=== PATIENT | female | born 1970 | race Caucasian/White ===

== ENCOUNTER 2018-02-20 02:05 | Outpatient (CLI) | payer OTHER, SELFPAY ==
[2018-02-20 09:05] LABS: Cholesterol 240 mg/dL (50-200); Glucose 92 mg/dL (70-100); HDL Cholesterol 62 mg/dL (40-60); LDL CHOLESTEROL 147 mg/dL (<100); Triglyceride 120 mg/dL (30-150)
== END 2018-02-20 02:25 ==
PROVIDERS: PCP Family Medicine; Visit Provider Nurse Practitioner Family
DX: Z13.220 Encounter for screening for lipoid disorders (principal); Z13.1 Encounter for screening for diabetes mellitus
CPT/HCPCS: 36415; 80061; 82947; 83721

== ENCOUNTER 2019-02-26 00:49 | Outpatient (CLI) | payer OTHER, SELFPAY ==
--- NOTE | 2019-02-26 15:30 | DI.MAMMO_ITS ---
EXAM: MG MAMMO SCREENING CLINICAL HISTORY: screening. TECHNIQUE: Bilateral full field digital CC and MLO mammographic images were obtained with 3D tomosyn thesis and utilizing computer aided detection (CAD). COMPARISON: There are multiple priors with the most recent from 12/20/2017. FINDINGS: Masses/Architectural Distortion: None seen. Microcalcifications: No suspicious pleomorphic-type are seen. IMPRESSION: 1. No significant interval change with no specific features of malignancy noted. 2. Unless there is more urgent need, screening mammography is recommended, as per [employer] guidelines. ACR BI-RAD Category- 1 Negative Breast Density - Category B - Scattered areas of fibroglandular density A negative radiographic report should not delay biopsy if a dominant or clinically suspicious mass is present. Up to ten percent of cancers are not identified on mammography. A negative report may reinforce clinical impression. Adenosis and dense breasts may obscure an underlying neoplasm. False positive reports average 6 to 10%.
== END 2019-02-26 01:09 ==
PROVIDERS: PCP Family Medicine; Visit Provider Nurse Practitioner Family
DX: Z12.31 Encounter for screening mammogram for malignant neoplasm of breast (principal)
CPT/HCPCS: 77063; 77067

== ENCOUNTER 2019-05-06 09:02 | Day surgery (SDC) | payer OTHER, SELFPAY ==
--- NOTE | 2019-05-06 08:29 | W.COLOREPORT ---
Date of service: 05/06/19 Time of Service: 10:38 Colonoscopy Report Date of procedure: 05/06/19 Pre-op diagnosis general: Colon Cancer Screening Post-op diagnosis procedure note: other (Multiple polyps) Procedure: Colonoscopy with polypectomy by cold forceps Surgeon: Lashawn Ivey Anesthesia proc note operative: other (General/ ASA 2/ Vidya Frias, SANTOS) Estimated blood loss (mL): 5 Pathology: other (Sigmoid polyps x5, Descending colon polyp x2, Transverse polyp x1) Complications: None Disposition: same day Indications: The patient is here for Colonoscopy pre-op. She has no family history of colon cancer. She has not had any bowel habit changes however reports chronic constipation. -Discussed colonoscopy bowel prep as well as the procedure. Discussed possible complications of the procedure to include bleeding, pain, perforation, missed small lesion/polyp, sore throat, aspiration and adverse reaction to the medications. Questions were answered to patient?s satisfaction. No guarantees were implied or given. Prep: Miralax/Dulcolax Procedure Start Time: :38 Procedure End Time: 11:06 Retraction Time: 16 minutes Findings: Multiple small sessile polyps Procedure Description: After informed consent was obtained the patient was taken to the procedure room and placed in a left decubitous position. Monitors were applied and a time out was done. The patients name, date of , procedure, allergies to medications and metal in their body was reviewed. The patient was then sedated. Once sedated and comfortable a rectal exam was done. External exam was normal. Internal exam revealed a normal sphincter tone and no palpable masses. The scope was then introduced and retro-flexed. Grade 1 internal hemorrhoids were identified. The scope was then advanced to the cecum without difficulty. Multiple sigmoid polyps were removed as the scope was advanced to the cecum because they were small. The TI and appendiceal orifice were identified. The prep was adequate. The scope was then slowly retracted over 16 minutes back into the rectum. Polyps were removed with cold forceps in the sigmoid colon x5, Descending colon polyp x1, Transverse colon polyp x1, and proximal Descending colon polyp x1. The scope was removed and the patient was woken up and taken back to Same day surgery in stable condition. The patient tolerated the procedure well and there were no immediate complications. Follow up: The patient should follow up in 3-5 years unless they develop changes in bowel habits or other new gastrointestinal complaints.
--- NOTE | 2019-05-06 08:31 | W.PM.DSUDISC ---
Discharge Plan Disposition Patient Disposition: HOME Condition: Good Discharge Details Reason For Visit: Colon Cancer Screening Attending Provider: Lashawn Ivey Primary Care Provider: Dora Elliott Home Meds and New Rx's Prescriptions: Continued melatonin 10 mg capsule 10 mg PO HS PRNRF: 0 estradiol 0.5 mg tablet 0.5 mg PO DAILY Qty: 90 RF: 3 Humira 40 MG/0.8 ML kit 40 mg SQ TWICE A MONTH RF: 0 ibuprofen 200 MG capsule 200 mg PO PRN RF: 0 diphenhydramine HCl [Benadryl] 25 MG capsule 25 mg PO PRN RF: 0 multivitamin [Daily Multi-Vitamin] 1 EACH tablet 1 ea PO DAILY RF: 0 acetaminophen [Tylenol] 325 mg Capsule 650 mg PO ONCE RF: 0 Discontinued polyethylene glycol 3350 17 gram/dose powder 238 g PO ONCE Qty: 238 RF: 0 bisacodyl [Dulcolax (bisacodyl)] 5 mg tablet,delayed release (DR/EC) 5 mg PO ONCE Qty: 4 RF: 0 Discharge Instructions Instructions: Colorectal Polyps (DC) Additional Instructions: Findings: Multiple small polyps Follow up: 3-5 years for your next colonoscopy Please call if you develop: fevers >101.5 Nausea or Vomiting Abdominal pain that is not transient DAY SURGERY UNIT POST ENDOSCOPY INSTRUCTIONS 1. Because there will be medication in your system for the next 24 hours, you may feel a little sleepy. Your coordination will be affected. Therefore: a. Do not drive or operate dangerous equipment for 24 hours. b. Do not drink alcohol beverages for 24 hours (not even beer). c. Plan to go home and rest for the day. 2. Generally there are no restrictions on your activity after a day or so has gone by, but you may feel a bit fatigued for a few days. 3 After you arrive home you may have a light meal and return to a normal diet as you can tolerate it without feeling sick to your stomach. 4. After surgery, you may feel pain or discomfort. This should be only transient, but if it persists please contact your doctor. 5. If there are any questions regarding the findings of your procedure, please feel free to contact your doctor. 6. If you are unable to contact your doctor with a problem, contact the hospital at [phone]. 7. Continue all your regular medications unless directed otherwise. I understand the above instructions and have no questions. Signature of Patient or Responsible Adult Escort Date/Time Name of Responsible Adult Escort Signature of Nurse Date/Time Activity:: Activity as Tolerated Diet:: As Tolerated Discharge Orders Discharge Orders: Discharge Order (Routine); Ordered 05/06/19 Ordered By: Lashawn Ivey DS: Diagnosis Discharge Diagnosis (1) S/P colonoscopy: Status: Acute (2) Colorectal polyps: Status: Acute
[2019-05-06 09:15] VITALS: BP 122/68; PULSE 54; RESP 18; TEMP 36.5; O2SAT 99
[2019-05-06] MEDS: Lactated Ringers 1,000 ML 80 ML IV (09:40)
--- NOTE | 2019-05-06 10:40 | BOWEL_PTH ---
PATIENT: Jessica Amato LOC: [facility] U#:[id number] AGE/SX: 48/F ROOM: RE05/06/[address]: Lashawn Ivey MD : [id number] BED: DIS: 05/06/2019 SPEC #: [id number] RECD: 05/06/19 13:06 STATUS: BIRGIT RE #: [id number] ALEXIA: 05/06/19 10:[address]: Lashawn Ivey DEPT: Surgical Specimen RECD BY: Bianka Petty ENTERED: 05/06/19 13:08 SP TYPE: Bowel OTHR DR: Dora Elliott Tissues: 1 - BIOPSY BOWEL 2 - BIOPSY BOWEL 3 - BIOPSY BOWEL 4 - BIOPSY BOWEL Procedures: GROSS AND MICRO LEVEL 4 Comments: [id number]
[2019-05-06 11:50] VITALS: BP 136/80; PULSE 61; RESP 20; TEMP 36.7; O2SAT 98
== END 2019-05-06 12:30 | disposition home or self-care (01) ==
LOC: SUR 09:02
PROVIDERS: PCP Family Medicine; Visit Provider Surgery
PROC: 0DJD8ZZ Inspection of Lower Intestinal Tract, Via Natural or Artificial Opening Endoscopic (ICD-10-PCS; CPT 45378; principal; 2019-05-06 10:15)
DX: Z12.11 Encounter for screening for malignant neoplasm of colon (principal); D12.4 Benign neoplasm of descending colon; K63.5 Polyp of colon; K21.9 Gastro-esophageal reflux disease without esophagitis; K64.0 First degree hemorrhoids
CPT/HCPCS: 45380; 88305

== ENCOUNTER 2019-05-14 02:33 | Outpatient (CLI) | payer OTHER, SELFPAY ==
[2019-05-14 08:51] LABS: CREATININE 0.72 mg/dL (0.55-1.02)
--- NOTE | 2019-05-14 10:11 | DI.CT_ITS ---
EXAM: CT ABDOMEN PELVIS W CLINICAL HISTORY: ? Ventral hernia, RUQ near midline, K43.9, LUMP ON STOMACH TECHNIQUE: After IV and oral contrast. COMPARISON: No exams were available for comparison FINDINGS: There is a small defect in the midline of the anterior abdominal wall at the level of the inferior m argin of the liver. There is a small amount of fat herniating through the defect. There is a minima l amount of fat in the umbilicus. There is an additional tiny defect with a tiny amount of herniatin g fat seen beneath the level of the umbilicus. The lung bases are clear. The heart size is normal. The liver shows a few tiny hypodensities, likel y cysts. There is no biliary dilatation. The gallbladder, spleen, pancreas, adrenals and kidneys ar e unremarkable. The urinary bladder appears normal. Patient is status post hysterectomy. The appen tonya appears normal. There is a moderate to increased quantity of stool seen throughout the colon. T here are no inflammatory changes. There is no small bowel dilatation. The aorta is normal in diamet er. There is calcification of the iliac arteries with mild reduction in diameter. Degenerative disc changes are seen at L5-S1. IMPRESSION: Two tiny fatty containing hernias above and below the level of the umbilicus.
[2019-05-14] MEDS: Omnipaque 350 MG/ML 100 ML BTL IJ (10:22)
== END 2019-05-14 02:53 ==
PROVIDERS: PCP Family Medicine; Visit Provider Physical Therapy Assistant
DX: K42.9 Umbilical hernia without obstruction or gangrene (principal); R22.2 Localized swelling, mass and lump, trunk
CPT/HCPCS: 74177; 82565; J3490

== ENCOUNTER 2019-06-25 07:40 | Day surgery (SDC) | payer OTHER, SELFPAY ==
[2019-06-25 08:01] VITALS: BP 107/59; PULSE 54; RESP 16; TEMP 36.4; O2SAT 97
[2019-06-25] MEDS: Lactated Ringers 1,000 ML 80 ML IV (08:35)
--- NOTE | 2019-06-25 08:36 | PDOC.DSDIS_ITS ---
Discharge Plan Disposition Patient Disposition: HOME Condition: Good Discharge Details Reason For Visit: Incisional hernia repair Attending Provider: Bridgette Dawkins Primary Care Provider: Dora Elliott Home Meds and New Rx's Prescriptions: New hydrocodone-acetaminophen 5-325 mg Tablet 1 tab PO Q4H PRN (Reason: Pain) Qty: 12 RF: 0 Continued melatonin 10 mg capsule 10 mg PO HS PRNRF: 0 estradiol 0.5 mg tablet 0.5 mg PO DAILY Qty: 90 RF: 3 Humira 40 MG/0.8 ML kit 40 mg SQ TWICE A MONTH RF: 0 ibuprofen 200 MG capsule 200 mg PO PRN RF: 0 diphenhydramine HCl [Benadryl] 25 MG capsule 25 mg PO PRN RF: 0 multivitamin [Daily Multi-Vitamin] 1 EACH tablet 1 ea PO DAILY RF: 0 acetaminophen [Tylenol] 325 mg Capsule 650 mg PO ONCE PRNRF: 0 Discharge Instructions Additional Instructions: The top bandage can be removed tomorrow. The steri strips will usually stick for about a week. When the edges start to curl up, they can be removed. It is okay to shower tomorrow, the water can run over the steri strips Do not swim or soak in a tub for two weeks Call for any concerns including fever, increased pain, vomiting, incision redness or drainage. Do not lift more than 15 pounds for four weeks. Walking and stairs are fine. Do not drive if on narcotic pain meds or if limited by pain. May use Tylenol alternating with ibuprofen for pain control. Ice is also an option. The maximum dose for Tylenol is 4000 mg/day. May use ibuprofen 800 mg every 8 hours as needed. If concerned about constipation, you may use a stool softener or milk of magnesia. Referrals: Bridgette Dawkins MD [ [facility] STAFF PHYSICIAN] - (Return in 10-14 days for a postop visit) Activity:: Do not lift more than 15 pounds for four weeks Remove Dressings/Wound Care:: 24 hours Shower/Bathe:: 24 hours Diet:: As Tolerated Discharge Orders Discharge Orders: Discharge Order (Routine); Ordered 06/25/19 Ordered By: Bridgette Dawkins DS: Diagnosis Discharge Diagnosis (1) Incisional hernia: Status: Acute
[2019-06-25] MEDS: ceFAZolin 2 GM/50 ML BAG IVPB (08:43)
[2019-06-25] MEDS: Bupivacaine 0.25% Pres-Free 30 ML VIAL (09:20)
[2019-06-25 10:05] VITALS: BP 94/57; PULSE 75; RESP 16; TEMP 36.2; O2SAT 93
[2019-06-25] MEDS: HYDROcodone 5/Acetaminophen 325 TAB PO (10:29)
--- NOTE | 2019-06-26 07:17 | ROE_ITS ---
REPORT OF OPERATIVE PROCEDURE DATE OF PROCEDURE June 25, 2019 PREOPERATIVE DIAGNOSIS Incisional Hernia. POSTOPERATIVE DIAGNOSIS Incisional Hernia. PROCEDURE Incisional hernia repair. SURGEON Bridgette Dawkins M.D. ITEM REPAIR MANAGER Annalisa Hagan PA-C ANESTHESIA Local and General. INDICATIONS This is a 48-year-old woman who presents with a tender lump in the epigastric region. The patient's h istory is significant for a laparoscopic Ishmael fundoplication and the lump is located underneath one of her prior incisions. This was visualized on CT. She also was incidentally noted to have a small fat containing umbilical hernia on CT, which is not palpable and not bothersome to the patient, so we have elected not to repair this. PROCEDURE DESCRIPTION The patient was placed supine on the operating table and her abdomen was prepped and draped sterilely . A small upper abdominal midline incision was made after injecting local anesthetic. The subcutaneo us tissue was divided with cautery down to a small piece of preperitoneal fat. This was about the siz e of an almond. This was reduced through a fingertip sized fascial defect at one of the port sites. T his was too small for mesh placement, so the defect was closed with buried 0 Prolene sutures. Three of these were placed good closure. There was good hemostasis. The skin was closed with #4-0 Monocryl subcuticular stitch. She tolerated the procedure well and was stable to recovery.
== END 2019-06-25 11:03 | disposition home or self-care (01) ==
PROVIDERS: PCP Family Medicine; Visit Provider Surgery
PROC: (CPT 49560; principal; 2019-06-25 09:00)
DX: K43.2 Incisional hernia without obstruction or gangrene (principal); K21.9 Gastro-esophageal reflux disease without esophagitis
CPT/HCPCS: 49560; J0690; J1100; J1885; J2250; J2405; J2704

== ENCOUNTER 2021-07-16 18:14 | Outpatient (REF) | payer OTHER, SELFPAY ==
[2021-07-16 18:46] LABS: HCT 39.2 % (36.0-46.0); HGB 12.9 g/dL (11.2-15.7); MCH 31.2 pg (27.0-33.0); MCHC 32.9 % (32.0-36.0); MCV 94.7 fL (80-95); MPV 10.8 fL (8.0-11.0); Platelet Count 289 10^3/uL (130-400); RBC 4.14 10^6/uL (3.93-5.22); RDW 13.1 % (11.7-14.6); RDW-SD 45.7 fL
[2021-07-16 18:59] LABS: Hemoglobin A1C 5.6 % (<5.7)
[2021-07-16 19:06] LABS: ALT 26 U/L (14-59); AST 13 U/L (15-37); Albumin 3.8 g/dL (3.4-5.0); Alkaline Phosphatase 64 U/L (46-116); Anion Gap 8.5 mmol/L (3-11); BUN 15 mg/dL (7-18); Bilirubin, Total 0.3 mg/dL (0.2-1.0); CO2 26.5 mmol/L (21.0-32.0); CREATININE 0.9 mg/dL (0.55-1.02); Calculated LDL 193 mg/dL (<100); Chloride 107 mmol/L (98-107); Cholesterol 292 mg/dL (<200); Glucose 85 mg/dL (74-106); HDL Cholesterol 81 mg/dL (40-60); Potassium 4.1 mmol/L (3.5-5.1); Sodium 142 mmol/L (136-145); TSH (W/Ref FT4) 0.53 uIU/mL (0.36-3.74); Triglyceride 91 mg/dL (<150)
[2021-07-19 09:51] LABS: Ferritin 28 ng/mL (10-291)
[2021-07-19 10:44] LABS: Hepatitis C Ab w Rflx HCV PCR Negative (Negative)
[2021-07-19 12:15] LABS: HIV-1/2 Ag & Ab Screen Negative (Negative)
== END 2021-07-16 18:15 | disposition home or self-care (01) ==
LOC: NCHCN 18:14
PROVIDERS: PCP Family Medicine; Visit Provider Family Medicine
DX: Z00.00 Encounter for general adult medical examination without abnormal findings (principal); E78.5 Hyperlipidemia, unspecified; R53.83 Other fatigue; K62.5 Hemorrhage of anus and rectum; R35.89 Other polyuria; Z11.4 Encounter for screening for human immunodeficiency virus [HIV]; Z11.59 Encounter for screening for other viral diseases
CPT/HCPCS: 80053; 80061; 85027; 86803; 87389; 82728; 83036; 84443

== ENCOUNTER → 2021-09-03 00:21 | Outpatient (CLI) | payer OTHER, SELFPAY ==
--- NOTE | 2021-09-03 06:45 | DI.RAD_ITS ---
Exam(s) RF BARIUM SWALLOW EXAM: RF BARIUM SWALLOW CLINICAL HISTORY: Dysphagia, GERD sxs, s/p Ishmael,r13.10, hiatal hernia TECHNIQUE: 2D and realtime digital imaging was performed. CONTRAST MATERIAL: Thin and thick barium both single and air contrast. Study was performed both sta nding and recumbent.. COMPARISON: No exams were available for comparison FINDINGS: ESOPHAGRAM: The swallowing mechanism is grossly intact. There was no aspiration demonstrated. No Zenker's diver ticulum nor fixed lesions nor strictures. No posterior indentation to suggest presence of an aberran t right subclavian artery nor other vascular sling abnormality. At the GE junction there is no evidence of hiatal hernia in this patient who is apparently at prior N issen fundoplication surgery approximately 4 years ago. Of was not able to elicit a hiatal hernia no r significant reflux. Also no Schatzki ring. No tertiary waves. No prominent reflux demonstrated. IMPRESSION: No obvious abnormality evident on this esophagram study. No evidence of hiatal hernia, given the his tory of prior Ishmael fundoplication. RADIATION DOSE DELIVERED: mouna Mccarthy= mGy
[2021-09-03] MEDS: Barium Sulfate 60% W/V 355 ML BTL PO (09:50)
== END ==
PROVIDERS: PCP Family Medicine; Visit Provider Physical Therapy Assistant
DX: R13.10 Dysphagia, unspecified (principal); K21.9 Gastro-esophageal reflux disease without esophagitis; Z98.890 Other specified postprocedural states
CPT/HCPCS: 74221; J3490

== ENCOUNTER → 2021-10-01 00:18 | Outpatient (CLI) | payer OTHER, SELFPAY ==
--- NOTE | 2021-10-01 15:30 | DI.MAMMO_ITS ---
Exam(s) MAMMO SCREENING EXAM: MAMMO SCREENING CLINICAL HISTORY: SCREENING, Z12.39. TECHNIQUE: Bilateral full field digital CC and MLO mammographic images were obtained with 3D tomosyn thesis and utilizing computer aided detection (CAD). COMPARISON: Prior mammograms were reviewed, the most recent being February 2019. FINDINGS: No significant left breast findings. In the right breast there are few microcalcifications noted which are new but benign appearance. There are no new spiculated masses nor malignant appearing microcalcification groups. There is no significant architectural distortion nor skin thickening-retraction. IMPRESSION: Benign findings. No radiographic evidence of malignancy. BI-RADS Category 2 - Benign Findings Density: Breast density Category C or D implies that the patient has dense breast tissue. Dense breast tissue can make it harder to find cancer on a mammogram. Dense breast tissue is also associated with an incr eased risk of breast cancer. This information about the result of the mammogram report was provided to the patient to raise their awareness. Use this report when you speak with the patient about their risks for breast cancer, which includes their family history. At that time, you may recommend additional screening tests (Ultrasoun d or MRI) as these tests may add significant information. A negative radiographic report should not delay biopsy if a dominant or clinically suspicious mass is present. Up to ten percent of cancers are not identified on mammography. A negative report may reinforce clinical impression. Adenosis and dense breasts may obscure an underlying neoplasm. False positive reports average 6 to 10%. Patient will receive a letter notifying them of these results.
== END ==
PROVIDERS: PCP Family Medicine; Visit Provider Family Medicine
DX: Z12.31 Encounter for screening mammogram for malignant neoplasm of breast (principal); R92.0 Mammographic microcalcification found on diagnostic imaging of breast
CPT/HCPCS: 77063; 77067

== ENCOUNTER 2021-10-06 00:58 | Outpatient (CLI) | payer OTHER, SELFPAY ==
[2021-10-06 09:52] LABS: Source Nasal/Nares
[2021-10-06 14:17] LABS: COVID-19 PCR Negative (Negative)
== END 2021-10-06 00:59 | disposition home or self-care (01) ==
LOC: LBO 00:58
PROVIDERS: PCP Family Medicine; Visit Provider Surgery
DX: Z20.822 Contact with and (suspected) exposure to COVID-19 (principal); Z01.818 Encounter for other preprocedural examination
CPT/HCPCS: 87635

== ENCOUNTER 2021-10-08 13:03 | Day surgery (SDC) | payer OTHER, SELFPAY ==
--- NOTE | 2021-10-07 14:39 | NUR.NOTE ---
X2 voicemails left for patient with arrival time and instructions, unable to reach patient, office made aware. Nursing Note:
--- NOTE | 2021-10-07 16:48 | W.PM.DSUDISC ---
Discharge Plan Disposition Patient Disposition: HOME Condition: Good Discharge Details Reason For Visit: Stomach scope Attending Provider: Ashley Vences Primary Care Provider: Dora Elliott Home Meds and New Rx's Prescriptions: No Action acetaminophen [Tylenol Arthritis Pain] 650 mg tablet extended release 650 mg PO Q12H PRN melatonin 10 mg capsule 10 mg PO HS PRN polyethylene glycol 3350 [Miralax] 17 gram/dose powder 17 g PO DAILY cholecalciferol (vitamin D3) 50 mcg (2,000 unit) capsule 50 mcg PO DAILY Humira 40 MG/0.8 ML kit 40 mg SQ TWICE A MONTH Label Comments: Pt reports not having since 05/18 diphenhydramine HCl [Benadryl] 25 MG capsule 25 mg PO PRN multivitamin [Daily Multi-Vitamin] 1 EACH tablet 1 ea PO DAILY pantoprazole 40 mg tablet,delayed release (DR/EC) 40 mg PO DAILY atorvastatin 40 mg tablet 40 mg PO DAILY Allergy Relief (cetirizine) 10 mg capsule 10 mg PO DAILY PRN clobetasol 0.05 % cream 1 applic topical BID acetaminophen [Tylenol] 325 mg Capsule 650 mg PO ONCE PRN Discharge Instructions Additional Instructions: Post?EGD?Instruction -wrap is intact -bile reflux from intestines into stomach ?You had anesthesia for your EGD/stomach scope today.? For your safety, please do the following for the next twenty-four (24) hours: Do Not operate a motor vehicle (car, truck, motorcycle, etc.) Do Not drink alcoholic beverages or use any recreational drugs for the first 24 hours or while taking pain medications. The medications in your body may have a reaction that can be dangerous. Do Not make any important decisions or sign any important papers ?You have just had a gastroscopy (EGD) or upper GI tract examination. It is important for your smooth recovery that you carefully follow the recommendations below. Do not hesitate to call if any questions should arise about your anesthesia, condition, or care. -Symptoms you may experience during the next 24 hours: ?1. Mild abdominal pain or excessive gas or a bloated feeling which improves with rest, liquids, eating? slightly, and walking as tolerated. 2. Drowsiness and/or forgetfulness because of the medications you were given. ?3. Throat numbness for about 1 hour. 4. A sore throat which you can treat with throat lozenges or by gargling with salt water 4-5 times a day. 5. Redness at the site of your IV which you can treat with warm compresses. ? SPECIAL INSTRUCTIONS: 1. You may resume your previous diet in one hour. We recommend a light meal to start, then progress as tolerated. 2. Restart regular medications in one hour. 3. No aspirin or non-steroidal containing medication for three days. 4. No lifting over 20 pounds or strenuous activity for the first 24 hours after your procedure. After 24 hours there are no restrictions on your activity, but you may feel fatigued for a few days. -Medications: stop asa/NSAID's protonix daily carafate elixir x4 daily. -Continue to follow lifestyle modifications: No alcohol, tobacco products, Aspirin or NSAID's (ibuprofen, Motrin, Naprosyn, aleve, etc).? Try to limit/avoid:? soda pop/any carbonated beverages, caffeine (including tea & chocolate), and acidic foods, (tomatoes, citrus, onions, peppermints) spicy or fried/fatty foods. Do not lie down for 30 minutes after eating, and do not eat 2 hours prior to bedtime. Avoid wearing tight fitting clothing/ belts. Follow up: Dr. Vences in clinic 09/23/21 at 1pm Call the office at [phone] (Office) or [phone] (Hospital), or go to the ER right away if you notice any of the followin. Vomiting blood and /or ?coffee ground? material. ?2. Worsening of abdominal pain or cramping. ?3. Trouble with breathing, cough, and/or fever (temperature above 101.5 F). 4. Increasing pain with swallowing. ?5. Chest pain. 6. Any new symptoms. 7. Worsening of the redness at the IV site Activity:: See above Diet:: See above Discharge Orders Discharge Orders: Discharge Order (Routine); Ordered 10/07/21 Ordered By: Ashley Vences
--- NOTE | 2021-10-07 16:49 | W.PM.ENDDOP ---
Date of service: 10/08/21 Time of Service: 14:00 Endoscopy Report DATE OF PROCEDURE: 10/08/21 PRE-OP DIAGNOSIS: Medication refractory GERD/status post Ishmael POST-OP DIAGNOSIS: other (Bile reflux gastritis) SURGEON: Ashley Vences ANESTHESIA TYPE: General:No Airway PATHOLOGY: other COMPLICATIONS: None DISPOSITION: same day PROCEDURE DESCRIPTION: After informed consent was obtained the patient was take to the procedure room and placed in a supine position. Monitors were applied and a time out was done. The patients name, date of , procedure type, allergies to medications and metal in their body was reviewed. A bite block was placed and the patient was sedated. Once sedated and comfortable the gastroscope was advanced through the oropharynx which was grossly normal into the esophagus. The Olympus scope was then easily passed into the oropharynx and down into the esophagus. There is no esophageal erosions varices diverticula or stricture. Her wrap is intact. Biopsies are taken of the esophagus proximal to the wrap and of the esophagus that is incorporated within the wrap. On entering the stomach, there is noted to be a significant amount of bile within the stomach itself. She has some mild gastritis in a striped pattern radiating out from the antrum. Near the antrum there is a well-circumscribed erythematous region of unknown significance. This is biopsied. Also near the wrap itself, there is also a well-circumscribed area of erythema of an unknown significance. This is biopsied as well. The duodenum appears grossly normal. There is no duodenitis, polyps, masses or ulcer. There is no hiatal hernia. Biopsies are taken. All specimen is retrieved and no bleeding is noted. Patient told procedure well without complication and transferred to same-day surgery in stable condition.
[2021-10-08 13:30] VITALS: BP 125/79; PULSE 55; RESP 17; TEMP 36.8; O2SAT 98
[2021-10-08] MEDS: Lactated Ringers 1,000 ML 80 ML IV (13:35)
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
[2021-10-08 13:51] VITALS: BMI 35.7
--- NOTE | 2021-10-08 14:05 | BOWEL_PTH ---
PATIENT: Jessica Amato LOC: [facility] U#:[id number] AGE/SX: 50/F ROOM: RE10/08/[address]: Ashley Vences : 1970 BED: DIS: 10/08/2021 SPEC #: [id number] RECD: 10/08/21 14:52 STATUS: BIRGIT RE #: [id number] ALEXIA: 10/08/21 14:[address]: Ashley Vences DEPT: Surgical Specimen RECD BY: Racheal Ragsdale ENTERED: 10/08/21 14:56 SP TYPE: Bowel OTHR DR: Dora Elliott Tissues: 1 - BIOPSY BOWEL 2 - STOMACH BIOPSY 3 - STOMACH BIOPSY 4 - STOMACH BIOPSY 5 - STOMACH BIOPSY 6 - ESOPHAGUS BIOPSY Procedures: GROSS AND MICRO LEVEL 4 Comments: [id number]
[2021-10-08 14:20] VITALS: BP 125/79; PULSE 55; RESP 17; TEMP 36.8; O2SAT 98
--- NOTE | 2021-10-08 14:22 | W.ANESPOSTOP ---
Postoperative Evaluation Date, Time and Location Date Performed: 10/08/21 Time Performed: : Patient Location: Day [facility] Unit Vital Signs Most Recent Imported Vital Signs: Most Recent Vital Signs Temp Pulse Resp BP Pulse Ox 36.8 C 55 L 17 125/79 98 10/08/21 13:30 10/08/21 13:30 10/08/21 13:30 10/08/21 13:30 10/08/21 13:30 Most Recent Manually Entered Vital Signs: Adult Blood Pressure: 102/64 Heart Rate: 61 Respirations: 10 Oxygen Saturation (%): 95 Temperature (C): 36.3 C Pain Score (0-10 Scale): 0 Pain Score Most Recent Pain Score: Most Recent Pain Score Pain Level 0 10/08/21 13:30 Assessment Mental Status: Awake (Alert & Oriented to Patient Baseline) Airway and Respiratory Function: Patent airway with normal (patient baseline) respiratory exam Cardiovascular Function: Hemodynamically Stable Hydration Status: Adequately Hydrated Nausea & Vomiting: No Nausea or Vomiting Pain: Pt. Denies Any Pain Peripheral Nerve Block: Patient did not receive a nerve block
[2021-10-08 14:23] VITALS: BP 102/64; PULSE 61; RESP 10; TEMPC 36.3; O2SAT 95
[2021-10-08 14:55] VITALS: BP 114/77; PULSE 49; RESP 17; TEMP 36.1; O2SAT 95
== END 2021-10-08 16:00 | disposition home or self-care (01) ==
PROVIDERS: PCP Family Medicine; Visit Provider Surgery
PROC: 0DJ68ZZ Inspection of Stomach, Via Natural or Artificial Opening Endoscopic (ICD-10-PCS; CPT 43235; principal; 2021-10-08 13:45)
DX: K21.9 Gastro-esophageal reflux disease without esophagitis (principal); F41.8 Other specified anxiety disorders; E78.5 Hyperlipidemia, unspecified; E66.9 Obesity, unspecified; K31.89 Other diseases of stomach and duodenum; K22.89 Other specified disease of esophagus
CPT/HCPCS: 43239; 88305

== ENCOUNTER 2022-07-11 15:56 | Outpatient (REF) | payer OTHER, SELFPAY ==
[2022-07-11 16:02] LABS: HCT 41.6 % (36.0-46.0); HGB 14.1 g/dL (11.2-15.7); MCH 31.8 pg (27.0-33.0); MCHC 33.9 % (32.0-36.0); MCV 94 fL (80-95); MPV 11.2 fL (8.0-11.0); Platelet Count 281 10^3/uL (130-400); RBC 4.44 10^6/uL (3.93-5.22); RDW 12.4 % (11.7-14.6); RDW-SD 42.8 fL; WBC 5.03 10^3/uL (4.4-10.8)
[2022-07-11 16:28] LABS: AST 17 U/L (15-37); Calculated LDL 199 mg/dL (<100); Cholesterol 289 mg/dL (<200); Ferritin 66 ng/mL (8-252); HDL Cholesterol 68 mg/dL (40-60); Triglyceride 112 mg/dL (<150)
== END 2022-07-11 15:57 | disposition home or self-care (01) ==
LOC: NCHCN 15:56
PROVIDERS: PCP Family Medicine; Visit Provider Family Medicine
DX: D50.9 Iron deficiency anemia, unspecified (principal); E78.5 Hyperlipidemia, unspecified; Z79.899 Other long term (current) drug therapy
CPT/HCPCS: 80061; 85027; 82728; 84450

== ENCOUNTER 2022-11-26 12:24 | Emergency (ER) | payer OTHER, SELFPAY ==
[2022-11-26 12:28] VITALS: BP 114/75; PULSE 84; RESP 16; TEMP 36.5; O2SAT 96
[2022-11-26 12:49] LABS: Bilirubin Large (Negative); Blood Small (Negative); Clarity Clear (Clear); Glucose Negative (Negative); Ketones >=160 mg/dL (Negative); Leukocyte Esterase Negative (Negative); Nitrite Negative (Negative); Specific Gravity 1.025 (1.005-1.025); pH 5.5 (5-8)
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
[2022-11-26 13:04] LABS: Bacteria Rare HPF (Negative); C & S Indicated? No; Casts Negative LPF (Negative); Crystals Negative HPF (Negative); Epithelial Cells Moderate HPF (Negative); Mucus Moderate (Negative); WBC 0-2 HPF (0-5)
[2022-11-26 13:06] LABS: Abs Immature Grans 0.01 10^3/uL (0.0-0.06); Absolute Basophil Count 0.04 10^3/uL (0.0-0.2); Absolute Monocyte Count 0.41 10^3/uL (0.1-0.8); Absolute Neutrophil Count 0.99 10^3/uL (1.2-6.7); Basophils % 1.2; HCT 41.4 % (36.0-46.0); HGB 14.4 g/dL (11.2-15.7); Immature Grans % 0.3; Lymphocytes % 55.4; MCH 31.6 pg (27.0-33.0); MCHC 34.8 % (32.0-36.0); MCV 91 fL (80-95); MPV 11.7 fL (8.0-11.0); Monocytes % 12.6; Neutrophils % 30.5; RBC 4.56 10^6/uL (3.93-5.22); RDW 12.3 % (11.7-14.6); RDW-SD 41.1 fL; WBC 3.25 10^3/uL (4.4-10.8)
[2022-11-26 13:14] LABS: Lipase 45 U/L (16-77)
[2022-11-26 13:18] LABS: ALT 58 U/L (14-59); AST 46 U/L (15-37); Albumin 3.7 g/dL (3.4-5.0); Alkaline Phosphatase 64 U/L (46-116); Anion Gap 13.3 mmol/L (3-11); BUN 15 mg/dL (7-18); Bilirubin, Total 0.4 mg/dL (0.2-1.0); CO2 21.7 mmol/L (21.0-32.0); Calcium 8.5 mg/dL (8.5-10.1); Chloride 104 mmol/L (98-107); Estimated GFR 66.95 (mL/min/1.73m2); Glucose 88 mg/dL (74-106); Magnesium 1.8 mg/dL (1.8-2.4); Potassium 3.5 mmol/L (3.5-5.1); Sodium 139 mmol/L (136-145); Total Protein 7.5 g/dL (6.4-8.2)
--- NOTE | 2022-11-26 13:30 | DI.CT_ITS ---
Exam(s) CT ABDOMEN PELVIS W EXAM: CT ABDOMEN PELVIS W CLINICAL HISTORY: Left side abdominal pain, fever TECHNIQUE: Imaging Protocol: Axial computed tomography images with coronal and sagittal reformatted images were created and reviewed CONTRAST MATERIAL: Intravenous: Omnipaque 350 Contrast volume:100 mL Oral: No COMPARISON: CT CT ABDOMEN PELVIS W from 05/14/2019 FINDINGS: ABDOMEN: Lung Bases: Normal where visualized. Liver: Normal density. There are tiny hypodensities seen in the liver which are too small for further characterization but likely reflect small cysts. No follow-up is recommended. Portal, Superior Mesenteric, and Splenic Veins: Unremarkable. Gallbladder and Biliary Tract: No radiodense calculus or dilation. Pancreas: Normal density, no abnormal calcifications or inflammatory process. Spleen: Normal. Adrenals: No masses seen. Kidneys: Normal size, contour and axis. No radiodense stones or obstructive uropathy. No masses seen. Abdominal Aorta: Abdominal portion non-dilated. Atherosclerosis. Bowel: There is no bowel wall thickening seen. There is no evidence of bowel obstruction. The left colon is largely collapsed limiting evaluation. Appendix is unremarkable. Peritoneal Cavity: No ascites, collection or mesenteric inflammatory response. No free air. Lymph Nodes: Within normal limits. Bones: Within normal limits for the patient's age. Soft Tissues: Small fat containing umbilical hernia. PELVIS: Bladder: Symmetric distention, no gross wall thickening. Reproductive Organs: Status post hysterectomy. Lymph Nodes: Within normal limits. Bones: Within normal limits for the patient's age. IMPRESSION: 1. No definite acute abnormality. 2. If there is continued concern for bowel inflammation/infection, a repeat examination may be obtain ed. 3. No abscess or free air. RADIATION DOSE DELIVERED: 1,086.81mGy.cm Total DLP DATA REPOSITORY: All CT scans at this facility are submitted to the National Radiology Data Registry (NRDR) Dose Index Registry (DIR) with the [employer] ([employer]). RADIATION OPTIMIZATION: All CT scans at this facility use at least one of these dose optimization te chniques: automated exposure control; mA and/or kV adjustment per patient size (includes targeted exa ms where dose is matched to clinical indication); or iterative reconstruction.
[2022-11-26] MEDS: Normal Saline 1,000 ML 1000 ML IV (13:47)
[2022-11-26 14:02] LABS: Platelet Count 94 10^3/uL (130-400)
[2022-11-26 14:03] LABS: Diff Comment Agrees w/ Instrument; RBC Morphology Normal
[2022-11-26] MEDS: DOXYCYCLINE 100 MG in Normal Saline 100 ML IVPB (14:15)
[2022-11-26] MEDS: Omnipaque 350 MG/ML 100 ML BTL IJ (14:36)
[2022-11-26] MEDS: Normal Saline - Diluent 50 ML VIAL IJ (14:36)
--- NOTE | 2022-11-26 15:13 | DI.VRAD_ITS ---
PROCEDURE INFORMATION: Exam: CT Abdomen And Pelvis With Contrast Exam date and time: 11/26/2022 2:37 PM Age: 52 years old Clinical indication: Other: Left side abdominal pain, fever TECHNIQUE: Imaging protocol: Computed tomography of the abdomen and pelvis with contrast. Radiation optimization: All CT scans at this facility use at least one of these dose optimization techniques: automated exposure control; mA and/or kV adjustment per patient size (includes targeted exams where dose is matched to clinical indication); or iterative reconstruction. Contrast material: OMNIPAQUE 350; Contrast volume: 100 ml; Contrast route: INTRAVENOUS (IV); COMPARISON: CT ABDOMEN PELVIS W 14/05/2019 10:11 FINDINGS: Diaphragm: Small hiatal hernia. Liver: Stable subcentimeter hypodensities in the liver consistent with hepatic cysts. Gallbladder and bile ducts: Normal. No calcified stones. No ductal dilation. Pancreas: Normal. No ductal dilation. Spleen: Surgical clips in the region of the splenic hilum. The spleen is unremarkable. Adrenal glands: Normal. No mass. Kidneys and ureters: Normal. No hydronephrosis. Stomach and bowel: Contracted fluid-filled stomach. Normal caliber small bowel. Scattered diverticuli with minimal infiltration of the pericolonic fat in the left lower quadrant may represent early diverticulitis. Appendix: No evidence of appendicitis. Intraperitoneal space: Unremarkable. No free air. No significant fluid collection. Vasculature: Atherosclerotic disease. Lymph nodes: Scattered inguinal lymph nodes. Urinary bladder: Contracted urinary bladder. Reproductive: Hysterectomy. Bones/joints: Decreased bone mineralization. Degenerative changes of the spine. Soft tissues: Umbilical hernia. IMPRESSION: 1. Diverticulosis with minimal infiltration of pericolonic fat in the left lower quadrant may represent early diverticulitis. 2. Additional findings as discussed above. Dictated and Authenticated by: Sasha Haro MD. Ordering:REINIER Goodman MD
[2022-11-26 15:36] VITALS: TEMP 36.8
[2022-11-26] MEDS: Ondansetron O.D.T. 4 MG TABEF, 3 TABS/BTL PO (15:57)
[2022-11-26 15:58] VITALS: BP 118/82; PULSE 82; TEMP 36.8; O2SAT 97
[2022-11-28 11:11] LABS: Lyme Ab w Rflx to Lyme Confirm Negative (Negative)
[2022-11-29 19:31] LABS: B. miyamotoi PCR Negative (Negative); Babesia divergens/MO-1 Negative (Negative); Babesia duncani Negative (Negative); Babesia microti Negative (Negative); Ehrlichia chaffeensis Negative (Negative); Ehrlichia ewingii/canis Negative (Negative); Ehrlichia muris eauclairensis Negative (Negative)
[2022-11-29 19:44] LABS: Anaplasma phagocytophilum Positive (Negative)
== END 2022-11-26 15:59 | disposition home or self-care (01) ==
PROVIDERS: Emergency Provider Registered Nurse Emergency; PCP Family Medicine
DX: K57.92 Diverticulitis of intestine, part unspecified, without perforation or abscess without bleeding; W57.XXXA Bitten or stung by nonvenomous insect and other nonvenomous arthropods, initial encounter; R50.9 Fever, unspecified; S40.869A Insect bite (nonvenomous) of unspecified upper arm, initial encounter
CPT/HCPCS: 36415; 80053; 83690; 87798; 96365; 99285; 74177; 81003; 81015; 83735; 85025; 86618; 99284; J3490

== ENCOUNTER 2022-11-30 02:44 | Outpatient (CLI) | payer OTHER, SELFPAY ==
[2022-12-02 13:52] LABS: TB Interpretation Negative (Negative)
== END 2022-11-30 02:45 | disposition home or self-care (01) ==
LOC: LBO 02:44
PROVIDERS: PCP Family Medicine; Visit Provider Dermatology
DX: Z79.899 Other long term (current) drug therapy (principal); L40.0 Psoriasis vulgaris
CPT/HCPCS: 36415; 86480

== ENCOUNTER 2023-09-20 08:33 | Outpatient (REF) | payer OTHER, SELFPAY ==
[2023-09-20 15:31] LABS: AST 12 U/L (15-37)
[2023-09-21 19:50] LABS: Calculated LDL 181 mg/dL (<100); Cholesterol 273 mg/dL (<200); HDL Cholesterol 72 mg/dL (40-60); Triglyceride 102 mg/dL (<150)
== END 2023-09-20 08:34 | disposition home or self-care (01) ==
LOC: NCHCN 08:33
PROVIDERS: PCP Family Medicine; Visit Provider Family Medicine
DX: Z51.81 Encounter for therapeutic drug level monitoring (principal); Z13.6 Encounter for screening for cardiovascular disorders
CPT/HCPCS: 80061; 84450

== ENCOUNTER → 2023-10-10 00:59 | Outpatient (CLI) | payer OTHER, SELFPAY ==
--- NOTE | 2023-10-10 | DI.MAMMO_ITS ---
Exam(s) MAMMO SCREENING EXAM: MAMMO SCREENING CLINICAL HISTORY: Z12.31 Screening. TECHNIQUE: Bilateral full field digital CC and MLO mammographic images were obtained with 3D tomosyn thesis and utilizing computer aided detection (CAD). COMPARISON: Prior mammograms were reviewed. Most recent mammogram was September 2021. FINDINGS: No new left breast findings. Further increase in benign-appearing microcalcifications in the right breast noted. There are no new spiculated masses nor new malignant appearing microcalcification groups. There is no significant architectural distortion nor skin thickening-retraction. IMPRESSION: Benign findings. No radiographic evidence of malignancy. BI-RADS Category 2 - Benign Findings Breast Density - Category A - Almost entirely fatty Breast density Category C or D implies that the patient has dense breast tissue. Dense breast tissue can make it harder to find cancer on a mammogram. Dense breast tissue is also associated with an incr eased risk of breast cancer. This information about the result of the mammogram report was provided to the patient to raise their awareness. Use this report when you speak with the patient about their risks for breast cancer, which includes their family history. At that time, you may recommend additional screening tests (Ultrasoun d or MRI) as these tests may add significant information. A negative radiographic report should not delay biopsy if a dominant or clinically suspicious mass is present. Up to ten percent of cancers are not identified on mammography. A negative report may reinforce clinical impression. Adenosis and dense breasts may obscure an underlying neoplasm. False positive reports average 6 to 10%. Patient will receive a letter notifying them of these results.
== END ==
PROVIDERS: PCP Family Medicine; Visit Provider Family Medicine
DX: Z12.31 Encounter for screening mammogram for malignant neoplasm of breast (principal)
CPT/HCPCS: 77063; 77067

== ENCOUNTER 2024-02-23 02:17 | Outpatient (CLI) | payer OTHER, SELFPAY ==
--- OUTSIDE RECORDS SUMMARY | 2024-02-23 02:20 | XMS_ITS | Encounter Summary ---
Author Organization [facility] [place] [address] Care Team Providers Care Bag Worker Name Role Phone Dora Elliott MD Primary Care Provider [phone] Reason for Visit * Reason Comments Urinary Incontinence * Consultation - Closed Specialty Diagnoses / Procedures Referred By Contac t Referred To Contact Urogynecology / Obstetrics and Gynecology Diagnoses URINARY STRESS INCONTIENCE DUE TO EROSION OF VAGINAL MESH Ubaldo Lees MD [address] [place] [address],[address] [address] [facility] Of [facility] Specialist [address] [place] [address] Referral ID Status Reason Start Date Expiration Date Visits Re quested Visits Authorized [id number] Closed 10/12/2020 10/12/2021 1 1 Encounter Details Date Type Department Care Team (Late st Contact Info) Description 10/21/2020 9:00 AM EDT Office Visit Obstetrics [place] [address] Flower Jiménez MD [facility] [place] [address] Urinary incontinence, unspecified type Social History Tobacco Use Types Packs/Day Years Used Date Smoking Tobacco: Former Cigarettes Q uit: 10/22/2015 Smokeless Tobacco: Never Alcohol Use Standard Drinks/Week Comments Yes 0 (1 standard drink = 0.6 oz pur e alcohol) rare Sex and Gender Information Value Date Recorded Sex Assigned at Not on file Gender Identity Not on file Sexual Orientation Not on file documented as of this encounter Last Filed Vital Signs Vital Sign Reading Time Taken Comments Blood Pressure 136/80 10/21/2020 8:47 AM EDT Pulse 57 10/21/2020 8:47 AM EDT Temperature 36.4 ??C (97.6 ??F) 10/21/2020 8:47 AM ED T Respiratory Rate 12 10/21/2020 8:47 AM EDT Oxygen Saturation 98% 10/21/2020 8:47 AM EDT Inhaled Oxygen Concentration - - Weight 85.7 kg (189 lb) 10/21/2020 8:47 AM EDT Height 156.8 cm (5' 1.75) 10/21/2020 8:47 AM ED T Body Mass Index 34.85 10/21/2020 8:47 AM EDT documented in this encounter Progress Notes * Flower Jiménez MD - 10/21/2020 9:00 AM EDT Female Pelvic Medicine and Reconstructive Surgery @ [facility] Patient Name: Jessica Amato Patient Primary Care Provider: Dora Elliott MD Referring provider: Ubaldo Lees Patient Active Problem List Diagnosis Code ??? Psoriasis L40.9 ??? GERD (gastroesophageal reflux disease) K21.9 Chief Complaint: Dysuria, History of Present Illness: Ms. Amato is a 49 y.o. old para 2 woman, seen at the kind request of Ubaldo Lees. She presents for evaluation and assessment of concern for recent dysuria and pelvic pain that has been ongoing for 5 weeks with negative urine test. She saw primary care provider and then follow up with Dr. Lees. She has used estradiol cream for 3 weeks. With such severe ongoing pain, Dr. Lees referred her here for her symptoms. In the morning, she is fine. The pain starts after about 2 weeks being at work, and starts with a sensation of pulling followed with constant suprapubic pelvic pain that crampy and feels like a UTI, with substantial dysuria and sensation of urinating razor blader. By the end of the day, the pain isreally severe, and it is hard to sleep. Improves by the morning. Pyridium helped for the 2 days she took it. She also has substantial urgency and frequency, only when having pain. She can notice a small vaginal bulge, like something is falling down, which is painful. She has a history of UTI with , needing prophylaxis during . She has mild stress urinary incontinence with cough/sneeze, that is a bit better than it was. Ho multiple procedures for ui, including two different mesh products as mus and bladder neck sling using koi fascia. She had pevlic pain, dyspareunia na dpalpable mesh, with excision of exposed vaginal mesh 04/2016. PSH: ho hiatal hernia with slipped Ishmael; 11/13/2007 LAVH RSO for pelvic pain [facility] another midurethra sling, timing uncertain Lap LSO 05/18/10 for left ovarian cyst and pelvic pain 05/09/2012 Pubovaginal sling with autologous rectus fascia 05/12/16 vaginal mesh exposure iwth excision 05/12/16; PMH: obesity, pain in right hip, psoriasis on humira, GERD, chronic constipation, menopause, HLD, leukopenia, h/o colonic polyps, abnormal ammmo, BEAU Previous urinary incontinence/prolapse treatments (Medical/Behavioral/Surgical): 3 surgeries for stress urinary incontinence. Goals for this visit 1. To have it removed, if its causing the pain. Urinary tract history Patient denies history of recurrent urinary tract infection. Patient denies history of pyelonephritis. Patient denies history of urinary tract abnormality. Patient denies history of nephrolithiasis. Patient denies history of hematuria. Bladder Function Urinary incontinence: Yes, with sneeze/cough and with urgency No. episodes: Several per day Pad use (per day): 1-3+ Pad type: liner Daytime voids: Q30 min Nocturia: 3+ times; has always gotten up once; worse in last 5-6 weeks. Concern for FORTINO: +snoring Previous urinary incontinence treatment (Medical/Behavioral/Surgical): 3 prior surgeries for stressurinary incontinence ICIQ-UI Short Form How often do you leak urine? Never 0 About once a week or less often 1 2-3 times a week 2 About once a day 3 4 Several times a day 4 All the time 5 How much urine do you usually leak? None 0 1 A small amount 1 A moderate amount 2 A large amount 3 Overall, how much does leaking interfere with your everyday life? 2 (0 not at all, 10 a great deal) ICIQ Sum the scores: 7 When does urine leak? (Check all that apply) Never - Urine does not leak y Leaks before you can get to the toilet y Leaks when you cough or sneeze Leaks when you are asleep Leaks when you are physically active/exercising Leaks when you have finished urinating or are dressed Leaks for no obvious reason Leaks all the time Bladder irritants: Fluid intake: Water Caffeine intake: Coffee in AM x 2; rarely at dinner Artificial sweeteners: no Cigarette smoking (packs, time, if quit when): no, quit 5 years ago Alcohol: occasionalll Storage symptoms q30min Urinary frequency 3+ Nocturia y Stress urinary incontinence - leakage with exertion, cough/sneeze y Urge urinary incontinence - leakage preceded immediately by urge to void Noctural enuresis - NOT IN ASSOCIATION WITH URGE Continuous urinary leakage Other: (e,g. giggle, intercourse-related) Bladder sensation Normal - aware of filling and increased sensation up to desire to void y Increased - feels an early and persistent need to void Reduced - aware of filling but NOT definite desire to void Absent - NO sensation of filling or need to void Non-specific - No specific bladder symptoms during filling or void Voiding symptoms None Slow stream Spraying Intermittent stream - stop/start on > 1 occasion during void Straining - muscular effort to initiate, maintain OR improve stream Terminal dribble - prolonged final part of void y Feeling of incomplete emptying Pelvic Organ Prolapse (POP) Do you personally see or feel a vaginal bulge? unsure What precipitates prolapse or symptoms of prolapse? no Previous treatment for POP (physical therapy, pessary, surgery)?: No; prior LAVH. Bowel Function Bowel concerns: Prior constipation, now on stool softener Number of bowel movements (day/week): Daily Fecal incontinence (yes/no): no Number of fecal incontinent episodes (day/week): N/a Defecatory Dysfunction: Symptom Presence Symptom Presence NONE Incomplete Emptying Straining Infrequent stools (<3 week) Splinting Abdominal discomfort Loose stools Defecatory urgency Hard stools previously Other Sexual Function Active?: Yes; longstanding; not much recently due to discomfort Pain with intercourse?: Yes If yes, insertional/Deep? Both Desire to retain sexual function? Yes MEDICAL HISTORY No past medical history on file. Past Surgical History: Procedure Laterality Date ??? PRO LAP, ESOPHAGUS, OTHER PROC N/A 03/20/2018 LAPAROSCOPIC REVISION OF ISHMAEL FUNDOPLASTY (WRVU *) performed by Erik Herndon MD at [facility] MAIN OR ??? PRO UPPER GI ENDOSCOPY, DIAGNOSTIC N/A 03/20/2018 ENDOSCOPY, UPPER GI, DIAGNOSTIC, WITH OR WITHOUT SPECIMENS performed by Erik Herndon MD at [facility] MAIN OR OB History Para Term AB Living 3 2 2 0 1 2 SAB TAB Ectopic Multiple Live Births 1 0 0 0 0 # Outcome Date GA Lbr Larry/2nd Weight Sex Delivery Anes PTL Lv 3 SAB 2 Term 1 Term Gynecologic History: LMP: No LMP recorded. Patient has had a hysterectomy. Menopause: yes, ablation age 37, and status post hyst Hormone replacement: just started vaginal estrogen; prior systemic therapy Outpatient Medications Marked as Taking for the 10/21/20 encounter (Office Visit) with Flower Jiménez MD Medication Sig Dispense Refill ??? acetaminophen (Tylenol) 325 mg Tablet Take 650 mg by mouth every 4 hours as needed for Pain. ??? docusate sodium (Colace) 50 mg Capsule Take by mouth nightly. ??? estradioL (ESTRACE) 0.01 % (0.1 mg/gram) Cream Place 2 g vaginally nightly. ??? pediatric multivitamin Tablet, Chewable Take 2 tablets by mouth daily. ??? pantoprazole EC (Protonix) 40 mg Tablet, Delayed Release (E.C.) Take 40 mg by mouth daily. ??? HUMIRA PEN 40 mg/0.8 mL Pen Injector Kit INJECT ONE PEN SUBCUTANEOUSLY EVERY TWO WEEKS. REFRIGERATE. 2 kit 3 No Known Allergies Social History Socioeconomic History ??? Marital status: Spouse name: Not on file ??? Number of children: Not on file ??? Years of education: Not on file ??? Highest education level: Not on file Occupational History ??? Not on file Tobacco Use ??? Smoking status: Former Smoker Types: Cigarettes Quit date: 10/22/2015 Years since quittin.0 ??? Smokeless tobacco: Never Used Vaping Use ??? Vaping Use: Never used Substance and Sexual Activity ??? Alcohol use: Not on file ??? Drug use: Not on file ??? Sexual activity: Not on file Other Topics Concern ??? Not on file Social History Narrative ??? Not on file Social Determinants of Health Financial Resource Strain: ??? Difficulty of Paying Living Expenses: Food Insecurity: ??? Worried About Running Out of Food in the Last Year: ??? Ran Out of Food in the Last Year: Transportation Needs: ??? Lack of Transportation (Medical): ??? Lack of Transportation (Non-Medical): Physical Activity: ??? Days of Exercise per Week: ??? Minutes of Exercise per Session: No family history on file. ROS: Review of all other systems negative except for those mentioned above or indicated below: (blank indicates negative) System Symptom Presence Constitutional Weight loss y Weight gain Eyes History of glaucoma ENT/Mouth Mouth sores/Dry mouth Cardiovascular Chest pain Leg swelling Respiratory Wheezing SOB GI Nausea/vomiting Constipation Abdominal pain H/o diverticular disease Skin/Breast Breast masses Rash/ulcer Musculoskeletal Muscle weakness Trouble Walking Neurological Dizziness/falling Numbness Psychiatric Depression Anxiety Endocrine Abnormal thirst Menopause y Hot flashes y Hematologic Frequent bruising History of blood transfusions Blood clots (DVT / PE) Prior problems w/ anesthesia Outside medical records reviewed: yes Data reviewed (images/urodynamic studies): n/a OBJECTIVE: BP 136/80 Pulse 57 Temp 36.4 ??C (97.6 ??F) (Temporal) Resp 12 Ht 156.8 cm (5' 1.75) Wt 85.7 kg (189 lb) SpO2 98% BMI 34.85 kg/m?? To further delineate patient's urinary symptoms, a urine dip test and postvoid residual via the [employer] bladder scanner were obtained. After the patient voided, 20 mL was measured as a postvoid residual indicating normal emptying. Exam was performed with a showcase trimmer: Mirna. General: normal appearing female, pleasant mood, normal speech Skin: skin of abdomen/pelvis normal Respiratory: normal work of breathing Neuro: no paraspinous tenderness; saddle sensory function (S2-4) intact in the pelvic area to touch Cardiac: no lower extremity edema Gastrointestinal: no palpable masses/organomegaly, soft/nontender, no appreciable hernia Musculoskeletal: levator ani resting tone: 3/5, levator ani contraction: 1/5, Pelvic floor muscle tenderness: mild levator ani muscle, bilateral no coccygeus muscle, bilaterally mild obturator internus, left-sided Pelvic: Cough stress test (empty supine): Negative with 110mL External Genitalia: Vulva, [address] [address]'s and Bartholin glands normal, urethra without tenderness or mass Vagina: Tissue pale, scant rugation Atrophic epithelium (yes/no)?: yes Discharge?: trace Cervix: saad Bimanual (uterus/adnexa): vaginal cuff well healed, left anterior vaginal fornix, 3-4cm proximal tohymen, with transverse mesh exposure, with 1.5-2cm wide x 1mm high strip of exposure, and 2-3 cyst-like areas at left aspect; tenderness with palpation of the area. Can just feel mesh deep to intact,normal vaginal epithelium at midurethra as expected for normal midurethral sling. Mild tenderness to palpation at left vaginal cuff. Rectovaginal: not indicated POP Q Measurements: Aa -2 Ba -2 C -6 GH 2,2 PB 2.5 TVL 8 Ap -2 Bp -2 D N/a Results for orders placed or performed in visit on 10/21/20 POCT urine dipstick Result Value Ref Range POC Sp Danese 1.015 1.002 - 1.030 POC pH, UA 7 5.0 - 8.5 POC Leuk, UA Neg. Negative - Negative POC Nitrite, UA Neg. Negative - Negative POC Protein, UA Neg. Negative - Negative mg/dL POC Glucose, UA Norm. Normal - Normal mg/dL POC Ketone, UA Neg. Negative - Negative POC Urobil, UA Norm. 0.2 - 1.0 mg/dL POC Bili, UA Neg. Negative - Negative POC Blood, UA Neg. Negative - Negative gordon/uL Bladder Scanner Result Value Ref Range Bladder Scan (mL) 20 mL Simple cystometrics: PVR: 30cc S1: 30cc S2: 50cc S3: 80cc Capacity: 110cc +++ DO seen no BEAU demonstrated Impression: Ms. Amato is a .49 y.o. woman with: ?? Vaginal mesh exposure with vaginal pain ?? Overactive bladder / urinary urge incontinence ?? No evidence of stress urinary incontinence on sCMG; patient report of stress urinary incontinence on occasion We discussed that there is palpable exposed vaginal mesh at left side of mid- vagina, at location that is not usual for midurethral sling; I woud expect that possibly the first midurethral sling was placed proximally. The tissue is not consistent with the fascial sling she had, and a normal midurethral sling is palpable at midurethra. We discussed that surgical removal of the vaginal portion of the mesh is necessary to improve her symptoms; she has tried a brief time of vaginal estrogen, but thesize of the exposure and prior exposure with mesh resection make vaginal estrogen less likely to resolve her symptoms. I have reviewed the prior operative report for mesh excision, and suspect that aportion of the currently exposed mesh was excised and covered over. We discussed that there is a chance of bladder or urethral mesh exposure contributing to her recent bladder pain and recommended cystoscopy prior to final planning. Recommendations: Based on the patient's expressed goals for management I have recommended the following: ?? Schedule office cystoscopy to rule out bladder involvement of mesh ?? Start methenamine 1g BID on an ongoing basis. Stop if not helping pain. ?? Take pyridium (Azo) up three times a day, up to 4 days a week, for pain. ?? OK to use Tylenol and ibuprofen if needed. ?? Plan mesh resection, ideally vaginal portion only; possible laparoscopic RTC for cystoscopy I spent 58 minutes with the patient. Flower Jiménez MD Division of Female Pelvic Medicine/Reconstructive Surgery CC: MD Ubaldo Kerr documented in this encounter Plan of Treatment Upcoming Encounters Date Type Department Care Team (Late st Contact Info) Description 01/02/2025 3:30 PM EDT Office Visit Dermatology at [place] [address] [place] [id number] Jaquan Syed MD [address], [place] [address] documented as of this encounter Procedures Procedure Name Priority Date/Time Associated Diagnosis Comments HC URINE CULTURE Routine 10/21/2020 9:00 AM EDT Urinary incontinence, unspecified type BLADDER SCANNER Routine 10/21/2020 Urinary incontinence, unspecified type POCT URINE DIPSTICK Routine 10/21/2020 Urinary incontinence, unspecified type documented in this encounter Results * Urine culture Clean Catch Urine (10/21/2020 9:00 AM EDT) Pathologist [facility] Urine Culture No growth (Less than 1,000 cfu/ml). [facility] Clean Catch Urine 10/21/2020 9:00 AM EDT 10/21/2020 12:27 PM EDT Narrative Resulting Agency Comment Spec In Lab Flower Jiménez MD MICROBIOLOGY - GENER AL ORDERABLES [facility] [place] [id number] * Bladder Scanner (10/21/2020) Pathologist [facility] Bladder Scan (mL) 20 mL Flower Jiménez MD URO PROC W/O RFL ORD ERABLES * POCT urine dipstick (10/21/2020) Pathologist [facility] POC Sp Danese 1.015 1.002 - 1.030 POC pH, UA 7 5.0 - 8.5 POC Leuk, UA Neg. Negative - Negative POC Nitrite, UA Neg. Negative - Negative POC Protein, UA Neg. Negative - Negative mg/dL POC Glucose, UA Norm. Normal - Normal mg/dL POC Ketone, UA Neg. Negative - Negative POC Urobil, UA Norm. 0.2 - 1.0 mg/dL POC Bili, UA Neg. Negative - Negative POC Blood, UA Neg. Negative - Negative gordon/uL Flower Jiménez MD POINT OF CARE TEST O RDERABLES documented in this encounter Visit Diagnoses Diagnosis Urinary incontinence, unspecified type documented in this encounter Care Teams Bag Worker Relationship Specialty Start Date End Date Dora Elliott MD [address] [place] [address] PCP - General Family Medicine 08/11/20 documented as of this encounter
--- OUTSIDE RECORDS SUMMARY | 2024-02-23 02:20 | XMS_ITS | Encounter Summary ---
Author Organization [facility] [place] [address] Care Team Providers Care Head Of Maintenance Name Role Phone Dora Elliott MD Primary Care Provider [phone] Encounter Details Date Type Department Care Team (Latest Contact Info) Description 01/01/2024 Travel Social History Tobacco Use Types Packs/Day Years [...] on file documented as of this encounter Plan of Treatment Upcoming Encounters Date Type Department Care Team (Late st Contact Info) Description 01/02/2025 3:30 PM EDT Office Visit Dermatology at [address] [place] [phone] Jaquan Syed MD [address] [facility], [place] [address] documented as of this encounter Visit Diagnoses Not on filedocumented in this encounter Care Teams Head Of Maintenance Relationship Specialty Start Date End Date Dora Elliott MD [facility] [address] [facility] [facility] [address] [place] [address] PCP - General Family Medicine 08/11/20 documented as of this encounter
--- OUTSIDE RECORDS SUMMARY | 2024-02-23 02:20 | XMS_ITS | Encounter Summary ---
[place] [address] Care Team Providers Care Cyanide Furnace Operator Name Role Phone Dora Elliott MD Primary Care Provider [phone] Encounter Details Date Type Department Care Team (Late Contact Info) Description 10/24/2023 Telephone Dermatology at [address] [address] Magnolia Daily LPN Social History Tobacco Use Types Packs/Day Years [...] on file documented as of this encounter Miscellaneous Notes * Telephone Encounter - Magnolia Daily LPN - 10/24/2023 4:32 PM EDT 10/24/23 Received paperwork from [employer] coverage for Humira Pen has been approved with no co pay from 10/20/23 thru 10/18/2024. Pharmacy has attempted to contact patient without return call. The medication can not be shipped until patient contacts pharmacy for delivery at [phone]. Nurse left message with above information on her home phone number. documented in this encounter Plan of Treatment Upcoming Encounters Date Type Department Care Team (Late st Contact Info) Description 01/02/2025 3:30 PM EDT Office Visit Dermatology at [place] [address] [place] [address] Jaquan Syed MD [address], [place] [address] documented as of this encounter Visit Diagnoses Not on filedocumented in this encounter Care Teams Cyanide Furnace Operator Relationship Specialty Start Date End Date Dora Elliott MD [address] [place] [address] PCP - General Family Medicine 08/11/20 documented as of this encounter
--- OUTSIDE RECORDS SUMMARY | 2024-02-23 02:20 | XMS_ITS | Encounter Summary ---
Author Organization [facility] [place] [address] Care Team Providers Care Business Practices Supervisor Name Role Phone Dora Elliott MD Primary Care Provider [phone] Reason for Visit * Auth/Cert Specialty Diagnoses / Procedures Referred By Contac t Referred To Contact Diagnoses Vaginal pain Exposure of implanted vaginal mesh Vaginal mesh exposure, vaginal pain Procedures PRO REVISION VAGINAL GRAFT, VAG APPROACH REVISION PROSTHETIC GRAFT\W-W\O REMOVAL VAGINAL APPROACH (WRVU 7.82) Referral ID Status Reason Start Date Expiration Date Visits Re quested Visits Authorized [id number] 1 1 Encounter Details Date Type Department Care Team (Late st Contact Info) Description 11/24/2020 7:28 AM EDT Anesthesia [place] [address] Lupe Marcial MD [facility] [place] [address] Anesthesia Record Procedure Summary Procedure Name Responsible Anesthesiologist Anesthesia Start Time Anesthesia Stop Time REVISION PROSTHETIC GRAFT\W-W\O REMOVAL VAGINAL APPROACH (WRVU 7.82) (Pelvis) Lupe Marcial MD 11/24/20 0728 11/24/20 0956 Events Date Time Event Comment 11/24/2020 0711 0728 AN Verify 0728 Start 0728 An Start Data 0729 Anesthesia Ready 0955 Recovery or ICU Handoff Deya ent care was transferred to the destination unit staff after review of the patient's medical history, current anesthetic/surgical status and plan, according to the Provider Handoff Checklist. 0956 Stop Meds Name Total Midazolam 1 mg fentaNYL 100 mcg Propofol INF 1,156.95 mg ceFAZolin (Ancef) 2 g in dextrose 5% 100 mL infusion 2 g HYDROmorphone 0.8 mg ketorolac (Toradol) (30 mg/mL) injection 15 mg * Agents Name O2 Air N2O * Blood No blood administrations on file. Lines, Drains, and Airways Type Details Placement Removal Incision 03/20/18; 1139; abdo men; laparoscopic punctures (specify); trocars (x6); 01/24/22 (LDA cleanup utility RA#[id number]); 1715 (LDA cleanup utility RA#[id number]) 03/20/18 1139 by Bebeto Velázquez RN 01/24/22 1715 by Christiano Nickerson (RETIRED) Peripheral IV Line - Single Lumen 11/24/20; 0630; cephalic vein (lateral side of arm), left; [id number] catheter system; Anatomical Landmarks; 20 gauge; Eriberto RN; intradermal injection, distraction, tolerated well, appears comfortable; 0; 11/24/20; 1054 11/24/20 0630 by Mary Wei RN 11/24/20 1054 by Ayo Fernandez RN Incision 11/24/20; 0804; vagi na; 01/24/22 (LDA cleanup utility RA#[id number]); 1715 (LDA cleanup utility RA#[id number]) 11/24/20 0804 by Shannen Pina RN 01/24/22 1715 by Christiano Nickerson documented in this encounter Social History Tobacco Use Types Packs/Day Years [...] on file documented as of this encounter OR Notes * Anesthesia Postprocedure Evaluation - Kamran Platt MD - 11/24/2020 9:20 AM EDT Department of Anesthesiology Post-procedure Note Patient: Jessica Amato Procedure Summary Date: 11/24/20 Room / Location: [address] MAIN OR Anesthesia Start: 727 Anesthesia Stop: Procedures: REVISION PROSTHETIC GRAFT\W-W\O REMOVAL VAGINAL APPROACH (WRVU 7.82) (N/A Pelvis) CYSTO, CYSTOURETHROSCOPY, DIAGNOSTIC (WRVU 2.23) (N/A Bladder) Diagnosis: (Vaginal mesh exposure, vaginal pain, dysuria) Surgeons: Flower Jiménez MD Responsible Provider: Lupe Marcial MD Anesthesia Type: MAC ASA Status: 2 All Anesthesia Providers: Anesthesiologist: Lupe Marcial MD Quilting Machine Operator: Kamran Platt MD Vitals Value Taken Time BP 119/76 11/24/20 0916 Temp Pulse Resp SpO2 97 % 11/24/20 0919 Pain Level Vitals shown include unvalidated device data. Patient Location: PACU/[facility] Level of Consciousness: Awake and Alert Pain Management: Satisfactory Analgesia PONV: None Cardiovascular Status: At Baseline and Hemodynamically Stable Respiratory Status: Supplemental O2 (NC or FM) Postoperative Fluid Status: Intravascular EUvolemia Possible Anesthetic Complications: NONE apparent at time of evaluation Final Primary Anesthesia Type: MAC (The anesthetic type performed was the same as planned.) Comments: Kamran Platt MD * Anesthesia Preprocedure Evaluation - Kamran Platt MD - 11/23/2020 4:09 PM EDT Pre-Anesthesia Evaluation for: Jessica Amato a 50 y.o. female. Procedure(s): REVISION PROSTHETIC GRAFT\W-W\O REMOVAL VAGINAL APPROACH (WRVU 7.82) Patient Active Problem List Diagnosis ??? GERD (gastroesophageal reflux disease) ??? Psoriasis Past Medical History: Diagnosis Date ??? Constipation ??? GERD (gastroesophageal reflux disease) ??? Hip pain right ??? History of colonic polyps last 2019, polyps removed, return in 7 years ??? HLD (hyperlipidemia) ??? Leukopenia ??? Psoriasis Past Surgical History: Procedure Laterality Date ??? GASTRIC FUNDOPLICATION 2008 [facility] ??? HERNIA REPAIR 2018 epigastric hernia, repaired with revision Kalyn ??? HYSTERECTOMY 10/2007 LAVH & RSO for pelvic pain ??? INCONTINENCE SURGERY 11/18/2008 TOT with mesh; Haroldo Naqvi MA ??? INCONTINENCE SURGERY 08/24/2006 Midurethral sling, Haroldo Naqvi MA; with D&C & endometrial ablation ??? PRO LAP, ESOPHAGUS, OTHER PROC N/A 03/20/2018 LAPAROSCOPIC REVISION OF KALYN FUNDOPLASTY (WRVU *) performed by Erik Herndon MD at [facility] MAIN OR ??? PRO UPPER GI ENDOSCOPY, DIAGNOSTIC N/A 03/20/2018 ENDOSCOPY, UPPER GI, DIAGNOSTIC, WITH OR WITHOUT SPECIMENS performed by Erik Herndon MD at [facility] MAIN OR ??? PUBOVAGINAL SLING 05/09/2012 autologous rectus fascia; Dr. Castro, [facility]. ??? REMOVAL OF VAGINAL MESH 05/12/2016 revision of exposed vaginal mesh ??? SALPINGO-OOPHORECTOMY 05/18/2010 LSO for pelvic pain Social History Tobacco Use ??? Smoking status: Former Smoker Types: Cigarettes Quit date: 10/22/2015 Years since quittin.0 ??? Smokeless tobacco: Never Used Substance Use Topics ??? Alcohol use: Yes Comment: rare Social History Substance and Sexual Activity Drug Use Not Currently No Known Allergies Medications: MAR and/or home medications have been reviewed. Physical Exam: Preprocedure Vitals Current as of 11/23/20 1609 No BP, pulse, respiration, SpO2, or temperature recorded. Height: Weight: 87.3 kg (192 lb 6.4 oz) (11/04/20) BMI: IBW: Airway Assessment: Mallampati: II TM distance: >3 FB Neck ROM: full Cardiovascular Assessment: Rhythm: regular Rate: normal Pulmonary Assessment: unlabored breathing Dental Assessment: Misc Assessment: Last Filed Perioperative Cognitive Screening None Anesthesia Plan: ASA 2 MAC, with a(n) intravenous induction Jessica Amato is a 50 y.o. female (BMI 35.48) with a hx significant for obesity, hyperlipidemia, GERD (protonix 40mg qd), and mixed urinary incontinence presenting for vaginal mesh excision and cystoscopy with Dr. Jiménez. NPO adequate. Activity prior to surgery: METS>4. Meds: No current facility-administered medications for this encounter. ??? methenamine (HIPREX) 1 gram Tablet ??? cholecalciferol, Vitamin D3, (cholecalciferol, Vitamin D3,) 50 mcg (2,000 unit) Capsule ??? acetaminophen (Tylenol) 325 mg Tablet ??? docusate sodium (Colace) 50 mg Capsule ??? pediatric multivitamin Tablet, Chewable ??? pantoprazole EC (Protonix) 40 mg Tablet, Delayed Release (E.C.) ??? estradioL (ESTRACE) 0.01 % (0.1 mg/gram) Cream ??? HUMIRA PEN 40 mg/0.8 mL Pen Injector Kit Allergies No Known Allergies Anesthesia Hx: *Pt denies any complications from anesthesia and any Fhx of complications with anesthesia. Previously tolerated anesthesia 2018, easy mask, grade 1 view w/ Palacio 2 EKG: None on file ECHO: None on file Labs: No results for input(s): WBC, HGB, HCT, PLATELET in the last 7068 hours. No results for input(s): NA, K, CL, CO2, BUN, CREATININE in the last 7068 hours. No results for input(s): AST, ALT, ALKPHOS, BILITOT, BILIDIR in the last 7068 hours. No results for input(s): PT, INR, PTT in the last 168 hours. No results found for: ABORH Plan is for MAC with IV induction, standard ASA monitors, and adequate IV access. ETT as backup. Informed Consent: Anesthetic plan and risks discussed with patient. Use of blood products discussed with patient who. Plan discussed with attending. Anesthesia Screening documented in this encounter Plan of Treatment Upcoming Encounters Date Type Department Care Team (Late st Contact Info) Description 01/02/2025 3:30 PM EDT Office Visit Dermatology at [place] [address] [place] [address] Jaquan Syed MD [address], [address] [place] [address] documented as of this encounter Visit Diagnoses Not on filedocumented in this encounter Administered Medications Inactive Administered Medications - up to 3 most recent administrations Medication Order MAR Action Action Date Dose Rate Site ceFAZolin (Ancef) 2 g in dextrose 5% 100 mL infusion 2 g, Intravenous, ONCE, 1 dose, On Mon11/24/20 at 0645, Administer over 30 Minutes, Tooth Cutter Contact Wheel to OR Infuse over 30 minutes., Day of Surgery (Day of Procedure), Indication for (Active or Suspected): Prophylaxis Given 11/24/2020 7:35 AM EDT 2 g fentaNYL (pf) (50 mcg/mL) multi-dose injection Intravenous, PRN, Starting on Mon11/24/20 at 0729, Until Mon11/24/20 at 0957, Anesthesia Intra-op, Routine Given 11/24/2020 7:29 AM EDT 100 mcg HYDROmorphone (Dilaudid) (2 mg/mL) multi-dose injection solution Intravenous, PRN, Starting on Mon11/24/20 at 0750, Until Mon11/24/20 at 0957, Anesthesia Intra-op, Routine Given 11/24/2020 8:35 AM EDT 0.2 mg Given 11/24/2020 8:24 AM EDT 0.2 mg Given 11/24/2020 8:22 AM EDT 0.2 mg ketorolac (Toradol) (30 mg/mL) injection Intravenous, PRN, Starting on Mon11/24/20 at 0907, Until Mon11/24/20 at 0957, Anesthesia Intra-op, Routine Given 11/24/2020 9:07 AM EDT 15 mg midazolam (pf) (Versed) (1 mg/mL) multi-dose injection Intravenous, PRN, Starting on Mon11/24/20 at 0724, Until Mon11/24/20 at 09, Anesthesia Intra-op, Routine Given 11/24/2020 7:24 AM EDT 1 mg propofoL (Diprivan) infusion Intravenous, CONTINUOUS PRN, Starting on Mon11/24/20 at 0728, Until Mon11/24/20 at 0957, Anesthesia Intra-op, Routine Rate/Dose Change 11/24/2020 8:22 AM EDT 150 mcg/kg/min 77.13 mL/hr New Bag 11/24/2020 7:28 AM EDT 125 mcg/kg/min 64.275 mL /hr documented in this encounter Care Teams Business Practices Supervisor Relationship Specialty Start Date End Date Dora Elliott MD [address] [facility] [address] [place] [address] PCP - General Family Medicine 08/11/20 documented as of this encounter
--- OUTSIDE RECORDS SUMMARY | 2024-02-23 02:20 | XMS_ITS | Encounter Summary ---
[place] [address] Care Team Providers Care Muskrat Trapper Name Role Phone Dora Elliott MD Primary Care Provider [phone] Reason for Visit * Reason Comments Prior Authorization Humira Pen 40mg/0.8m L PNKT Encounter Details Date Type Department Care Team (Late st Contact Info) Description 11/23/2021 Specialty [place] [address] Kevin Arita, RECYCLING PROGRAM MANAGER Social History Tobacco Use Types Packs/Day Years [...] on file documented as of this encounter Progress Notes * Kevin Arita - 11/23/2021 10:18 AM EDT [facility], Medication Prior Authorization Submission Patient: Jessica Amato Patient : 1970 Patient Address: [address] [place] [phone] (home) Medication Name: HUMIRA PEN 40 MG/0.8 ML SUBCUTANEOUS KIT Medication ID: Subscriber Insurance: Subscriber Insurance Comment: [employer] Fax: Physician: ELIAN HAWKINS Physician Comment: Sent Via: Fax Tubbs: Ref/Case/PA#: Medication Strength Frequency Requested: Humira Pen 40mg/0.8mL PNKT. Inject the contents of one pen(40mg) SQ every 14 days. Qty/Day Supply: 07/26 New Start: Insurance Change Diagnosis & ICD-10 Code: Psoriasis L40.9 Patient Notified: Yes Submission Notes: None Kevin Arita 11/23/21 10:21 AM * Kevin Arita - 11/23/2021 10:18 AM EDT [facility], Prior Authorization Denial Medication Name: HUMIRA PEN 40 MG/0.8 ML SUBCUTANEOUS KIT Medication ID: Case/Reference # : Denial Summary: INS REP CALLED STATING THIS MED IS NOT COVERED BY PLAN SO PA WILL NOT GO THROUGH. SHE SAID THAT PT SHOULD BE ELIGIBLE FOR MAP AND IF PT WOULD LIKE THEY CAN RECEIVE 1 TIME COURTESY FILL VIA [facility] ([employer] [employer] PLAN IS CONTRACTED WITH) . REP WILL SPEAK TO PT AND SEE WHAT THEY WOULD LIKE TO DO AND LET US KNOW IF WE NEED TO PEND TO [facility] Patient Notified of Denial: Yes Additional Information from insurance carrier. Please see below: [id number] Spoke with Violet at Dr. Hawkins's office. She will work with patient to apply for MAP. For any questions relating to this denial please reach out directly to your section's specialty pharmacist, or the specialty pharmacy team at [facility] Kevin Arita 12/08/21 7:43 AM documented in this encounter Plan of Treatment Upcoming Encounters Date Type Department Care Team (Late st Contact Info) Description 01/02/2025 3:30 PM EDT Office Visit Dermatology at [place] [address] [place] [address] Elian Hawkins MD [address], [place] [address] documented as of this encounter Visit Diagnoses Not on filedocumented in this encounter Care Teams Muskrat Trapper Relationship Specialty Start Date End Date Dora Elliott MD [facility] [address] [place] [address] PCP - General Family Medicine 08/11/20 documented as of this encounter
--- OUTSIDE RECORDS SUMMARY | 2024-02-23 02:20 | XMS_ITS | Encounter Summary ---
Author Organization [facility] [place] [address] Care Team Providers Care School Cook Name Role Phone Dora Elliott MD Primary Care Provider [phone] Encounter Details Date Type Department Care Team (Late Contact Info) Description 02/21/2023 Refill Dermatology at [address] [address] Jaquan Syed MD [address] [place] [phone] Social History Tobacco Use Types Packs/Day Years [...] Encounters Date Type Department Care Team (Late Contact Info) Description 01/02/2025 3:30 PM EDT Office Visit Dermatology at [address] [address] Jaquan Syed MD [address] [place] [phone] documented as of this encounter Visit Diagnoses Not on filedocumented in this encounter Care Teams School Cook Relationship Specialty Start Date End Date Dora Elliott MD [address] [place] [address] PCP - General Family Medicine 08/11/20 documented as of this encounter
--- OUTSIDE RECORDS SUMMARY | 2024-02-23 02:20 | XMS_ITS | Encounter Summary ---
Author Organization [facility] [place] [address] Care Team Providers Care Sausage Stringer Name Role Phone Dora Elliott MD Primary Care Provider [phone] Reason for Visit * Reason Comments Prior Authorization Humira 40mg/0.8ml PN KT Encounter Details Date Type Department Care Team (Late st Contact Info) Description 02/17/2023 Specialty [place] [address] Snehal Perla, KNITTER WIRE MESH Social History Tobacco Use Types Packs/Day Years [...] as of this encounter Progress Notes * Snehal Perla - 02/17/2023 10:13 AM EDT [facility], Medication Prior Authorization Submission Patient: Jessica Amato Patient : 1970 Patient Address: [address] [place] [phone] (home) Medication Name: HUMIRA PEN 40 MG/0.8 ML SUBCUTANEOUS KIT Medication ID: [id number] Subscriber Insurance: HESIODO Subscriber Insurance Comment: Fax: Physician: ELIAN HAWKINS Physician Comment: Sent Via: [facility] Tubbs: [id number] Ref/Case/PA#: Medication Strength Frequency Requested: Humira 40mg/0.8ml, INJECT THE CONTENTS OF ONE PEN (40 MG) SUBCUTANEOUSLY ONCE EVERY 14 DAYS Qty/Day Supply: 07/26 New Start: Renewal Diagnosis & ICD-10 Code: Psoriasis L40.9 Patient Notified: No Submission Notes: None Snehal Perla 02/17/23 10:34 AM * Snehal Perla - 02/17/2023 10:13 AM EDT [facility], Prior Authorization Approval Medication Name: HUMIRA PEN 40 MG/0.8 ML SUBCUTANEOUS KIT Medication ID: [id number] Approval Dates: 02/17/2023 to 08/17/2023 Insurance requirements/notes: - Insurance mandates to be filled with [facility] Other Notes: None Case/Reference #: [id number]. Approval notification Received via: Fax Copay: Copay assistance: Copay Notes: Insurance mandated Pharmacy: Unknown Fillable at [facility]: No Patient Notified: Yes Pharmacy staff will be reaching out to the patient to inform them of their medication[facility]. If applicable, a pharmacist will speak with the patient to offer our specialty pharmacy services and to arrange delivery of their medication. Snehal Perla 02/20/23 3:26 PM documented in this encounter Plan of Treatment Upcoming Encounters Date Type Department Care Team ([facility]) Description 01/02/2025 3:30 PM EDT Office Visit Dermatology at [place] [address] [place] [address] Elian Hawkins MD [address] [place] [address] documented as of this encounter Visit Diagnoses Not on filedocumented in this encounter Care Teams Sausage Stringer Relationship Specialty Start Date End Date Dora Elliott MD [facility] [address] [place] [address] PCP - General Family Medicine 08/11/20 documented as of this encounter
--- OUTSIDE RECORDS SUMMARY | 2024-02-23 02:20 | XMS_ITS | Encounter Summary ---
[facility] [place] [address] Care Team Providers Care Sap Solutions Architect Name Role Phone oDra Elliott MD Primary Care Provider [phone] Reason for Visit * Reason Comments Medication Refill Encounter Details Date Type Department Care Team (Late Contact Info) Description 04/17/2022 Refill Dermatology at [address] [address] Jaquan Syed MD [address] [place] [address], [place], [place] [id number] Social History Tobacco Use Types Packs/Day Years [...] 3:30 PM EDT Office Visit Dermatology at [address] [address] Jaquan Syed MD [address] [place] [phone] documented as of this encounter Visit Diagnoses Not on filedocumented in this encounter Care Teams Sap Solutions Architect Relationship Specialty Start Date End Date Dora Elliott MD [address] [place] [address] PCP - General Family Medicine 08/11/20 documented as of this encounter
--- OUTSIDE RECORDS SUMMARY | 2024-02-23 02:20 | XMS_ITS | Encounter Summary ---
Author Organization [facility] Address [facility] [place] [address] Care Team Providers Care Generator Assembler Name Role Phone Dora Elliott MD Primary Care Provider [phone] Encounter Details Date Type Department Care Team (Late st Contact Info) Description 2020 10:00 AM EDT Office Visit Obstetrics [place] [id number] Flower Jiménez MD [facility] [place] [address] Exposure of implanted urethral mesh, subsequent encounter Social History Tobacco Use Types Packs/Day [...] Sign Reading Time Taken Comments Blood Pressure 139/87 2020 10:29 AM EDT Pulse 54 2020 10:29 AM EDT Temperature 36.4 ??C (97.6 ??F) 2020 10:29 AM E DT Respiratory Rate 20 2020 10:29 AM EDT Oxygen Saturation 97% 2020 10:29 AM EDT Inhaled Oxygen Concentration - - Weight 87.3 kg (192 lb 6.4 oz) 2020 10:29 AM EDT Height - - Body Mass Index 35.48 10/21/2020 8:47 AM EDT documented in this encounter Patient Instructions * Patient Instructions* Flower Jiménez MD - 2020 10:00 AM EDT ?? Restart vaginal estrogen: use a kidney-pino sized amount at the vaginal opening and just inside.Use this every night for 2 weeks, then change to an ongoing use two nights per week. ?? We will call to schedule vaginal mesh excision and cystoscopy. ?? For your ongoing urinary incontinence, review the information below. == Overactive bladder ? Overactive bladder is urinary urgency, frequency caused by spasms of the bladder. It can cause urine leakage, known as urge incontinence. ? Our first treatment approach is a range of home-based therapies that have been shown to be effective in reducing the number of voids (and leaks) per day. ? Start with the treatments listed below, and we will schedule a follow up telephone visit to provide support for you and answer any questions. ? Pelvic floor physical therapy is also an option that can be very helpful. Home treatment options ? Fluid management ?? Avoid bladder irritants (caffeine, artificial sweeteners, alcohol, tobacco, carbonation, spicy/acidic foods & drinks) ?? Decrease fluid intake at night or before a long drive/meeting to reduce voiding; instead, drink more at other times of day to stay well hydrated. ?? Normal fluid intake should be 32-64 oz (1/2 to 1 gallon). ? Evidence-based home therapy for overactive bladder: ?? 1) Practice Kegel exercises - see below ?? 2) Practice Urge suppression strategies - see below ?? 3) Timed voiding ?? Set an alarm, and go try to empty your bladder every ___ minutes, whether you feel an urge or not. (Choose a time you KNOW you can wait without urgency or leaking, for instance, 30 or 60 min). ?? Do this every day for a week (daytime only), or until it becomes easy, and you are not having urgency or leakage. ?? If you do have an urge before it is time to void, use the Urge suppression strategies you have been practicing. ?? If you find that you still do have urgency/leakage, then you should set a shorter time between voids and start over. ?? 4) Bladder retraining - This can reestablish your brain's control over your bladder. Over several weeks to months, be strict with scheduling times to urinate. Gradually, you can increase the time between voids. ?? After your first week of timed voiding, then gradually increase the time between voids, by 10-15minutes. Every time your alarm goes off at this new time, go empty your bladder. When this becomes easy (approximately a week), increase the time again. ?? In this way you can gradually increase your comfortable time between voids. ?? Emptying your bladder every 2-4 hours is considered normal. More details 1) Kegel exercises Pelvic floor muscle strengthening Helpful instructions for doing Kegel exercises Recommended routine for Kegel exercises: ??? Start by pulling and holding a pelvic muscle squeeze for 3 seconds then relax for an equal amount of time 3 seconds. ??? Do this for 10 repetitions 3 times a day ??? Increase your contraction hold by 1 second each week until you are devika for a 10-second squeeze. ??? It is so important that you rest and breathe between contractions. When you start, do the exercises while lying down. As you get stronger, doing exercise sets to sitting and standing. ??? To make it easier to remember to do the exercises, make a habit of doing them when at the same time as some other routine activities, such as brushing your teeth, washing the dishes, sitting at ared light in your car, or watching a commercial on television. Kegel exercises are frequently discussed and childbirth classes are written about a magazine articles. Unfortunately, because pelvic muscles are hidden from view, it is difficult to know if you are doing them correctly. Some tips I can help you find the right muscles include: ??? Imagine you are going to pass gas, then, squeeze the muscles that would prevent that gas from escaping from your rectum. Exercising the muscles around the rectum will also strengthen those aroundthe vagina and under the bladder. ??? Use a hand mirror to look at your vaginal opening in the perineum (the muscle wall between the vagina and rectum). You should see the perineum lift up when you contracture pelvic muscles. While lying or sitting, place 1 finger inside your vagina. Squeeze as if you are trying to stop urine from coming out. You should feel your finger lifted and squeezed towards her head if you are correctly devika your pelvic muscles ??? Do not hold your breath while exercising ??? Remember not to tighten your stomach and back muscles or squeeze your legs together. They should be relaxed as you isolate and contract just your pelvic muscles. ??? You do not have to do this alone! If you are not sure that you are doing the exercises correctly, let us know and we can give you a referral for a pelvic floor physical therapy evaluation. I feltpelvic floor physical therapist is like a professional athletes coach to help you learn to use your pelvic floor muscles the best you can. They also can evaluate your back and abdominal strength, your gait and your posture. All of these affect how your pelvic muscles work. 2) Urge suppression strategies - Freeze and Squeeze If you have trouble reaching the bathroom before you start losing urine, we recommend trying this technique. When you get the urge to urinate: ?? Stop and stay still, sit down if you can ?? Squeeze your pelvic floor muscles quickly 5-10 times; repeat as needed. ?? Relax the res tof your body and take a deep breath ?? Concentrate on suppressing the urge ?? Distract yourself to get your mind on something else. ?? Wait until the urge subsides, then walk to the bathroom at a normal pace. ?? Don't ignore the message - once it subsided, then walk to the bathroom to empty. documented in this encounter Progress Notes * Corey James DO - 2020 10:00 AM EDT Cystourethroscopy Procedure Note Indications/Diagnosis: Urethral pain and vaginal mesh exposure Anesthesia: 2% Xylocaine jelly, intraurethral. Procedure Details The risks, benefits, complications, treatment options, and expected outcomes were discussed with the patient. The patient concurred with the proposed plan, giving informed consent. Prior to the procedure, time out protocol was followed with identification of the patient by name, date of . The planned procedure was confirmed. Cystoscopy was performed today under local anesthesia, using sterile technique. The patient was placed in the dorsal lithotomy position, prepped with Betadine, and draped in the usual sterile fashion. 2% Xylocaine jelly was inserted intraurethrally with a sterile cotton swab. A rigid cystoscope wasused to inspect both the urethra and bladder. Findings: Urethra: normal, without strictures Bladder: mucosa normal; no trabeculations present; no foreign bodies, stones or polyps Ureteral orifice(s): were seen bilaterally and in normal position with efflux of clear urine. Specimens: None Complications: None, patient tolerated the procedure well. Prophylaxis: No indication for prophylaxis against urinary tract infection, but the patient was counseled on the small risk of UTI. Condition: stable Pelvic Exam: Bilateral levator spasm and tenderness. Left urethral sulcus and bladder neck with band of mesh as previously described and 1cm knuckle of tissue associated with tenderness on exam Cystoscopy and exam were performed under the supervision of Dr. Jiménez, attending Urogynecologist. Corey James DO * Flower Jiménez MD - 2020 10:00 AM EDT Female Pelvic Medicine and Reconstructive Surgery Patient Active Problem List Diagnosis Code ??? Psoriasis L40.9 ??? GERD (gastroesophageal reflux disease) K21.9 ID/PRIOR EVALUATION: Jessica Amato is a 50 y.o. year-old with history of mixed urinary incontinence, status post TOTx 2(2006 & 2008) and autologous rectus fascia sling 2011, with ongoing mixed urinary incontinence and vaginal pain. At new patient visit there was evidence of mesh exposure on exam. Plan from last visit: ?? Schedule office cystoscopy to rule out [...] portion only; possible laparoscopic RTC for cystoscopy SUBJECTIVE: If she is not very active, the vaginal/bladder pain is not present. When she starts to move or be active, it is painful. 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 The pain starts with a pulling sensation on the left side in lower abdomen. When she urinates, she continues to have the sensation of razor blades in the urethra. She has tried the Azo, which seems to help a little bit. She has not picked up the methenamine; pharmacy didn't have it. Prior to her mesh excision in 2016 she had a pulling sensation and some vaginal spotting of blood; mesh excision resolved these symptoms. The leakage is not that bad, she just deals with it. If she has to void, it is urgent and she has to go right away or she will leak. She also definitely has leakage with cough and sneeze/activity. The stress urinary incontinence seems to occur more frequently, because she does a lot of preemptive voiding. She wears a pantyliner all the time, and has to change a couple of times a day. She voids 1-2 times per hour. Nocturia 3x/ night, despite trying to reduce fluid intake in the evening. +snoring. Her top priority is to address the pain she is having; it is very difficult to work because of the constant pain. Later we can address the urinary incontinence. She is just trying to deal with the stress urinary incontinence, and is afaid to have further surgery OBJECTIVE: Vital signs from cystoscopy visit reviewed. Remainder of counseling completed by phone. ASSESSMENT: Jessica Amato is a 50 y.o. year old woman with: ?? Stress urinary incontinence status post TOT x 2 (2006, 2008) and rectus fascia sling 2011. Regarding the ongoing urinary incontinence, we discussed that her urinary leakage has two differentcauses, called urge and stress incontinence, and that together they are referred to as mixed incontinence. With two different causes, they are treated differently, though there is some overlap in treatments. We discussed that there are several options for approach Goal remove vaginal portion of the exposed mesh, while not disrupting the remaining midurethral sling and fascial sling. PLAN: ?? Restart vaginal estrogen: use a kidney-pino sized amount at the vaginal opening and just inside.Use this every night for 2 weeks, then change to an ongoing use two nights per week. ?? Start the methenamine 1g twice daily to see if it reduces bladder pain. ?? Use Azo (pyridium) as needed to see if it helps bladder pain ?? We will call to schedule vaginal mesh excision and cystoscopy. Plan provided in writing to the patient. I spent 35 minutes with the patient. RTC for preoperative visit Flower Jiménez MD Female Pelvic Medicine and Reconstructive Surgery documented in this encounter Plan of Treatment Upcoming Encounters Date Type Department Care Team (Late st Contact Info) Description 01/02/2025 3:30 PM EDT Office Visit Dermatology at [place] [address] [place] [address] Jaquan Syed MD [address], [place] [address] documented as of this encounter Visit Diagnoses Diagnosis Exposure of implanted urethral mesh, subsequent encounter documented in this encounter Care Teams Generator Assembler Relationship Specialty Start Date End Date Dora Elliott MD [facility] [address] [place] [address] PCP - General Family Medicine 08/11/20 documented as of this encounter
--- OUTSIDE RECORDS SUMMARY | 2024-02-23 02:20 | XMS_ITS | Encounter Summary ---
Author Organization Formerly [facility] [address] Care Team Providers Care Senior Sas Developer Name Role Phone Dora Elliott MD Primary Care Provider [phone] Reason for Visit * Auth/Cert Specialty Diagnoses / Procedures Referred By Contac t Referred To Contact Diagnoses Vaginal pain Exposure of implanted vaginal mesh Vaginal mesh exposure, vaginal pain Procedures PRO REVISION VAGINAL GRAFT, VAG APPROACH REVISION PROSTHETIC GRAFT\W-W\O REMOVAL VAGINAL APPROACH (WRVU 7.82) Referral ID Status Reason Start Date Expiration Date Visits Re quested Visits Authorized [id number] 1 1 Encounter Details Date Type Department Care Team (Late st Contact Info) Description 11/24/2020 7:30 AM EDT - 11/24/2020 9:28 AM EDT Surgery [place] [address] Flower Jiménez MD [facility] [place] [address] REVISION PROSTHETIC GRAFT\W-W\O REMOVAL VAGINAL APPROACH (WRVU 7.82) Social History Tobacco Use Types Packs/Day Years [...] Sign Reading Time Taken Comments Blood Pressure 119/76 11/24/2020 9:20 AM EDT Pulse 60 11/24/2020 9:20 AM EDT Temperature 36.1 ??C (97 ??F) 11/24/2020 9:20 AM EDT Respiratory Rate 16 11/24/2020 9:20 AM EDT Oxygen Saturation 98% 11/24/2020 9:20 AM EDT Inhaled Oxygen Concentration - - Weight 85.7 kg (189 lb) 11/24/2020 6:18 AM EDT Height 156.8 cm (5' 1.73) 11/24/2020 6:18 AM ED T Body Mass Index 34.87 11/24/2020 6:18 AM EDT documented in this encounter Discharge Instructions * Patient Instructions* Bre Buchanan - 11/24/2020 6:26 AM EDT Future Appointments and Orders Future Appointments and Orders Future Appointments Provider Department Dept Phone 01/06/2021 1:30 PM Chante Neal APRN; Flower Jiménez MD Obstetrics and Gynecology at [facility] Arrive at: Academic Affairs Assistant Area 08/09/2021 10:00 AM Jaquan Syed MD Dermatology at [facility] Arrive at: [facility] [address] [phone] Patient Discharge Instructions: Special Physician Instructions: If you are still needing a catheter to drain your bladder, please follow the instructions given to you separately for when to use the catheter and how to care for it. In addition, please call to check in with the urogynecology office nurse at [phone] to review how your bladder is working and when the catheter use can be discontinued. For problems, concerns related to this hospitalization or you need to change your appointment call: [facility] daytime: [phone] weekdays [facility]: [phone] [facility]: [phone] For emergencies during nights and weekends: [phone] Call your doctor if you develop: --A fever over 101 degrees F --Severe pain -- Nausea / vomiting, diarrhea, intolerance of food or drink --Heavy vaginal bleeding --Urinary frequency, urgency, or feeling of incomplete emptying of the bladder --If your wound is red, hot, swollen, tender or draining yellow/green fluid Activity level: You should be able to resume your usual activities of daily living (eating, drinking, washing, walking.). You can walk or climb stairs as long as you are not straining. You should avoid more vigorous exercise for at least 6 weeks. No lifting, pushing or pulling greater than 5-10 pounds for 6 weeks. No sexual intercourse and place nothing in the vagina for 6 weeks. Diet: Regular as tolerated, drink plenty of fluids. Use a stool softener (Colace) twice daily and Metamucil or Citrucel once or twice daily to keep your bowel movement soft and regular, so you do nothave to strain. Driving: Do not drive until you are off of all narcotic medications and you are not feeling pain; usually about 1-2 weeks. Shower/Bath: Showering is fine. Do not soak in a tub for 4-6 weeks following surgery, this may cause your stitches to dissolve too early. You can wash just above the incision and then let the soapy water wash over it. Do not scrub. Wound Care: Most women will experience some vaginal bleeding and discharge after surgery. You will want to havesome menstrual pads at home. Pain Medication Take ibuprofen and tylenol to manage your pain and should be taken on a schedule for the next 1-2 days after surgery. For pain that breaks through these two medications, you can use oxycodone. 1. Take 600 mg of ibuprofen (Motrin) every 6 hours 2. Take 650 mg acetaminophen (Tylenol) every 6 hours 3. Take 5 mg of oxycodone as needed every 4 hours for pain that breaks through. Try to minimize useof this medication. Please take your medication exactly as prescribed. Read all instructions that come with your medication. ?? Using narcotic pain medication (such as oxycodone, hydromorphone (Dilaudid), morphine, fentanyl,or tramadol) may cause addiction. While addiction is more common in people with a personal or family history of addiction, it can occur in anyone. ?? Taking more than the prescribed amount of medication or using with alcohol or other drugs can cause you to stop breathing resulting in coma, brain damage, or . ?? Opioids (oxycodone, hydromorphone/Dilaudid, morphine, fentanyl, tramadol) can slow reaction time, cause drowsiness, or cloud judgement. It is unsafe for you to drive or operate heavy machinery while taking this medication. ?? Opioids (oxycodone, hydromorphone/Dilaudid, morphine, fentanyl, tramadol) are at risk of being diverted by anyone with access to your home. Opioids should be stored in a safe and secure place, such as a locked cabinet or safe. ?? Unused opioids (oxycodone, hydromorphone/Dilaudid, morphine, fentanyl, tramadol) should be disposed of according to the label or patient information. If there are no specific instructions, medications may be returned to a take- back location or mixed with a small amount of water and an undesirable waste substance such as coffee grounds or cat litter. documented in this encounter Medications at Time of Discharge Medication Sig Dispensed Refills Start Date End Date acetaminophen (Tylenol) 325 mg Tablet Take 2 tablets by mouth every 6 hours as needed for Pain. 30 tablet 1 11/24/2020 cholecalciferol, Vitamin D3, 50 mcg (2,000 unit) Capsule Take by mouth. pantoprazole EC (Protonix) 40 mg Tablet, Delayed Release (E.C.) Take 40 mg by mouth daily. 07/30/2020 ibuprofen (Advil;Motrin) 200 mg Tablet Take 3 tablets by mouth every 6 hours as needed for Pain. 30 tablet 12 11/24/2020 10/29/2021 methenamine (HIPREX) 1 gram Tablet Take 1 tablet by mouth 2 times daily (with meals). 60 tablet 3 11/05/2020 01/06/2021 docusate sodium (Colace) 50 mg Capsule Take by mouth nightly. 10/29 estradioL (ESTRACE) 0.01 % (0.1 mg/gram) Cream Place 2 g vaginally nightly. 10/29/2021 pediatric multivitamin Tablet, Chewable Take 2 tablets by mouth daily. 12/08/2022 HUMIRA PEN 40 mg/0.8 mL Pen Injector Kit INJECT ONE PEN SUBCUTANEOUSLY EVERY TWO WEEKS. REFRIGERATE. 2 kit 3 03/28/2019 12/08/2022 documented as of this encounter Progress Notes * Ayo Fernandez RN - 11/24/2020 10:55 AM EDT Patient discharge to home. IV removed, site benign. My assessment remains unchanged from my previous assessment. RN Discussed pain management with patient, pain tolerable. Patient medicated prior to discharge. Patient has all belongings and supplies needed. Patient received After Visit Summary. AVS reviewed, patient verbalizes understanding of AVS. All questions answered. Patient mobilized in room and to bathroom without difficulties. Patient encouraged to call with questions or concerns. Patient discharged to home with family. documented in this encounter H&P Notes * Bre Buchanan - 11/24/2020 6:43 AM EDT Gynecology H & P Problem List: There are no hospital problems to display for this patient. Active Non-Hospital Problems Diagnosis ??? GERD (gastroesophageal reflux disease) ??? Psoriasis Reason for Visit: 50 y.o. Female presents to [facility] for mesh excision and cystoscopy. History of Present Illness: HPI The patient is doing well today and has no complaints. Opioid consent and ORT were reviewed with her. She is planning on going home today. Review of Systems: Review of Systems Denies fever, chills, chest pain, sob, n/v, abnormal vaginal discharge, irregular vaginal bleeding,dysuria, hematuria, constipation/diarrhea, abnormal weight loss/gain, cold or heat intolerance Past Medical and Surgical History: Past Medical History: Diagnosis Date ??? Constipation ??? GERD (gastroesophageal reflux disease) ??? Hip pain right ??? History of colonic polyps last [facility]SC 2019, polyps removed, return in 7 years ??? HLD (hyperlipidemia) ??? Leukopenia ??? Psoriasis Past Surgical History: Procedure Laterality Date ??? GASTRIC FUNDOPLICATION 2008 [facility] ??? HERNIA REPAIR 2018 epigastric hernia, repaired with revision Kalyn ??? HYSTERECTOMY 10/2007 [facility] & RSO for pelvic pain ??? INCONTINENCE SURGERY 11/18/2008 TOT with mesh; Dr. Zuniga, [facility] ??? INCONTINENCE SURGERY 08/24/2006 Midurethral sling, Dr. Zuniga, [facility]; with D&C & endometrial ablation ??? PRO LAP, ESOPHAGUS, OTHER PROC N/A 03/20/2018 LAPAROSCOPIC REVISION OF KALYN FUNDOPLASTY (WRVU *) performed by Erik Herndon MD at [facility] MAIN OR ??? PRO UPPER GI ENDOSCOPY, DIAGNOSTIC N/A 03/20/2018 ENDOSCOPY, UPPER GI, DIAGNOSTIC, WITH OR WITHOUT SPECIMENS performed by Erik Herndon MD at [facility] MAIN OR ??? PUBOVAGINAL SLING 05/09/2012 autologous rectus fascia; Dr. Castro, [facility]. ??? REMOVAL OF VAGINAL MESH 05/12/2016 revision of exposed vaginal mesh ??? SALPINGO-OOPHORECTOMY 05/18/2010 LSO for pelvic pain Past Obstetric History: OB History Para Term AB Living 3 2 2 0 1 2 SAB TAB Ectopic Multiple Live Births 1 0 0 0 0 Obstetric Comments VD x 2, largest 7#9oz. Past Gynecologic History: Per Dr. Jiménez's 11/04/20 Note Jessica Amato is a 50 y.o. year-old with history of mixed urinary incontinence, status post TOTx 2(2006 & 2008) and autologous rectus fascia sling 2011, with ongoing mixed urinary incontinence and vaginal pain. At new patient visit there was evidence of mesh exposure on exam. Prior To Admission Medications: Medications Prior to Admission Medication Sig Dispense Refill Last Dose ??? methenamine (HIPREX) 1 gram Tablet Take 1 tablet by mouth 2 times daily (with meals). 60 tablet3 Past Week at Unknown time ??? cholecalciferol, Vitamin D3, (cholecalciferol, Vitamin D3,) 50 mcg (2,000 unit) Capsule Take [place]. Past Week at Unknown time ??? acetaminophen (Tylenol) 325 mg Tablet Take 650 mg by mouth every 4 hours as needed for Pain. 11/22/2020 at Unknown time ??? docusate sodium (Colace) 50 mg Capsule Take by mouth nightly. 11/22/2020 at Unknown time ??? pediatric multivitamin Tablet, Chewable Take 2 tablets by mouth daily. Past Week at Unknown time ??? pantoprazole EC (Protonix) 40 mg Tablet, Delayed Release (E.C.) Take 40 mg by mouth daily. 11/22/2020 at Unknown time ??? estradioL (ESTRACE) 0.01 % (0.1 mg/gram) Cream Place 2 g vaginally nightly. ??? HUMIRA PEN 40 mg/0.8 mL Pen Injector Kit INJECT ONE PEN SUBCUTANEOUSLY EVERY TWO WEEKS. REFRIGERATE. 2 kit 3 More than a month at Unknown time Allergies: No Known Allergies Family History: No family history on file. Social History and Habits: Social History Socioeconomic History ??? Marital status: [...] Substance and Sexual Activity ??? Alcohol use: Yes Comment: rare ??? Drug use: Not Currently ??? Sexual activity: Yes Other Topics Concern ??? Not on file [...] Week: ??? Minutes of Exercise per Session: Immunizations: There is no immunization history on file for this patient. Physical Exam: Last Set of Vitals: Last value Range last 24 hrs Temperature Temp: 36.5 ??C (97.7 ??F) Temp: [36.5 ??C (97.7 ??F)] Heart Rate Heart Rate: 55 Heart Rate: [55] Blood Pressure BP: 114/68 BP: (114)/(68) Respiratory Rate Resp: 16 Resp: [16] SpO2 SpO2: 98 % SpO2: [98 %] Physical Exam Gen: well-appearing, NAD CV: RRR, nml s1/s2 Pulm: CTAB, no wheezes/crackles Abd: soft/NT/ND, : deferred to OR Ext: mild lower extremity edema Assessment/Plan: Jessica Amato is a 50 y.o. who presents for surgical excision of vaginal mesh exposure. Consent was reviewed with the patient today. Risks include bleeding, infection, injury to surrounding structures (urethra, vagina, nerves/vessels, bladder), need for additional procedures, need for change in bladder or sexual function. The patient had time to ask questions and have them signed. Opioid Risk Tool Female Male 1. Family history of Substance Abuse Alcohol [] 1 [] 3 Illegal Drugs [] 2 [] 3 Prescription Drugs [] 4 [] 4 2. Personal History of Substance Abuse Alcohol [] 3 [] 3 Illegal Drugs [] 4 [] 4 Prescription Drugs [] 5 [] 5 3. Age (andrea box if 16-45) [] 1 [] 1 4. History of Preadolescent Sexual Abuse [] 3 [] 0 5. Psychological Disease Attention Deficit Disorder, Obsessive Compulsive D/o, Bipolar, Schizophrenia [] 2 [] 2 Depression [] 1 [] 1 TOTAL: 0 Comments about ORT in relation to this patient: Opioid Risk Category: low risk 0-3 She is able to tolerate tylenol, ibuprofen, and oxycodone. Her preferred pharmacy is [facility]. Bre Buchanan MD 11/24/2020 documented in this encounter Miscellaneous Notes * Op Note - Flower Jiménez MD - 11/24/2020 9:46 AM EDT [facility] Operative Note Patient Name: Jessica Amato : [id number] MR#: [id number] Case Date: 11/24/2020 Surgeon: Surgeon(s) and Role: * Flower Jiménez MD - Primary * Bre Buchanan MD - Resident Procedure(s) (LRB): REVISION PROSTHETIC GRAFT\W-W\O REMOVAL VAGINAL APPROACH (WRVU 7.82) (N/A) CYSTO, CYSTOURETHROSCOPY, DIAGNOSTIC (WRVU 2.23) (N/A) ?? Anesthesia: MAC ?? Findings: 1) exam under anesthesia: Left anterior vaginal fornix with 2-3mm mesh exposure palpable, approximately 4cm proximal to the hymen, consistent with clinic exam and on clinic exam, correlated with significant patient pain. Midurethral area without palpable mesh or exposure. 2) Cystoscopy: Bilateral ureteral orifices in orthotopic position with brisk jets. Urothelium intact with no evidence of suture, trauma, lesions, masses, stones, foreign bodies. Urethroscopy normal. ?? Complications: None Intake: Intraprocedure Crystalloid Total Output Urine Output 50 mL Blood Loss 20 mL Total Output 70 mL Transfusion No data found in the last 1 encounters. Output: Estimated Blood Loss: 20 mL Urine Output:: 50 mL Other Output: (no other output recorded) ?? Drains: Gary to gravity ?? Specimens removed during surgery: None ?? Disposition: awakened from anesthesia, extubated and taken to the recovery room in a stable condition, having suffered no apparent untoward event. ?? Condition: doing well without problems (Please see the Surgical Encounter Summary for any Implant and Specimen details pertinent to this patient.) HPI/Surgical Indications: Jessica Amato is a 50 y.o. who presents with vaginal exposure of mid- urethral mesh. This has been causing her a significant amount of pain and she has elected to excise it. Consent was discussed and reviewed. She had time to ask questions and have them answered. Consent was signed. Procedure Description: The patient was brought to Operating Room #26. General anesthesia was induced. The patient was positioned in the dorsal lithotomy position with her legs in adjustable Yellofin stirrups. She was positioned in what was felt to be neurologically safe positioning. She received 2 gm of IV Ancef prior toincision. Knee-high intermittent compression stockings were placed for DVT prophylaxis. Following examination under anesthesia, she was prepped and draped in the usual sterile fashion. A time-out protocol was adhered to, confirming the patient's identity, planned procedures, and safety measures. Cystoscopy was performed and bilateral jets noted. There was no mesh in the bladder or urethra after careful inspection. The exposed mesh was identified in the right sulcus proximal to the mid-urethra. It was grasped with a right angle clamp and then dissected by reverse scissoring and bluntly dissecting along the meshto the ramus. It was isolated and released at the medial edge. It was further dissected away from the posterior tissue and then excised with scissors. The incision was closed in 2 layers with 2-0 vicryl interrupted stitches. A cystoscopy was again repeated and the bladder was without lesions. The patient was awakened from anesthesia and taken to the same day. Instrument, sharp, and sponge counts were correct at the end of the case. Dr. Jiménez was present for the entirety of the procedure without conflicting clinical responsibilities. Bre Buchanan MD Infection Bundle used? N/A Attestation: Case Date: 11/24/2020 I was present and I participated during the entire procedure (does not need to include opening and closing). Flower Jiménez MD 11/25/2020 * Brief Op Note - Flower Jiménez MD - 11/24/2020 9:16 AM EDT Brief Operative Note Patient Name: Jessica Amato : [id number] MR#: [id number] Case Date: 11/24/2020 Surgeon: Surgeon(s) and Role: * Flower Jiménez MD - Primary * Bre Buchanan MD - Resident Preoperative diagnosis: Vaginal mesh exposure, vaginal pain, dysuria Postoperative diagnosis: Vaginal mesh exposure, vaginal pain, dysuria Procedure(s) (LRB): REVISION PROSTHETIC GRAFT\W-W\O REMOVAL VAGINAL APPROACH (WRVU 7.82) (N/A) CYSTO, CYSTOURETHROSCOPY, DIAGNOSTIC (WRVU 2.23) (N/A) Anesthesia: MAC Findings: 1) exam under anesthesia: Left anterior vaginal fornix with 2-3mm mesh exposure palpable, approximately 4cm proximal to the hymen, consistent with clinic exam and on clinic exam, correlated with significant patient pain. Midurethral area without palpable mesh or exposure. 2) Cystoscopy: Bilateral ureteral orifices in orthotopic position with brisk jets. Urothelium intact with no evidence of suture, trauma, lesions, masses, stones, foreign bodies. Urethroscopy normal. Complications: None Intake: Intraprocedure Crystalloid Total Output Urine Output 50 mL Blood Loss 20 mL Total Output 70 mL Transfusion No data found in the last 1 encounters. Output: Estimated Blood Loss: 20 mL Urine Output:: 50 mL Other Output: (no other output recorded) Drains: Gary to gravity Specimens removed during surgery: None Disposition: awakened from anesthesia, extubated and taken to the recovery room in a stable condition, having suffered no apparent untoward event. Condition: doing well without problems Attestation: Case Date: 11/24/2020 I was present and I participated during the entire procedure (does not need to include opening and closing). (Please see the Surgical Encounter Summary for any Implant and Specimen details pertinent to this patient.) Infection Bundle used? N/A Flower Jiménez MD Female Pelvic Medicine and Reconstructive Surgery documented in this encounter Plan of Treatment Upcoming Encounters Date Type Department Care Team (Late st Contact Info) Description 01/02/2025 3:30 PM EDT Office Visit Dermatology at [facility] [address] [facility] [place] [address] Jaquan Syed MD [address], [place] [address] documented as of this encounter Procedures Procedure Name Priority Date/Time Associated Diagnosis Comments CYSTO,CYSTOURETHROSCOPY, DIAGNOSTIC Routine 11/24/2020 9:14 AM EDT Cystourethroscopy (13127) 2020 7:27 AM EDT Vaginal mesh exposure, vaginal pain, dysuria Revision Vaginal Graft, Vag Approach (70115) 11/24/2020 7:27 AM EDT Vaginal mesh exposure, vaginal pain, dysuria POCT GLUCOSE Routine 11/24/2020 6:22 AM EDT REVISION PROSTHETIC GRAFT\W-W\O REMOVAL VAGINAL APPROACH Routine 11/24/2020 6:11 AM EDT documented in this encounter Results * POCT Glucose (11/24/2020 6:22 AM EDT) Glucose, POC 103 65 - 199 mg/dL [facility] Comment: Supplemental ranges: <140 mg/dL before meals <180 mg/dL all other times of the day Blood 11/24/2020 6:22 AM EDT 11/24/2020 6:22 AM EDT Flower Jiménez MD POINT OF CARE TEST O RDERABLES [facility] [place] [address] documented in this encounter Visit Diagnoses Not on filedocumented in this encounter Administered Medications Inactive Administered Medications - up to 3 most recent administrations Medication Order MAR Action Action Date Dose Rate Site acetaminophen (Tylenol) tablet 650 mg 650 mg, Oral, EVERY 6 HOURS PRN, Starting on Mon11/24/20 at 0914, Until Mon11/24/20 at 1257, Pain, If multiple pain medications ordered, use acetaminophen first. Maximum dose of acetaminophen is 4000 mg from all sources in 24 hours. When ordered for pain, acetaminophen should be given even when other ordered pain medications are indicated., Routine Given 11/24/2020 9:27 AM EDT 650 mg HYDROmorphone (Dilaudid) (2 mg/mL) multi-dose injection solution 0.2-0.4 mg 0.2-0.4 mg, Intravenous, EVERY 10 MIN PRN, Starting on Mon11/24/20 at 0925, Until Mon11/24/20 at 1055, Pain, Give 0.2 mg every 10 minutes PRN for mild to moderate pain (1-5) Give 0.4 mg every 10 minutes PRN for moderate to severe pain (6-10). Hold for respiratory rate less than 10 per minute. Maximum dose 3 mg over one hour, including OR administration. If multiple pain medications are ordered, start with HYDROmorphone or morphine and use fentaNYL for breakthrough pain., PACU Recovery, Routine Given 11/24/2020 9:55 AM EDT 0.4 mg lactated ringers infusion 1,000 mL, at 100 mL/hr, Intravenous, CONTINUOUS, Starting on Mon11/24/20 at 0645, Until Mon11/24/20 at 1055, Day of Surgery (Day of Procedure) New Bag 11/24/2020 6:36 AM EDT 1,000 mLs 100 mL/hr oxyCODONE (Roxicodone) tablet 5-10 mg 5-10 mg, Oral, EVERY 3 HOURS PRN, Starting on Mon11/24/20 at 0914, Until Mon11/24/20 at 1257, Pain, - If multiple pain medications ordered, use acetaminophen first. - If pain not relieved by acetaminophen first, administer oxycodone. - Initial dose 5 mg. - If pain control not adequate in 60 minutes, give additional 5 mg., Routine Given 11/24/2020 9:27 AM EDT 5 mg phenazopyridine (Pyridium) tablet 200 mg 200 mg (rounded from 190 mg), Oral, ONCE, 1 dose, On Mon11/24/20 at 0645, Day of Surgery (Day of Procedure), Routine Given 11/24/2020 6:27 AM EDT 200 mg documented in this encounter Active and Recently Administered Medications Times are shown in EDT. Scheduled Medication Order 11/22/2020 11/23/2020 11/24/2020 ceFAZolin (Ancef) 2 g in dextrose 5% 100 mL infusion (COMPLETED) 2 g, Intravenous, ONCE, 1 dose, On Mon11/24/20 at 0645, Administer over 30 Minutes, Cigar Tobacco Rehandler to OR Infuse over 30 minutes., Day of Surgery (Day of Procedure), Indication for (Active or Suspected): Prophylaxis 0735 (Given - Provid er: Kamran Platt MD) phenazopyridine (Pyridium) tablet 200 mg (COMPLETED) 200 mg (rounded from 190 mg), Oral, ONCE, 1 dose, On Mon11/24/20 at 0645, Day of Surgery (Day of Procedure), Routine 06 (Given - Provid er: Mary Wei RN) Continuous Medication Order 11/22/2020 11/23/2020 11/24/2020 lactated ringers infusion (CANCELED) 1,000 mL, at 100 mL/hr, Intravenous, CONTINUOUS, Starting on Mon11/24/20 at 0645, Until Mon11/24/20 at 1055, Day of Surgery (Day of Procedure) 0636 (New Bag - Prov ider: Mary Wei RN) lactated ringers infusion 1,000 mL, at 100 mL/hr, Intravenous, CONTINUOUS, Starting on Mon11/24/20 at 0945, Until Mon11/24/20 at 1257 0945 (Due) PRN Medication Order 11/22/2020 11/23/2020 11/24/2020 acetaminophen (Tylenol) tablet 650 mg 650 mg, Oral, EVERY 6 HOURS PRN, Starting on Mon11/24/20 at 0914, Until Mon11/24/20 at 1257, Pain, If multiple pain medications ordered, use acetaminophen first. Maximum dose of acetaminophen is 4000 mg from all sources in 24 hours. When ordered for pain, acetaminophen should be given even when other ordered pain medications are indicated., Routine 926 (Given - Provid er: Ayo Fernandez RN) HYDROmorphone (Dilaudid) (2 mg/mL) injection solution 0.2 mg 0.2 mg, Intravenous, ONCE PRN, 1 dose, Starting on Mon11/24/20 at 0914, Until Mon11/24/20 at 1257, Pain, Severe pain (7-10), - If not controled by oral pain medication., Routine HYDROmorphone (Dilaudid) (2 mg/mL) multi-dose injection solution 0.2-0.4 mg (CANCELED) 0.2-0.4 mg, Intravenous, EVERY 10 MIN PRN, Starting on Mon11/24/20 at 0925, Until Mon11/24/20 at 1055, Pain, Give 0.2 mg every 10 minutes PRN for mild to moderate pain (1-5) Give 0.4 mg every 10 minutes PRN for moderate to severe pain (6-10). Hold for respiratory rate less than 10 per minute. Maximum dose 3 mg over one hour, including OR administration. If multiple pain medications are ordered, start with HYDROmorphone or morphine and use fentaNYL for breakthrough pain., PACU Recovery, Routine 954 (Given - Provid er: Ayo Fernandez RN) oxyCODONE (Roxicodone) tablet 5-10 mg 5-10 mg, Oral, EVERY 3 HOURS PRN, Starting on Mon11/24/20 at 0914, Until Mon11/24/20 at 1257, Pain, - If multiple pain medications ordered, use acetaminophen first. - If pain not relieved by acetaminophen first, administer oxycodone. - Initial dose 5 mg. - If pain control not adequate in 60 minutes, give additional 5 mg., Routine 09 (Given - Provid er: Ayo Fernandez RN) documented in this encounter Care Teams Senior Sas Developer Relationship Specialty Start Date End Date Dora Elliott MD [address] [facility] 1 [place] [address] PCP - General Family Medicine 08/11/20 documented as of this encounter
--- OUTSIDE RECORDS SUMMARY | 2024-02-23 02:20 | XMS_ITS | Encounter Summary ---
[place] [address] Care Team Providers Care Lockstitch Binder Name Role Phone Dora Elliott MD Primary Care Provider [phone] Encounter Details Date Type Department Care Team (Late st Contact Info) Description 01/02/2024 Refill Dermatology at [address] [address] [place] [employer], SPORTS BOOKMAKER Social History Tobacco Use Types Packs/Day Years [...] 3:30 PM EDT Office Visit Dermatology at [address] [address] Jaquan Syed MD [address] [facility], REYNA A DERMATOLOGY [place], [place] [id number] documented as of this encounter Visit Diagnoses Not on filedocumented in this encounter Care Teams Lockstitch Binder Relationship Specialty Start Date End Date Dora Elliott MD [facility] LAUREEN MARIO [facility] 1 [place], [place] [address] PCP - General Family Medicine 08/11/20 documented as of this encounter
--- OUTSIDE RECORDS SUMMARY | 2024-02-23 02:20 | XMS_ITS | Encounter Summary ---
[place] [address] Care Team Providers Care Handbag Frames Inspector Name Role Phone Dora Elliott MD Primary Care Provider Reason for Visit * Reason Comments Psoriasis Encounter Details Date Type Department Care Team (Late st Contact Info) Description 12/08/2022 3:45 PM EDT Office Visit Dermatology at [place] [address] [place] [phone] Jaquan Syed MD 580 [facility], DIMAS A DERMATOLOGY [place], [place] [id number] Psoriasis Social History Tobacco Use Types Packs/Day Years [...] as of this encounter Progress Notes * Jaquan Syed MD - 12/08/2022 3:45 PM EDT Problem: 1. Follow-up psoriasis on Humira 2. On Humira since July 2015 3. History of psoriatic arthritis also responding well to Humira 4. Psoriasis developed when she was 2 years old 5. Prior trial of methotrexate ineffectual Jessica follows up for annual recheck. She has been doing well. Last month she developed diverticulitis for the first time in her life and then had to hold 2 doses of the Humira. She is now back on it again. It continues to work very well for controlling her psoriasis almost completely. She denies any injection site reactions fevers or chills or other side effects from the Humira injections. Physical examination reveals a pleasant 52-year-old woman who has today no active psoriasis. Her skin is clear. Assessment plan: Psoriasis doing well on Humira 1. Continue Humira at current dosing injecting 40 mg / 0.8 mL the pen once every 2 weeks. Dispense 2 pens with 11 refills 2. Return to clinic in a year for repeat check CC: Dora Elliott MD documented in this encounter Plan of Treatment Upcoming Encounters Date Type Department Care Team (Late st Contact Info) Description 01/02/2025 3:30 PM EDT Office Visit Dermatology at [address] [place] [address] Jaquan Syed MD [address] [facility], [place] [address] documented as of this encounter Visit Diagnoses Diagnosis Psoriasis Other psoriasis documented in this encounter Care Teams Handbag Frames Inspector Relationship Specialty Start Date End Date Dora Elliott MD [facility] LAUREEN MARIO [address] 1 [place] [address] PCP - General Family Medicine 08/11/20 documented as of this encounter
--- OUTSIDE RECORDS SUMMARY | 2024-02-23 02:20 | XMS_ITS | Encounter Summary ---
Author Organization [facility] [place] [address] Care Team Providers Care Supply Chain Project Manager Name Role Phone Theresa Beal MD Primary Care Provider [phone] Reason for Visit * Reason Comments Psoriasis Encounter Details Date Type Department Care Team (Late st Contact Info) Description 08/06/2020 8:30 AM EST Office Visit Dermatology at [address] [phone] Jaquan Syed MD 580 [facility], [facility] [place] [address] Psoriasis Social History Tobacco Use Types Packs/Day Years Used Date Smoking Tobacco: Former Smokeless Tobacco: Never Sex and Gender Information Value Date Recorded Sex Assigned at Not on file Gender Identity Not on file Sexual Orientation Not on file documented as of this encounter Progress Notes * Jaquan Syed MD - 08/06/2020 8:30 AM EST Problem: 1. ??Follow-up psoriasis on Humira 2. ??On Humira since July 2015 3. ??History of psoriatic arthritis also responding well to Humira 4. Psoriasis developed when she was 2 years old ?? Jessica follows up and continues to do very well. Her skin is all but clear with the Humira, and she is not suffering from any psoriatic arthritis. Previously it was in her wrists knees and ankles.. She is tolerating the injections well without injection site reactions side effects swelling redness. She denies any infections fevers has not had any problems. ?? Physical examination revealed no psoriasis on the knees or elbows. Her scalp is clear. Her fingernails are without pitting. She is very very pleased. ?? Assessment plan: Psoriasis with psoriatic arthritis, responding extremely well to Humira 1. Continue Humira utilizing the 40 mg autoinjector pens, inject contents of 1 pen cutaneously every 2 weeks. Dispense #2 with 11 refills 2. Return to clinic in another year for repeat check 3. Patient congratulated on her excellent response. Discussed the possibility of recurrent psoriasis if she cuts back or stops/restarts the medication. She assures me she will not do this ?? CC: Dora Elliott MD documented in this encounter Plan of Treatment Upcoming Encounters Date Type Department Care Team (Late st Contact Info) Description 01/02/2025 3:30 PM EDT Office Visit Dermatology at [address] [address] Jaquan Syed MD [address] [place] [address], [place] [address] documented as of this encounter Visit Diagnoses Diagnosis Psoriasis Other psoriasis documented in this encounter Care Teams Supply Chain Project Manager Relationship Specialty Start Date End Date Theresa Beal MD [facility] [place] [address] PCP - General Psychiatry 08/06/20 08/10/20 documented as of this encounter
--- OUTSIDE RECORDS SUMMARY | 2024-02-23 02:20 | XMS_ITS | Encounter Summary ---
Author Organization [facility] [place] [address] Care Team Providers Care Steam And Gas Turbine Assembler Name Role Phone Dora Elliott MD Primary Care Provider [phone] Encounter Details Date Type Department Care Team (Late st Contact Info) Description 11/08/2022 Telephone Dermatology at [address] [address] Alla Nesbitt RN Social History Tobacco Use Types Packs/Day Years [...] encounter Miscellaneous Notes * Telephone Encounter - Alla Nesbitt RN - 11/08/2022 1:34 PM EDT Patient returned our messages we left her. Patient did verify that she did need refills of her Humira. Informed her that Dr. Syed renewed her prescription to cover her till her follow up appointment with him on 12/08/2022. Patient asked if she has a history of taking a TB test. She stated she thought so but it has been about 3-4 years ago. Informed patient that insurance companies are require a TB screen QuantiFERON goal be drawn while on Princess , Patient stated that she understood. Sent [facility] per patient's request. documented in this encounter Plan of Treatment Upcoming Encounters Date Type Department Care Team (Late st Contact Info) Description 01/02/2025 3:30 PM EDT Office Visit Dermatology at [place] [address] [facility] [address] [place] [address] Jaquan Syed MD [address] [address], [place] [address] documented as of this encounter Visit Diagnoses Not on filedocumented in this encounter Care Teams Steam And Gas Turbine Assembler Relationship Specialty Start Date End Date Dora Elliott MD [facility] LAUREEN MARIO [facility] 1 [place] [address] PCP - General Family Medicine 08/11/20 documented as of this encounter
--- OUTSIDE RECORDS SUMMARY | 2024-02-23 02:20 | XMS_ITS | Encounter Summary ---
[place] [address] Care Team Providers Care Blade Aligner Name Role Phone Dora Elliott MD Primary Care Provider [phone] Reason for Visit * Reason Onset Date Comments Error 12/12/2022 Encounter Details Date Type Department Care Team (Late Contact Info) Description 12/12/2022 Telephone Dermatology at [address] [address] Alla Nesbitt RN Error Social History Tobacco Use Types Packs/Day Years [...] 3:30 PM EDT Office Visit Dermatology at [address] [address] Jaquan Syed MD 580 [facility], [facility] [place] [address] documented as of this encounter Visit Diagnoses Not on filedocumented in this encounter Care Teams Blade Aligner Relationship Specialty Start Date End Date Dora Elliott MD [facility] LAUREEN MARIO [facility] 1 [place] [address] PCP - General Family Medicine 08/11/20 documented as of this encounter
--- OUTSIDE RECORDS SUMMARY | 2024-02-23 02:20 | XMS_ITS | Encounter Summary ---
Author Organization [facility] [place] [address] Care Team Providers Care Licensed Architect Name Role Phone Dora Elliott MD Primary Care Provider [phone] Reason for Visit * Auth/Cert Specialty Diagnoses / Procedures Referred By Contac t Referred To Contact Diagnoses Vaginal pain Exposure of implanted vaginal mesh Vaginal mesh exposure, vaginal pain Procedures PRO REVISION VAGINAL GRAFT, VAG APPROACH REVISION PROSTHETIC GRAFT\W-W\O REMOVAL VAGINAL APPROACH (WRVU 7.82) Referral ID Status Reason Start Date Expiration Date Visits Re quested Visits Authorized [id number] 1 1 Encounter Details Date Type Department Care Team (Latest Contact Info) Description 11/24/2020 6:06 AM EDT - 11/24/2020 10:57 AM EDT Hospital En[place] [address] Flower Jiménez MD [facility] [place] [address] Exposure of implanted urethral mesh, subsequent encounter Discharge Disposition: Home Social History Tobacco Use Types Packs/Day Years [...] Sign Reading Time Taken Comments Blood Pressure 135/75 11/24/2020 10:15 AM EDT Pulse 60 11/24/2020 9:20 AM EDT Temperature 36.1 ??C (97 ??F) 11/24/2020 9:20 AM EDT Respiratory Rate 16 11/24/2020 10:15 AM EDT Oxygen Saturation 94% 11/24/2020 10:15 AM EDT Inhaled Oxygen Concentration - - [...] Flower Jiménez MD Obstetrics and Gynecology at [facility] Arrive at: Linole[employer] Layer Helper Area 5L [phone] 08/09/2021 10:00 AM Jaquan Syed MD Dermatology at [place] Arrive at: [facility] [address] [phone] Patient Discharge Instructions: Special Physician Instructions: If you are still needing a catheter to drain your bladder, please follow the instructions given to you separately for when to use the catheter and how to care for it. In addition, please call to check in with the urogynecology office nurse at [phone] to review how your bladder is working and when the catheter use can be discontinued. For problems, concerns related to this hospitalization or you need to change your appointment call: [facility] daytime: [phone] weekdays [facility]: [phone] [facility]: [phone] For emergencies during nights and weekends: [phone] Call your doctor if you develop: --A [...] for Visit: 50 y.o. Female presents to [facility] for mesh excision [...] Procedure Laterality Date ??? GASTRIC FUNDOPLICATION 2008 [facility] ??? HERNIA REPAIR 2018 epigastric hernia, repaired with revision Kalyn ??? HYSTERECTOMY 10/2007 [facility] & RSO for pelvic pain ??? INCONTINENCE SURGERY 11/18/2008 TOT with mesh; Dr. Zuniga, [facility] ??? INCONTINENCE SURGERY 08/24/2006 Midurethral sling, Dr. Zuniga, [facility]; with D&C & endometrial ablation ??? PRO LAP, ESOPHAGUS, OTHER PROC N/A 03/20/2018 LAPAROSCOPIC REVISION OF KALYN FUNDOPLASTY (WRVU *) performed by Erik Herndon MD at [facility] ??? PRO UPPER GI ENDOSCOPY, DIAGNOSTIC N/A 03/20/2018 ENDOSCOPY, UPPER GI, DIAGNOSTIC, WITH OR WITHOUT SPECIMENS performed by Erik Herndon MD at [facility] ??? PUBOVAGINAL SLING 05/09/2012 autologous rectus fascia; Dr. Castro, [facility]. ??? REMOVAL OF VAGINAL MESH 05/12/2016 [...] D3,) 50 mcg (2,000 unit) [facility] Past Week at Unknown time ??? acetaminophen [...] ibuprofen, and oxycodone. Her preferred pharmacy is [facility]. Bre Buchanan MD 11/24/2020 documented in this encounter Miscellaneous Notes * Op Note - Flower Jiménez MD - 11/24/2020 9:46 AM EDT [facility] Operative Note Patient Name: Jessica Amato : [id number] MR#: [id number] Case Date: 11/24/2020 Surgeon: Surgeon(s) and Role: [...] Operative Note Patient Name: Jessica Amato : [id number] MR#: [id number] Case Date: 11/24/2020 Surgeon: Surgeon(s) and Role: [...] 3:30 PM EDT Office Visit Dermatology at [place] [address] [facility] [place] [address] Jaquan Syed MD [address] [facility] [address], [place] [address] documented as of this encounter Procedures Procedure Name Priority Date/Time Associated Diagnosis Comments CYSTO,CYSTOURETHROSCOPY, DIAGNOSTIC Routine 11/24/2020 9:14 AM EDT Cystourethroscopy (22046) 2020 7:27 AM EDT Vaginal mesh exposure, vaginal pain, dysuria Revision Vaginal Graft, Vag Approach ([id number]) 11/24/2020 7:27 AM EDT Vaginal mesh exposure, [...] MD POINT OF CARE TEST O RDERABLES [facility] [place] [address] documented in this encounter Visit Diagnoses Diagnosis Exposure of implanted urethral mesh, subsequent encounter documented in this encounter Administered Medications Inactive Administered [...] Mon11/24/20 at 0645, Administer over 30 Minutes, Insulation Worker Furnace Installer to OR Infuse over 30 minutes., Day of Surgery (Day of Procedure), Indication for (Active or Suspected): Prophylaxis 0735 (Given - Provid er: Kamran Platt MD) phenazopyridine (Pyridium) tablet 200 mg (COMPLETED) 200 mg (rounded from 190 mg), Oral, ONCE, 1 dose, On Mon11/24/20 at 0645, Day of Surgery (Day of Procedure), Routine 0627 (Given - Provid er: Mary Wei RN) Continuous Medication Order 11/22/2020 11/23/2020 11/24/2020 lactated ringers infusion (CANCELED) 1,000 mL, at 100 mL/hr, Intravenous, CONTINUOUS, Starting on Mon11/24/20 at 0645, Until Mon11/24/20 at 1055, Day of Surgery (Day of Procedure) 0636 ([facility] - Prov ider: Mary Wei RN) lactated [...] 60 minutes, give additional 5 mg., Routine 0927 (Given - Provid er: Ayo Fernandez RN) documented in this encounter Care Teams Licensed Architect Relationship Specialty Start Date End Date Dora Elliott MD [address] [facility] 1 [place] [address] PCP - General Family Medicine 08/11/20 documented as of this encounter
--- OUTSIDE RECORDS SUMMARY | 2024-02-23 02:20 | XMS_ITS | Encounter Summary ---
Author Organization [facility] [place] [address] Care Team Providers Care Cheesemaker Name Role Phone Dora Elliott MD Primary Care Provider [phone] Encounter Details Date Type Department Care Team (Late st Contact Info) Description 03/05/2021 Telephone Obstetrics [place] [address] Madeline Lubin Social History Tobacco Use Types Packs/Day Years [...] encounter Miscellaneous Notes * Telephone Encounter - Madeline Lubin - 03/05/2021 3:48 PM EDT Called pt to let know appt was canceled. Left msg and sending letter documented in this encounter Plan of Treatment Upcoming Encounters Date Type Department Care Team (Late st Contact Info) Description 01/02/2025 3:30 PM EDT Office Visit Dermatology at [place] [address] [facility] [place] [address] Jaquan Syed MD [address] [facility], [place] [address] documented as of this encounter Visit Diagnoses Not on filedocumented in this encounter Care Teams Cheesemaker Relationship Specialty Start Date End Date Dora Elliott MD [address] [facility] 1 [place] [address] PCP - General Family Medicine 08/11/20 documented as of this encounter
--- OUTSIDE RECORDS SUMMARY | 2024-02-23 02:20 | XMS_ITS | Encounter Summary ---
[place] [address] Care Team Providers Care Side Show Entertainer Name Role Phone Dora Elliott MD Primary Care Provider [phone] Reason for Visit * Reason Comments Annual Exam Encounter Details Date Type Department Care Team (Late st Contact Info) Description 01/01/2024 4:15 PM EDT Office Visit Dermatology at [place] [address] [facility] [place] [address] Jaquan Syed MD 580 [facility], [place] [address] Psoriasis Social History Tobacco Use Types Packs/Day [...] Progress Notes * Jaquan Syed MD - 01/01/2024 4:15 PM EDT Problem: 1. Follow-up psoriasis on Humira 2. On Humira since July 2015 3. History of psoriatic arthritis also responding well to Humira 4. Psoriasis developed when she was 2 years old 5. Prior trial of methotrexate ineffectual Jessica follows up for annual recheck. She has had an insurance interruption and has been off of Humira for 1 month.. It continues to work very well for controlling her psoriasis almost completely. She denies any injection site reactions fevers or chills or other side effects from the Humira injections. Physical examination reveals a pleasant 53-year-old woman who has today no active psoriasis. Her skin is clear. She has some mild patches of dry skin on the lower anterior shins bilaterally. Assessment plan: Psoriasis doing well on Humira 1. Continue Humira at current dosing injecting 40 mg / 0.8 mL the pen once every 2 weeks. Dispense 2 pens with 11 refills 2. She has noticed some dry skin on her ears but this is likely because she has been off of Humira for a month and so we will not renew any topical clobetasol at this time. 3. Return to clinic in a year for repeat check CC: Dora Elliott MD documented in this encounter Plan of Treatment Upcoming Encounters Date Type Department Care Team (Late st Contact Info) Description 01/02/2025 3:30 PM EDT Office Visit Dermatology at [place] [address] [facility] [address] [place] [address] Jaquan Syed MD [address], [place] [address] documented as of this encounter Visit Diagnoses Diagnosis Psoriasis Other psoriasis documented in this encounter Care Teams Side Show Entertainer Relationship Specialty Start Date End Date Dora Elliott MD [facility] [address] [place] [address] PCP - General Family Medicine 08/11/20 documented as of this encounter
--- OUTSIDE RECORDS SUMMARY | 2024-02-23 02:20 | XMS_ITS | Encounter Summary ---
[place] [address] Care Team Providers Care Recycling Specialist Name Role Phone Dora Elliott MD Primary Care Provider [phone] Encounter Details Date Type Department Care Team (Late st Contact Info) Description 11/05/2021 Refill Dermatology at [address] [address] Alla Nesbitt RN Social History [...] 3:30 PM EDT Office Visit Dermatology at [address] [address] Jaquan Syed MD 580 [facility] A DERMATOLOGY [place], [place] [address] documented as of this encounter Visit Diagnoses Not on filedocumented in this encounter Care Teams Recycling Specialist Relationship Specialty Start Date End Date Dora Elliott MD [facility] LAUEREN MARIO [facility] 1 [place] [address] PCP - General Family Medicine 08/11/20 documented as of this encounter
--- OUTSIDE RECORDS SUMMARY | 2024-02-23 02:20 | XMS_ITS | Encounter Summary ---
Author Organization [facility] [place] [address] Care Team Providers Care Junior Software Engineer Name Role Phone Dora Elliott MD Primary Care Provider [phone] Reason for Visit * Reason Comments Post Op Encounter Details Date Type Department Care Team (Late st Contact Info) Description 01/06/2021 1:30 PM EDT Office Visit Obstetrics [place] [address] Flower Jiménez MD [facility] [place] [address] Chante Neal APRN [facility] [place] [address] Post-operative state; Urinary incontinence, unspecified type Social History Tobacco [...] Sign Reading Time Taken Comments Blood Pressure 148/89 01/06/2021 1:38 PM EDT Pulse 58 01/06/2021 1:38 PM EDT Temperature 36.1 ??C (97 ??F) 01/06/2021 1:38 PM EDT Respiratory Rate 16 01/06/2021 1:38 PM EDT Oxygen Saturation 96% 01/06/2021 1:38 PM EDT Inhaled Oxygen Concentration - - Weight - - Height - - Body Mass Index - - documented in this encounter Progress Notes * Chante Neal, TELECOMMUNICATOR SUPERVISOR - 01/06/2021 1:30 PM EDT FEMALE PELVIC MEDICINE AND RECONSTRUCTIVE SURGERY POST OPERATIVE VISIT Patient Active Problem List Diagnosis Code ??? Psoriasis L40.9 ??? GERD (gastroesophageal reflux disease) K21.9 ??? Colorectal polyps K63.5 Date of visit: 01/06/2021 Patient name: Jessica Amato Date of surgery: 11-24-20 Procedure: Revision of vaginal mesh [see Dr. Jiménez's initial note of 10-21-20] Pathology: NA Subjective: Ms. Amato is s/p the above procedures. She has been tolerating a regular diet. She denies nausea and vomiting, and she has been afebrile since surgery. However she is having a great deal of urine leakage, both stress induced and urgent. Since surgery, she reports: None x Continued vaginal bleeding New pelvic related pain Abnormal vaginal discharge Burning with urination Blood in urine Enuresis New prolapse symptoms since surgery Bladder Function Number of daytime voids: More frequent than q 2 hrs Number of nocturia events: 3 or 4, trying to drink less in evenings Urinary incontinence since surgery (y/n): Yes much more than before surgery If yes, [place] Incontinence Severity Index: How often do you experience urinary leakage? 0. Never 1. Less than once a month 2. A few times a month 3. A few times a week 4. Every day and/or night Value 4 How much urine do you lose each time? 0. None 1. Drops 2. Small Splashes 3. More Value 3 The Severity Index is the product of the two questions 0 - NONE 1-2 Slight 3-6 Moderate 8-9 Severe 12 Very severe SCORE: 7 If yes, leaks with: Event Presence Event Presence NONE [place] ? Walking x Cold Weather Running x Anticipation of going to the lavatory x Cough/Sneeze x First morning void x Lifting Running water x Laughing x Standing up x Number of pads / day: 4+ Pad type: Always Discreet liner Voiding Dysfunction: Symptom Presence NONE Straining to empty Incomplete emptying Weak stream Stronger than before Feeling the urge to void after voiding Dribbling Changes in position Difficulty initiating a stream ICIQ-UI Short Form How often do you leak urine? Never 0 About once a week or less often 1 2-3 times a week 2 About once a day 3 x Several times a day 4 All the time 5 How much urine do you usually leak? None 0 A small amount 1 A moderate amount 2 x A large amount 3 Overall, how much does leaking interfere with your everyday life? 8+ (0 not at all, 10 a great deal) ICIQ Sum the scores: 15 Bowel Function Fecal incontinence since surgery? (stool/gas) no How many fecal incontinence episodes / week? na How often do you have bowel movements? Daily w stool softener Any new defecatory problems since surgery?: no IF so which defecatory problem?: Symptom Presence Symptom Presence NONE x Require laxatives regularly Difficulty emptying Less than three bowel movements / week Need to strain Urgency Hard stools Other Loose stools Treatment Outcome Satisfaction How would you describe your level of satisfaction with your treatment outcome? 0. Strongly UNsatisfied 1. UNsatisfied 2. Neither satisfied nor unsatisfied 3. Satisfied 4. Strongly satisfied Value The mesh problem is better but the leakage is much worse Would you recommend this therapy to a friend?: na How much has your treatment outcome met your before treatment expectation? 0. Strongly NOT met my before treatment expectations 1. Not met my before treatment expectations 2. Undecided 3. Met my before treatment expectations 4. Strongly met my before treatment expectations A head charrer is present for the examination Carmela Dickerson. OBJECTIVE: BP 148/89 Pulse 58 Temp 36.1 ??C (97 ??F) (Temporal) Resp 16 SpO2 96% Bladder scan: 33 mL Urine Dip: negative for all components General: normal appearing female, pleasant mood, normal speech Abdomen: Abdomen soft, non-tender, no masses. Back: Non-tender, without costovertebral angle or paraspinal tenderness Pelvic: Cough stress test (empty supine): neg External Genitalia: Vulva, [place]'s and Bartholin glands normal, urethra without tenderness or mass Vagina: no exposed mesh, no discharge or unusual tenderness Cervix and uterus surgically absent Bimanual (uterus/adnexa): Thickening of the epithelium over the mesh site Impression: Ms. Amato is a 50 y.o. year old woman now 6 wks s/p revision of exposed vaginal mesh, healing well but with much increased mixed urinary incontinence. Plan: Activity: OK to resume all normal activity as tolerated and RTW 01-27-21. Discussed postop bladder irritation and the likelihood that her leakage may gradually improve with the passage of time. Also gave and discussed handouts on pelvic floor muscle exercises and OAB/lifestyle factors with discussion of the freeze & squeeze technique for delaying urges. She does not live near a PFPT provider. Pelvic floor exercises 10 reps 2-3 times daily to maintain pelvic floor strength Schedule telephone followup with Dr Jiménez in 2 months for consideration of possible pessary fitting or other approach. Chante Neal APRN Division of Female Pelvic Medicine/Reconstructive Surgery documented in this encounter Plan of Treatment Upcoming Encounters Date Type Department Care Team (Late st Contact Info) Description 01/02/2025 3:30 PM EDT Office Visit Dermatology at [place] [address] [place] [phone] Jaquan Syed MD [address], [place] [address] documented as of this encounter Procedures Procedure Name Priority Date/Time Associated Diagnosis Comments BLADDER SCANNER Routine 01/06/2021 Post-operative state POCT URINE DIPSTICK Routine 01/06/2021 Post-operative state documented in this encounter Results * Bladder Scanner (01/06/2021) Bladder Scan (mL) 33 mL Flower Jiménez MD URO PROC W/O RFL ORD ERABLES * POCT urine dipstick (01/06/2021) POC Sp [place] 1.010 1.002 - 1.030 POC pH, UA 5 5.0 - 8.5 POC Leuk, UA Neg. [...] documented in this encounter Visit Diagnoses Diagnosis Post-operative state Other postprocedural status Urinary incontinence, unspecified type documented in this encounter Care Teams Junior Software Engineer Relationship Specialty Start Date End Date Dora Elliott MD [address] [place] [address] PCP - General Family Medicine 08/11/20 documented as of this encounter
--- OUTSIDE RECORDS SUMMARY | 2024-02-23 02:20 | XMS_ITS | Encounter Summary ---
Author Organization [facility] [place] [address] Care Team Providers Care Gem Cutter Name Role Phone Dora Elliott MD Primary Care Provider [phone] Reason for Visit * Reason Onset Date Comments Medication Refill 11/08/2022 Encounter Details Date Type Department Care Team (Late st Contact Info) Description 11/07/2022 Refill Dermatology at [address] [address] Alla Nesbitt RN Social History [...] Telephone Encounter - Alla Nesbitt RN - 11/07/2022 3:20 PM EDT Received call from [employer] assist that patient does not have any more refills for her Princess. Tried to contact patient 11/03/2022,2022,and 11/07/2022. Discussed with Dr. Syed and per his note on 10/29/2022 patient was given a year supply of her Princess. Noted on 12/13/[address] Syed forHumira 40mg/0.4ml citrate free pen inject 40 mg SQ every other week. Dispense 1 kit with 1 refill to ensure patient does have enough mediation till her follow up appointment with Dr. Syed on 12/08/2022. Prescription called in to [facility]. 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 Dr. Syed informed and will continue to try and contact patient regarding this. documented in this encounter Plan of Treatment Upcoming Encounters Date Type Department Care Team (Late st Contact Info) Description 01/02/2025 3:30 PM EDT Office Visit Dermatology at [place] [address] [place] [phone] Jaquan Syed MD [address], [place] [address] documented as of this encounter Visit Diagnoses Not on filedocumented in this encounter Care Teams Gem Cutter Relationship Specialty Start Date End Date Dora Elliott MD [facility] [address] [place] [address] PCP - General Family Medicine 08/11/20 documented as of this encounter
--- OUTSIDE RECORDS SUMMARY | 2024-02-23 02:20 | XMS_ITS | Encounter Summary ---
Author Organization [facility] [place] [address] Care Team Providers Care Puller Through Name Role Phone Dora Elliott MD Primary Care Provider [phone] Reason for Visit * Reason Comments Annual Exam Encounter Details Date Type Department Care Team (Late st Contact Info) Description 10/29/2021 4:15 PM EDT Office Visit Dermatology at [place] [address] [place] [address] Jaquan Syed MD [address], [place] [address] Psoriasis Social History Tobacco Use Types Packs/Day [...] Progress Notes * Jaquan Syed MD - 10/29/2021 4:15 PM EDT Problem: 1. ??Follow-up psoriasis on Humira 2. ??On Humira since July 2015 3. ??History of psoriatic arthritis also responding well to Humira 4. ??Psoriasis developed when she was 2 years old Jessica follows up and she has been out of of Humira since July and unable to get back into see me. She would like to restart her on Humira which was keeping her skin clear. She denies having had any side effects from the Humira. Physical examination reveals a pleasant 50-year-old woman who has early papular psoriasis developing again across her shins entire vertically along the time length of thin patch is also developing onthe knees and elbows she has a little bit on her ears. Assessment plan: Psoriasis recurring off of Humira 1. Resume Humira at prior dose utilizing the 40 mg/ 0.8 ml autoinjector pens inject contents of 1 pen subcutaneously every 2 weeks. Dispense 2 with. Refills for a year 2. Return to clinic in a year for repeat check CC: Dora Elliott MD documented in this encounter Plan of Treatment Upcoming Encounters Date Type Department Care Team (Late st Contact Info) Description 01/02/2025 3:30 PM EDT Office Visit Dermatology at [address] [place] [address] Jaquan Syed MD [address], [place] [address] documented as of this encounter Visit Diagnoses Diagnosis Psoriasis Other psoriasis documented in this encounter Care Teams Puller Through Relationship Specialty Start Date End Date Dora Elliott MD [address] [place] [address] PCP - General Family Medicine 08/11/20 documented as of this encounter
--- OUTSIDE RECORDS SUMMARY | 2024-02-23 02:20 | XMS_ITS | Clinical Summary ---
Author Organization [facility] Address One [facility] [place] [address] Care Team Providers Care Elastic Attacher Overlock Name Role Phone Dora Elliott MD Primary Care Provider [phone] Allergies No known active allergies Medications Medication Sig Dispensed Refills Start Date End Date Status pantoprazole EC (Protonix) 40 mg Tablet, Delayed Release (E.C.) Take 40 mg by mouth daily. 07/30/2020 Active cholecalciferol, Vitamin D3, 50 mcg (2,000 unit) Capsule Take by mouth. Active acetaminophen (Tylenol) 325 mg Tablet Take 2 tablets by mouth every 6 hours as needed for Pain. 30 tablet 1 11/24/2020 Active cetirizine (ZyrTEC) 10 mg Tablet Take 10 mg by mouth daily as needed. 07/16/2021 Active baclofen (Lioresal) 10 mg tablet Take 10 mg by mouth 2 times daily. 11/18/2022 Active fluticasone propionate (Flonase) 50 mcg/actuation [place], Suspension SHAKE LIQUID AND USE 2 SPRAYS IN EACH NOSTRIL EVERY DAY 11/16/2022 Active rosuvastatin (Crestor) 10 mg tablet Take 10 mg by mouth daily. 10/10/2022 Active estradioL 0.0375 mg/24 hr Patch Semiweekly APPLY 1 PATCH TOPICALLY TO THE SKIN 2 TIMES A WEEK 09/20/2023 Active melatonin 1 mg tablet Take by mouth. Active multivitamin (THERAGRAN) Tablet Take 1 tablet by mouth daily. Active Adalimumab (Humira Pen) 40 mg/0.8 mL Pen Injector Kit Inject 0.8 mLs subcutaneously every 14 days. 1 kit 11 01/02/2024 Active Active Problems Problem Noted Date Diagnosed Date Colorectal polyps 01/06/2021 GERD (gastroesophageal reflux disease) 8 Psoriasis 02/07/2013 Encounters Date Type Department Care Team Description 01/02/2024 Refill Dermatology at [address] [phone] [place] Daily LPN 01/01/2024 4:15 PM EDT Office Visit Dermatology at [address] [phone] Jaquan Syed MD Psoriasis 01/01/2024 Travel from Last 3 Months Social History Tobacco Use Types Packs/Day Years Used Date Smoking Tobacco: Former Cigarettes Q uit: 10/22/2015 Smokeless Tobacco: Never Alcohol Use Standard Drinks/Week Comments Yes 0 (1 standard drink = 0.6 oz pur e alcohol) rare Sex and Gender Information Value Date Recorded Sex Assigned at Not on file Gender Identity Not on file Sexual Orientation Not on file Last Filed Vital Signs Vital Sign Reading [...] Mass Index 34.87 11/24/2020 6:18 AM EDT Plan of Treatment Upcoming Encounters Date Type Department Care Team (Late st Contact Info) Description 01/02/2025 3:30 PM EDT Office Visit Dermatology at [address] [phone] Jaquan Syed MD [address] [place] [address], [place] [address] Health Maintenance Due Date Last Done Comments CT Colonography 1968 Colonoscopy 1968 Colorectal Cancer Screening 1968 FIT DNA 1968 FIT 1968 Sigmoidoscopy (10 year) with FIT yearly 1968 Sigmoidoscopy 1968 HIV screen 1986 Hepatitis C Screening 1986 Hepatitis B vaccine (0-59 yrs) (1) 11/05/1987 Tetanus/Diphtheria/Pertussis Vaccines (1 - Tdap) 11/05/1987 HPV test 1998 PAP Smear 1998 Breast Cancer Share Decision Needed 2008 Breast Cancer screening 2008 Zoster vaccine (1 of 2) 2018 Advance Directive 11/05/2023 Covid-19 Vaccine ( - 2022-2 4 season) 2024 Influenza (Flu) vaccine (1 o f 1 - Influenza standard series) 01/28/2024 Diabetes Screening (HgbA1C o r Glucose) Discontinued 02/13/2014, 08/01/2013, 02/07/2013 Medical Devices Implanted Type Area Belt Maker Helper Device Identifier Shelf Expiration Date Model / Serial / Lot Kit Transvaginal Sling Stress Urinary Incontinence Mid ([id number]) - [id number] Implanted:Qty: 1 on 11/24/2020 by Flower Jiménez MD at [facility] IMPLANTS N/A: Vagina [employer] [place] 03/24/2023 [id number] / / [id number] Procedures Procedure Name Priority Date/Time Associated Diagnosis Comments COMPREHENSIVE METABOLIC PANEL Routine 02/13/2014 9:39 AM EDT Psoriasis from Last 3 Months or Most Recently Relevant to Health Maintenance Results * Comprehensive metabolic panel (non-fasting) (02/13/2014 9:39 AM EDT) [facility] Signature Glucose 86 60 - 199 mg/dL [facility] Comment:Diabetes: >=200 mg/d L plus symptoms Blood Urea Nitrogen 16 8 - 18 mg/dL [facility] Creatinine 0.88 0.70 - 1.20 mg/dL [facility] Comment: Please note that the pediatric reference intervals supplied above were not validated at [facility]. Results from pediatric patients should be interpreted in conjunction to the patient's age, height and muscle mass. Sodium 140 135 - 145 mmol/L [facility] Potassium 3.9 3.5 - 5.0 mmol/L [facility] Comment: Please note: ??Patients with WBC >100,000 may have falsely elevated Potassium levels. ??For accurate Potassium quantification in these patients send serum separator tube (gold top) for subsequent determinations. ??Contact the Clinical Chemistry Laboratory if there are any questions. Chloride 106 98 - 107 mmol/L [facility] Carbon Dioxide 23 22 - 31 mmol/L [facility] Anion Gap 11 5 - 15 mmol/L [facility] Calcium 9.4 8.5 - 10.5 mg/dL [facility] Protein, Total 6.6 6.4 - 8.3 gm/dL [facility] Albumin 4.0 3.2 - 5.2 gm/dL [facility] Aspartate Aminotransferase 15 0 - 30 unit/L [facility] Alanine Aminotransferase 20 0 - 30 unit/L [facility] Alkaline Phosphatase 57 40 - 104 unit/L [facility] Bilirubin, Total 0.2 0.2 - 1.3 mg/dL [facility] Bilirubin, Direct 0.1 0.0 - 0.3 mg/dL [facility] Est Glomerular Filtration Rate >60 >=60 [facility] Comment: This estimated GFR (eGFR) value was calculated using the MDRD equation which has been validated on patients between the ages of 18 and 70. The MDRD should not be used to assess kidney function in patients < 18 years of age or in patients with extremes of body mass, or in patients with acute kidney failure. This value should be multiplied by 1.2 for patients. For further information please copy and paste the following links into your internet browser. http://[email or web address]/DHnkdep [email or web address] Blood specimen (specimen) 02/13/2014 9:39 AM EDT 02/13/2014 12:26 PM EDT Narrative Resulting Agency Comment Spec In Lab Aysha Fraser MD CHEMISTRY ORDERABLE [facility] from Last 3 Months or Most Recently Relevant to Health Maintenance Advance Directives * Attempt Cardiopulmonary Resuscitation - Inpatient (Latest Code Status on File) Date Activated Date Inactivated Comments 11/24/2020 9:21 AM 11/24/2020 1:02 PM Question Answer Comments Code Status decision made by: Patient * Attempt Cardiopulmonary Resuscitation - Inpatient Date Activated Date Inactivated Comments 11/24/2020 6:43 AM 11/24/2020 9:21 AM Question Answer Comments Code Status decision made by: Patient * Full Code Date Activated Date Inactivated Comments 03/20/2018 3:21 PM 03/21/2018 3:41 PM Question Answer Comments Does patient have capacity to make decision: Yes * Full Code Date Activated Date Inactivated Comments 03/20/2018 9:45 AM 03/20/2018 3:21 PM Question Answer Comments Does patient have capacity to make decision: Yes Care Teams Elastic Attacher Overlock Relationship Specialty Start Date End Date Dora Elliott MD [address] [place] [address] PCP - General Family Medicine 08/11/20
--- OUTSIDE RECORDS SUMMARY | 2024-02-23 02:20 | XMS_ITS | Encounter Summary ---
[place] [address] Care Team Providers Care Driver License Reviewing Officer Name Role Phone Dora Elliott MD Primary Care Provider [phone] Encounter Details Date Type Department Care Team (Late st Contact Info) Description 12/12/2022 Refill Dermatology at [address] [phone] Alla Nesbitt RN Social History [...] 3:30 PM EDT Office Visit Dermatology at [address] [phone] Jaquan Syed MD [address] [facility] A DERMATOLOGY [place], [place] [id number] documented as of this encounter Visit Diagnoses Not on filedocumented in this encounter Care Teams Driver License Reviewing Officer Relationship Specialty Start Date End Date Dora Elliott MD [facility] [address] [facility] [address] [place], [place] [address] PCP - General Family Medicine 08/11/20 documented as of this encounter
--- OUTSIDE RECORDS SUMMARY | 2024-02-23 02:20 | XMS_ITS | Encounter Summary ---
[place] [address] Care Team Providers Care Paint Roller Cover Machine Setter Name Role Phone Dora Elliott MD Primary Care Provider [phone] Encounter Details Date Type Department Care Team (Latest Contact Info) Description 12/08/2022 Travel Social History Tobacco Use Types Packs/Day [...] 3:30 PM EDT Office Visit Dermatology at [address] [place] [phone] Jaquan Syed MD [address] [facility], [place] [address] documented as of this encounter Visit Diagnoses Not on filedocumented in this encounter Care Teams Paint Roller Cover Machine Setter Relationship Specialty Start Date End Date Dora Elliott MD [facility] [address] [facility] [address] [place] [address] PCP - General Family Medicine 08/11/20 documented as of this encounter
--- OUTSIDE RECORDS SUMMARY | 2024-02-23 02:21 | XMS_ITS | Encounter Summary ---
Author Organization [facility] Address [address] [place] [address] Care Team Providers Care Vp Business Development Name Role Phone Unknown, Provider Primary Care Provider [phone] Encounter Details Date Type Department Care Team (Late st Contact Info) Description 07/17/2021 Lab Requisition [facility] Pathology & Laboratory Medicine - [facility] [address] [place] [address] Outr Resulting Lab, Provider Social History Tobacco Use Types Packs/Day Years Used Date Smoking Tobacco: Never Assessed Interpersonal Safety Answer Date Record ed Physically Hurt Never 12/30/2019 Verbally Threaten Not on file 12/30/2019 Sex and Gender Information Value Date Recorded Sex Assigned at Not on file Gender Identity Not on file Sexual Orientation Not on file documented as of this encounter Plan of Treatment Not on file documented as of this encounter Procedures Procedure Name Priority Date/Time Associated Diagnosis Comments HIV 1/2 ANTIGEN AND ANTIBODY, 4TH GENERATION Routine 07/16/2021 14:24 EST documented in this encounter Results * HIV 1/2 ANTIGEN AND ANTIBODY, 4TH GENERATION (07/16/2021 14:24 EST) HIV 1 and 2 Antibody/p24 Antigen, 4th Generation Negative Negative 07/19/2021 12:10 EST [facility] Comment:If acute HIV-1 infec tion is suspected in a high risk patient, submit plasma specimen for HIV-1 RNA quantitation test. Blood VENOUS BLOOD / Unknown 07/16/2021 14:24 EST 07/18/2021 15:42 EST Narrative [facility] - 07/19/2021 12:10 EST Fourth Generation assay performed on the Siemens Centaur XPT. Provider Outr Resulting Lab IMMUNOLOGY A ND SEROLOGY ORDERABLES [facility] [address] [place] [address] documented in this encounter Visit Diagnoses Not on filedocumented in this encounter Care Teams Vp Business Development Relationship Specialty Start Date End Date Unknown, Provider, PCP - General 06/01/17 documented as of this encounter
--- OUTSIDE RECORDS SUMMARY | 2024-02-23 02:21 | XMS_ITS | Encounter Summary ---
[place] [address] Care Team Providers Care Clock And Watch Hands Painter Name Role Phone Dora Elliott MD Primary Care Provider [phone] Reason for Visit * Reason Comments Psoriasis Encounter Details Date Type Department Care Team (Late st Contact Info) Description 10/02/2015 11:00 AM EDT Office Visit Dermatology at [address] [id number] Jaquan Syed MD [address] [facility], [place] [address] Psoriasis Social History Tobacco Use Types Packs/Day Years Used Date Smoking Tobacco: Former Sex and Gender Information Value Date Recorded Sex Assigned at Not on file Gender Identity Not on file Sexual Orientation Not on file documented as of this encounter Progress Notes * Jessica Lara LPN - 10/02/2015 12:45 PM EDT [facility] sent a mail order for Humira auto injector pen to patient and there is one refill remaining. The pharmacy will fax a new prescription request. * Jaquan Syed MD - 10/02/2015 11:21 AM EDT Problem: 1. Followup psoriasis, back on Humira since July 2015. 2. The patient was previously on Humira, but supply interrupted September of 2014. 3. History of psoriatic arthritis. Jessica follows up and is doing much better. 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 She is very pleased about the good response. Has not had any injection site reactions or side effects from the Humira. Physical examination reveals a pleasant 44-year-old woman whose thin patch psoriasis present previously widely over her shins, thighs, knees, elbows, and inverse involvement in the submammary chest, diffuse, almost guttate patches over her back, and involvement in and behind her ears has all cleared. She has no swelling, no erythema of her hands or her joints. Assessment and Plan: Psoriasis, thin patch, controlled on Humira, as is her psoriatic arthritis. a. Continue Humira, injecting 40 mg using the autoinjector pen, one injection every two weeks. b. The patient has prior authorization good through February of 2016. c. I will today renew her prescription for the next six months. d. Return to clinic in six months for repeat check. Congratulated on wonderful response. COPY: Dora Elliott M.D. documented in this encounter Plan of Treatment Upcoming Encounters Date Type Department Care Team (Late st Contact Info) Description 01/02/2025 3:30 PM EDT Office Visit Dermatology at [place] [address] [facility] [place] [address] Jaquan Syed MD [address] [facility], [place] [address] documented as of this encounter Visit Diagnoses Diagnosis Psoriasis Other psoriasis documented in this encounter Care Teams Clock And Watch Hands Painter Relationship Specialty Start Date End Date Dora Elliott MD [facility] [address] [facility] [address] [place] [address] PCP - General 01/23/13 08/05/20 documented as of this encounter
--- OUTSIDE RECORDS SUMMARY | 2024-02-23 02:21 | XMS_ITS | Encounter Summary ---
Author Organization [facility] [place] [address] Care Team Providers Care Buyer Assistant Name Role Phone Dora Tsai MD Primary Care Provider [phone] Reason for Visit * Reason Comments Skin Check Encounter Details Date Type Department Care Team (Late st Contact Info) Description 02/07/2013 8:45 AM EDT Office Visit Dermatology at [facility] [address] [place] [address] Aysha Fraser MD [facility] [place] [address] Psoriasis; High risk medication use Discharge Disposition: Home Social History Tobacco Use Types Packs/Day Years Used Date Smoking Tobacco: Some Days Sex and Gender Information Value Date Recorded Sex Assigned at Not on file Gender Identity Not on file Sexual Orientation Not on file documented as of this encounter Progress Notes * Sofia Allen LPN - 03/18/2013 4:42 PM EDT If her Rx is in, then I would say it's safe to schedule her an appointment * Aysha Fraser MD - 02/07/2013 8:47 AM EDT DERMATOLOGY CONSULT NOTE Date of service: 02/07/2013 Jessica M Amato : 1970 Provider: Aysha Ledesma MD Chief Complaint Patient presents with ??? Skin Check The patient is seen at the request of DORA TSAI MD, who instructed the patient to be seen for evaluation of above, SKIN HX: Psoriasis HPI Jessica Amato is a 42 y.o. year old female. New patient to me. Referred by Dora Tsai MD for her psoriasis, which she has had since childhood. She moved here from [place] two years ago. She attempted to get a referral from her doctor in [place] to see Dr. Syed in [facility], but found out he was not seeing new patients. She was seeing a certified orthotist in [place] for psoriatic arthritis,has pain in knees, ankles (although this is more after working/bending/lifting) and stiffness in her hands. She has had psoriasis since she was [age] years old. Her mother and father had eczema Her psoriasis is the worst on her elbows, arms, legs and knees. It is better in the summer/ warm months and when she is in the salt water. She is currently using aveeno sensitive skin lotion. She was previously treating her psoriasis with methotrexate and humira together and has been off ofthe medications for about a year and a half. She thinks that the humira helped her, but not so muchthe methotrexate. She did not like the methotrexate because of she felt that it caused GI upset anddiarrhea. 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 No history of heart failure, cancer or demyelinating disease. MEDS: Current Outpatient Prescriptions Medication Status Sig Dispense Refill ??? escitalopram (LEXAPRO) 10 mg tablet Active Take 10 mg by mouth daily. ??? estradiol (CLIMARA) 0.05 mg/[address] 1 patch onto the skin once a week. ADR: Review of patient's allergies indicates no known allergies. 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 EXAM General: NAD, pleasant, cooperative Skin: A total body skin exam except for the genitalia was performed. This includes examination of the skin of the face, ears, neck, chest, axillae, left and right upper and lower extremities, hands, feet, abdomen, back, and buttocks. The genitalia, perineum, and perianal areas were not examined. Significant skin findings: A. Scattered red well-demarcated, thick erythematous plaques on legs, forearms and elbows. -approximately 10% BSA -Nail pitting noted The worst area(s) of psoriasis for this patient is/are: elbows, arms, knees and legs. ASSESSMENT/PLAN: A. Chronic plaque psoriasis, flaring and history of psoriatic arthritis. Discussed treatment options. She would like systemic treatment, and given history of arthritis, reasonable approach. She has had side effects from MTX, and would prefer to resume Humira, which she has had good results with in the past. - RX: Humira start pack (on day 1 give 80 mg SC as two injections, then give 40 mg SC every other week starting one week after the initial dose (40 mg SC at week 1). Rx: Dovonex cream twice daily on weekdays to psoriatic plaques. Alternating with Rx: Clobetasol ointment twice daily on weekends (Sat, sun) to psoriatic plaques. Clobetasol should not be used on face or genitals. Discussed risks, including but not limited to risk of immunosuppression, infection, possible increased cancer risk, need for regular lab monitoring and follow up. Will need PPD, she will obtain through her PCP and fax results. Plan to see back after Humira insurance approval process. I am documenting this encounter acting as the scribe for and in the presence of Dr. Ledesma.: CLINTON CASTELLANOS LPN I performed the above scribed service and agree with the accuracy of the documentation in this encounter. Aysha Ledesma MD Decorator Consultant of Dermatology, Department of Circulation RepresentativeDecorator Consultantcloth finishing range back tender (Dermatopathology) [facility] cc: DORA TSAI MD documented in this encounter Plan of Treatment Upcoming Encounters Date Type Department Care Team (Late st Contact Info) Description 01/02/2025 3:30 PM EDT Office Visit Dermatology at [place] [address] [facility] [place] [address] Jaquan Syed MD [address] [facility], [place] [address] documented as of this encounter Procedures Procedure Name Priority Date/Time Associated Diagnosis Comments DIFFERENTIAL, AUTOMATED Routine 02/07/2013 9:42 AM EDT CBC (WITH DIFF) Routine 02/07/2013 9:42 AM EDT High risk medication use COMPREHENSIVE METABOLIC PANEL Routine 02/07/2013 9:42 AM EDT High risk medication use documented in this encounter Results * (ABNORMAL) Differential, Automated (02/07/2013 9:42 AM EDT) Neutrophil % 48.2 34.0 - 71.0 % CERNER MILLENNIUM Neutrophil Absolute 2.70 1.50 - 6.30 x10(3)/mc L CERNER MILLENNIUM Lymph % 24.4 19.0 - 53.0 % CERNER MILLENNIUM Lymphocytes Abs 1.4 1.0 - 3.6 x10(3)/mc L CERNER MILLENNIUM Monocyte % 14.8(H) 4.0 - 13.0 % CERNER MILLENNIUM Monocyte Abs 0.8 0.2 - 1.0 x10(3)/mc L CERNER MILLENNIUM Eos % 11.2(H) 0.0 - 7.0 % CERNER MILLENNIUM Eosinophils Abs 0.6(H) 0.0 - 0.5 x10(3)/mc L CERNER MILLENNIUM Basophil % 1.2 0.0 - 2.0 % CERNER MILLENNIUM Baso Absolute 0.1 0.0 - 0.2 x10(3)/mc L CERNER MILLENNIUM Immature Gran % 0.20 0.00 - 0.66 % CERNER MILLENNIUM Comment: Immature granulocytes(IG's)percentage and absolute count will include metamyelocytes, myelocytes, and promyelocytes. Blood smears from CBCs yielding IG's will be scanned manually for concordance. If this scan disagrees with the automated IG or if promyelocytes are noted, a manual differential will be performed. Immature Gran Absolute 0.01 0.00 - 0.05 x10(3)/mc L CERNER MILLENNIUM Blood specimen (specimen) 02/07/2013 9:42 AM EDT 02/07/2013 1:09 PM EDT Aysha Fraser MD HEMATOLOGY ORDERABL ES CERNER MILLENNIUM * Comprehensive metabolic panel (non-fasting) (02/07/2013 9:42 AM EDT) Glucose 93 60 - 199 mg/dL CERNER MILLENNIUM Comment:Diabetes: >=200 mg/d L plus symptoms Blood Urea Nitrogen 15 8 - 18 mg/dL CERNER MILLENNIUM Creatinine 0.77 0.70 - 1.20 mg/dL CERNER MILLENNIUM Comment: Please note that the pediatric reference intervals supplied above were not validated at [facility]. Results from pediatric patients should be interpreted in conjunction to the patient's age, height and muscle mass. Sodium 140 135 - 145 mmol/L CERNER MILLENNIUM Potassium 4.0 3.5 - 5.0 mmol/L CERNER MILLENNIUM Comment: Please note: ??Patients with WBC >100,000 may have falsely elevated Potassium levels. ??For accurate Potassium quantification in these patients send serum separator tube (gold top) for subsequent determinations. ??Contact the Clinical Chemistry Laboratory if there are any questions. Chloride 104 98 - 107 mmol/L CERNER MILLENNIUM Carbon Dioxide 26 22 - 31 mmol/L CERNER MILLENNIUM Anion Gap 10 5 - 15 mmol/L CERNER MILLENNIUM Calcium 9.4 8.5 - 10.5 mg/dL CERNER MILLENNIUM Protein, Total 7.4 6.4 - 8.3 gm/dL CERNER MILLENNIUM Albumin 4.7 3.2 - 5.2 gm/dL CERNER MILLENNIUM Aspartate Aminotransferase 20 0 - 30 unit/L CERNER MILLENNIUM Alanine Aminotransferase 25 0 - 30 unit/L CERNER MILLENNIUM Alkaline Phosphatase 68 40 - 104 unit/L CERNER MILLENNIUM Bilirubin, Total 0.4 0.2 - 1.3 mg/dL CERNER MILLENNIUM Bilirubin, [...] the following links into your internet browser. http://www.nkdep.nih.gov/lab-evaluation.shtml http://www.kidney.org/professionals/ Blood specimen (specimen) 02/07/2013 9:42 AM EDT 02/07/2013 1:08 PM EDT Narrative Resulting Agency Comment Spec In Lab Aysha Fraser MD CHEMISTRY ORDERABLE S CERNER MILLENNIUM * (ABNORMAL) CBC (with Diff) (02/07/2013 9:42 AM EDT) White Blood Cell 5.6 4.0 - 10.0 x10(3)/mc L CERNER MILLENNIUM Red Blood Cell 4.28 3.93 - 5.22 x10(6)/mc L CERNER MILLENNIUM Hemoglobin 14.0 11.2 - 15.7 gm/dL CERNER MILLENNIUM Hematocrit 42.7 34.0 - 45.0 % CERNER MILLENNIUM Mean Cell Volume 99.8(H) 79.0 - 94.0 fL CERNER MILLENNIUM Mean Cell Hemoglobin 32.7(H) 26.6 - 32.2 pg CERNER MILLENNIUM Mean Cell Hemoglobin Concentration 32.8 32.0 - 36.5 gm/dL CERNER MILLENNIUM Platelet 313 145 - 370 x10(3)/mc L CERNER MILLENNIUM RDW Standard Deviation 48.9(H) 35.0 - 46.0 fL CERNER MILLENNIUM RDW coefficient of variation 13.5 10.9 - 14.4 % CERNER MILLENNIUM Mean Platelet Volume 10.5 9.0 - 12.0 fL CERNER MILLENNIUM Blood specimen (specimen) 02/07/2013 9:42 AM EDT 02/07/2013 1:09 PM EDT Narrative Resulting Agency Comment Spec In Lab Aysha Fraser MD HEMATOLOGY ORDERABL ES Performing Organization Address City/State/[place] Co id Phone Number [facility] documented in this encounter Visit Diagnoses Diagnosis Psoriasis Other psoriasis High risk medication use Encounter for long-term (current) use of other medications documented in this encounter Care Teams Buyer Assistant Relationship Specialty Start Date End Date Dora Tsai MD [facility] [address] [place] [address] PCP - General 01/23/13 08/05/20 documented as of this encounter
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
--- OUTSIDE RECORDS SUMMARY | 2024-02-23 02:21 | XMS_ITS | Referral Summary ---
Author Organization [facility] Address [address] [place] [address] Care Team Providers Care Human Resources Project Manager Name Role Phone Unknown, Provider Primary Care Provider [phone] Social History Tobacco Use Types Packs/Day Years Used Date Smoking Tobacco: Never Assessed Interpersonal Safety Answer Date Record ed Physically Hurt Never 12/30/2019 Verbally Threaten Not on file 12/30/2019 Sex and Gender Information Value Date Recorded Sex Assigned at Not on file Gender Identity Not on file Sexual Orientation Not on file Plan of Treatment Not on file Procedures Procedure Name Priority Date/Time Associated Diagnosis Comments HEPATITIS C AB W REFLEX TO HCV RNA BY PCR Routine 07/16/2021 14:24 EST from Last 3 Months or Most Recently Relevant to Health Maintenance Results * HEPATITIS C AB W REFLEX TO HCV RNA BY PCR (07/16/2021 14:24 EST) Hep C Antibody Negative Negative 07/19/2021 10:40 EST [facility] Blood VENOUS BLOOD / Unknown 07/16/2021 14:24 EST 07/18/2021 15:42 EST Provider Outr Resulting Lab CHEMISTRY & BLOOD GAS ORDERABLES [facility] [address] [place] [address] from Last 3 Months or Most Recently Relevant to Health Maintenance Care Teams Human Resources Project Manager Relationship Specialty Start Date End Date Unknown, Provider, PCP - General 06/01/17
--- OUTSIDE RECORDS SUMMARY | 2024-02-23 02:21 | XMS_ITS | Encounter Summary ---
[place] [address] Care Team Providers Care Administrator Name Role Phone Dora Elliott MD Primary Care Provider [phone] Reason for Visit * Auth/Cert Specialty Diagnoses / Procedures Referred By Contac t Referred To Contact Diagnoses RECURRENT HIATAL HERNIA Procedures PRO LAP, ESOPHAGUS, OTHER PROC 4 Referral ID Status Reason Start Date Expiration Date Visits Re quested Visits Authorized [id number] 1 1 Encounter Details Date Type Department Care Team (Late st Contact Info) Description 03/20/2018 10:02 AM EDT - 03/20/2018 2:00 PM EDT Surgery [place] [id number] Erik Herndon MD [facility] [place] [address] LAPAROSCOPIC REVISION OF ALONDRA FUNDOPLASTY (WRVU 48.75) Social History Tobacco Use Types Packs/Day Years Used Date Smoking Tobacco: Former Smokeless Tobacco: Never Sex and Gender Information Value Date Recorded Sex Assigned at Not on file Gender Identity Not on file Sexual Orientation Not on file documented as of this encounter Last Filed Vital Signs Vital Sign Reading Time Taken Comments Blood Pressure 101/66 03/20/2018 8:55 AM EDT Pulse 52 03/20/2018 8:55 AM EDT Temperature 36.6 ??C (97.9 ??F) 03/20/2018 8:55 AM ED T Respiratory Rate 18 03/20/2018 8:55 AM EDT Oxygen Saturation 100% 03/20/2018 8:55 AM EDT Inhaled Oxygen Concentration - - Weight 78.5 kg (173 lb 1.6 oz) 03/20/2018 8:55 A M EDT Height 156.2 cm (5' 1.5) 03/20/2018 8:55 AM EDT Body Mass Index 32.18 03/20/2018 8:55 AM EDT documented in this encounter Discharge Summaries * Roxy Sarkar PA - 03/21/2018 6:08 AM EDT General Surgery Discharge Summary Patient Name: Jessica Amato Patient Age: 47 y.o. Birthdate: 1970 Admit date: 03/20/2018 Discharge date and time: 03/21/2018 Attending Physician: Erik Herndon MD Primary Diagnosis: Recurrent Hiatal Hernia Secondary Diagnosis: Psoriatic Arthritis Operations and Procedures: Laparoscopic Revision of Alondra Fundoplasty with Intraoperative Upper Endoscopy Surgeons: Surgeon(s) and Role: * Erik Herndon MD - Primary * Ashia Izquierdo MD - Resident-Surgeon Dileep History of Present Illness: Jessica Amato is a 47-year-old female who was referred by Dr. Reg Hollingsworth. She underwent a hiatal hernia repair and Alondra fundoplication on 08/10/2010 done at [facility] in [place]. She stated that prior to surgery she has significant reflux symptoms and the surgery helped greatly. Recently she has developed recurrent ability to belch and with that recurrent reflux symptoms. She also described epigastric pain with eating and some dysphasia as well. She had a recent upper GI endoscopy which demonstrated what appears to be a slipped Alondra fundoplication. She underwent a barium swallow on 08/02/17, and she has a abnormal configuration to the gastroesop hageal junction. She has a recurrent hiatal hernia as well. She underwent a motility recently whichwas normal. Hospital Course: Jessica Amato is a 47 y.o. female who was admitted on 03/20/2018 for laparoscopicrevision of alondra fundoplasty with intraoperative upper endoscopy. The operative course was uneventful. On POD# 0 she was started on a post Alondra clear liquid diet, and when she tolerated that she was advanced to a post Alondra full liquid diet on POD# 1. Her pain was managed with elixir Tylenol and Oxycodone. The gabriel catheter was removed on POD# 1 and she was voiding without difficulty. On POD# 1 the dressings were dry and intact and the wounds were benign. She did not have a bowel movementprior to discharge but was passing flatus and taking PO without difficulty. Prior to discharge on POD# 1 Jessica Amato was afebrile, with stable vital signs. On POD# 1, she was discharged to home instable condition. Vital Signs: Last value Range last 24hrs Temperature Temp: 37 ??C (98.6 ??F) Temp: [36.1 ??C (97 ??F)-37.2 ??C (99 ??F)] Heart Rate Heart Rate: 51 Heart Rate: [40-68] Blood Pressure BP: 102/51 BP: (93-135)/(51-76) Respiratory Rate Resp: 16 Resp: [11-24] SpO2 SpO2: 95 % SpO2: [92 %-100 %] Pertinent Lab Data: Recent Labs 10/23/18 1531 WBC 10.2* HGB 12.8 HCT 39.3 PLATELET 197 Recent Labs 10/23/18 1531 NA 142 K 3.7 CL 107 CO2 23 BUN 21* CREATININE 0.92 Physical Exam: General: NAD, resting comfortably, pleasant, conversant HEENT: PERRL, anicteric sclerae CVS: RRR Pulm: CTAB Abd: soft, appropriately tender, non-distended. 6 port sites without evidence of edema, erythema orecchymosis. No drainage or s/s of infection noted. : gabriel removed; no problems with voiding Skin: warm, dry Ext: no c/c/e Neuro: CN 2-12 grossly intact, nonfocal,moving all four extremities spontaneously Imaging: No results found. Condition at discharge: Stable Mental Status: awake and alert, oriented x 3 Medications: Your Medications New Medications Dose Details acetaminophen 650 mg/20.3 mL Soln Commonly known as: TYLENOL Take 20.3 mLs by mouth every 6 hours. 650 mg Refills: 0 ondansetron 4 mg Tbdl Commonly known as: ZOFRAN-ODT Take 1 tablet by mouth every 8 hours as needed. 4 mg Quantity: 9 tablet Refills: 0 oxyCODONE 5 mg/5 mL Soln Commonly known as: ROXICODONE Take 5 mLs by mouth every 4 hours as needed for Pain. 5 mg Quantity: 50 mL Refills: 0 Continued medications, unchanged Dose Details Adalimumab 40 mg/0.8 mL Pnkt auto injector PEN Inject one PEN SC every two weeks Quantity: 2 kit Refills: 5 cetirizine 10 mg Tab Commonly known as: ZyrTEC take 1 tablet by mouth once daily Refills: 0 clobetasol 0.05 % Oint Commonly known as: TEMOVATE Apply topically 2 times daily. On Monday and Monday Quantity: 30 g Refills: 3 clobetasol-emollient 0.05 % Crea Commonly known as: TEMOVATE E Apply twice daily to psoriasis on elbows & knees Quantity: 60 g Refills: 2 estradiol 0.5 mg Tab Commonly known as: ESTRACE Refills: 1 Disposition: Home Allergies: No Known Allergies Outpatient Services/Studies: No discharge procedures on file. Scheduled Appointments: Future Appointments and Orders Future Appointments and Orders Future Appointments Provider Department Dept Phone 04/18/2018 10:40 AM Erik Herndon MD General Surgery at [place] [phone] Instructions Given to Patient at Discharge: Call your doctor if you develop: Fever greater than 101.3 degrees Farenheit (38.5 degrees Celcius), chills, nausea or vomiting. Alsocall if you develop severe pain not relieved by your prescribed oral pain medicine. CALL THE GENERAL SURGERY CLINIC DURING WORKING HOURS AT , OR CALL AFTERCLINIC HOURS, WEEKENDS AND HOLIDAYS: ASK FOR THE GENERAL SURGERY RESIDENT GRAPHIC DESIGN PROFESSOR IF ANY OF THE ABOVE OCCUR. Activity level: Increase your activity slowly. You may tire easily, so frequent rest periods may be necessary. Do not lift more than 10 pounds for 4 weeks. Walk three times a day. Use common sense. Don't exhaust yourself. Driving: Do not drive while taking narcotic pain medications. If you are no longer taking pain medication, it should safe to drive when it no longer hurts getting in and out of the vehicle, and when you can quickly move your leg from the gas to the brake pedal without it causing pain. Diet: You should follow a post Alondra diet, as instructed by the dowel inserting machine operator in the hospital for a period of approximately 3 weeks. The main purpose of this diet is to have you consume foods that will slide easily down into your stomach. Most foods when well chewed should pass through the esophagus and into your stomach. However, patients do not always chew foods well enough. Slow, thorough chewing isrecommended. Moistening foods with sauce, gravy, syrup or other liquids can be helpful. You should consume only very soft, small particle foods. You should not eat bread or drink carbonated beverages. You should start with more bland foods and if these are tolerated you may increase the amount of spice in your food. If you find there are foods that don't agree with you, try these sparingly until y ou can tolerate them. You need to remain in an upright position for 30-60 minutes after you eat. You may find that you need to eat smaller meals with frequent between meal snacks to get enough calories. Pills: Please crush all pills for 4 weeks. Other Medication Changes: Please discontinue the use of any antacid medications until you are seen in the clinic for follow-up. This procedure should have helped with the heartburn symptoms, and if the medication is not stopped, we will not know if the surgery was successful. There have been no changes to your other medications (other than crushing them for the next 4 weeks). Please resume taking them as you had prior to surgery. Pain Medication: Take only as needed. -Take the medication exactly as it is prescribed and make sure to read all instructions that come with the medication. -Over the next couple of days you should be requiring less of this medication to control your pain,so that eventually you will not need any at all. You do not have to take all of the medication thatwas prescribed, you may have some left over. -Use ibuprofen (motrin, advil) and/or tylenol prior to using this medication. If your pain is stillnot controlled, you may then use this medication. -Taking more than the prescribed amount of medication or using with alcohol or other drugs can cause you to stop breathing resulting in coma, brain damage or . -Opioids can slow reaction time, cause drowsiness or cloud judgement. No driving for 8 hours after any dose of opioid pain medication if one was prescribed for you. -Using this drug may cause addiction. While addiction is more common in people with a personal or family history of addiction, it can occur in anyone. -Opioids are at risk of being diverted by anyone with access to your home. Opioids should be storedin a safe and secure place, such as a locked cabinet or safe. -Unused opioids should be disposed of appropriately. They may be returned to a take-back location, or mixed with a small amount of water and poured over an undesirable waste such as used coffee grounds or cat litter. -Please note that most pain medications can cause constipation. You may use a stool softener such as Miralax to prevent this. Other Means for Pain Relief: Other than medications. ?? Learn deep breathing exercises or meditation to help you relax ?? Reduce stress ?? Your body produces natural endorphins from exercise which can help reduce pain. Even walking is considered exercise. Talk with your provider/surgical team about what exercises are appropriate for you to perform. ?? You may use a heating pad or apply ice to the painful area unless specifically discouraged by the surgical team. ?? Find ways to distract yourself from the pain. Shower/Bath: You may shower and let water run over wound 48 hours after your surgery. No soaking baths or swimming for 2 weeks from surgery. Wound Care: Once showering, wash your incision(s) daily with soap and rinse well, pat dry. Assess for any signsof infection such as increased redness, pain, warmth or drainage. The Steri-Strips will fall off in7-10 days. The brown bandaids can be removed at any time. Follow-up: You have a follow-up appointment scheduled to see Dr. Herndon at the [facility], on Monday, April 18, 2018 at 10:40am. You will receive a letter in the mail confirming the appointment date and time. Your follow-up is very important to us. Please call [phone] if you do not hear from us within 7 days of discharge or if you need to change the appointment date/time. Signed: JAEL Houser 03/21/2018 Primary Care Physician: MD Andrés [address] DR [facility] [id number] documented in this encounter Discharge Instructions * Discharge Instructions* Roxy Sarkar PA - 03/21/2018 12:51 PM EDT Scheduled Appointments: Future Appointments and Orders ?? Future Appointments and Orders ?? Future Appointments Provider Department Dept Phone ?? 04/18/2018 10:40 AM Erik Herndon MD [facility] [place] [phone] ? Instructions Given to Patient at Discharge: ?? Call your doctor if you develop: Fever greater than 101.3 degrees Farenheit (38.5 degrees Celcius), chills, nausea or vomiting. Alsocall if you develop severe pain not relieved by your prescribed oral pain medicine. ?? CALL THE GENERAL SURGERY CLINIC DURING WORKING HOURS AT , OR CALL AFTERCLINIC HOURS, WEEKENDS AND HOLIDAYS: ASK FOR THE GENERAL SURGERY RESIDENT GRAPHIC DESIGN PROFESSOR IF ANY OF THE ABOVE OCCUR. ?? Activity level: Increase your activity slowly. You may tire easily, so frequent rest periods may be necessary. Do not lift more than 10 pounds for 4 weeks. Walk three times a day. Use common sense. Don't exhaust yourself. ?? Driving: Do not drive while taking narcotic pain medications. If you are no longer taking pain medication, it should safe to drive when it no longer hurts getting in and out of the vehicle, and when you can quickly move your leg from the gas to the brake pedal without it causing pain. ? Diet: You should follow a post Alondra diet, as instructed by the dowel inserting machine operator in the hospital for a period of approximately 3 weeks. The main purpose of this diet is to have you consume foods that will slide easily down into your stomach. Most foods when well chewed should pass through the esophagus and into your stomach. However, patients do not always chew foods well enough. Slow, thorough chewing isrecommended. Moistening foods with sauce, gravy, syrup or other liquids can be helpful. You should consume only very soft, small particle foods. You should not eat bread or drink carbonated beverages. You should start with more bland foods and if these are tolerated you may increase the amount of spice in your food. If you find there are foods that don't agree with you, try these sparingly until y ou can tolerate them. You need to remain in an upright position for 30-60 minutes after you eat. You may find that you need to eat smaller meals with frequent between meal snacks to get enough calories. ?? Pills: Please crush all pills for 4 weeks. ?? Other Medication Changes: Please discontinue the use of any antacid medications until you are seen in the clinic for follow-up. This procedure should have helped with the heartburn symptoms, and if the medication is not stopped, we will not know if the surgery was successful. There have been no changes to your other medications (other than crushing them for the next 4 weeks). Please resume taking them as you had prior to surgery. ?? Pain Medication: Take only as needed. -Take the medication exactly as it is prescribed and make sure to read all instructions that come with the medication. -Over the next couple of days you should be requiring less of this medication to control your pain,so that eventually you will not need any at all. You do not have to take all of the medication thatwas prescribed, you may have some left over. -Use ibuprofen (motrin, advil) and/or tylenol prior to using this medication. If your pain is stillnot controlled, you may then use this medication. -Taking more than the prescribed amount of medication or using with alcohol or other drugs can cause you to stop breathing resulting in coma, brain damage or . -Opioids can slow reaction time, cause drowsiness or cloud judgement. No driving for 8 hours after any dose of opioid pain medication if one was prescribed for you. -Using this drug may cause addiction. While addiction is more common in people with a personal or family history of addiction, it can occur in anyone. -Opioids are at risk of being diverted by anyone with access to your home. Opioids should be storedin a safe and secure place, such as a locked cabinet or safe. -Unused opioids should be disposed of appropriately. They may be returned to a take-back location, or mixed with a small amount of water and poured over an undesirable waste such as used coffee grounds or cat litter. -Please note that most pain medications can cause constipation. You may use a stool softener such as Miralax to prevent this. ?? Other Means for Pain Relief: Other than medications. ?? Learn deep breathing exercises or meditation to help you relax ?? Reduce stress ?? Your body produces natural endorphins from exercise which can help reduce pain. Even walking is considered exercise. Talk with your provider/surgical team about what exercises are appropriate for you to perform. ?? You may use a heating pad or apply ice to the painful area unless specifically discouraged by the surgical team. ?? Find ways to distract yourself from the pain. ? Shower/Bath: You may shower and let water run over wound 48 hours after your surgery. No soaking baths or swimming for 2 weeks from surgery. ?? Wound Care: Once showering, wash your incision(s) daily with soap and rinse well, pat dry. Assess for any signsof infection such as increased redness, pain, warmth or drainage. The Steri-Strips will fall off in7-10 days. The brown bandaids can be removed at any time. ?? Follow-up: You have a follow-up appointment scheduled to see Dr. Herndon at the [facility], on Monday, April 18, 2018 at 10:40am. ?? You will receive a letter in the mail confirming the appointment date and time. Your follow-up is very important to us. ?? Please call [phone] if you do not hear from us within 7 days of discharge or if you need to change the appointment date/time. ? documented in this encounter Medications at Time of Discharge Medication Sig Dispensed Refills Start Date End Date acetaminophen (TYLENOL) 650 mg/20.3 mL Solution Take 20.3 mLs by mouth every 6 hours. 03/21/2018 10/21/2020 oxyCODONE (ROXICODONE) 5 mg/5 mL Solution Take 5 mLs by mouth every 4 hours as needed for Pain. 50 mL 03/21/2018 04/18/2018 ondansetron (ZOFRAN-ODT) 4 mg Tablet, Rapid Dissolve Take 1 tablet by mouth every 8 hours as needed. 9 tablet 03/21/2018 04/18/2018 cetirizine (ZYRTEC) 10 mg Tablet take 1 tablet by mouth once daily 0 04/28/2017 04/18/2018 Adalimumab 40 mg/0.8 mL Pen Injector Kit auto injector PEN Inject one PEN SC every two weeks 2 kit 5 07/28/2017 04/18/2018 clobetasol-emollient (TEMOVATE E) 0.05 % Cream Apply twice daily to psoriasis on elbows & knees 60 g 2 07/28/2017 04/18/2018 estradiol (ESTRACE) 0.5 mg Tablet 1 05/31/2015 08/06/2020 clobetasol (TEMOVATE) 0.05 % ointmentIndications:Pso riasis Apply topically 2 times daily. On Monday and Monday 30 g 3 08/01/2013 04/18/2018 documented as of this encounter Progress Notes * Birdie Reina RN - 03/21/2018 1:26 PM EDT Patient Name: Jessica Amato Patient Age: 47 y.o. Birthdate: 1970 Admit date: 03/20/2018 Attending Physician: Erik Herndon MD IV removed, site benign. Pts assessment remains unchanged from previous assessment. Discussed pain management with patient, pain tolerable. Pt medicated prior to discharge. Pt has all belongings and supplies needed. Patient received discharge summary and prescriptions. These were reviewed, patient verbalizes understanding of AVS. All questions answered. Pt encouraged to call with questions or concerns. Pt discharged to home with family. * Jayed Christy DT - 03/21/2018 9:15 AM EDT Nutrition Services - Education Note Jessica Amato : 1970 AGE: 47 y.o. MedDx/PMHx: Alondra Reason for Nutrition Intervention: Consult Diet Order: Alondra, Full Liquids Appetite: Fair - Per pt Food allergies: NKFA Ht Readings from Last 3 Encounters: 03/20/18 156.2 cm (5' 1.5) 08/02/17 157.5 cm (5' 2) Wt Readings from Last 3 Encounters: 03/20/18 78.5 kg (173 lb 1.6 oz) 10/05/17 85.7 kg (189 lb) 08/02/17 90.7 kg (200 lb) Body mass index is 32.18 kg/m??. Education: Alondra dietary guidelines. Verbalized good understanding. Education material, with means of contact provided. Assessment: Patient seen for nutrition consult: camacho Quiñones. Pt verbalized good understanding of Alondra guidelines. Highly recommended to follow foods allowed/foods not allowed list for 3 full weeks. School Speech Therapist and pt discussed all foods on the allowed/ not allowed list in great detail and answered all questions the pt had. Discussed incorporating supplemental shakes for additional calorie and protein consumption. Pt agreeable to shakes for home use. School Speech Therapist will provide a chocolate and coffee Boost Plus shakes on lunch tray for pt to take home and trial. Emphasized the importance of no bread products, no carbonated beverages, and no straw use and why. Encouraged 6 small meals daily with meatsground or cut up fine w/ gravy. Pt expressed good understanding. School Speech Therapist collected pt's diet appropriate lunch choices to promote and encourage PO intake with foods pt likes. Pt reported she ate 50% of breakfast 03/21. I have provided contact information in case any further questions should arise. Nutrition Plan: Diet: Alondra x 3 weeks. Supplemental shakes for home use 1-2x/day. No carbonated beverages. No straw use. No bread products. 6 small meals encouraged daily. Meats ground or cut up fine w/ gravy. Moist foods/ Small bites/ Chew all food well. Encourage good po intake. Monitor weight. Support and encouragement provided. Nutrition services to follow weekly thru hospital course unless consulted in the interim. ABBY Yarbrough * Roxy Sarkar PA - 03/21/2018 6:58 AM EDT Minimally Invasive Surgery Inpatient Progress Note ID: Jessica Amato is a 47 y.o. female s/p laparoscopic revision of alondra fundoplasty with intraoperative upper endoscopy. Now 1 Day Post-Op. 24hr events: ?? No acute events ?? Gabriel removed this am, now voiding without any issues Subjective: She admits to feeling ok this am. She admits to having pain in the upper abdomen that does radiate across the entire upper abdomen, but she states the pain medication is helping with the pain. She has been tolerating clear liquids overnight without issues, and she tolerated her breakfast. She does admit she was not able to eat all of the breakfast, she just felt full early. She has been ambulating on the floor, and she has already voided once since the gabriel was removed. She currently denies n/v/cp/sob O: Last value Range last 24hrs Temperature Temp: 37.2 ??C (99 ??F) Temp: [36.1 ??C (97 ??F)-37.2 ??C (99 ??F)] Heart Rate Heart Rate: 62 Heart Rate: [40-68] Blood Pressure BP: 106/58 BP: (93-135)/(52-76) Respiratory Rate Resp: 16 Resp: [11-24] SpO2 SpO2: 98 % SpO2: [92 %-100 %] 03/20 0701 - 03/21 0700 In: 2692.7 [P.O.:390; I.V.:2302.7] Out: 1232 [Urine:1220] Physical Exam: General: NAD, resting comfortably, pleasant, conversant HEENT: PERRL, anicteric sclerae CVS: RRR Pulm: CTAB Abd: soft, appropriately tender, non-distended.6 port sites without evidence of edema, erythema or ecchymosis. No drainage or s/s of infection noted. : gabriel removed; voiding without problems. Skin: warm, dry Ext: no c/c/e Neuro: non-focal, moving all four extremities spontaneously Labs: Recent Labs 03/20/18 1531 WBC 10.2* HGB 12.8 HCT 39.3 PLATELET 197 Recent Labs 03/20/18 1531 NA 142 K 3.7 CL 107 CO2 23 BUN 21* CREATININE 0.92 Microbiology: None New Studies: None ASSESSMENT: Jessica Amato is a 47 y.o. female s/p laparoscopic revision of alondra fundoplasty withintraoperative upper endoscopy. Now 1 Day Post-Op Progressing post-operatively without concerns. PLAN: NEURO: Pain control with elixir Tylenol and Oxycodone. CV: No acute issues PULM: Encourage frequent ambulation and IS use GI: Diet Post-Alondra Full Liquid diet Full Liquid : gabriel removed; voiding without problems FEK: HLIV ID: no indication of active infection HEME: no indication of active bleeding ENDO: no active issues PROPHYLAXIS: PRESTON for DVT DISPO: Floor status, Full Code Plan for discharge later today depending on progress. JAEL HOUSER 03/21/2018 * Garcia Smith MD - 03/20/2018 7:59 PM EDT Post-Operative Check Jessica Amato is a 47 y.o. female s/p Procedure(s): LAPAROSCOPIC REVISION OF ALONDRA FUNDOPLASTY (WRVU *) MODIFIER, HIATAL HERNIA MODIFIER , RECURRENT ENDOSCOPY, UPPER GI, DIAGNOSTIC, WITH OR WITHOUT SPECIMENS S: No nausea/vomiting, chest pain, SOB, pain well controlled, offers no complaints. O: Temp: [36.1 ??C (97 ??F)-36.7 ??C (98.1 ??F)] Heart Rate: [40-68] Resp: [11-24] BP: (93-135)/(52-76) SpO2: [92 %-100 %] Heart Rate from SPO2: [40 bpm-60 bpm] I/O last 3 completed shifts: In: 1886.7 [P.O.:20; I.V.:1866.7] Out: 157 [Urine:145; Blood:12] No intake/output data recorded. Recent Results (from the past 24 hour(s)) Electrolytes panel Result Value Ref Range Sodium 142 135 - 145 mmol/L Potassium 3.7 3.5 - 5.0 mmol/L Chloride 107 98 - 107 mmol/L CO2 23 22 - 31 mmol/L Anion Gap 12 5 - 15 mmol/L BUN Result Value Ref Range BUN 21 (H) 8 - 18 mg/dL Creatinine Result Value Ref Range Creatinine 0.92 0.70 - 1.20 mg/dL eGFR 73 >=60 mL/min/1.73 m?? eGFR 85 >=60 mL/min/1.73 m?? Hemogram Result Value Ref Range WBC 10.2 (H) 4.0 - 9.5 x10(3)/mcL RBC 4.06 4.00 - 5.21 x10(6)/mcL Hemoglobin 12.8 11.7 - 15.5 gm/dL Hematocrit 39.3 35.7 - 45.8 % MCV 96.8 (H) 82.6 - 94.4 fL MCH 31.5 27.1 - 32.0 pg MCHC 32.6 31.7 - 35.0 gm/dL Platelets 197 145 - 357 x10(3)/mcL RDWSD 46.1 (H) 37.0 - 46.0 fL RDWCV 12.9 11.5 - 14.1 % MPV 11.1 7.6 - 12.9 fL nRBC % Auto 0.0 % nRBC Abs Auto 0.000 0.000 - 0.000 x10(3)/mcL Differential, Automated Result Value Ref Range Neutrophils % 86.4 % Neutr Abs (ANC) 8.86 (H) 1.70 - 6.10 x10(3)/mcL Lymphocytes % 11.2 % Lymphocytes Abs 1.2 0.9 - 3.2 x10(3)/mcL Monocytes % 1.4 % Monocyte Abs 0.1 (L) 0.3 - 0.9 x10(3)/mcL Eosinophils % 0.2 % Eosinophils Abs 0.0 0.0 - 0.4 x10(3)/mcL Basophils % 0.4 % Basophils Abs 0.0 0.0 - 0.1 x10(3)/mcL Immature Gran % 0.40 % Tegan Gran Abs 0.04 0.00 - 0.04 x10(3)/mcL Physical Exam Gen: A0x3, NAD, resting comfortably CVS: RRR Resp: CTAB, breathing comfortably on RA Abd: soft, minimally tender, non distended, port sites c/d/i : gabriel in place, clear-yellow urine in bag Ext: SCDs in place, WWP AP Jessicaclaudio Amato is a 47 y.o. female s/p lap ALONDRA revision currently in stable condition and recovering well - continue post operative plan per primary team - pain well controlled - hemodynamically stable Garcia Smith MD 03/20/2018 * Birdie Reina RN - 03/20/2018 6:37 PM EDT Patient arrived to floor from PACU sleepy and oriented x 3. Patient states pain tolerable at 12/05, I just got pain meds before coming here. Educated and discussed pain management with patient. Patient verbalizes understanding of pain control. Patient denies chest pain, SOB, or nausea. Clear liquids provided at the bedside. Abdominal lap. Sites x6 with bandaids and steristrips, small amt. of dried drainage. Lungs clear bilat. HR regular. + CMS x4 extremities. Plan of care reviewed with patient. Gabriel catheter draining adequate amt. CYU. IV site benign. Oriented patient to room, call amato is within reach. Will continue to monitor. Report received from SHAQUILLE Gordillo. * Loretta Araujo RN - 03/20/2018 3:22 PM EDT Pt arrived to PACU, attached to monitors, alamrs on, settings appropriate for pt. No nausea or painnoted. 1510 anesthesia paged for bradycardia into mid 30s- when woken pt HR increases to 50s. Per anesthesia, continue to monitor HR and readdress if anything changes. Labs drawn and sent. Pt tolerating sips of water well. Pt meets recovery criteria at 1700. Report called to SHAQUILLE Packer. documented in this encounter H&P Notes * Ashia Izquierdo MD - 03/20/2018 10:13 AM EDT 24 Hour H&P Update No changes in medical condition since last Surgery office visit. Patient denies chest pain, increasing shortness of breath, nausea/vomitting/fevers/chills. Patient Vitals for the past 8 hrs: BP Temp Temp src Pulse Resp SpO2 Height Weight 03/20/18 0855 101/66 36.6 ??C (97.9 ??F) Temporal 52 18 100 % 156.2 cm (5' 1.5) 78.5 kg (173 lb 1.6 oz) NAD Heart sounds are nml, no murmur appreciated Lungs clear to auscultation Abdomen is soft There are no rashes on the skin Extremities are symmetric A/P: Okay to proceed with surgery, lap PEH revision.. documented in this encounter Miscellaneous Notes * Brief Op Note - Erik Herndon MD - 03/21/2018 1:35 PM EDT Brief Operative Note Patient Name: Jessica Amato : [id number] MR#: [id number] Case Date: 03/20/2018 Surgeon: Surgeon(s) and Role: * Erik Herndon MD - Primary * Ashia Izquierdo MD - Resident-Surgeon Dileep Preoperative diagnosis: RECURRENT HIATAL HERNIA Postoperative diagnosis: RECURRENT HIATAL HERNIA Procedure(s) (LRB): LAPAROSCOPIC REVISION OF ALONDRA FUNDOPLASTY (WRVU *) (N/A) MODIFIER, HIATAL HERNIA (N/A) MODIFIER , RECURRENT (N/A) ENDOSCOPY, UPPER GI, DIAGNOSTIC, WITH OR WITHOUT SPECIMENS (N/A) Indications for surgery: Patient is a 47-year-old female who had previously undergone a laparoscopic Alondra fundoplication in 2010 down in a [facility]. Since that time she has developed recurrent symptoms of reflux as well as epigastric pain with eating and excessive belching. Preoperative evaluation has demonstrated what appears to be a abnormal configuration of the fundoplication and the suggestion of a recurrent hiatal hernia. Following review of her therapeutic options she has elected to undergo a laparoscopic revision of her fundoplication and repair of her recurrent hernia and upper GI endoscopy. Findings at the time of surgery: Upon investigation of the previous surgery it was clear that the very top of the short gastric vessels had never been taken down this led to a wrapping of the lower part of the lesser curve around the esophagus and subsequently a compartmentalization of that portionof the stomach that was never divided from the spleen. I think is clearly is responsible for the symptoms that she is having and I disagree with this method of doing a Alondra fundoplication. We were able to completely mobilize all the short gastric vessels away from the spleen we took down her fundoplication that had been present before we took down the fundoplication she actually did not have any evidence of a hiatal hernia the imaging suggestion of that was due to the abnormal configuration of the fundoplication. We also did an upper GI endoscopy which did not show any leak from the stomachor the esophagus and also confirmed that we completely taken down the initial wrap and also confirmed the location of the gastroesophageal junction with excellent intra-abdominal length. We performeda fundoplication without complication. Details of the operation: The patient was brought to the operating room placed in the supine position and following uneventful induction of general endotracheal anesthesia her legs were split using straight leg extensions and oral gastric tube was placed as well as Venodyne stockings. Her abdomen was prepped and draped in the usual sterile fashion a small incision was made at the base of the umbilicus followed by insertion of a Veress needle into the abdomen and a pneumoperitoneum to 15 mmHg pressure was obtained without difficulty. The first trocar was a 10 mm trocar placed 15 cm inferior tothe xiphoid just to left of midline through this a 45 degrees laparoscope was inserted all remaining trochars were inserted under direct visualization. The next trocar was a 11 mm trocar placed 10 cmalong the right costal margin the next trocar was a 5 mm trocar placed 20 cm long left costal margin the next trocar was a 5 mm trocar placed mammary midway between the left lateral trocar in the umbilicus. The next trocar was an 11 mm trocar placed 10 cm along the right costal margin and the last trocar was a 5 mm trocar placed in the right upper abdomen the liver retractor was placed through the right subcostal trocar in the left lobe liver was elevated revealing extensive adhesions between the undersurface of the liver and the previous fundoplication. Using a combination of blunt sharp andharmonic scalpel dissection the liver was dissected off the previous fundoplication and the liver retractor was repositioned to obtain excellent exposure of the upper abdomen. Were able to identify sutures that were part of the additional fundoplication and these were sharply divided. The left halfof the fundoplication easily fell away from the esophagus where as the right have was much more densely adherent to the sidewall of the esophagus. We then turned our attention to mobilization of the greater curvature some of the gas short gastric vessels had been divided but it was very clear that the very top aspect of the short gastric vessels had never been divided and were still in the normal anatomic configuration to the top of the spleen. This had resulted in a very atypical formation of the fundoplication at the original operation with both which I think is directly contributing to thepatient's current symptoms. Using a combination of blunt and harmonic scalpel dissection all remaining short gastric vessels at the superior pole the spleen were mobilized and divided resulting in adequate and appropriate mobilization of the greater curvature the stomach. We then were able to dissect circumferentially around the esophagus with care taken to avoid injury to the anterior and posterior vagus nerves which identified and preserved. A [place] drain was used to encircle the esophagus at the level of the gastroesophageal junction and this was held in place using an Endoloop further paraesophageal dissection was accomplished until we were certain we had adequate intra-abdominal length. The remainder of the fundoplication on the anatomic right was mobilized off the esophagus. The posterior aspect of the fundoplication was densely adherent to the diaphragmatic closure requiring car eful and meticulous sharp dissection. Ultimately were able to completely unwrap the revisional fundoplication and the initial sutures for the left half of the wrap were significantly down the lesser curvature again resulting this atypical compartmentalization of the cardia stomach with a portion ofstomach with a short gastric vessels had not been divided. We then performed an upper GI endoscopy a nd this demonstrated that the gastroesophageal junction correlated with where we thought it was laparoscopically demonstrated excellent intra-abdominal length. We also did a saline insufflation test and there is no evidence of injury to the esophagus or stomach we then retroflexed and confirmed that there was no amount of fundoplication remaining at this point. At this point the gastroscope was us ed to decompress the stomach and the gastroscope was removed. We then progressed with the fundoplication as there is no evidence of recurrent hernia. The fundus was wrapped from a left to right direction posterior to the esophagus and a 60 Welsh bougie was then passed by anesthesia down the esophagus and the stomach under direct visualization without difficulty. With a [address] a 3 stitch to have centimeter fundoplication was formed the first bite of the fundoplication included fundus and fundus the next 2 bites included fundus esophagus and fundus with care taken to avoid injury to the anterior vagus nerves. At this point the bougie was removed and 2 additional gastropexysutures were placed from the posterior aspect of the fundoplication to the diaphragm. All sutures were of 2-0 Nurolon. At this point excellent hemostasis was assured the eye was irrigated the Penrosedrain was cut and removed the liver retractor was released and removed and all trocar sites were then removed under direct visualization to assure hemostasis at the insertion site. The pneumoperitoneum was evacuated and all trocar sites were closed at the skin level using a running subcuticular closure of 4-0 Vicryl followed by Steri-Strips followed by Band- Aids she tolerated procedure well and was taken to recovery room postop in stable condition Attestation: Case Date: 03/20/2018 I was the attending and present for the entire procedure. (Please see the Surgical Encounter Summary for any Implant and Specimen details pertinent to this patient.) * Plan of Care - Oralia Em RN - 03/21/2018 2:19 AM EDT Problem: Patient Care Overview Goal: Plan of Care Review Outcome: Ongoing (Interventions Implemented as Appropriate) 03/21/18 0215 Coping/Psychosocial Plan Of Care Reviewed With patient Plan of Care Review Progress progress toward functional goals as expected S/P: Laparoscopic hernia repair ALONDRA procedure. Lap sites x6 Outcome Summary: VSS. Lap sites CDI with scant dried drainage on bandaids/steri strips. Pain tx with liquid tylenol/liquid oxycodone with moderate relief. Denies nausea. Candie small sips clear liq. UOPWNL. Gabriel d/c at 0400 Plan: Ongoing monitoring/assessments. I/O. Pain tx. DTV 0800 INDIVIDUALIZED FALL PREVENTION: 1 assist Assistance: Assisted with bed mobility to find comfortable position, will assist when OOB as needed. Supervision: Stand-by assist with initial ambulation and supervised activity as needed. Surveillance: Continuous pulse ox, call amato within reach, purposeful rounding * Op Note - Erik Herndon MD - 03/20/2018 2:37 PM EDT Brief Operative Note Patient Name: Jessica Amato : [id number] MR#: [id number] Case Date: 03/20/2018 Surgeon: Surgeon(s) and Role: * Erik Herndon MD - Primary * Ashia Izquierdo MD - Resident-Surgeon Dileep Preoperative diagnosis: RECURRENT HIATAL HERNIA Postoperative diagnosis: RECURRENT HIATAL HERNIA Procedure(s) (LRB): LAPAROSCOPIC REVISION OF ALONDRA FUNDOPLASTY (WRVU *) (N/A) MODIFIER, HIATAL HERNIA (N/A) MODIFIER , RECURRENT (N/A) ENDOSCOPY, UPPER GI, DIAGNOSTIC, WITH OR WITHOUT SPECIMENS (N/A) Anesthesia: Anesthesia type not filed in the log. Findings: Top short gastrics were not divided at original surgery leading to incorrect formation oforiginal fundoplication. Wrap taken down, EGD ok, Alondra reformed. Complications: None Intake: 1200cc Output: 12cc Drains: none Specimens removed during surgery: none Disposition: pacu Condition: stable Attestation: Case Date: 03/20/2018 I was present and performed the entire procedure. (Please see the Surgical Encounter Summary for any Implant and Specimen details pertinent to this patient.) documented in this encounter Plan of Treatment Upcoming Encounters Date Type Department Care Team (Late st Contact Info) Description 01/02/2025 3:30 PM EDT Office Visit Dermatology at [place] [address] [facility] [place] [id number] Jaquan Syed MD [address] [facility] [place] [address] documented as of this encounter Procedures Procedure Name Priority Date/Time Associated Diagnosis Comments [facility] SCAN 03/22/2018 12:00 AM EDT HEMOGRAM Routine 03/20/2018 3:31 PM EDT DIFFERENTIAL, AUTOMATED Routine 03/20/2018 3:31 PM EDT CREATININE Routine 03/20/2018 3:31 PM EDT CBC (WITH DIFF) Routine 03/20/2018 3:31 PM EDT BUN Routine 03/20/2018 3:31 PM EDT ELECTROLYTES PANEL Routine 03/20/2018 3: 31 PM EDT ENDOSCOPY, UPPER GI, DIAGNOSTIC, WITH OR WITHOUT SPECIMENS (WRVU 2.09) 03/20/2018 10:57 AM EDT RECURRENT HIATAL HERNIA MODIFIER , RECURRENT 03/20/2018 10:57 AM EDT RECURRENT HIATAL HERNIA MODIFIER, HIATAL HERNIA 03/20/2018 10:57 AM EDT RECURRENT HIATAL HERNIA LAPAROSCOPIC REVISION OF ALONDRA FUNDOPLASTY (WRVU 48.75) 03/20/2018 10:57 AM EDT RECURRENT HIATAL HERNIA documented in this encounter Results * SCAN DOC: [facility] DIRECT[facility] (03/22/2018 12:00 AM EDT) Anatomical Region Laterality Modality Other Narrative 03/22/2018 12:00 AM EDT Ordered by an unspecified provider. Scanning Provider MEDIA MGR SCAN EXT O RDR/RSLT * (ABNORMAL) Differential, Automated (03/20/2018 3:31 PM EDT) Neutrophil % 86.4 % [facility] Neutrophil Absolute 8.86(H) 1.70 - 6.10 x10(3)/mc L [facility] Lymph % 11.2 % [facility] Lymphocytes Abs 1.2 0.9 - 3.2 x10(3)/mc L [facility] Monocyte % 1.4 % [facility] Monocyte Abs 0.1(L) 0.3 - 0.9 x10(3)/mc L [facility] Eos % 0.2 % [facility] Eosinophils Abs 0.0 0.0 - 0.4 x10(3)/[facility] Basophil % 0.4 % [facility] Baso Absolute 0.0 0.0 - 0.1 x10(3)/[facility] Immature Gran % 0.40 % [facility] Comment: Immature granulocytes(IG's)percentage and absolute count will include metamyelocytes, myelocytes, and promyelocytes. Blood smears from CBCs yielding IG's will be scanned manually for concordance. If this scan disagrees with the automated IG or if promyelocytes are noted, a manual differential will be performed. Immature Gran Absolute 0.04 0.00 - 0.04 x10(3)/[facility] Blood specimen (specimen) 03/20/2018 3:31 PM EDT 03/20/2018 3:53 PM EDT Narrative Resulting Agency Comment Spec In Lab Ashia Izquierdo MD HEMATOLOGY ORDERABLE S Performing Organization Address City/State/[facility] Co de Phone Number [facility] [place] [address] * (ABNORMAL) Hemogram (03/20/2018 3:31 PM EDT) White Blood Cell 10.2(H) 4.0 - 9.5 x10(3)/[facility] Red Blood Cell 4.06 4.00 - 5.21 x10(6)/[facility] Hemoglobin 12.8 11.7 - 15.5 gm/dL [facility] Hematocrit 39.3 35.7 - 45.8 % [facility] Mean Cell Volume 96.8(H) 82.6 - 94.4 fL [facility] Mean Cell Hemoglobin 31.5 27.1 - 32.0 pg [facility] Mean Cell Hemoglobin Concentration 32.6 31.7 - 35.0 gm/dL [facility] Platelet 197 145 - 357 x10(3)/[facility] RDW Standard Deviation 46.1(H) 37.0 - 46.0 [facility] RDW coefficient of variation 12.9 11.5 - 14.1 % [facility] Mean Platelet Volume 11.1 7.6 - 12.9 [facility] NRBC% auto 0.0 % [facility] NRBC Absolute 0.000 0.000 - 0.000 x10(3)/mc L [facility] Blood specimen (specimen) 03/20/2018 3:31 PM EDT 03/20/2018 3:53 PM EDT Narrative Resulting Agency Comment Spec In Lab Ashia Izquierdo MD HEMATOLOGY ORDERABLE S [facility] [place] [address] * Creatinine (03/20/2018 3:31 PM EDT) Creatinine 0.92 0.70 - 1.20 mg/dL [facility] Est Glomerular Filtration Rate 73 >=60 mL/min/1.7 3 m?? [facility] Comment: The eGFR was calculated using the CKD-EPI equation. As with all creatinine based estimates of kidney function, eGFR values calculated with the CKD-EPI equation are not accurate in patients with acute kidney failure, extremes of body mass or the acutely ill. http://Fusion-io/[facility] [place] eGFR 85 >=60 mL/min/1.7 3 m?? [facility] Comment: The eGFR was calculated using the CKD-EPI equation. As with all creatinine based estimates of kidney function, eGFR values calculated with the CKD-EPI equation are not accurate in patients with acute kidney failure, extremes of body mass or the acutely ill. http://[employer]usion[employer]/[facility] [place] Blood specimen (specimen) 03/20/2018 3:31 PM EDT 03/20/2018 3:53 PM EDT Narrative Resulting Agency Comment Spec In Lab Erik Herndon MD CHEMISTRY ORDERABLE S Performing Organization Address [facility]/ZIP Co de Phone Number [facility] [place] [address] * (ABNORMAL) BUN (03/20/2018 3:31 PM EDT) Blood Urea Nitrogen 21(H) 8 - 18 mg/dL [facility] Blood specimen (specimen) 03/20/2018 3:31 PM EDT 03/20/2018 3:53 PM EDT Narrative Resulting Agency Comment Spec In Lab Erik Herndon MD CHEMISTRY ORDERABLE S Performing Organization Address [facility] Co de Phone Number [facility] [place] [address] * Electrolytes panel (03/20/2018 3:31 PM EDT) Sodium 142 135 - 145 mmol/L [facility] Potassium 3.7 3.5 - 5.0 mmol/L [facility] Comment: Please note: ??Patients with WBC >100,000 may have falsely elevated Potassium levels. ??For accurate Potassium quantification in these patients send serum separator tube (gold top) for subsequent determinations. ??Contact the Clinical Chemistry Laboratory if there are any questions. Chloride 107 98 - 107 mmol/L [facility] Carbon Dioxide 23 22 - 31 mmol/L [facility] Anion Gap 12 5 - 15 mmol/L [facility] Blood specimen (specimen) 03/20/2018 3:31 PM EDT 03/20/2018 3:53 PM EDT Narrative Resulting Agency Comment Spec In Lab Erik Herndon MD CHEMISTRY ORDERABLE S Performing Organization Address [facility] Co de Phone Number [facility] [place] [address] documented in this encounter Visit Diagnoses Not on filedocumented in this encounter Admitting Diagnoses Diagnosis GERD (gastroesophageal reflux disease) Esophageal reflux documented in this encounter Administered Medications Inactive Administered Medications - up to 3 most recent administrations Medication Order MAR Action Action Date Dose Rate Site acetaminophen (TYLENOL) 650 mg/20.3 mL oral liquid 650 mg 650 mg, Oral, EVERY 6 HOURS SCHEDULED, First dose on Mon03/20/18 at 1800, Until Discontinued, Maximum dose of acetaminophen is 4000 mg from all sources in 24 hours. , Recovery (Recovery-Hospital Unit), Routine Given 03/21/2018 1:19 PM EDT 650 mg Given 03/21/2018 6:11 AM EDT 650 mg Given 03/21/2018 12:45 AM EDT 650 mg BUpivacaine (PF) (MARCAINE) 0.25 % (2.5 mg/mL) injection ONCE PRN, Starting on Mon03/20/18 at 1159, Until Mon03/21/18 at 1536, Intra-Operative (Intra-Procedure), Routine Given 03/20/2018 11:59 AM EDT 4 mLs 19- Surgical Site heparin (Porcine) subcutaneous injection 5,000 Units 5,000 Units, Subcutaneous, EVERY 8 HOURS SCHEDULED, First dose on Mon03/20/18 at 2200, Until Discontinued, Recovery (Recovery-Hospital Unit), Routine Given 03/21/2018 6:11 AM EDT 5,000 Units Given 03/20/2018 9:32 PM EDT 5,000 Units oxyCODONE (ROXICODONE) 5 mg/5 mL solution 5 mg 5 mg, Oral, EVERY 4 HOURS PRN, Starting on Mon03/20/18 at 1521, Until Mon03/20/18 at 2113, Pain, Recovery (Recovery-Hospital Unit), Routine Given 03/20/2018 6:13 PM EDT 5 mg oxyCODONE (ROXICODONE) 5 mg/5 mL solution 5 mg 5 mg, Oral, EVERY 3 HOURS PRN, Starting on Mon03/20/18 at 2115, Until Mon03/21/18 at 1536, Pain, Recovery (Recovery-Hospital Unit), Routine Given 03/21/2018 1:19 PM EDT 5 mg Given 03/21/2018 8:13 AM EDT 5 mg Given 03/21/2018 3:34 AM EDT 5 mg sodium chloride 0.9 % flush 5 mL 5 mL, Intravenous, 2 TIMES DAILY, First dose on Mon03/20/18 at 2100, Until Discontinued, Recovery (Recovery-Hospital Unit), Routine Given 03/21/2018 8:13 AM EDT 5 mLs Given 03/20/2018 9:33 PM EDT 5 mLs sodium chloride 0.9% infusion 50 mL/hr, Intravenous, CONTINUOUS, Starting on Mon03/20/18 at 1545, Until Mon03/21/18 at 0837, Recovery (Recovery-Hospital Unit) New Bag 03/21/2018 6:17 AM EDT 50 mL/h r 50 mL/hr New Bag 03/20/2018 3:20 PM EDT 50 mL/hr 50 mL/hr documented in this encounter Active and Recently Administered Medications Times are shown in EDT. Scheduled Medication Order 03/19/2018 03/20/2018 03/21/2018 acetaminophen (TYLENOL) 650 mg/20.3 mL oral liquid 650 mg 650 mg, Oral, EVERY 6 HOURS SCHEDULED, First dose on Mon03/20/18 at 1800, Until Discontinued, Maximum dose of acetaminophen is 4000 mg from all sources in 24 hours. , Recovery (Recovery-Hospital Unit), Routine 1754 (Given - Provider: Loretta Araujo RN) 004 (Given - Provider: Oralia Em RN)06 (Given - Provider: Oralia Em, RN)1319 (Given - Provider: Birdie Reina RN) ceFAZolin (ANCEF) 2g in dextrose 5% 100 mL (COMPLETED) 2 g, Intravenous, GRAPHIC DES[employer] PROFESSOR TO O.R., 1 dose, On Mon03/20/18 at 1030, Administer over 30 Minutes, Indication for (Active or Suspected): Prophylaxis 1128 (Given - Provider: Mustapha Montes CRNA)1420 (Given - Provider: Mustapha Montes CRNA) heparin (Porcine) subcutaneous injection 5,000 Units 5,000 Units, Subcutaneous, EVERY 8 HOURS SCHEDULED, First dose on Mon03/20/18 at 2200, Until Discontinued, Recovery (Recovery-Hospital Unit), Routine 2131 (Given - Provider: Oralia Em RN) 06 (Given - Provider: Oralia Em RN) sodium chloride 0.9 % flush 5 mL 5 mL, Intravenous, 2 TIMES DAILY, First dose on Mon03/20/18 at 2100, Until Discontinued, Recovery (Recovery-Hospital Unit), Routine 2132 (Given - Provider: Oralia J Power, RN) 0813 (Given - Provider: Birdie Reina, RN) Continuous Medication Order 03/19/2018 03/20/2018 03/21/2018 sodium chloride 0.9% infusion (CANCELED) 50 mL/hr, Intravenous, CONTINUOUS, Starting on Mon03/20/18 at 1545, Until Mon03/21/18 at 0837, Recovery (Recovery-Hospital Unit) 1520 (New Bag - Provider: Loretta Araujo, SHAQUILLE) 0615 (Stopped - Provider: Oralia Em RN)0617 (New Bag - Provider: Oralia Em, RN)0845 (Stopped - Provider: Birdie Reina, RN) PRN Medication Order 03/19/2018 03/20/2018 03/21/2018 BUpivacaine (PF) (MARCAINE) 0.25 % (2.5 mg/mL) injection (CANCELED) ONCE PRN, Starting on Mon03/20/18 at 1159, Until Mon03/21/18 at 1536, Intra-Operative (Intra-Procedure), Routine 1159 (Given - Provider: Erik Herndon MD) lidocaine (XYLOCAINE) 10 mg/mL (1 %) injection 3 mg 3 mg (0.3 mL), Subcutaneous, ONCE PRN, 1 dose, Starting on Mon03/20/18 at 1821, Until Mon03/21/18 at 1536, for discomfort with PIV insertion, Recovery (Recovery-Hospital Unit), Routine ondansetron (ZOFRAN) injection 4 mg 4 mg, Intravenous, EVERY 8 HOURS PRN, Starting on Mon03/20/18 at 1821, Until Mon03/21/18 at 1536, Nausea, Recovery (Recovery-Hospital Unit) oxyCODONE (ROXICODONE) 5 mg/5 mL solution 5 mg (CANCELED) 5 mg, Oral, EVERY 4 HOURS PRN, Starting on Mon03/20/18 at 1521, Until Mon03/20/18 at 2113, Pain, Recovery (Recovery-Hospital Unit), Routine 1813 (Given - Provider: Loretta Araujo, SHAQUILLE) oxyCODONE (ROXICODONE) 5 mg/5 mL solution 5 mg 5 mg, Oral, EVERY 3 HOURS PRN, Starting on Mon03/20/18 at 2115, Until Mon03/21/18 at 1536, Pain, Recovery (Recovery-Hospital Unit), Routine 2130 (Given - Provider: Oralia Em, RN) 0045 (Given - Provider: Oralia Em, RN)0334 (Given - Provider: Oralia Em, RN)0813 (Given - Provider: Birdie Reina, RN)1319 (Given - Provider: Bidrie Reina, RN) sodium chloride 0.9 % flush 5-20 mL 5-20 mL, Intravenous, EVERY 1 MIN PRN, Starting on Mon03/20/18 at 1821, Until Mon03/21/18 at 1536, flush, Flush pertains to all indwelling lines. Flush per protocol found in the job aid using the link provided on this medication record., Recovery (Recovery-Hospital Unit), Routine documented in this encounter Care Teams Administrator Relationship Specialty Start Date End Date Dora Elliott MD [facility] [address] [place] [address] PCP - General 01/23/13 08/05/20 documented as of this encounter
--- OUTSIDE RECORDS SUMMARY | 2024-02-23 02:21 | XMS_ITS | Encounter Summary ---
Author Organization [facility] [place] [address] Care Team Providers Care Repossession Agent Name Role Phone Dora Elliott MD Primary Care Provider [phone] Reason for Visit * Reason Comments Follow-up Encounter Details Date Type Department Care Team (Latest Contact Info) Description 10/05/2017 11:20 AM EDT Office [place] [address] Erik Herndon MD [facility] [place] [address] Gastroesophageal reflux disease without esophagitis Social History Tobacco Use Types Packs/Day Years Used Date Smoking Tobacco: Former Smokeless Tobacco: Never Sex and Gender Information Value Date Recorded Sex Assigned at Not on file Gender Identity Not on file Sexual Orientation Not on file documented as of this encounter Last Filed Vital Signs Vital Sign Reading Time Taken Comments Blood Pressure - - Pulse - - Temperature - - Respiratory Rate - - Oxygen Saturation - - Inhaled Oxygen Concentration - - Weight 85.7 kg (189 lb) 10/05/2017 11:25 AM EDT Height - - Body Mass Index 34.57 08/02/2017 9:54 AM EST documented in this encounter Progress Notes * Erik Herndon MD - 10/05/2017 11:20 AM EDT Patient is a 46-year-old female who presents in follow-up she is someone I had initially seen for possible revisional fundoplication. She had had a Ishmael fundoplication in the past done in [place] and now is having recurrent symptoms. She is been found to have a recurrent hiatal hernia and some loosening of her fundoplication she underwent a motility recently which was normal. I spent 20 minutes with her today I reviewed the results of her motility testing I think she be reasonable candidate for revisional surgery. I mentioned that the goal of surgery would be to perform this as a laparoscopic operation takedown her initial fundoplication reduce the stomach back in the abdominal cavity reclose the diaphragm and then reforming fundoplication. I also do an intraoperative endoscopy during revisional surgery. There is a possibility based upon the scar tissue from the initial operation that we would not be able to accomplish everything we planned and I talked with her that if I thought proceeding would be increasingly risky to her based upon intraoperative findings we may not be able to accomplish the entire goals of surgery and that would be based upon not wanting to have a significant intraoperative complication due to scarring of the stomach or esophagus to other vital structures such as liver vena cava or aorta. Overall she seems understand would like to proceed we will g ashley her a date for a laparoscopic revision of her Ishmael fundoplication and repair of recurrent hiatal hernia at some point in the near future. documented in this encounter Plan of Treatment Upcoming Encounters Date Type Department Care Team (Late st Contact Info) Description 01/02/2025 3:30 PM EDT Office Visit Dermatology at [address] [place] [address] Jaquan Syed MD [address], [place] [address] documented as of this encounter Visit Diagnoses Diagnosis Gastroesophageal reflux disease without esophagitis Esophageal reflux documented in this encounter Care Teams Repossession Agent Relationship Specialty Start Date End Date Dora Elliott MD [facility] [address] [facility] [address] [place] [address] PCP - General 01/23/13 08/05/20 documented as of this encounter
--- OUTSIDE RECORDS SUMMARY | 2024-02-23 02:21 | XMS_ITS | Encounter Summary ---
Author Organization [facility] [place] [address] Care Team Providers Care Oleo Hasher And Renderer Name Role Phone Dora Elliott MD Primary Care Provider [phone] Encounter Details Date Type Department Care Team (Late st Contact Info) Description 08/05/2013 Orders Only Dermatology at [facility] [address] [place] [address] Aysha Fraser MD [facility] [place] [address] Psoriasis (Primary Dx) Social History Tobacco Use Types Packs/Day Years Used Date Smoking Tobacco: Former Sex and Gender Information Value Date Recorded Sex Assigned at Not on file Gender Identity Not on file Sexual Orientation Not on file documented as of this encounter Plan of Treatment Upcoming Encounters Date Type Department Care Team (Late st Contact Info) Description 01/02/2025 3:30 PM EDT Office Visit Dermatology at [place] [address] [facility] [place] [phone] Jaquan Syed MD [address] [facility], [address] DERMATOLOGY [place], [place] [id number] documented as of this encounter Visit Diagnoses Diagnosis Psoriasis- Primary Other psoriasis documented in this encounter Care Teams Oleo Hasher And Renderer Relationship Specialty Start Date End Date Dora Elliott MD [address] [place] [address] [address] [place] [address] PCP - General 01/23/13 08/05/20 documented as of this encounter
--- OUTSIDE RECORDS SUMMARY | 2024-02-23 02:21 | XMS_ITS | Encounter Summary ---
Author Organization [facility] Address [facility] [place] [address] Care Team Providers Care Automotive Brake Technician Name Role Phone Dora Elliott MD Primary Care Provider [phone] Reason for Visit * Reason Comments Establish Care * Consultation (Routine) - Closed Specialty Diagnoses / Procedures Referred By Contac t Referred To Contact General Surgery Diagnoses Reflux after failure of prior fundoplication Reg De Jesus, DO [address] [place] [address] Erik Herndon MD [facility] [address] Referral ID Status Reason Start Date Expiration Date V isits Requested Visits Authorized [id number] Closed Consult, Test & Treat Connection Center 06/11/2017 06/11/2018 1 1 Encounter Details Date Type Department Care Team (Latest Contact Info) Description 08/02/2017 10:00 AM EST Office [place] [address] Erik Herndon MD [facility] GENERAL SURGERY [place], [place] [id number] Gastroesophageal reflux disease, esophagitis presence not specified Social History Tobacco Use Types Packs/Day Years Used Date Smoking Tobacco: Former Smokeless Tobacco: Never Sex and Gender Information Value Date Recorded Sex Assigned at Not on file Gender Identity Not on file Sexual Orientation Not on file documented as of this encounter Last Filed Vital Signs Vital Sign Reading Time Taken Comments Blood Pressure 127/71 08/02/2017 9:54 AM EST Pulse 75 08/02/2017 9:54 AM EST Temperature - - Respiratory Rate - - Oxygen Saturation 98% 08/02/2017 9:54 AM EST Inhaled Oxygen Concentration - - Weight 90.7 kg (200 lb) 08/02/2017 9:54 AM EST Height 157.5 cm (5' 2) 08/02/2017 9:54 AM EST Body Mass Index 36.58 08/02/2017 9:54 AM EST documented in this encounter Progress Notes * Erik Herndon MD - 08/02/2017 10:00 AM EST Jessica Amato is a 38-year-old female who is referred to me by Dr. Reg Hollingsworth. She is someone thatunderwent a hiatal hernia repair and Ishmael fundoplication on 08/10/2010 done at [facility] in [place]. She states that prior to surgery she has significant reflux symptoms the surgeryhelped greatly with that and more recently she has developed recurrent ability to belch and with jun t recurrent reflux symptoms. She also describes epigastric pain with eating and some dysphasia as well. She has had a recent upper GI endoscopy which demonstrated what appears to be a slipped Ishmael fundoplication. She underwent a barium swallow just prior to seeing me today currently she has a abnormal configuration to the gastroesophageal junction. She has a recurrent hiatal hernia as well. I spent 40 minutes with her today the entire time in [id number] conversation regarding these findings. I think she has a recurrent hiatal hernia and likely a loosening of her previous fundoplication. We would need to obtain esophageal motility prior to making final recommendations given that she is now 7 years out from her last operation and I do not have access to her preop motility from before. Once we have the motility I will see her back and make subsequent diagnostic and therapeutic decisions. In general I mentioned her the goal of surgery would be to reoperate hopefully done laparoscopically reduce the stomach back in the abdominal cavity and redo the fundoplication. Again I will go into greater detail with her if the motility is favorable for a reoperative surgery. She seems comfortable with this plan. documented in this encounter Plan of Treatment Upcoming Encounters Date Type Department Care Team (Late st Contact Info) Description 01/02/2025 3:30 PM EDT Office Visit Dermatology at [place] [address] [place] [address] Jaquan Syed MD [address], [place] [address] documented as of this encounter Visit Diagnoses Diagnosis Gastroesophageal reflux disease, esophagitis presence not specified documented in this encounter Care Teams Automotive Brake Technician Relationship Specialty Start Date End Date Dora Elliott MD [address] [facility] [address] [place] [address] PCP - General 01/23/13 08/05/20 documented as of this encounter
--- OUTSIDE RECORDS SUMMARY | 2024-02-23 02:21 | XMS_ITS | Encounter Summary ---
Author Organization [facility] Address [address] [place] [address] Care Team Providers Care Terminal Superintendent Name Role Phone Unknown, Provider Primary Care Provider Encounter Details Date Type Department Care Team (Late st Contact Info) Description 10/23/2020 Lab Requisition [facility] Pathology & Laboratory Medicine - [facility] [address] [place] [address] Eloy Brito MD [address] [place] [address] Gastro-esophageal reflux disease without esophagitis; Other specified postprocedural states Social History Tobacco Use Types Packs/Day Years [...] Procedure Name Priority Date/Time Associated Diagnosis Comments SURGICAL PATHOLOGY Today 10/22/2020 10 :45 EDT Gastro-esophageal reflux disease without esophagitis Other specified postprocedural states documented in this encounter Results * SURGICAL PATHOLOGY (10/22/2020 10:45 EDT) Final Diagnosis A. STOMACH, ANTRUM, BIOPSY: - Antral-type mucosa with chemical (reactive) gastropathy. B. STOMACH, ULCER, BIOPSY: - Focal chronic inflammation with erosion involving antral-type mucosa. - Negative for Helicobacter pylori microorganisms by immunohistochemist ry. C. GASTROESOPHAGEAL JUNCTION, BIOPSY: - Squamocolumnar mucosa with features of reflux esophagitis. D. ESOPHAGUS, DISTAL, BIOPSY: - Squamous mucosa with no significant diagnostic abnormality. E. ESOPHAGUS, MID, BIOPSY: - Squamous mucosa with no significant diagnostic abnormality. 10/29/2020 8:13 [facility] Diagnosis Comment Immunoperoxidase stains were performed on this case to further characterize the lesion. ANTIBODY(CLONE)(BL OCK):RESULT H pylori (Rabbit Monoclonal (SP48), [place]) (B1): Negative for organisms. NOTE: One or more of the reagents used in immunoperoxidase testing in this case may not have been cleared or approved by the U.S. Food and Drug Administration (FDA). The FDA has determined that such clearance or approval is not necessary. These tests are used for clinical purposes. They should not be regarded as investigational or for research. These reagents' performance characteristics have been determined by [facility] and/or by the referring laboratory. The positive and negative controls worked appropriately. If immunoperoxidase staining has been performed on alcohol fixed cytology specimens, which has not been fully validated, the assays should be interpreted with caution and correlated with clinical data. This laboratory is certified under the Clinical Laboratory Improvement Amendments of 1988 (CLIA-88) as qualified to perform high complexity clinical laboratory testing. 10/29/2020 8:13 [facility] Attestation By the signature below, the attending physician certifies that they have 1) personally conducted a gross and/or microscopic examination of the described specimen(s), and/or personally interpreted the results of laboratory testing of the described specimen(s), and 2) personally rendered or confirmed the above diagnosis. 10/29/2020 8:13 [facility] at 0813 Clinical History HX GERD; clinical diagnosis code: K21.9, Z98.890 10/29/2020 8:13 [facility] Gross Description A. Received in formalin labelled with proper patient identification (initials B, C) and antrum are two pale-domingo tissues (0.4 x 0.2 x 0.2 cm and 0.2 x 0.2 x 0.2 cm). Entirely submitted in A1. B. Received in formalin labelled with proper patient identification (initials B, C) and ulcer are two pale domingo to brown tissues (0.5 x 0.3 x 0.2 cm and 0.4 x 0.3 x 0.2 cm). Entirely submitted in B1. C. Received in formalin labelled with proper patient identification (initials B, C) and EGJ is a pale domingo-white focally brown speckled tissue (0.3 x 0.2 x 0.2 cm). Submitted intact in C1. D. Received in formalin labelled with proper patient identification (initials B, C) and distal esophagus are two white focally brown speckled tissues (0.6 x 0.1 by less than 0.1 cm and 0.2 x 0.1 by less than 0.1 cm). Entirely submitted in D1. E. Received in formalin labelled with proper patient identification (initials B, C) and mid esophagus is a white focally brown speckled tissue (0.3 x 0.2 x 0.1 cm). Submitted intact an E1. Giorgio Garcia 10/23/2020 9:53 10/29/2020 8:13 EDT [facility] Performing Lab [facility] 8:13 EDT [facility] Scanned Images 10/29/2020 8:13 EDT [facility] Tissue ENTIRE ESOPHAGUS / Unknown 10/22/2020 10:45 EDT 10/23/2020 8:29 EDT Tissue specimen (specimen) STOMACH STRUCTURE / Unknown 10/22/2020 10:45 EDT 10/23/2020 8:29 EDT Tissue specimen (specimen) CARDIOESOPHAGEAL JUNCTION STRUCTURE / Unknown 10/22/2020 10:45 EDT 10/23/2020 8:29 EDT Tissue specimen (specimen) ESOPHAGEAL STRUCTURE / Unknown 10/22/2020 10:45 EDT 10/23/2020 8:29 EDT Tissue specimen (specimen) ESOPHAGEAL STRUCTURE / Unknown 10/22/2020 10:45 EDT 10/23/2020 8:29 EDT Eloy Brito MD PATHOLOGY ORD ERABLES [facility] [address] [place] [address] documented in this encounter Visit Diagnoses Diagnosis Gastro-esophageal reflux disease without esophagitis Esophageal reflux Other specified postprocedural states documented in this encounter Care Teams Terminal Superintendent Relationship Specialty Start Date End Date Unknown, Provider, PCP - General 06/01/17 documented as of this encounter
--- OUTSIDE RECORDS SUMMARY | 2024-02-23 02:21 | XMS_ITS | Encounter Summary ---
Author Organization [facility] Address [address] [place] [address] Care Team Providers Care Photogeologist Name Role Phone Unknown, Provider Primary Care Provider Encounter Details Date Type Department Care Team (Late st Contact Info) Description 10/08/2021 Lab Requisition [facility] Pathology & Laboratory Medicine - [facility] [address] [place] [address] Ashley Vences, DO [address] [place], [place] [id number] Encounter for other general examination Social History Tobacco Use Types Packs/Day Years [...] Date/Time Associated Diagnosis Comments SURGICAL PATHOLOGY Today 10/08/2021 14 :05 EDT Encounter for other general examination documented in this encounter Results * SURGICAL PATHOLOGY (10/08/2021 14:05 EDT) Note to Patient The following pathology results have been interpreted by your pathologist and may be available to you before your health provider has had the opportunity to review them. Please allow time for your provider to receive these results and explore management options, if applicable. 10/12/2021 10:51 EDT [facility] Final Diagnosis A. DUODENUM, BULB, BIOPSY: - Duodenal mucosa with no significant diagnostic abnormalities. B. STOMACH, ANTRUM, BIOPSY: - Antral mucosa with reactive (chemical) gastropathy. - Negative for Helicobacter pylori on H&E stained sections. C. STOMACH, GASTRIC WRAP SIDE, BIOPSY: - Fundic mucosa with mild to moderate parietal cell hyperplasia. - Negative for Helicobacter pylori on H&E stained sections. D. STOMACH, GREATER CURVATURE, BIOPSY: - Gastric fundic mucosa with no significant diagnostic abnormalities. - Negative for Helicobacter pylori on H&E stained sections. E. STOMACH, BODY OF WRAP, BIOPSY: - Squamous mucosa with mild reactive changes. F. ESOPHAGUS, 35 CMS ABOVE WRAP, BIOPSY: - Squamous mucosa with mild reactive changes. 10/12/2021 10:51 [facility] Attestation By the signature below, the attending physician certifies that they have 1) personally conducted a gross and/or microscopic examination of the described specimen(s), and/or personally interpreted the results of laboratory testing of the described specimen(s), and 2) personally rendered or confirmed the above diagnosis. 10/12/2021 10:51 [facility] at 1051 Clinical History GERD, dysphagia, anemia 10/12/2021 10:51 [facility] Gross Description A. Received in formalin labelled with proper patient identification (initials B, C) and duodenal bulb is a single fragment of domingo soft tissue (0.4 x 0.3 x 0.2 cm). The specimen is entirely submitted in A1. B. Received in formalin labelled with proper patient identification (initials B, C) and gastric antrum is a single fragment of domingo soft tissue (0.3 x 0.3 x 0.2 cm). The specimen is entirely submitted in B1. C. Received in formalin labelled with proper patient identification (initials B, C) and area of mucosal irregularity on gastric side of wrap is a single fragment of domingo soft tissue (0.4 x 0.3 x 0.2 cm). The specimen is entirely submitted in C1. D. Received in formalin labelled with proper patient identification (initials B, C) and greater curve is a single fragment of domingo soft tissue (0.3 x 0.3 x 0.2 cm). The specimen is entirely submitted in D1. E. Received in formalin labelled with proper patient identification (initials B, C) and body of wrap is a single fragment of pond-white soft tissue (0.4 x 0.3 x 0.2 cm). The specimen is entirely submitted in E1. F. Received in formalin labelled with proper patient identification (initials B, C) and esophagus 35 cm above wrap is a single fragment of pond-white soft tissue (0.6 x 0.2 x 0.2 cm). The specimen is entirely submitted in F1. JAEL NATARAJAN(ASCP) 10/11/2021 9:21 10/12/2021 10:51 EDT [facility] Performing Lab [facility] 10/12/2021 10:51 EDT [facility] Scanned Images 10/12/2021 10:51 EDT [facility] Tissue ENTIRE ESOPHAGUS / Unknown 10/08/2021 14:05 EDT 10/08/2021 22:46 EDT Tissue specimen (specimen) STOMACH STRUCTURE / Unknown 10/08/2021 14:05 EDT 10/08/2021 22:46 EDT Tissue specimen (specimen) STOMACH STRUCTURE / Unknown 10/08/2021 14:05 EDT 10/08/2021 22:46 EDT Tissue specimen (specimen) STOMACH STRUCTURE / Unknown 10/08/2021 14:05 EDT 10/08/2021 22:46 EDT Tissue specimen (specimen) STOMACH STRUCTURE / Unknown 10/08/2021 14:05 EDT 10/08/2021 22:46 EDT Tissue specimen (specimen) ESOPHAGEAL STRUCTURE / Unknown 10/08/2021 14:05 EDT 10/08/2021 22:46 EDT Ashley Vences DO PATHOLOGY ORDERABLES [facility] [address] [place] [address] documented in this encounter Visit Diagnoses Diagnosis Encounter for other general examination documented in this encounter Care Teams Photogeologist Relationship Specialty Start Date End Date Unknown, Provider, PCP - General 06/01/17 documented as of this encounter
--- OUTSIDE RECORDS SUMMARY | 2024-02-23 02:21 | XMS_ITS | Encounter Summary ---
[place] [address] Care Team Providers Care Mottler Operator Name Role Phone Dora Elliott MD Primary Care Provider [phone] Reason for Visit * Reason Comments Psoriasis * Consultation (Routine) - Closed Specialty Diagnoses / Procedures Referred By Contspencer t Referred To Contact Dermatology Diagnoses hx of diffuse psoriasis Dora Elliott MD [address] [place] [address] [address] [place] [address] Jaquan Syed MD [address] [place] [address], [facility] [place] [address] Referral ID Status Reason Start Date Expiration Date V isits Requested Visits Authorized [id number] Closed Consult, Test & Treat Connection Center 03/30/2015 03/29/2016 1 1 Encounter Details Date Type Department Care Team (Late st Contact Info) Description 06/30/2015 3:15 PM EST Office Visit Dermatology at [place] [address] [place] [address] Jaquan Syed MD 580 [facility], [facility] DER[facility] [place], [place] [id number] Psoriasis Social History Tobacco Use Types Packs/Day Years Used Date Smoking Tobacco: Former Sex and Gender Information Value Date Recorded Sex Assigned at Not on file Gender Identity Not on file Sexual Orientation Not on file documented as of this encounter Progress Notes * Jaquan Syed MD - 06/30/2015 3:53 PM EST Problem: Psoriasis. Jessica is a 44-year-old woman originally from [place], [place], who first developed psoriasis at age 3. There is no family history of psoriasis. She has been through numerous topical treatments, ointments, and creams, including betamethasone, clobetasol, triamcinolone, and Dovonex. She has been through UVB phototherapy. She was on methotrexate for a couple years. Finally, because of tachyphylaxis and lack of adequate control and steadily worsening psoriasis, she was started on Humira while she was still in [facility]. She moved to the [place] area in about 2009. She had been receiving Hum[place] at [facility] but does not desire to continue the trip down from [facility] for appointments there. Because of loss of her insurance, she has not had any Humira to take since September of 2014. Her psoriasis has been flaring again since January of 2015. Her prior physician treating her in [facility], was actually a transit survey worker, Dr. Pugh. 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 She is also starting to develop some inverse involvement on her submammary chest, just a little bit in her ears. She does have nail pitting. Physical examination reveals a pleasant 44-year-old woman who has thin patch psoriasis widely over her shins, her thighs, her knees, and elbows, inverse involvement on the submammary chest, diffuse, almost guttate-like patches over her back, and involvement in and behind her ears. Assessment and Plan: Psoriasis, thin patch, flaring since January off of Humira. a. We will attempt to obtain Humira for the patient and obtain prior authorization. b. Once she gets this, she will start using the Humira as follows: Two 40-mg pens, inject the contents of two pens subcutaneously on day one; inject the contents of one pen sub-Q on day eight; and then one injection every two weeks subcutaneously, 40 mg. Dispensed a starter kit for the first month and then thereafter dispensed two pens per month for q.o.week dosing. Recommend I see her back again in another three months for repeat check. COPY: Dora Elliott M.D. documented in this encounter Plan of Treatment Upcoming Encounters Date Type Department Care Team (Late st Contact Info) Description 01/02/2025 3:30 PM EDT Office Visit Dermatology at [place] [address] [facility] [place] [address] Jaquan Syed MD [address], [place] [address] documented as of this encounter Visit Diagnoses Diagnosis Psoriasis Other psoriasis documented in this encounter Care Teams Mottler Operator Relationship Specialty Start Date End Date Dora Elliott MD [facility] [address] [facility] 1 [place] [address] PCP - General 01/23/13 08/05/20 documented as of this encounter
--- OUTSIDE RECORDS SUMMARY | 2024-02-23 02:21 | XMS_ITS | Encounter Summary ---
Author Organization [facility] [place] [address] Care Team Providers Care Vegetable Scullion Name Role Phone Dora Elliott MD Primary Care Provider [phone] Reason for Visit * Reason Comments Medication Refill Encounter Details Date Type Department Care Team (Late st Contact Info) Description 07/11/2014 Refill Dermatology at [facility] [address] [place] [address] Aysha Fraser MD [facility] [place] [address] Social History Tobacco Use Types Packs/Day Years Used Date Smoking Tobacco: Former Sex and Gender Information Value Date Recorded Sex Assigned at Not on file Gender Identity Not on file Sexual Orientation Not on file documented as of this encounter Miscellaneous Notes * Telephone Encounter - Arlene Perez LPN - 07/15/2014 10:54 AM EST Called patient at home and left a VM to have her call back to our office. Arlene Perez LPN documented in this encounter Plan of Treatment Upcoming Encounters Date Type Department Care Team (Late st Contact Info) Description 01/02/2025 3:30 PM EDT Office Visit Dermatology at [address] [address] Jaquan Syed MD [address], [place] [address] documented as of this encounter Visit Diagnoses Not on filedocumented in this encounter Care Teams Vegetable Scullion Relationship Specialty Start Date End Date Dora Elliott MD [facility] [address] [place] [address] PCP - General Family Medicine 08/11/20 documented as of this encounter
--- OUTSIDE RECORDS SUMMARY | 2024-02-23 02:21 | XMS_ITS | Encounter Summary ---
Author Organization [facility] [place] [address] Care Team Providers Care Oracle Hrms Developer Name Role Phone Dora Elliott MD Primary Care Provider [phone] Reason for Visit * Reason Comments Psoriasis Encounter Details Date Type Department Care Team (Late st Contact Info) Description 07/22/2019 4:00 PM EST Office Visit Dermatology at [address] [address] Jaquan Syed MD 580 [facility], [facility] [place] [address] Psoriasis Social History Tobacco Use Types Packs/Day Years Used Date Smoking Tobacco: Former Smokeless Tobacco: Never Sex and Gender Information Value Date Recorded Sex Assigned at Not on file Gender Identity Not on file Sexual Orientation Not on file documented as of this encounter Progress Notes * Jaquan Syed MD - 07/22/2019 4:00 PM EST Problem: 1. Follow-up psoriasis on Humira 2. On Humira since July 2015 3. History of psoriatic arthritis also responding well to Humira 4. Psoriasis developed when she was 2 years old Jessica follows up and continues to do very well. Her skin is all but clear with the Humira, and she is not suffering from any psoriatic arthritis. Previously it was in her hands. She is tolerating the injections well without injection site reactions side effects swelling redness. She denies any infections fevers has not had any problems. Physical examination revealed no psoriasis on the knees or elbows. Her scalp is clear. Her fingernails are without pitting. She is very very pleased. Assessment plan: Psoriasis with psoriatic arthritis, responding extremely well to Humira 1. Continue Humira utilizing the 40 mg autoinjector pens, inject contents of 1 pen cutaneously every 2 weeks. Dispense #2 with 5 refills 2. Return to clinic in another year for repeat check 3. Patient congratulated on her excellent response. Discussed the possibility of recurrent psoriasis if she cuts back or stops/restarts the medication. She assures me she will not do this CC: Dora Elliott MD documented in this encounter Plan of Treatment Upcoming Encounters Date Type Department Care Team (Late st Contact Info) Description 01/02/2025 3:30 PM EDT Office Visit Dermatology at [address] [address] Jaquan Syed MD [address], [place] [address] documented as of this encounter Visit Diagnoses Diagnosis Psoriasis Other psoriasis documented in this encounter Care Teams Oracle Hrms Developer Relationship Specialty Start Date End Date Dora Elliott MD [address] [facility] 1 [place] [address] PCP - General 01/23/13 08/05/20 documented as of this encounter
--- OUTSIDE RECORDS SUMMARY | 2024-02-23 02:21 | XMS_ITS | Encounter Summary ---
[place] [address] Care Team Providers Care Charm Filter Operator Helper Name Role Phone Dora Elliott MD Primary Care Provider [phone] Encounter Details Date Type Department Care Team (Late st Contact Info) Description 07/28/2017 Refill Dermatology at [address] [address] [place] [facility], FUNCTIONAL SUPPORT ANALYST Social History Tobacco Use Types Packs/Day Years [...] PM EDT Office Visit Dermatology at [address] [address] Jaquan Syed MD 580 [facility], REYNA A DERMATOLOGY [place], [place] [address] documented as of this encounter Visit Diagnoses Not on filedocumented in this encounter Care Teams Charm Filter Operator Helper Relationship Specialty Start Date End Date Dora Elliott MD [facility] [address] [facility] 1 [place] [address] PCP - General 01/23/13 08/05/20 documented as of this encounter
--- OUTSIDE RECORDS SUMMARY | 2024-02-23 02:21 | XMS_ITS | Encounter Summary ---
[facility] [place] [address] Care Team Providers Care Neurourologist Name Role Phone Dora Elliott MD Primary Care Provider [phone] Encounter Details Date Type Department Care Team (Late st Contact Info) Description 12/08/2014 Telephone Dermatology at [facility] [address] [place] [address] Aysha Fraser MD [facility] [place] [address] Social History Tobacco Use Types Packs/Day Years Used Date Smoking Tobacco: Former Sex and Gender Information Value Date Recorded Sex Assigned at Not on file Gender Identity Not on file Sexual Orientation Not on file documented as of this encounter Miscellaneous Notes * Telephone Encounter - Mathieu Lama - 12/16/2014 3:24 PM EDT Still no word from patient. * Telephone Encounter - Yoana Hannon LPN - 12/08/2014 11:58 AM EDT Called and left message for patient to call. Plan: Elsa has tried to contact her about getting her Humira. They have made several attempts. They need updated contact information if she would like to continue her medication. Patient has not been seen since 02/13/14. She didn't show at her last appointment scheduled 05/15/14. Patient also needs to schedule an appointment with Dr. Fraser for follow up and labs. documented in this encounter Plan of Treatment Upcoming Encounters Date Type Department Care Team (Late st Contact Info) Description 01/02/2025 3:30 PM EDT Office Visit Dermatology at [place] 580 [facility] [place] [address] Jaquan Syed MD [address] [facility] [address], [place] [address] documented as of this encounter Visit Diagnoses Not on filedocumented in this encounter Care Teams Neurourologist Relationship Specialty Start Date End Date Dora Elliott MD [address] [place] [address] PCP - General 01/23/13 08/05/20 documented as of this encounter
--- OUTSIDE RECORDS SUMMARY | 2024-02-23 02:21 | XMS_ITS | Encounter Summary ---
Author Organization [facility] Address [facility] [facility] [place] [address] Care Team Providers Care Script Writer Name Role Phone Dora Elliott MD Primary Care Provider [phone] Reason for Referral * Diagnostic Test (Routine) - Closed Specialty Diagnoses / Procedures Referred By Felisha savage Referred To Contact Radiology Diagnoses Gastric reflux Procedures XR Fluoro Barium Swallow Erik Herndon MD [facility] [place] [address] [facility] Rad Xray [address] [place] [address] [place] [address] Referral ID Status Reason Start Date Expiration Date V isits Requested Visits Authorized [id number] Closed Specialty Service Requested 06/15/2017 06/15/2018 1 1 Reason for Visit * Diagnostic Test (Routine) - Closed Specialty Diagnoses / Procedures Referred By Felisha savage Referred To Contact Radiology Diagnoses Gastric reflux Procedures XR Fluoro Barium Swallow Erik Herndon MD [facility] [address] [facility] [address] [place] [address] [place] [address] Referral ID Status Reason Start Date Expiration Date V isits Requested Visits Authorized [id number] Closed Specialty Service Requested 06/15/2017 06/15/2018 1 1 Encounter Details Date Type Department Care Team (Latest Contact Info) Description 08/02/2017 7:58 AM EST - 08/02/2017 11:59 PM EST Hospital Encounter XRay at [address] [place] [address] Erik Herndon MD [facility] [place] [address] Gastric reflux Discharge Disposition: Home Social History Tobacco Use Types Packs/Day Years Used Date Smoking Tobacco: Former Smokeless Tobacco: Never Sex and Gender Information Value Date Recorded Sex Assigned at Not on file Gender Identity Not on file Sexual Orientation Not on file documented as of this encounter Medications at Time of Discharge Medication Sig Dispensed Refills Start Date End Date cetirizine (ZYRTEC) 10 mg Tablet take 1 tablet by mouth once daily 0 04/28/2017 04/18/2018 omeprazole (PRILOSEC) 40 mg Capsule, Delayed Release(E.C.) 0 06/28/2017 10/05/2017 Adalimumab 40 mg/0.8 mL Pen Injector Kit auto injector PEN Inject one PEN SC every two weeks 2 kit 5 07/28/2017 04/18/2018 clobetasol-emollient (TEMOVATE E) 0.05 % Cream Apply twice daily to psoriasis on elbows & knees 60 g 2 07/28/2017 04/18/2018 estradiol (ESTRACE) 0.5 mg Tablet 1 05/31/2015 08/06/2020 Calcipotriene (DOVONEX) 0.005 % CreaIndications:Psorias is Apply twice daily to affected areas Monday-Monday NOTE: Rx must be BRAND NAME ONLY 60 g 3 08/05/2013 10/05/2017 clobetasol (TEMOVATE) 0.05 % ointmentIndications:Pso riasis Apply topically 2 times daily. On Monday and Monday 30 g 3 08/01/2013 04/18/2018 documented as of this encounter Plan of Treatment Upcoming Encounters Date Type Department Care Team (Late st Contact Info) Description 01/02/2025 3:30 PM EDT Office Visit Dermatology at [place] 580 [facility] [place] [address] Jaquan Syed MD [address] [facility] [address], [address] [place] [address] documented as of this encounter Procedures Procedure Name Priority Date/Time Associated Diagnosis Comments XR FLUORO BARIUM SWALLOW (SINGLE CONTRAST) Routine 08/02/2017 8:45 AM EST Gastric reflux documented in this encounter Results * XR Fluoro Barium Swallow (08/02/2017 8:45 AM EST) Anatomical Region Laterality Modality N/A Radio Fluoroscop y Impressions 08/02/2017 10:00 AM EST Likely dehiscence of the Kalyn fundoplication. I have personally reviewed the image(s) and the residents interpretation and agree with the findings, Jose Mccormick at 08/02/2017 10:00 AM Narrative 08/02/2017 10:00 AM EST EXAMINATION: XR FLUORO BARIUM SWALLOW CLINICAL HISTORY: REFLUX - S/P KALYN 2011 - CHECK WRAP TECHNIQUE: Single contrast esophagram was performed. Fluoroscopic spot films were obtained. A 13 mm barium tablet was administered. Fluoro time: 1.22 minutes COMPARISON: None FINDINGS: The esophagus is normal in course and caliber, and is well distended on single contrast views. ??The mucosal pattern is normal. The gastroesophageal junction is normally positioned. There is a small hiatal hernia with Valsalva maneuver. The Kalyn wrap appears on wrap/disrupted, resulting in contrast within the fundiplication. The 13mm barium tablet passed with minimal delay at the GE junction. Esophageal peristalsis is normal. No splitting of the bolus or tertiary contractions. Mild gastroesophageal reflux was elicited with and without provocative maneuvers. Procedure Note Jose Mccormick MD - 08/02/2017 EXAMINATION: XR FLUORO BARIUM SWALLOW CLINICAL HISTORY: REFLUX - S/P KALYN 2011 - CHECK WRAP TECHNIQUE: Single contrast esophagram was performed. Fluoroscopic spot films wereobtained. A 13 mm barium tablet was administered. Fluoro time: 1.22 minutes COMPARISON: None FINDINGS: The esophagus is normal in course and caliber, and is well distended onsingle contrast views. The mucosal pattern is normal. The gastroesophageal junction is normally positioned. There is a smallhiatal hernia with Valsalva maneuver. The Kalyn wrap appears on wrap/disrupted, resulting in contrast withinthe fundiplication. The 13mm barium tablet passed with minimal delay at theGE junction. Esophageal peristalsis is normal. No splitting of the bolus or tertiary contractions. Mild gastroesophageal reflux was elicited with and without provocative maneuvers. IMPRESSION Likely dehiscence of the Kalyn fundoplication. I have personally reviewed the image(s) and the residents interpretationand agree with the findings, Jose Mccormick at 08/02/2017 10:00 AM 10:00 AM Erik Herndon MD IMG FLUORO ORDERABL ES documented in this encounter Visit Diagnoses Diagnosis Gastric reflux Esophageal reflux documented in this encounter Care Teams Script Writer Relationship Specialty Start Date End Date Dora Elliott MD [address] [place] [address] PCP - General 01/23/13 08/05/20 documented as of this encounter
--- OUTSIDE RECORDS SUMMARY | 2024-02-23 02:21 | XMS_ITS | Encounter Summary ---
Author Organization [facility] Address [facility] [place] [address] Care Team Providers Care Parimutuel Clerk Name Role Phone Dora Elliott MD Primary Care Provider [phone] Encounter Details Date Type Department Care Team (Late Contact Info) Description 02/26/2013 Telephone Dermatology at [facility] [address] [place] [address] Aysha Fraser MD [facility] [place] [address] Social History Tobacco Use Types Packs/Day Years Used Date Smoking Tobacco: Some Days Sex and Gender Information Value Date Recorded Sex Assigned at Not on file Gender Identity Not on file Sexual Orientation Not on file documented as of this encounter Miscellaneous Notes * Telephone Encounter - Yoana Clark - 02/26/2013 3:54 PM EDT Jessica Black returned your call. She is heading to a soccer game, so she may not be available and if that's the case you can call her tomorrow after 2:30 pm at [phone]. Thanks Yoana documented in this encounter Plan of Treatment Upcoming Encounters Date Type Department Care Team (Late st Contact Info) Description 01/02/2025 3:30 PM EDT Office Visit Dermatology at [address] [place] [address] Jaquan Syed MD [address], [place] [address] documented as of this encounter Visit Diagnoses Not on filedocumented in this encounter Care Teams Parimutuel Clerk Relationship Specialty Start Date End Date Dora Elliott MD [address] [place] [address] PCP - General 01/23/13 08/05/20 documented as of this encounter
--- OUTSIDE RECORDS SUMMARY | 2024-02-23 02:21 | XMS_ITS | Encounter Summary ---
Author Organization [facility] [place] [address] Care Team Providers Care Chemical Processor Name Role Phone Dora Elliott MD Primary Care Provider [phone] Encounter Details Date Type Department Care Team (Late st Contact Info) Description 08/05/2013 Telephone Dermatology at [facility] [address] [place] [phone] Aysha Fraser MD [facility] [place] [address] Social History Tobacco Use Types Packs/Day Years Used Date Smoking Tobacco: Former Sex and Gender Information Value Date Recorded Sex Assigned at Not on file Gender Identity Not on file Sexual Orientation Not on file documented as of this encounter Miscellaneous Notes * Telephone Encounter - Sofia Allen LPN - 08/05/2013 12:18 PM EDT Rx has been sent in as brand name Dovonex. Thank you for the note about the PA * Telephone Encounter - Yoana Clark - 08/05/2013 11:47 AM EDT PRIOR AUTHORIZATION John - prior authorization is pending; info has been faxed to [facility] Calcipotriene - RX needs to be name brand-please send RX through as Dovonex. Thanks Yoana documented in this encounter Plan of Treatment Upcoming Encounters Date Type Department Care Team (Late st Contact Info) Description 01/02/2025 3:30 PM EDT Office Visit Dermatology at [place] [address] [facility] [address] [place] [address] Jaquan Syed MD [address], [place] [address] documented as of this encounter Visit Diagnoses Not on filedocumented in this encounter Care Teams Chemical Processor Relationship Specialty Start Date End Date Dora Elliott MD [facility] [address] [facility] 1 [place] [address] PCP - General 01/23/13 08/05/20 documented as of this encounter
--- OUTSIDE RECORDS SUMMARY | 2024-02-23 02:21 | XMS_ITS | Encounter Summary ---
Author Organization [facility] [place] [address] Care Team Providers Care Editor City Name Role Phone Dora Elliott MD Primary Care Provider [phone] Reason for Visit * Reason Comments Psoriasis Encounter Details Date Type Department Care Team (Late st Contact Info) Description 06/11/2018 4:30 PM EST Office Visit Dermatology at [address] [address] Jaquan Syed MD [address] [facility] [place] [address] Psoriasis Social History Tobacco Use Types Packs/Day Years Used Date Smoking Tobacco: Former Smokeless Tobacco: Never Sex and Gender Information Value Date Recorded Sex Assigned at Not on file Gender Identity Not on file Sexual Orientation Not on file documented as of this encounter Progress Notes * Jaquan Syed MD - 06/11/2018 4:30 PM EST Problem: 1. Follow-up psoriasis on Humira 2. On Humira since July 2015 3. History of psoriatic arthritis also responding well to Humira Jessica follows up and is doing very well. Her skin is all but clear with Humira. She is not havingany injection site reactions or any side effects from it. It is working extremely well for her. Shehopes to continue it. I love this medication. She reminds me that when we started this in June 2015, that physical examination showed widespread psoriasis and thin patches over her shins her thighs knees elbows inverse involvement on the submammary chest diffuse almost guttate-like patches over her back and involvement in and behind her ears. I last saw Jessica in July 2017 Physical examination today reveals no psoriasis present on the knees or elbows. She has no involvement in the scalp or ears. Her psoriasis is clear. She is very pleased Assessment and plan: Psoriasis with psoriatic arthritis, responding extremely well to Humira 1. Continue Humira utilizing the 40 mg autoinjector pens inject the contents of one subcutaneously every 2 weeks. Dispense #2 with 5 refills. 2. Patient denies any fevers chills injection site reactions with Humira continued utilizing the medication 3. Recommend return to clinic in another year for repeat check. CC: Dora Elliott MD documented in this encounter Plan of Treatment Upcoming Encounters Date Type Department Care Team (Late st Contact Info) Description 01/02/2025 3:30 PM EDT Office Visit Dermatology at [place] [address] [place] [address] Jaquan Syed MD [address], [place] [address] documented as of this encounter Visit Diagnoses Diagnosis Psoriasis Other psoriasis documented in this encounter Care Teams Editor City Relationship Specialty Start Date End Date Dora Elliott MD [facility] [address] [place] [address] PCP - General 01/23/13 08/05/20 documented as of this encounter
--- OUTSIDE RECORDS SUMMARY | 2024-02-23 02:21 | XMS_ITS | Encounter Summary ---
Author Organization [facility] Address [address] [place] [address] Care Team Providers Care Trash Collector Name Role Phone Unknown, Provider Primary Care Provider [phone] Encounter Details Date Type Department Care Team (Late st Contact Info) Description 05/06/2019 Lab Requisition [facility] Pathology & Laboratory Medicine - [facility] [address] [place] [address] Amy Ivey MD [address] [place] [address] [id number] Encounter for other general examination Social History Tobacco Use Types Packs/Day Years Used Date Smoking Tobacco: Never Assessed Sex and Gender Information Value Date Recorded Sex Assigned at Not on file Gender Identity Not on file Sexual Orientation Not on file documented as of this encounter Plan of Treatment Not on file documented as of this encounter Procedures Procedure Name Priority Date/Time Associated Diagnosis Comments SURGICAL PATHOLOGY Today 05/06/2019 10 :40 EST Encounter for other general examination documented in this encounter Results * SURGICAL PATHOLOGY (05/06/2019 10:40 EST) Final Diagnosis A. COLON, SIGMOID, POLYP, BIOPSY: - Fragments of inflamed hyperplastic polyp(s). B. COLON, DESCENDING, POLYP, BIOPSY: - Fragment of tubular adenoma. C. COLON, TRANSVERSE, POLYP, BIOPSY: - Fragment of hyperplastic polyp. D. COLON, PROXIMAL DESCENDING, POLYP, BIOPSY: - Fragments of inflamed hyperplastic polyp. 05/08/2019 9:55 EST [facility] at 0955 Clinical History Colonoscopy for screening Polyps 05/08/2019 9:55 [facility] Attestation By the signature below, the attending physician certifies that they have personally conducted a gross and/or microscopic examination of the described specimens and rendered or confirmed the above diagnosis. 05/08/2019 9:55 [facility] at 0955 Gross Description A. Received in formalin labelled with proper patient identification (initials B, C) and sigmoid polyp are 7 domingo tissues (0.2 x 0.2 x 0.1 cm to 0.3 x 0.3 x 0.2 cm). Entirely submitted in A1-A2. B. Received in formalin labelled with proper patient identification (initials B, C) and descending colon polyp is a single domingo tissue fragment (0.4 x 0.3 x 0.2 cm). Submitted intact in B1. C. Received in formalin labelled with proper patient identification (initials B, C) and transverse colon polyp is a single domingo tissue fragment (0.4 x 0.3 x 0.3 cm). Submitted intact in C1. D. Received in formalin labelled with proper patient identification (initials B, C) and proximal descending colon polyp are two domingo tissues (0.3 x 0.2 x 0.1 cm and 0.4 x 0.4 x 0.1 cm). Entirely submitted in D1. Reva Rogers 05/07/2019 08:22 05/08/2019 9:55 [facility] Scanned Images 05/08/2019 9:55 [facility] Tissue DESCENDING COLON STRUCTURE / Unknown 05/06/2019 10:40 EST 05/06/2019 17:47 EST Tissue specimen (specimen) DESCENDING COLON STRUCTURE / Unknown 05/06/2019 10:40 EST 05/06/2019 17:47 EST Tissue specimen (specimen) TRANSVERSE COLON STRUCTURE / Unknown 05/06/2019 10:40 EST 05/06/2019 17:47 EST Tissue specimen (specimen) DESCENDING COLON STRUCTURE / Unknown 05/06/2019 10:40 EST 05/06/2019 17:47 EST Amy Ivey MD PATHOLOGY [facility]A [facility] Organization Address City/State/ZIP Co de Phone Number [facility] [address] [place] [id number] documented in this encounter Visit Diagnoses Diagnosis Encounter for other general examination documented in this encounter Care Teams Trash Collector Relationship Specialty Start Date End Date Unknown, Provider, PCP - General 06/01/17 documented as of this encounter
--- OUTSIDE RECORDS SUMMARY | 2024-02-23 02:21 | XMS_ITS | Encounter Summary ---
[place] [address] Care Team Providers Care Sample Shoe Inspector And Reworker Name Role Phone Dora Elliott MD Primary Care Provider [phone] Reason for Visit * Reason Comments Follow-up Psoriasis Encounter Details Date Type Department Care Team (Late st Contact Info) Description 04/29/2016 11:15 AM EST Office Visit Dermatology at [place] [address] [place] [address] Jaquan Syed MD 580 [facility] [address] A DERMATOLOGY [place], [place] [id number] Psoriasis Social History Tobacco Use Types Packs/Day Years Used Date Smoking Tobacco: Former Sex and Gender Information Value Date Recorded Sex Assigned at Not on file Gender Identity Not on file Sexual Orientation Not on file documented as of this encounter Progress Notes * Jaquan Syed MD - 04/29/2016 11:15 AM EST PROBLEM: 1. Psoriasis on Humira since 06/2015. 2. Previously on methotrexate with decreasing control. 3. Status post UVB phototherapy. 4. Initially Humira prescribed [facility], supply interrupted 09/2014. 5. Psoriasis and psoriatic arthritis. Sima follows up and is doing well. Her skin is clear and her arthritis is nonexistent. She is literally sort of ecstatic. She says that nothing has worked in the past as well as the Humira. Physical examination reveals a pleasant 45-year-old woman who has no active psoriasis on the knees, the elbows, the torso. 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 She has no arthritic symptoms. She has had no injection site reactions or side effects from the Humira, which she injects to the abdomen. A/P: Psoriasis, thin patch, controlled with Humira, as is her psoriatic arthritis. a. Continue Humira, injecting 40 mg using autoinjector pen, 1 injection every 2 weeks. b. Last prescription was faxed in 11/2015 for a 6-month supply. c. Patient has prior authorization good through 10/2016. d. Return to clinic in another 6 months for recheck. cc: Rose Elliott MD documented in this encounter Plan of Treatment Upcoming Encounters Date Type Department Care Team (Late st Contact Info) Description 01/02/2025 3:30 PM EDT Office Visit Dermatology at [address] [place] [address] Jaquan Syed MD [address], [place] [address] documented as of this encounter Visit Diagnoses Diagnosis Psoriasis Other psoriasis documented in this encounter Care Teams Sample Shoe Inspector And Reworker Relationship Specialty Start Date End Date Dora Elliott MD [address] [place] [address] PCP - General 01/23/13 08/05/20 documented as of this encounter
--- OUTSIDE RECORDS SUMMARY | 2024-02-23 02:21 | XMS_ITS | Encounter Summary ---
Author Organization [facility] Address [address] [place] [address] Care Team Providers Care Leak Operator Paraffin Plant Name Role Phone Unknown, Provider Primary Care Provider [phone] Encounter Details Date Type Department Care Team (Late st Contact Info) Description 12/01/2022 Lab Requisition [facility] Pathology & Laboratory Medicine - [facility] [address] [place] [address] Outr Resulting Lab, Provider Social History Tobacco [...] Procedure Name Priority Date/Time Associated Diagnosis Comments QUANTIFERON MITOGEN (PERFORMABLE) Today 11/30/2022 11:51 EDT QUANTIFERON TB2 (PERFORMABLE) Today 11/30/2022 11:51 EDT QUANTIFERON TB1 (PERFORMABLE) Today 11/30/2022 11:51 EDT QUANTIFERON NIL (PERFORMABLE) Today 11/30/2022 11:51 EDT QUANTIFERON INTERPRETATION (PERFORMABLE) Today 11/30/2022 11:51 EDT QUANTIFERON TB GOLD PLUS Routine 11/30/2022 11:51 EDT documented in this encounter Results * QUANTIFERON INTERPRETATION (PERFORMABLE) (11/30/2022 11:51 EDT) Pathologist [facility] Quantiferon Interpretation Negative Negative 12/02/2022 13:46 EDT [facility] Comment:No interferon-gamma response to M. tuberculosis antigens was detected. ??Infection with M. tuberculosis is unlikely. A single negative result does not exclude infection with M. tuberculosis. ??In patients at high risk for M. tuberculosis infection, a second test should be considered. TB1 Ag minus Nil 0.00 IU/ml 12/03/19 13:46 EDT [facility] TB2 Ag minus Nil 0.00 IU/mL 12/03/19 13:46 EDT [facility] Blood VENOUS BLOOD / Unknown 11/30/2022 11:51 EDT 12/02/2022 12:54 EDT Narrative [facility] - 12/02/2022 13:46 EDT Results were obtained with the [employer] QuantiFERON-TB Gold Plus CLIA. New platform in use 02/03/2021 Provider Outr Resulting Lab IMMUNOLOGY A ND SEROLOGY ORDERABLES Performing Organization Address [facility] Co de Phone Number [facility] [address] [place] [address] * QUANTIFERON MITOGEN (PERFORMABLE) (11/30/2022 11:51 EDT) Blood VENOUS BLOOD / Unknown 11/30/2022 11:51 EDT 12/01/2022 17:57 EDT Provider Outr Resulting Lab IMMUNOLOGY A ND SEROLOGY ORDERABLES Performing Organization Address City/[facility]/ZIP Co de Phone Number [facility] [address] [place] [address] * QUANTIFERON TB2 (PERFORMABLE) (11/30/2022 11:51 EDT) Blood VENOUS BLOOD / Unknown 11/30/2022 11:51 EDT 12/01/2022 17:57 EDT Provider Outr Resulting Lab IMMUNOLOGY A ND SEROLOGY ORDERABLES Performing Organization Address [facility] Co de Phone Number [facility] [address] [place] [address] * QUANTIFERON TB1 (PERFORMABLE) (11/30/2022 11:51 EDT) Blood VENOUS BLOOD / Unknown 11/30/2022 11:51 EDT 12/01/2022 17:57 EDT Provider Outr Resulting Lab IMMUNOLOGY A ND SEROLOGY ORDERABLES Performing Organization Address [facility] de Phone Number [facility] [address] [place] [address] * QUANTIFERON NIL (PERFORMABLE) (11/30/2022 11:51 EDT) Blood VENOUS BLOOD / Unknown 11/30/2022 11:51 EDT 12/01/2022 17:57 EDT Provider Outr Resulting Lab IMMUNOLOGY A ND SEROLOGY ORDERABLES Performing Organization Address [facility] Co de Phone Number [facility] [address] [place] [address] documented in this encounter Visit Diagnoses Not on filedocumented in this encounter Care Teams Leak Operator Paraffin Plant Relationship Specialty Start Date End Date Unknown, Provider, PCP - General 06/01/17 documented as of this encounter
--- OUTSIDE RECORDS SUMMARY | 2024-02-23 02:21 | XMS_ITS | Encounter Summary ---
Author Organization [facility] [place] [address] Care Team Providers Care Nitrocellulose Operator Name Role Phone Dora Elliott MD Primary Care Provider [phone] Encounter Details Date Type Department Care Team (Late st Contact Info) Description 04/18/2018 10:40 AM EST Office [place] [address] Erik Herndon MD [facility] [place] [address] Postoperative visit Social History Tobacco Use Types Packs/Day Years [...] - Inhaled Oxygen Concentration - - Weight 78.5 kg (173 lb 1.6 oz) 04/18/2018 10:56 AM EST Height - - Body Mass Index 32.18 03/20/2018 8:55 AM EDT documented in this encounter Progress Notes * Erik Herndon MD - 04/18/2018 10:40 AM EST Patient is a 47-year-old female who presents in follow-up status post a revision of operation. Thiswas done on 03/20/2018. At the time of her surgery she had previously undergone a Ishmael fundoplication done in [place]. Will be actually found was the very top of the short gastric vessels between the top of the spleen and the stomach had never been taken down. Unfortunately this then results in a atypical configuration of the fundoplication itself which often manifests as a compartmentalized stomach above the wrap itself. We were able to take apart her original wrap finished the job actually taken down the short gastric vessels that had not been done the first time and with a fully mobilized stomach and we were able to again assure that there is no evidence of a recurrent hernia andreformed the fundoplication and the correct way. Is is here today she is has done very well she hashad no postoperative complications and states that she feels significantly better than she did prior to surgery. I again reviewed with her the findings at the time of surgery and what we did to correct these problems. On exam all trocar sites are healing well without any evidence of erythema or herniation her abdomen is soft flat and nontender. At this point she is doing well seems very pleased with both her decision to undergo the operation and I be happy to see her back on an as-needed basis documented in this encounter Plan of Treatment Upcoming Encounters Date Type Department Care Team (Late st Contact Info) Description 01/02/2025 3:30 PM EDT Office Visit Dermatology at [place] [address] [facility] [place] [address] Jaquan Syed MD 580 [facility] [place] [address] documented as of this encounter Visit Diagnoses Diagnosis Postoperative visit documented in this encounter Care Teams Nitrocellulose Operator Relationship Specialty Start Date End Date Dora Elliott MD [facility] [address] [place] [address] PCP - General 01/23/13 08/05/20 documented as of this encounter
--- OUTSIDE RECORDS SUMMARY | 2024-02-23 02:21 | XMS_ITS | Encounter Summary ---
Author Organization [facility] [place] [address] Care Team Providers Care Sccm Administrator Name Role Phone Dora Elliott MD Primary Care Provider Encounter Details Date Type Department Care Team (Late st Contact Info) Description 02/20/2014 Telephone Dermatology at [facility] [address] [place] [address] Aysha Fraser MD [facility] [place] [address] Social History Tobacco Use Types Packs/Day Years Used Date Smoking Tobacco: Former Sex and Gender Information Value Date Recorded Sex Assigned at Not on file Gender Identity Not on file Sexual Orientation Not on file documented as of this encounter Miscellaneous Notes * Telephone Encounter - Arlene Perez LPN - 02/24/2014 3:36 PM EDT Patient returned my call. She was informed of her lab results per Dr. Fraser, (WN). Patient verbalized understanding. No further questions. Arlene Perez LPN * Telephone Encounter - Arlene Perez LPN - 02/24/2014 9:08 AM EDT Returned patient's call and left message on machine to have her return my call. Arlene Perez LPN * Telephone Encounter - Bianka Solorio - 02/20/2014 4:08 PM EDT Patient returned Arlene Perez's call. Contact # [phone]. * Telephone Encounter - Arlene Perez LPN - 02/20/2014 8:49 AM EDT Called patient at home and left message to return my call. Arlene Perez LPN documented in this encounter Plan of Treatment Upcoming Encounters Date Type Department Care Team (Late st Contact Info) Description 01/02/2025 3:30 PM EDT Office Visit Dermatology at [place] [address] [place] [address] Jaquan Syed MD [address] [address] [address], [place] [address] documented as of this encounter Visit Diagnoses Not on filedocumented in this encounter Care Teams Sccm Administrator Relationship Specialty Start Date End Date Dora Elliott MD [facility] [address] [facility] [address] [place] [address] PCP - General 01/23/13 08/05/20 documented as of this encounter
--- OUTSIDE RECORDS SUMMARY | 2024-02-23 02:21 | XMS_ITS | Encounter Summary ---
Author Organization [facility] [place] [address] Care Team Providers Care Skull Grinder Name Role Phone Dora Elliott MD Primary Care Provider [phone] Encounter Details Date Type Department Care Team (Late st Contact Info) Description 04/04/2013 Telephone Dermatology at [facility] [address] [place] [address] Aysha Fraser MD [facility] [place] [address] Social History Tobacco Use Types Packs/Day Years Used Date Smoking Tobacco: Some Days Sex and Gender Information Value Date Recorded Sex Assigned at Not on file Gender Identity Not on file Sexual Orientation Not on file documented as of this encounter Miscellaneous Notes * Telephone Encounter - Sofia Allen, MOHAN - 04/08/2013 9:05 AM EST A fax from [facility] was sent to us requesting the Rx for patient: I called them and asked why they needed that if everything was all set through [facility] last week- they informed me that the companies are merging and that the patient was not in the [employer] system but once she was, she could then receive her medication. A verbal order was given for the Humira StarterKit (Inject two 40 mg pens on Day 1, then inject one 40 mg pen on day 8, then one 40 mg pen on day 22, then one pen every other week. Pharmacist states that with the information just given, patient will be receiving a phone call from them to discuss delivery date and details of her medication within the next 4 hours. If patient does not hear from them, she can call them at [phone]. I then called the patient to inform her of this information and gave her the number to call in casethe pharmacy does not contact her. Patient understands, is pleased to hear, and will be waiting forthat phone call. She will call us if she has any other issues. NOTE: Sheri ARCHER Line: [phone] * Telephone Encounter - Yoana Clark - 04/04/2013 10:17 AM EST Spoke with Briana Irwin from [facility], the patient will receive a starter dose of 80 mg (2 - 40 mg pens) and then 1-40 mg pen at week 1 (per the RX) and then 1 - 40 mg pen every other week. Pt is set up for a one-month supply with 11 refills. To pull up the RX use reference number [id number] when calling Sheri. They will be in contact with the patient to inform her when the RX will be shipped to her this time and every month. After being on the medication for three months, she may be able to set up a 90-day supply, however her insurance does not cover that at this time. Yoana documented in this encounter Plan of Treatment Upcoming Encounters Date Type Department Care Team (Late st Contact Info) Description 01/02/2025 3:30 PM EDT Office Visit Dermatology at [place] [address] [facility] [place] [address] Jaquan Syed MD [address] [facility] [address], [place] [address] documented as of this encounter Visit Diagnoses Not on filedocumented in this encounter Care Teams Skull Grinder Relationship Specialty Start Date End Date Dora Elliott MD [address] [place] [address] PCP - General 01/23/13 08/05/20 documented as of this encounter
--- OUTSIDE RECORDS SUMMARY | 2024-02-23 02:21 | XMS_ITS | Encounter Summary ---
Author Organization [facility] [place] [address] Care Team Providers Care Food Stand Manager Name Role Phone Dora Elliott MD Primary Care Provider [phone] Reason for Visit * Reason Comments Follow-up Encounter Details Date Type Department Care Team (Late st Contact Info) Description 11/22/2016 11:30 AM EDT Office Visit Dermatology at [place] [address] [facility] [place] [address] Jaquan Syed MD [address] [facility], [place] [address] Psoriasis Social History Tobacco Use Types Packs/Day Years Used Date Smoking Tobacco: Former Sex and Gender Information Value Date Recorded Sex Assigned at Not on file Gender Identity Not on file Sexual Orientation Not on file documented as of this encounter Progress Notes * Jaquan Syed MD - 11/22/2016 11:30 AM EDT PROBLEMS: 1. Followup psoriasis on Humira x4 months. 2. On Humira 07/2015 through 07/2016. 3. Previously on Humira but supply interrupted 09/2014. 4. History of psoriatic arthritis. Jessica follows up today with her daughter, S. Because of insurance change, she had to stop her Humira about 4 months ago. Her psoriasis has been actually pretty much clear but just recently starting to come back again on her shins, her knees and her elbows. She had been on medical leave and unable to work. PHYSICAL EXAMINATION: Revealed a pleasant now 46-year-old woman who has thin patch psoriasis again on her knees and her elbows, coming up on her shins, with a history of fairly significant psoriasis and psoriatic arthritis in the past, which was not responsive to multiple topicals nor to methotrexate. ASSESSMENT AND PLAN: Psoriasis, thin patch elbows, knees and shins. a. Patient again has insurance through the [facility]. b. Will obtain prior authorization and restart her on 40 mg of Humira utilizing the Auto-Injector pen 1 injection every 2 weeks. c. Return to clinic in another 6 months for a repeat check. CC: Dora Elliott MD documented in this encounter Plan of Treatment Upcoming Encounters Date Type Department Care Team (Late st Contact Info) Description 01/02/2025 3:30 PM EDT Office Visit Dermatology at [address] [place] [address] Jaquan Syed MD [address] [address], [place] [address] documented as of this encounter Visit Diagnoses Diagnosis Psoriasis Other psoriasis documented in this encounter Care Teams Food Stand Manager Relationship Specialty Start Date End Date Dora Elliott MD [facility] [address] [place] [address] PCP - General 01/23/13 08/05/20 documented as of this encounter
--- OUTSIDE RECORDS SUMMARY | 2024-02-23 02:21 | XMS_ITS | Encounter Summary ---
Author Organization [facility] Address [facility] [place] [address] Care Team Providers Care University Archivist Name Role Phone Dora Elliott MD Primary Care Provider [phone] Reason for Visit * Reason Onset Date Comments Medication Refill 03/26/2013 Encounter Details Date Type Department Care Team (Late st Contact Info) Description 03/26/2013 Refill Dermatology at [facility] [address] [place] [address] Aysha Fraser MD [facility] [place] [address] Psoriasis (Primary Dx) Social History Tobacco Use [...] 3:30 PM EDT Office Visit Dermatology at [place] [address] [facility] [place] [phone] Jaquan Syed MD [address] [facility], [place] [address] documented as of this encounter Visit Diagnoses Diagnosis Psoriasis- Primary Other psoriasis documented in this encounter Care Teams University Archivist Relationship Specialty Start Date End Date Dora Elliott MD [address] [place] [address] [address] [place] [address] PCP - General 01/23/13 08/05/20 documented as of this encounter
--- OUTSIDE RECORDS SUMMARY | 2024-02-23 02:21 | XMS_ITS | Encounter Summary ---
[place] [address] Care Team Providers Care Cafe Cook Name Role Phone Dora Elliott MD Primary Care Provider [phone] Reason for Visit * Reason Comments Medication Refill Encounter Details Date Type Department Care Team (Late Contact Info) Description 03/28/2019 Refill Dermatology at [address] [phone] Jaquan Syed MD [address] [facility], [facility] [place] [address] Social History Tobacco Use Types Packs/Day Years [...] 3:30 PM EDT Office Visit Dermatology at [address] [phone] Jaquan Syed MD [address] [facility], [facility] DERMAT[facility]Y [place], [place] [id number] documented as of this encounter Visit Diagnoses Not on filedocumented in this encounter Care Teams Cafe Cook Relationship Specialty Start Date End Date Dora Elliott MD [address] [place] [address] [facility] [address] [place] [address] PCP - General 01/23/13 08/05/20 documented as of this encounter
--- OUTSIDE RECORDS SUMMARY | 2024-02-23 02:21 | XMS_ITS | Encounter Summary ---
Author Organization [facility] Address [facility] [place] [address] Care Team Providers Care Building Trades Teacher Name Role Phone Dora Elliott MD Primary Care Provider [phone] Reason for Referral * Diagnostic Test (Routine) - Closed Specialty Diagnoses / Procedures Referred By Contspencer t Referred To Contact Radiology Diagnoses Gastric reflux Procedures XR Fluoro Barium Swallow Erik Herndon MD [facility] [place] [address] [facility] Rad Xray [address] [place] [address] [place] [address] Referral ID Status Reason Start Date Expiration Date V isits Requested Visits Authorized [id number] Closed Specialty Service Requested 06/15/2017 06/15/2018 1 1 Encounter Details Date Type Department Care Team (Late Contact Info) Description 06/15/2017 Orders Only General Surgery at [facility] [place] [address] Erik eHrndon MD [facility] [place] [address] Gastric reflux Social History Tobacco Use Types Packs/Day Years Used Date Smoking Tobacco: Former Sex and Gender Information Value Date Recorded Sex Assigned at Not on file Gender Identity Not on file Sexual Orientation Not on file documented as of this encounter Plan of Treatment Upcoming Encounters Date Type Department Care Team (Late Contact Info) Description 01/02/2025 3:30 PM EDT Office Visit Dermatology at [place] [address] [facility] [address] [place] [address] Jaquan Syed MD [address] [facility] [address], [place] [address] documented as of this encounter Results * XR Fluoro Barium Swallow (08/02/2017 8:45 AM EST) Anatomical Region Laterality Modality N/A Radio Fluoroscop y Impressions 08/02/2017 10:00 AM EST Likely dehiscence of the Ishmael fundoplication. I have personally reviewed the image(s) and the residents interpretation and agree with the findings, Jose Mccormick at 08/02/2017 10:00 AM Narrative 08/02/2017 10:00 AM EST EXAMINATION: XR FLUORO BARIUM SWALLOW CLINICAL HISTORY: REFLUX - S/P ISHMAEL 2011 - CHECK WRAP TECHNIQUE: Single contrast [...] small hiatal hernia with Valsalva maneuver. The Ishmael wrap appears on wrap/disrupted, resulting in contrast within the fundiplication. The 13mm barium tablet passed with minimal delay at the GE junction. Esophageal peristalsis is normal. No splitting of the bolus or tertiary contractions. Mild gastroesophageal reflux was elicited with and without provocative maneuvers. Procedure Note Jose Mccormick MD - 08/02/2017 EXAMINATION: XR FLUORO BARIUM SWALLOW CLINICAL HISTORY: REFLUX - S/P ISHMAEL 2011 - CHECK WRAP TECHNIQUE: Single contrast esophagram was performed. Fluoroscopic spot films wereobtained. A 13 mm barium tablet was administered. Fluoro time: 1.22 minutes COMPARISON: None FINDINGS: The esophagus is normal in course and caliber, and is well distended onsingle contrast views. The mucosal pattern is normal. The gastroesophageal junction is normally positioned. There is a smallhiatal hernia with Valsalva maneuver. The Ishmael wrap appears on wrap/disrupted, resulting in contrast withinthe fundiplication. The 13mm barium tablet passed with minimal delay at theGE junction. Esophageal peristalsis is normal. No splitting of the bolus or tertiary contractions. Mild gastroesophageal reflux was elicited with and without provocative maneuvers. IMPRESSION Likely dehiscence of the Ishmael fundoplication. I have personally reviewed the image(s) and the residents interpretationand agree with the findings, Jose Mccormick at 08/02/2017 10:00 AM 10:00 AM Erik Herndon MD IMG FLUORO ORDERABL ES documented in this encounter Visit Diagnoses Diagnosis Gastric reflux Esophageal reflux Gastric reflux Esophageal reflux documented in this encounter Care Teams Building Trades Teacher Relationship Specialty Start Date End Date Dora Elliott MD [facility] [address] [place] [address] PCP - General 01/23/13 08/05/20 documented as of this encounter
--- OUTSIDE RECORDS SUMMARY | 2024-02-23 02:21 | XMS_ITS | Encounter Summary ---
Author Organization [facility] [place] [address] Care Team Providers Care Computer Typesetter Keyliner Name Role Phone Dora Elliott MD Primary Care Provider [phone] Reason for Visit * Auth/Cert Specialty Diagnoses / Procedures Referred By Contac t Referred To Contact Diagnoses RECURRENT HIATAL HERNIA Procedures PRO LAP, ESOPHAGUS, OTHER PROC 4 Referral ID Status Reason Start Date Expiration Date Visits Re quested Visits Authorized [id number] 1 1 Encounter Details Date Type Department Care Team (Latest Contact Info) Description 03/20/2018 8:33 AM EDT - 03/21/2018 1:35 PM EDT Hospital Encounter [place] [address] Erik Herndon MD [facility] [address] Discharge Disposition: Home Social History Tobacco Use Types Packs/Day Years Used Date Smoking Tobacco: Former Smokeless Tobacco: Never Sex and Gender Information Value Date Recorded Sex Assigned at Not on file Gender Identity Not on file Sexual Orientation Not on file documented as of this encounter Last Filed Vital Signs Vital Sign Reading Time Taken Comments Blood Pressure 102/51 03/21/2018 7:34 AM EDT Pulse 51 03/21/2018 7:34 AM EDT Temperature 37 ??C (98.6 ??F) 03/21/2018 7:34 AM EDT Respiratory Rate 16 03/21/2018 7:34 AM EDT Oxygen Saturation 95% 03/21/2018 7:34 AM EDT Inhaled Oxygen Concentration - - [...] and Alondra fundoplication on 08/10/2010 done at [facility] in [place]. She stated that prior to surgery she [...] AM Erik Herndon MD General Surgery at [place] [phone] Instructions Given to Patient at Discharge: Call your doctor if you develop: Fever greater than 101.3 degrees Farenheit (38.5 degrees Celcius), chills, nausea or vomiting. Alsocall if you develop severe pain not relieved by your prescribed oral pain medicine. CALL THE GENERAL SURGERY CLINIC DURING WORKING HOURS AT , OR CALL AFTERCLINIC HOURS, WEEKENDS AND HOLIDAYS: ASK FOR THE GENERAL SURGERY RESIDENT A R SPECIALIST IF ANY OF THE ABOVE OCCUR. Activity [...] post Alondra diet, as instructed by the strategic planning analyst in the hospital for a period of [...] at the [facility], on Monday, April 18, 2018 at 10:40am. You will receive a letter in the mail confirming the appointment date and time. Your follow-up is very important to us. Please call [phone] if you do not hear from us within 7 days of discharge or if you need to change the appointment date/time. Signed: JAEL Houser 03/21/2018 Primary Care Physician: MD Andr[address] / [facility] [id number] documented in this encounter Discharge Instructions * Discharge Instructions* Roxy Sarkar PA - 03/21/2018 12:51 PM EDT Scheduled Appointments: Future Appointments and Orders ?? Future Appointments and Orders ?? Future Appointments Provider Department Dept Phone ?? 04/18/2018 10:40 AM Erik Herndon MD General Surgery at [place] [phone] ? Instructions Given to Patient at Discharge: [...] HOLIDAYS: ASK FOR THE GENERAL SURGERY RESIDENT A R SPECIALIST IF ANY OF THE ABOVE OCCUR. ?? [...] post Alondra diet, as instructed by the strategic planning analyst in the hospital for a period of [...] at the [facility], on Monday, April 18, 2018 at 10:40am. ?? You will receive a letter in the mail confirming the appointment date and time. Your follow-up is very important to us. ?? Please call [phone] if you do not hear from us [...] Pt discharged to home with family. * Jayde Christy DT - 03/21/2018 9:15 AM EDT [...] not allowed list for 3 full weeks. Media Marketing Coordinator and pt discussed all foods on the allowed/ not allowed list in great detail and answered all questions the pt had. Discussed incorporating supplemental shakes for additional calorie and protein consumption. Pt agreeable to shakes for home use. Media Marketing Coordinator will provide a chocolate and coffee Boost Plus shakes on lunch tray for pt to take home and trial. Emphasized the importance of no bread products, no carbonated beverages, and no straw use and why. Encouraged 6 small meals daily with meatsground or cut up fine w/ gravy. Pt expressed good understanding. Media Marketing Coordinator collected pt's diet appropriate lunch choices to [...] bag Ext: SCDs in place, WWP AP Jessica Amato is a 47 y.o. female s/p lap ALONDRA revision currently in stable condition and recovering well - continue post operative plan per primary team - pain well controlled - hemodynamically stable Garcia Smith MD 03/20/2018 * Birdie Reina RN - 03/20/2018 6:37 PM EDT Patient arrived to floor from PACU sleepy and oriented x 3. Patient states pain tolerable at 10, I just got pain meds before coming [...] Operative Note Patient Name: Jessica Amato : [id number] MR#: [id number] Case Date: 03/20/2018 Surgeon: Surgeon(s) and Role: [...] Alondra fundoplication in 2010 down in a [facility]. Since that time she has developed [...] vagus nerves which identified and preserved. A [place] drain was used to encircle the esophagus [...] posterior to the esophagus and a 60 Green[place]ic bougie was then passed by anesthesia down the esophagus and the stomach under direct visualization without difficulty. With a [address] a 3 stitch to [...] Operative Note Patient Name: Jessica Amato : [id number] MR#: [id number] Case Date: 03/20/2018 Surgeon: Surgeon(s) and Role: [...] 3:30 PM EDT Office Visit Dermatology at [place] [address] [facility] [place] [address] Jaquan Syed MD [address] [facility], [place] [address] documented as of this encounter Procedures Procedure Name Priority Date/Time Associated Diagnosis Comments SENIOR ARCHITECT SCAN 03/22/2018 12:00 AM EDT HEMOGRAM Routine [...] in this encounter Results * SCAN DOC: SENIOR ARCHITECT (03/22/2018 12:00 AM EDT) Anatomical Region Laterality Modality Other Narrative 03/22/2018 12:00 AM EDT Ordered by an unspecified provider. Scanning Provider MEDIA MGR SCAN EXT O RDR/RSLT * (ABNORMAL) Differential, Automated (03/20/2018 3:31 PM EDT) Neutrophil % 86.4 % [facility] Neutrophil Absolute 8.86(H) 1.70 - 6.10 x10(3)/mc L [facility] Lymph % 11.2 % [facility] Lymphocytes Abs 1.2 0.9 - 3.2 x10(3)/mc L [facility] Monocyte % 1.4 % [facility] Monocyte Abs 0.1(L) 0.3 - 0.9 x10(3)/mc L [facility] Eos % 0.2 % [facility] Eosinophils Abs 0.0 0.0 - 0.4 x10(3)/mc L [facility] Basophil % 0.4 % [facility] Baso Absolute 0.0 0.0 - 0.1 x10(3)/[facility] Immature Gran % 0.40 % [facility] Comment: Immature granulocytes(IG's)percentage and absolute count will include metamyelocytes, myelocytes, and promyelocytes. Blood smears from CBCs yielding IG's will be scanned manually for concordance. If this scan disagrees with the automated IG or if promyelocytes are noted, a manual differential will be performed. Immature Gran Absolute 0.04 0.00 - 0.04 x10(3)/[facility] Blood specimen (specimen) 03/20/2018 3:31 PM EDT 03/20/2018 3:53 PM EDT Narrative Resulting Agency Comment Spec In Lab Ashia Izquierdo MD HEMATOLOGY ORDERABLE S [facility] [place] [address] * (ABNORMAL) Hemogram (03/20/2018 3:31 PM EDT) White Blood Cell 10.2(H) 4.0 - 9.5 x10(3)/[facility] Red Blood Cell 4.06 4.00 - 5.21 x10(6)/[facility] Hemoglobin 12.8 11.7 - 15.5 gm/dL [facility] Hematocrit 39.3 35.7 - 45.8 % [facility] Mean Cell Volume 96.8(H) 82.6 - 94.4 fL [facility] Mean Cell Hemoglobin 31.5 27.1 - 32.0 pg [facility] Mean Cell Hemoglobin Concentration 32.6 31.7 - 35.0 gm/dL [facility] Platelet 197 145 - 357 x10(3)/[facility] RDW Standard Deviation 46.1(H) 37.0 - 46.0 fL [facility] RDW coefficient of variation 12.9 11.5 - 14.1 % [facility] Mean Platelet Volume 11.1 7.6 - 12.9 fL [facility] NRBC% auto 0.0 % [facility] NRBC Absolute 0.000 0.000 - 0.000 x10(3)/mc L [facility] Blood specimen (specimen) 03/20/2018 3:31 PM EDT 03/20/2018 3:53 PM EDT Narrative Resulting Agency Comment Spec In Lab Ashia Izquierdo MD HEMATOLOGY ORDERABLE S Performing Organization Address City/State/[facility] Co de Phone Number [facility] [place] [address] * Creatinine (03/20/2018 3:31 PM EDT) Creatinine 0.92 0.70 - 1.20 mg/dL [facility] Est Glomerular Filtration Rate 73 >=60 mL/min/1.7 3 m?? [facility] Comment: The eGFR was calculated using the CKD-EPI equation. As with all creatinine based estimates of kidney function, eGFR values calculated with the CKD-EPI equation are not accurate in patients with acute kidney failure, extremes of body mass or the acutely ill. http://[employer]/[facility]ULSAnkf eGFR 85 >=60 mL/min/1.7 3 m?? [facility] Comment: The eGFR was calculated using the CKD-EPI equation. As with all creatinine based estimates of kidney function, eGFR values calculated with the CKD-EPI equation are not accurate in patients with acute kidney failure, extremes of body mass or the acutely ill. http://[employer]/[facility]kf Blood specimen (specimen) 03/20/2018 3:31 PM EDT 03/20/2018 3:53 PM EDT Narrative Resulting Agency Comment Spec In Lab Erik Herndon MD CHEMISTRY ORDERABLE S [facility] [place] [address] * (ABNORMAL) BUN (03/20/2018 3:31 PM EDT) Blood Urea Nitrogen 21(H) 8 - 18 mg/dL [facility] Blood specimen (specimen) 03/20/2018 3:31 PM EDT 03/20/2018 3:53 PM EDT Narrative Resulting Agency Comment Spec In Lab Erik Herndon MD CHEMISTRY ORDERABLE S Performing Organization Address [facility] Co de Phone Number [facility] [place] [address] * Electrolytes panel (03/20/2018 3:31 PM EDT) Sodium 142 135 - 145 mmol/L [facility] Potassium 3.7 3.5 - 5.0 mmol/L [facility] Comment: Please note: ??Patients with WBC >100,000 may have falsely elevated Potassium levels. ??For accurate Potassium quantification in these patients send serum separator tube (gold top) for subsequent determinations. ??Contact the Clinical Chemistry Laboratory if there are any questions. Chloride 107 98 - 107 mmol/L [facility] Carbon Dioxide 23 22 - 31 mmol/L [facility] Anion Gap 12 5 - 15 mmol/L [facility] Blood specimen (specimen) 03/20/2018 3:31 PM EDT 03/20/2018 3:53 PM EDT Narrative Resulting Agency Comment Spec In Lab Erik Herndon MD CHEMISTRY ORDERABLE S Performing Organization Address [facility] Co de Phone Number [facility] [place] [address] documented in this encounter Visit Diagnoses Diagnosis GERD (gastroesophageal reflux disease) Esophageal reflux documented in this encounter Admitting Diagnoses Diagnosis GERD [...] Given 03/21/2018 12:45 AM EDT 650 mg heparin (Porcine) subcutaneous injection 5,000 Units 5,000 Units, Subcutaneous, EVERY 8 HOURS SCHEDULED, First dose on Mon03/20/18 at 2200, Until Discontinued, Recovery (Recovery-Hospital Unit), Routine Given 03/21/2018 6:11 AM EDT 5,000 Unit s Given 03/20/2018 9:32 PM EDT 5,000 Units [...] 1754 (Given - Provider: Loretta Araujo RN) 0045 (Given - Provider: Oralia Em RN)0611 (Given - Provider: Oralia Em RN)1319 (Given - Provider: Birdie Reina, RN) ceFAZolin (ANCEF) 2g in dextrose 5% 100 mL (COMPLETED) 2 g, Intravenous, A R SPECIALIST TO O.R., 1 dose, On Mon03/20/18 at 1030, Administer over 30 Minutes, Indication for (Active or Suspected): Prophylaxis 1128 (Given - Provider: Mustapha Montes CRNA)1420 (Given - Provider: Mustapha Montes CRNA) heparin (Porcine) subcutaneous injection 5,000 Units 5,000 Units, Subcutaneous, EVERY 8 HOURS SCHEDULED, First dose on Mon03/20/18 at 2200, Until Discontinued, Recovery (Recovery-Hospital Unit), Routine 213 (Given - Provider: Oralia Em RN) 0611 (Given - Provider: Oralia Em RN) sodium chloride 0.9 % flush 5 mL 5 mL, Intravenous, 2 TIMES DAILY, First dose on Mon03/20/18 at 2100, Until Discontinued, Recovery (Recovery-Hospital Unit), Routine 213 (Given - Provider: Oralia Em RN) 0813 (Given - Provider: Birdie Reina, RN) Continuous Medication Order 03/19/2018 03/20/2018 03/21/2018 sodium chloride 0.9% infusion (CANCELED) 50 mL/hr, Intravenous, CONTINUOUS, Starting on Mon03/20/18 at 1545, Until Mon03/21/18 at 0837, Recovery (Recovery-Hospital Unit) 1520 (New Bag - Provider: Loretta Araujo, RN) 0615 (Stopped - Provider: Oralia Em RN)0617 (New Bag - Provider: Oralia Em RN)0845 (Stopped - Provider: Birdie Reina, RN) [...] Unit), Routine 2130 (Given - Provider: Oralia Em RN) 0045 (Given - Provider: Oralia Em, RN)0334 (Given - Provider: Oralia Em, RN)0813 (Given - Provider: Birdie Reina, RN)1319 (Given - Provider: Birdie Reina RN) sodium chloride 0.9 % flush 5-20 mL 5-20 mL, Intravenous, EVERY 1 MIN PRN, Starting on Mon03/20/18 at 1821, Until Mon03/21/18 at 1536, flush, Flush pertains to all indwelling lines. Flush per protocol found in the job aid using the link provided on this medication record., Recovery (Recovery-Hospital Unit), Routine documented in this encounter Care Teams Computer Typesetter Keyliner Relationship Specialty Start Date End Date Dora Elliott MD [address] [place] [address] PCP - General 01/23/13 08/05/20 documented as of this encounter
--- OUTSIDE RECORDS SUMMARY | 2024-02-23 02:21 | XMS_ITS | Encounter Summary ---
Author Organization [place] [address] Care Team Providers Care Blunger Loader Name Role Phone Dora Elliott MD Primary Care Provider [phone] Reason for Visit * Surgical (Routine) - Specialty Diagnoses / Procedures Referred By Felisha savage Referred To Contact Gastroenterology Diagnoses REFLUX Procedures MANOMETRY ESOPHAGEAL MANOMETRY Erik Herndon MD [facility] [place] [address] [facility] [address] [place] [address] Referral ID Status Reason Start Date Expiration Date V isits Requested Visits Authorized [id number] 08/02/2017 08/02/2018 1 1 Encounter Details Date Type Department Care Team (Latest Contact Info) Description 09/26/2017 8:00 AM EDT Procedure visit [place] [address] Gastroesophageal reflux disease, esophagitis presence not specified Social History Tobacco Use Types Packs/Day Years Used Date Smoking Tobacco: Former Smokeless Tobacco: Never Sex and Gender Information Value Date Recorded Sex Assigned at Not on file Gender Identity Not on file Sexual Orientation Not on file documented as of this encounter Progress Notes * Deric Abreu RN - 09/26/2017 8:00 AM EDT HREM catheter placed via Right nare without difficulty. Patient tolerated procedure well. documented in this encounter Plan of Treatment Upcoming Encounters Date Type Department Care Team (Late st Contact Info) Description 01/02/2025 3:30 PM EDT Office Visit Dermatology at [place] [address] [facility] [place] [address] Jaquan Syed MD [address], [place] [address] documented as of this encounter Visit Diagnoses Diagnosis Gastroesophageal reflux disease, esophagitis presence not specified documented in this encounter Care Teams Blunger Loader Relationship Specialty Start Date End Date Dora Elliott MD [facility] [address] [facility] [address] [place] [address] PCP - General 01/23/13 08/05/20 documented as of this encounter
--- OUTSIDE RECORDS SUMMARY | 2024-02-23 02:21 | XMS_ITS | Encounter Summary ---
Author Organization [facility] Address [address] [place] [address] Care Team Providers Care Air Analysis Technician Name Role Phone Unknown, Provider Primary Care Provider [phone] Encounter Details Date Type Department Care Team (Late st Contact Info) Description 07/17/2021 Lab Requisition [facility] Pathology & Laboratory Medicine - [facility] [address] [place] [address] Outr Resulting Lab, Provider Social History Tobacco [...] RNA BY PCR Routine 07/16/2021 14:24 EST FERRITIN Routine 07/16/2021 14:24 EST documented in this encounter Results * HEPATITIS C AB W REFLEX TO HCV RNA BY PCR (07/16/2021 14:24 EST) Hep C Antibody Negative Negative 07/19/2021 10:40 EST [facility] Blood VENOUS BLOOD / Unknown 07/16/2021 14:24 EST 07/18/2021 15:42 EST Provider Outr Resulting Lab CHEMISTRY & BLOOD GAS ORDERABLES [facility] [address] [place] [address] * FERRITIN (07/16/2021 14:24 EST) Ferritin 28 10 - 291 ng/mL 07/19/2021 9:46 EST [facility] Blood VENOUS BLOOD / Unknown 07/16/2021 14:24 EST 07/18/2021 15:42 EST Provider Outr Resulting Lab CHEMISTRY & BLOOD GAS ORDERABLES [facility] [address] [place] [address] documented in this encounter Visit Diagnoses Not on filedocumented in this encounter Care Teams Air Analysis Technician Relationship Specialty Start Date End Date Unknown, Provider, PCP - General 06/01/17 documented as of this encounter
--- OUTSIDE RECORDS SUMMARY | 2024-02-23 02:21 | XMS_ITS | Encounter Summary ---
Author Organization Counts Include [facility] Address [facility] [place] [address] Care Team Providers Care Health Center Associate Name Role Phone Dora Elliott MD Primary Care Provider [phone] Reason for Visit * Reason Comments Psoriasis follow up-6 months Encounter Details Date Type Department Care Team (Late st Contact Info) Description 08/01/2013 3:45 PM EST Follow-Up Dermatology at [facility] [address] [place] [address] Aysha Fraser MD [facility] [place] [address] Psoriasis (Primary Dx) Discharge Disposition: Home Social History Tobacco Use Types Packs/Day Years Used Date Smoking Tobacco: Former Sex and Gender Information Value Date Recorded Sex Assigned at Not on file Gender Identity Not on file Sexual Orientation Not on file documented as of this encounter Progress Notes * Arlene Perez LPN - 08/01/2013 3:45 PM EST DERMATOLOGY ESTABLISHED PATIENT CLINIC NOTE Date of service: 08/01/2013 Jessica Amato : 1970 Provider: Aysha Fraser MD Chief Complaint Patient presents with ??? Psoriasis follow up-6 months SKIN HISTORY: Psoriasis HPI Jessica Amato is a 42 y.o. year old female who was last seen by me on 02/07/13 and is here for a six month follow up for psoriasis. Was on Humira for two months, then insurance changed and she has not been able to get it. Needs another prior authorization. Now psoriasis is flaring, especially behind ears, elbows and knees. She is currently using Aveeno cream on the affected areas, out of topicals. Her worse areas today are her knees, ears and elbows. Last PPD was on 02/15/13. MEDS: Current Outpatient Prescriptions Medication Sig Dispense Refill ??? Adalimumab (HUMIRA PSORIASIS STARTER PACK) 40 mg/0.8 mL PnKt On day 1 give 80 mg SC, then give 40 mg SC every other week starting one week after the initial dose (40 mg SC at week 1). 6 kit 12 ??? [DISCONTINUED] escitalopram (LEXAPRO) 10 mg tablet Take 10 mg by mouth daily. ??? [DISCONTINUED] estradiol (CLIMARA) 0.05 mg/[address] 1 patch onto the skin once a week. ??? [DISCONTINUED] clobetasol (TEMOVATE) 0.05 % ointment Apply topically 2 times daily. To affectedareas on Monday and Monday Only 30 g 4 ??? [DISCONTINUED] Calcipotriene (DOVONEX) 0.005 % Crea Apply topically twice daily Monday - Mondayto affected areas. 60 g 5 ADR: No Known Allergies ROS General: feeling well Skin: denies other skin complaints EXAM General: NAD, pleasant, cooperative Exam of head, neck, ears, face, right and left arms and legs. Skin: Significant skin findings: A. Scattered red well-demarcated, thick erythematous plaques on knees, ears, and elbows. -Approximately 5% BSA -The worst area(s) of psoriasis for this patient are: elbows, ears, and knees. ASSESSMENT/PLAN: A. Psoriasis, started on Humira, skin cleared, unable to obtain presently due to recent insurance change, skin is now flaring. Did not tolerate MTX in the past. Recommendations: -Labs will be obtained today for CBC and CMP -Next PPD is due 01/2014 Prescriptions: -Clobetasol 0.05% ointment 30 g 3 refills Apply to affected areas twice daily on the weekends as directed for up to 2-3 weeks 30g 3 Refill -Dovonex Cream 60 g. 3 refills Apply to affected areas twice daily Monday through Monday -Humira 40 mg 0.8 ml PnKt - give 40 mg sc every other week. - will work with patient and insurance to obtain prior auth and restart Humira. Follow up: 3 months, patient scheduled appointment before exiting office. I am documenting this encounter acting as the scribe for and in the presence of Dr. Fraser: Arlene Perez LPN I performed the above scribed service and agree with the accuracy of the documentation in this encounter. Aysha Fraser MD Central Office Inspector of Dermatology, Department of Packing Line OperatorCentral Office Inspectorhealth education aide (Dermatopathology) [facility] documented in this encounter Plan of Treatment Upcoming Encounters Date Type Department Care Team (Late st Contact Info) Description 01/02/2025 3:30 PM EDT Office Visit Dermatology at [place] [address] [facility] [place] [id number] Jaquan Syed MD [address], [place] [address] documented as of this encounter Procedures Procedure Name Priority Date/Time Associated Diagnosis Comments DIFFERENTIAL, AUTOMATED Routine 08/01/2013 4:14 PM EST CBC (WITH DIFF) Routine 08/01/2013 4:14 PM EST Psoriasis COMPREHENSIVE METABOLIC PANEL Routine 08/01/2013 4:14 PM EST Psoriasis documented in this encounter Results * (ABNORMAL) Differential, Automated (08/01/2013 4:14 PM EST) Neutrophil % 26.2(L) 34.0 - 71.0 % CERNER MILLENNIUM Neutrophil Absolute 1.52 1.50 - 6.30 x10(3)/mc L CERNER MILLENNIUM Lymph % 62.5(H) 19.0 - 53.0 % CERNER MILLENNIUM Lymphocytes Abs 3.6 1.0 - 3.6 x10(3)/mc L CERNER MILLENNIUM Monocyte % 8.1 4.0 - 13.0 % CERNER MILLENNIUM Monocyte Abs 0.5 0.2 - 1.0 x10(3)/mc L CERNER MILLENNIUM Eos % 2.7 0.0 - 7.0 % CERNER MILLENNIUM Eosinophils Abs 0.2 0.0 - 0.5 x10(3)/mc L CERNER MILLENNIUM Basophil % 0.5 0.0 - 2.0 % CERNER MILLENNIUM Baso Absolute 0.0 0.0 - 0.2 x10(3)/mc L CERNER MILLENNIUM Immature Gran % 0.00 0.00 - 0.66 % CERNER MILLENNIUM Comment: Immature granulocytes(IG's)percentage and absolute count will include metamyelocytes, myelocytes, and promyelocytes. Blood smears from CBCs yielding IG's will be scanned manually for concordance. If this scan disagrees with the automated IG or if promyelocytes are noted, a manual differential will be performed. Immature Gran Absolute 0.00 0.00 - 0.05 x10(3)/mc L CERNER MILLENNIUM Blood specimen (specimen) 08/01/2013 4:14 PM EST 08/01/2013 6:02 PM EST Aysha Fraser MD HEMATOLOGY ORDERABL ES [facility] * Comprehensive metabolic panel (non-fasting) (08/01/2013 4:14 PM EST) Pathologist [facility] Glucose 90 60 - 199 mg/dL CERNER MILLENNIUM Comment:Diabetes: >=200 mg/d L plus symptoms Blood Urea Nitrogen 14 8 - 18 mg/dL CERNER MILLENNIUM Creatinine 0.84 0.70 - 1.20 mg/dL CERNER MILLENNIUM Comment: Please note that the pediatric reference intervals supplied above were not validated at [facility]. Results from pediatric patients should be interpreted in conjunction to the patient's age, height and muscle mass. Sodium 139 135 - 145 mmol/L CERNER MILLENNIUM Potassium 3.8 3.5 - 5.0 mmol/L CERNER MILLENNIUM Comment: Please note: ??Patients with WBC >100,000 may have falsely elevated Potassium levels. ??For accurate Potassium quantification in these patients send serum separator tube (gold top) for subsequent determinations. ??Contact the Clinical Chemistry Laboratory if there are any questions. Chloride 104 98 - 107 mmol/L CERNER MILLENNIUM Carbon Dioxide 25 22 - 31 mmol/L CERNER MILLENNIUM Anion Gap 10 5 - 15 mmol/L CERNER MILLENNIUM Calcium 9.5 8.5 - 10.5 mg/dL CERNER MILLENNIUM Protein, Total 7.0 6.4 - 8.3 gm/dL CERNER MILLENNIUM Albumin 4.3 3.2 - 5.2 gm/dL CERNER MILLENNIUM Aspartate Aminotransferase 18 0 - 30 unit/L CERNER MILLENNIUM Alanine Aminotransferase 17 0 - 30 unit/L CERNER MILLENNIUM Alkaline Phosphatase 57 40 - 104 unit/L CERNER MILLENNIUM Bilirubin, Total 0.3 0.2 - 1.3 mg/dL CERNER MILLENNIUM Bilirubin, [...] internet browser. http://www.nkdep.nih.gov/lab-evaluation.shtml http://www.kidney.org/professionals/ Blood specimen (specimen) 08/01/2013 4:14 PM EST 08/01/2013 5:58 PM EST Narrative Resulting Agency Comment Spec In Lab Aysha Fraser MD CHEMISTRY ORDERABLE S [facility]EROSIR[facility] WALDRON[facility] * (ABNORMAL) CBC (with Diff) (08/01/2013 4:14 PM EST) White Blood Cell 5.8 4.0 - 10.0 x10(3)/mc L CERNER MILLENNIUM Red Blood Cell 3.99 3.93 - 5.22 x10(6)/mc L CERNER MILLENNIUM Hemoglobin 12.9 11.2 - 15.7 gm/dL CERNER MILLENNIUM Hematocrit 37.8 34.0 - 45.0 % CERNER MILLENNIUM Mean Cell Volume 94.7(H) 79.0 - 94.0 fL CERNER MILLENNIUM Mean Cell Hemoglobin 32.3(H) 26.6 - 32.2 pg CERNER MILLENNIUM Mean Cell Hemoglobin Concentration 34.1 32.0 - 36.5 gm/dL CERNER MILLENNIUM Platelet 281 145 - 370 x10(3)/mc L CERNER MILLENNIUM RDW Standard Deviation 45.1 35.0 - 46.0 fL CERNER MILLENNIUM RDW coefficient of variation 13.0 10.9 - 14.4 % CERNER MILLENNIUM Mean Platelet Volume 10.2 9.0 - 12.0 fL CERNER MILLENNIUM Blood specimen (specimen) 08/01/2013 4:14 PM EST 08/01/2013 6:02 PM EST Narrative Resulting Agency Comment Spec In Lab Aysha Fraser MD HEMATOLOGY ORDERABL ES [facility] documented in this encounter Visit Diagnoses Diagnosis Psoriasis- Primary Other psoriasis documented in this encounter Care Teams Health Center Associate Relationship Specialty Start Date End Date Dora Elliott MD [address] [place] [address] PCP - General 01/23/13 08/05/20 documented as of this encounter
--- OUTSIDE RECORDS SUMMARY | 2024-02-23 02:21 | XMS_ITS | Encounter Summary ---
Author Organization [facility] [place] [address] Care Team Providers Care Nickel Plater Name Role Phone Dora Elliott MD Primary Care Provider [phone] Encounter Details Date Type Department Care Team (Late st Contact Info) Description 03/01/2013 Telephone Dermatology at [facility] [address] [place] [phone] Aysha Fraser MD [facility] [address] Social History Tobacco Use Types Packs/Day Years Used Date Smoking Tobacco: Some Days Sex and Gender Information Value Date Recorded Sex Assigned at Not on file Gender Identity Not on file Sexual Orientation Not on file documented as of this encounter Miscellaneous Notes * Telephone Encounter - Yoana Clark - 03/01/2013 11:21 AM EDT JUSTYNA PT Prior authorization for Humira approved as follows: Medication is approved through February 2016 Starter dosing is approved through March 2013 This was confirmed by Remi from [employer], . Yoana documented in this encounter Plan of Treatment Upcoming Encounters Date Type Department Care Team (Late st Contact Info) Description 01/02/2025 3:30 PM EDT Office Visit Dermatology at [address] [address] Jaquan Syed MD [address], [place] [address] documented as of this encounter Visit Diagnoses Not on filedocumented in this encounter Care Teams Nickel Plater Relationship Specialty Start Date End Date Dora Elliott MD [facility] [address] [place] [address] PCP - General 01/23/13 08/05/20 documented as of this encounter
--- OUTSIDE RECORDS SUMMARY | 2024-02-23 02:21 | XMS_ITS | Clinical Summary ---
Author Organization [facility] Address [address] [place] [address] Care Team Providers Care Baggage And Mail Agent Name Role Phone Unknown, Provider Primary Care Provider Social History Tobacco Use Types Packs/Day Years Used Date Smoking Tobacco: Never Assessed Interpersonal Safety Answer Date Record ed Physically Hurt Never 12/30/2019 Verbally Threaten Not on file 12/30/2019 Sex and Gender Information Value Date Recorded Sex Assigned at Not on file Gender Identity Not on file Sexual Orientation Not on file Plan of Treatment Health Maintenance Due Date Last Done Comments Hepatitis B Vaccine (1 of 3 - 19+ 3-dose series) 11/04 COVID-19 Vaccine ( season) 2023 Hepatitis C Screen Completed 07/16/2021 Procedures Procedure Name Priority Date/Time Associated Diagnosis Comments HEPATITIS C AB W REFLEX TO HCV RNA BY PCR Routine 07/16/2021 14:24 EST from Last 3 Months or Most Recently Relevant to Health Maintenance Results * HEPATITIS C AB W REFLEX TO HCV RNA BY PCR (07/16/2021 14:24 EST) Hep C Antibody Negative Negative 07/19/2021 10:40 EST [facility] Blood VENOUS BLOOD / Unknown 07/16/2021 14:24 EST 07/18/2021 15:42 EST Provider Outr Resulting Lab CHEMISTRY & BLOOD GAS ORDERABLES [facility] [address] [place] [address] from Last 3 Months or Most Recently Relevant to Health Maintenance Care Teams Baggage And Mail Agent Relationship Specialty Start Date End Date Unknown, Provider, PCP - General 06/01/17
--- OUTSIDE RECORDS SUMMARY | 2024-02-23 02:21 | XMS_ITS | Encounter Summary ---
Author Organization [facility] [place] [address] Care Team Providers Care Aviation Safety Technician Name Role Phone Dora Elliott MD Primary Care Provider [phone] Reason for Visit * Reason Onset Date Comments Medication Refill 09/08/2014 Encounter Details Date Type Department Care Team (Late st Contact Info) Description 09/08/2014 Telephone Dermatology at [facility] [address] [place] [address] Aysha Fraser MD [facility] [place] [address] Medication Refill Social History Tobacco Use Types Packs/Day Years Used Date Smoking Tobacco: Former Sex and Gender Information Value Date Recorded Sex Assigned at Not on file Gender Identity Not on file Sexual Orientation Not on file documented as of this encounter Miscellaneous Notes * Telephone Encounter - Yoana Hannon LPN - 09/10/2014 4:37 PM EDT Spoke with patient and let her know that her prescription is good until October. I called her pharmacyand confirmed. She can call them and schedule delivery. * Telephone Encounter - Yoana Hannon LPN - 09/10/2014 4:25 PM EDT Called and left a message to call me about her medication * Telephone Encounter - Yoana Hannon LPN - 09/10/2014 11:35 AM EDT Called and left message for patient about her refill of Humira. Instructed for her to call for update. - Called [facility] ([facility]) and spoke with Lupe there. Her prescription is good until October. There was a mix up. They will also be calling patient. * Telephone Encounter - Kimberlee Fisher - 09/08/2014 4:33 PM EDT Jessica Amato called, she spoke to [facility] and was told she needs a refill on her Humira. [facility] - [address] * Telephone Encounter - Bianka Solorio - 09/08/2014 4:23 PM EDT Patient returned my call. She will be contacting [facility] directly to have her Humira delivered. * Telephone Encounter - Bianka Solorio - 09/08/2014 2:03 PM EDT [facility] contacted us by FAX to inform us that they have not been able to contact patient regarding the Humira prescription. A message has been left to request that the patient contact us or her pharmacy. documented in this encounter Plan of Treatment Upcoming Encounters Date Type Department Care Team (Late st Contact Info) Description 01/02/2025 3:30 PM EDT Office Visit Dermatology at [place] [address] [facility] [place] [address] Jaquan Syed MD [address], [place] [address] documented as of this encounter Visit Diagnoses Not on filedocumented in this encounter Care Teams Aviation Safety Technician Relationship Specialty Start Date End Date Dora Elliott MD [address] [place] [address] PCP - General 01/23/13 08/05/20 documented as of this encounter
--- OUTSIDE RECORDS SUMMARY | 2024-02-23 02:21 | XMS_ITS | Encounter Summary ---
Author Organization [facility] [place] [address] Care Team Providers Care Candles Pourer Name Role Phone Dora Elliott MD Primary Care Provider [phone] Encounter Details Date Type Department Care Team (Late st Contact Info) Description 02/20/2013 Telephone Dermatology at [facility] [address] [place] [address] Aysha Fraser MD [facility] [place] [address] Social History Tobacco Use Types Packs/Day Years Used Date Smoking Tobacco: Some Days Sex and Gender Information Value Date Recorded Sex Assigned at Not on file Gender Identity Not on file Sexual Orientation Not on file documented as of this encounter Miscellaneous Notes * Telephone Encounter - Yoana Clark - 02/20/2013 12:08 PM EDT Prior authorization in progress for John Lees documented in this encounter Plan of Treatment Upcoming Encounters Date Type Department Care Team (Late st Contact Info) Description 01/02/2025 3:30 PM EDT Office Visit Dermatology at [address] [place] [address] Jaquan Syed MD [address] [facility], [place] [address] documented as of this encounter Visit Diagnoses Not on filedocumented in this encounter Care Teams Candles Pourer Relationship Specialty Start Date End Date Dora Elliott MD [facility] [address] [facility] [facility] [address] [place] [address] PCP - General 01/23/13 08/05/20 documented as of this encounter
--- OUTSIDE RECORDS SUMMARY | 2024-02-23 02:21 | XMS_ITS | Encounter Summary ---
Author Organization [facility] [place] [address] Care Team Providers Care Electro Mechanical Solar Technician Name Role Phone Dora Elliott MD Primary Care Provider [phone] Encounter Details Date Type Department Care Team (Latest Contact Info) Description 09/26/2017 5:00 PM EDT Tech [place] [address] Briana Luu MD [facility] [place] [address] Gastroesophageal reflux disease, esophagitis presence not specified Social History Tobacco Use Types Packs/Day Years Used Date Smoking Tobacco: Former Smokeless Tobacco: Never Sex and Gender Information Value Date Recorded Sex Assigned at Not on file Gender Identity Not on file Sexual Orientation Not on file documented as of this encounter Progress Notes * Briana Luu MD - 09/26/2017 5:00 PM EDT HIGH-RESOLUTION ESOPHAGEAL MANOMETRY Jessica Tomlinson Amato [address] [facility] [address] : 1970 STUDY DATE: 09/26/2017 PROVIDER: Briana Luu MD ([id number]) INDICATION Reflux METHODS Stationary esophageal manometry was performed with the ManoScan ESO version 3.0 in a supervised setting after verbal consent and after topical anesthesia to the nares. This system uses 36 individual circumferential solid state sensors spaced 1 cm apart. The outer diameter of the probe is 4.2 mm. Length, resting pressure, pressure inversion point (PIP), and relaxation of the lower esophageal sphincter (LES) was measured. The high pressure zone of the upper esophageal sphincter (UES) was measured. Water swallows were provided after a 5-wy-8-minute accommodation period to assess LES function andfunction of the esophageal body. FINDINGS LES (lower esophageal sphincter) Distal border of LES identified at 42.7 cm. Proximal border of LES identified at 39.6 cm. Hiatal hernia present? No Basal pressure respiratory mean pressure 48 mmHg (normal = 15-34 mmHg). Residual mean pressure (integrated relaxation pressure - IRP) 14.2 mmHg (normal = <15 mmHg). BODY OF ESOPHAGUS Water Swallows: 10. Failed: 0%. Transmitted (peristaltic): 90%. Panesophageal pressurization: 0% Premature: 0% Rapid: 0% With large breaks: 20%. With small breaks: 10%. DCI (distal contractile integral): 2655 mmHg-cm-s (normal is 450 to 5000 mmHg-cm-s). Contractile front velocity: 2.6 cm/s (normal is <9.0 cm/s). Intrabolus pressure (average maximum): 27.1 mmHg (normal is <17.0 mmHg). Distal latency: 11.6 UES (upper esophageal sphincter) Distal border of UES identified at 19.9 cm and extended to 18 cm. UES basal pressure 58 mmHg (normal = 34-104 mmHg). Residual pressure 9.3 mmHg (normal = <12 mmHg). IMPRESSION 1. High LES resting pressure. 2. Normal LES relaxation (IRP, integrated relaxation pressure). 3. Normal UES resting pressure. 4. Normal UES relaxation. 5. Normal motility in the body of the esophagus. 6. No evidence of a hiatal hernia on this study. 7. Normal DCI (distal contractile integral). This is a measure of contractile vigor. 8. High intrabolus pressure. This is a measure of esophageal clearance. *Measurements and diagnostic criteria per Loleta 3.0 Classification. These findings assume that mechanical obstruction has been ruled out. Briana Luu MD Section of Gastroenterology and Hepatology [facility] [place] [address] V: [phone] F: [phone] CC/EC: PCP documented in this encounter Plan of Treatment Upcoming Encounters Date Type Department Care Team (Late st Contact Info) Description 01/02/2025 3:30 PM EDT Office Visit Dermatology at [place] [address] [place] [address] Jaquan Syed MD [address], [place] [address] documented as of this encounter Visit Diagnoses Diagnosis Gastroesophageal reflux disease, esophagitis presence not specified documented in this encounter Care Teams Electro Mechanical Solar Technician Relationship Specialty Start Date End Date Dora Elliott MD [address] [place] [address] PCP - General 01/23/13 08/05/20 documented as of this encounter
--- OUTSIDE RECORDS SUMMARY | 2024-02-23 02:21 | XMS_ITS | Encounter Summary ---
Author Organization [facility] Address [address] [place] [address] Care Team Providers Care Explosive Ordnance Manager Name Role Phone Unavailable Primary Care Provider Unavailabl e Encounter Details Date Type Department Care Team (Latest Contact Info) Description 05/31/2017 16:32 EST - 05/31/2017 23:59 EST Hospital Encounter [address] [address] Unknown, Provider, Discharge Disposition: Home or Self Care Social History Tobacco Use Types Packs/Day Years Used Date Smoking Tobacco: Never Assessed Sex and Gender Information Value Date Recorded Sex Assigned at Not on file Gender Identity Not on file Sexual Orientation Not on file documented as of this encounter Discharge Disposition Disposition Code Departure Means Destination Home or Self Retirement documented in this encounter Plan of Treatment Not on file documented as of this encounter Visit Diagnoses Not on filedocumented in this encounter
--- OUTSIDE RECORDS SUMMARY | 2024-02-23 02:21 | XMS_ITS | Encounter Summary ---
Author Organization [facility] Address [address] [place] [address] Care Team Providers Care Construction Superintendent Name Role Phone Unknown, Provider Primary Care Provider Encounter Details Date Type Department Care Team (Late st Contact Info) Description 11/26/2022 Lab Requisition [facility] Pathology & Laboratory Medicine - [facility] [address] [place] [address] Outr Resulting Lab, Provider Social History Tobacco [...] Procedure Name Priority Date/Time Associated Diagnosis Comments LYME AB Routine 11/26/2022 12:56 EDT documented in this encounter Results * LYME AB (11/26/2022 12:56 EDT) Lyme Ab Negative Negative 11/28/2022 11:07 EDT [facility] Blood VENOUS BLOOD / Unknown 11/26/2022 12:56 EDT 11/26/2022 21:31 EDT Provider Outr Resulting Lab IMMUNOLOGY A ND SEROLOGY ORDERABLES [facility] [address] [place] [address] documented in this encounter Visit Diagnoses Not on filedocumented in this encounter Care Teams Construction Superintendent Relationship Specialty Start Date End Date Unknown, Provider, PCP - General 06/01/17 documented as of this encounter
--- OUTSIDE RECORDS SUMMARY | 2024-02-23 02:21 | XMS_ITS | Encounter Summary ---
Author Organization [facility] Address [facility] [place] [address] Care Team Providers Care Oyster Shucker Name Role Phone Dora Elliott MD Primary Care Provider [phone] Encounter Details Date Type Department Care Team (Late st Contact Info) Description 10/28/2013 Telephone Dermatology at [facility] [address] [place] [address] Aysha Fraser MD [facility] [place] [address] Social History Tobacco Use Types Packs/Day Years Used Date Smoking Tobacco: Former Sex and Gender Information Value Date Recorded Sex Assigned at Not on file Gender Identity Not on file Sexual Orientation Not on file documented as of this encounter Miscellaneous Notes * Telephone Encounter - Yoana Clark - 10/28/2013 2:45 PM EDT Pt is scheduled 11/05/[address] Fraser - however, Dr. Fraser will not be available and the appointment needs to be rescheduled. 1st call was made 10/22 @ 1:54 pm and a voicemail had been left, 2nd call was made 10/25 @ 10:40 am and another voicemail had been left. The third and final call was madeto @ 2:15 pm advising the patient the appointment has been cancelled and to call back to reschedule the appointment. A letter has been mailed Yoana documented in this encounter Plan of Treatment Upcoming Encounters Date Type Department Care Team (Late st Contact Info) Description 01/02/2025 3:30 PM EDT Office Visit Dermatology at [place] [address] [place] [address] Jaquan Syed MD [address], [place] [address] documented as of this encounter Visit Diagnoses Not on filedocumented in this encounter Care Teams Oyster Shucker Relationship Specialty Start Date End Date Dora Elliott MD [address] [facility] [address] [place] [address] PCP - General 01/23/13 08/05/20 documented as of this encounter
--- OUTSIDE RECORDS SUMMARY | 2024-02-23 02:21 | XMS_ITS | Encounter Summary ---
Author Organization [facility] [address] Care Team Providers Care Airport Attendant Name Role Phone Dora Elliott MD Primary Care Provider [phone] Encounter Details Date Type Department Care Team (Late st Contact Info) Description 08/09/2013 Orders Only Dermatology at [facility] [address] [place] [address] Aysha Fraser MD [facility] [place] [address] Psoriasis (Primary Dx) Social History Tobacco Use [...] 3:30 PM EDT Office Visit Dermatology at [place] [address] [facility] [place] [phone] Jaquan Syed MD [address] [facility], [address] DERMATOLOGY [place], [place] [address] documented as of this encounter Visit Diagnoses Diagnosis Psoriasis- Primary Other psoriasis documented in this encounter Care Teams Airport Attendant Relationship Specialty Start Date End Date Dora Elliott MD [address] [place] [address] [address] [place] [address] PCP - General 01/23/13 08/05/20 documented as of this encounter
--- OUTSIDE RECORDS SUMMARY | 2024-02-23 02:21 | XMS_ITS | Encounter Summary ---
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
--- OUTSIDE RECORDS SUMMARY | 2024-02-23 02:21 | XMS_ITS | Encounter Summary ---
Author Organization [facility] Address [facility] [place] [address] Care Team Providers Care Dock Grader Name Role Phone Dora Elliott MD Primary Care Provider [phone] Reason for Visit * Auth/Cert Specialty Diagnoses / Procedures Referred By Contac t Referred To Contact Diagnoses RECURRENT HIATAL HERNIA Procedures PRO LAP, ESOPHAGUS, OTHER PROC 4 Referral ID Status Reason Start Date Expiration Date Visits Re quested Visits Authorized [id number] 1 1 Encounter Details Date Type Department Care Team (Late st Contact Info) Description 03/20/2018 10:53 AM EDT Anesthesia Event [place] [address] Tony Paulino MD [facility] [place] [address] Mustapha Breen CRNA [facility] [place] [address] Anesthesia Record Procedure Summary Procedure Name Responsible Anesthesiologist Anesthesia Start Time Anesthesia Stop Time LAPAROSCOPIC REVISION OF KALYN FUNDOPLASTY (WRVU 48.75) (Abdomen) Tony Paulino MD 03/20/18 1053 03/20/18 1504 Events Date Time Event Comment 03/20/2018 0945 1053 AN Verify 1053 Start 1053 An Start Data 1104 An Induction 1107 An Intubation 1116 An Data Art Tucking arms 1118 Anesthesia Ready 1139 Procedure Start 1231 Break/Relief In Fanny Ceballos CRNA 1255 Break/Relief Out 1451 Extubation/LMA Out 1457 an stop data 1504 Recovery or ICU Handoff Deya ent care was transferred to the destination unit staff after review of the patient's medical history, current anesthetic/surgical status and plan, according to the Provider Handoff Checklist. 1504 Stop Meds Name Total Midazolam 2 mg fentaNYL 100 mcg IV Lidocaine 80 mg Propofol 200 mg Rocuronium 120 mg PHENYLephrine 240 mcg ePHEDrine 5 mg Ondansetron 4 mg Dexamethasone 8 mg Neostigmine 4 mg Glycopyrrolate 1 mg Succinylcholine 100 mg Dexmedetomidine 20 mcg ceFAZolin (ANCEF) 2g in dextrose 5% 100 mL 4 g Dexmedetomidine INF 112.91 mcg Propofol INF 527.52 mg Esmolol 10 mg HYDROmorphone 0.2 mg Lactated Ringers 1,300 mL Lactated Ringers 300 mL * Agents Name O2 Air N2O Sevoflurane (et) * Blood No blood administrations on file. Lines, Drains, and Airways Type Details Placement Removal (RETIRED) Peripheral IV Line - Single Lumen 03/20/18; 921; metacarpal vein (top of hand), right; uhvh-ldb-pirnub catheter system; 18 gauge, 1 in length; distraction, tolerated well; 03/21/18; 1323 03/20/18 09 by Nury Infante RN 03/21/18 1323 by Birdie Reina, SHAQUILLE ETT Mask Ventilation: Ea sy (1); ETT Type: Cuffed, Oral; Palacio Blade: 2; Notes: Asleep, Pre-O2; Attempts: 1; Laryngoscopy Grade: 1; ETT Placement Verified By: Auscultation, Capnometry, Visual; Secured at Teeth: 22 cm; Inserted by: rachel breen; Removal Date: 03/20/18; Removal Time: 14203/20/18 1107 by Mustapha Breen CRNA 03/20/18 1429 by Mustapha Breen CRNA Urethral Catheter 03/20/18; 1113; Abdominal surgery, Surgery longer than 2 hours; Physician order; indwelling double lumen catheter; hydrophilic coated, latex; 14; inserted at this facility (by Bebeto Velázquez RN); 1; 10; 10; none (Pt under GA); drainage bag to dependent drainage; 03/21/18; 0409 03/20/18 1113 by Bebeto Velázquez RN 03/21/18 0409 by Briana Ramirez LNA (RETIRED) Peripheral IV Line - Single Lumen 03/20/18; 1124; metacarpal vein (top of hand), left; 18 gauge; tony paulino; 03/21/18; 1322 03/20/18 1124 by Mustapha Breen CRNA 03/21/18 1322 by Birdie Reina RN Incision 03/20/18; 1139; abdo men; laparoscopic punctures (specify); trocars (x6); 01/24/22 (LDA cleanup utility RA#[id number]); 1715 (LDA cleanup utility RA#[id number]) 03/20/18 1139 by Bebeto Velázquez RN 01/24/22 1715 by Christiano Nickerson documented in this encounter Social History Tobacco Use Types Packs/Day Years Used Date Smoking Tobacco: Former Smokeless Tobacco: Never Sex and Gender Information Value Date Recorded Sex Assigned at Not on file Gender Identity Not on file Sexual Orientation Not on file documented as of this encounter OR Notes * Anesthesia Postprocedure Evaluation - Tony Paulino MD - 03/20/2018 3:54 PM EDT [facility] Department of Anesthesiology Post-procedure Note Patient: Jessica Amato Procedure Summary Date: 03/20/18 Room / Location: [facility] OR [address] [place] [address] MAIN OR Anesthesia Start: 1053 Anesthesia Stop: 1504 Procedures: LAPAROSCOPIC REVISION OF KALYN FUNDOPLASTY (WRVU *) (N/A Abdomen) MODIFIER, HIATAL HERNIA (N/A Abdomen) MODIFIER , RECURRENT (N/A ) ENDOSCOPY, UPPER GI, DIAGNOSTIC, WITH OR WITHOUT SPECIMENS (N/A Abdomen) Diagnosis: (RECURRENT HIATAL HERNIA) Surgeon: Erik Herndon MD Responsible Provider: Tony Paulino MD Anesthesia Type: Not recorded ASA Status: 2 All Anesthesia Providers: Anesthesiologist: Tony Paulino MD FORMING FIXER: Mustapha Breen CRNA Most Recent Vitals: 03/20/18 1545 BP: 112/60 Pulse: 54 Resp: 24 Temp: SpO2: 99% Pain 0 (03/20/18 1500) Patient Location: PACU/[facility] Level of Consciousness: Awake and Alert Pain Management: Satisfactory Analgesia PONV: None Cardiovascular Status: At Baseline Respiratory Status: At Baseline Postoperative Fluid Status: Intravascular EUvolemia Possible Anesthetic Complications: NONE apparent at time of evaluation Final Primary Anesthesia Type: General (The anesthetic type performed was the same as planned.) Comments: Transient bradycardia upon arrival to PACU, now resolved, HR in 60's. No associated hypotension. Otherwise recovering uneventfully. * Anesthesia Preprocedure Evaluation - Tony Paulino MD - 03/20/2018 9:40 AM EDT Images from the original note were not included. Pre-Anesthesia Evaluation for: Jessica Amato a 47 y.o. female. Procedure(s): LAPAROSCOPIC REVISION OF KALYN FUNDOPLASTY (WRVU *) MODIFIER, HIATAL HERNIA MODIFIER , RECURRENT ENDOSCOPY, UPPER GI, DIAGNOSTIC, WITH OR WITHOUT SPECIMENS Patient Active Problem List Diagnosis ??? Psoriasis No past medical history on file. No past surgical history on file. Social History Tobacco Use ??? Smoking status: Former Smoker ??? Smokeless tobacco: Never Used Substance Use Topics ??? Alcohol use: Not on file Social History Substance and Sexual Activity Drug Use Not on file No Known Allergies Medications: MAR and/or home medications have been reviewed. Physical Exam: Most Recent Vitals: 03/20/18 0855 BP: 101/66 Pulse: 52 Resp: 18 Temp: 36.6 ??C (97.9 ??F) SpO2: 100% Body mass index is 32.18 kg/m??. Height: 156.2 cm (5' 1.5) Weight: 78.5 kg (173 lb 1.6 oz) Airway Assessment: Mallampati: II TM distance: >3 FB Neck ROM: full Cardiovascular Assessment: Rhythm: regular Pulmonary Assessment: breath sounds clear to auscultation Dental Assessment: Misc Assessment: Anesthesia Plan: ASA 2 with a(n) intravenous induction 47yo female s/p Kalyn now with recurrent symptoms for revision +slipped Kalyn and hiatal hernia on imaging Psoriasis Obesity ROS negative for cardiac, pulmonary, renal, hepatic or endocrine disease 4+ METs 9/18 labs Hgb 13.7, Cr 0.88, K 3.9 Prior GA well tolerated NPO status appropriate No morning medications NKDA Consent obtained for GA, questions answered. Region - Other Informed Consent: Anesthetic plan and risks discussed with patient. Plan discussed with FORMING FIXER. PAT Staff Note documented in this encounter Plan of Treatment Upcoming Encounters Date Type Department Care Team (Late st Contact Info) Description 01/02/2025 3:30 PM EDT Office Visit Dermatology at [place] [address] [place] [address] Jaquan Syed MD [address], [address] [address] documented as of this encounter Visit Diagnoses Not on filedocumented in this encounter Administered Medications Inactive Administered Medications - up to 3 most recent administrations Medication Order MAR Action Action Date Dose Rate Site ceFAZolin (ANCEF) 2g in dextrose 5% 100 mL 2 g, Intravenous, SENIOR IT AUDITOR TO O.R., 1 dose, On Mon03/20/18 at 1030, Administer over 30 Minutes, Indication for (Active or Suspected): Prophylaxis Given 03/20/2018 2:20 PM EDT 2 g Given 03/20/2018 11:28 AM EDT 2 g dexamethasone (DECADRON) injection PRN, Starting on Mon03/20/18 at 1118, Until Mon03/20/18 at 1504, Anesthesia Intra-op, Routine Given 03/20/2018 11:18 AM EDT 8 mg dexmedetomidine (PRECEDEX) 4 mcg/mL (standard Adult & Pedi greater than 20kg) infusion (premix) CONTINUOUS PRN, Starting on Mon03/20/18 at 1059, Until Mon03/20/18 at 1504, Anesthesia Intra-op Rate/Dose Change 03/20/2018 1:58 PM EDT 0.3 mcg/kg/hr 5.9 mL/hr New Bag 03/20/2018 10:59 AM EDT 0.4 mcg/kg/hr 7.9 mL/hr dexmedetomidine (PRECEDEX) injection PRN, Starting on Mon03/20/18 at 1053, Until Mon03/20/18 at 1504, Anesthesia Intra-op, Routine Given 03/20/2018 10:53 AM EDT 20 mcg ePHEDrine 5 mg/mL multi-dose injection PRN, Starting on Mon03/20/18 at 1110, Until Mon03/20/18 at 1504, Anesthesia Intra-op, Routine Given 03/20/2018 11:10 AM EDT 5 mg esmolol (BREVIBLOC) injection PRN, Starting on Mon03/20/18 at 1149, Until Mon03/20/18 at 1504, Anesthesia Intra-op, Routine Given 03/20/2018 11:49 AM EDT 10 mg fentaNYL 50 mcg/mL multi-dose injection PRN, Starting on Mon03/20/18 at 1104, Until Mon03/20/18 at 1504, Anesthesia Intra-op, Routine Given 03/20/2018 2:06 PM EDT 50 mcg Given 03/20/2018 11:04 AM EDT 50 mcg glycopyrrolate (ROBINUL) multi-dose injection PRN, Starting on Mon03/20/18 at 1111, Until Mon03/20/18 at 1504, Anesthesia Intra-op, Routine Given 03/20/2018 2:38 PM EDT 0.2 mg Given 03/20/2018 2:35 PM EDT 0.6 mg Given 03/20/2018 11:11 AM EDT 0.2 mg HYDROmorphone (DILAUDID) injection PRN, Starting on Mon03/20/18 at 1435, Until Mon03/20/18 at 1504, Anesthesia Intra-op, Routine Given 03/20/2018 2:35 PM EDT 0.2 mg lactated Ringers infusion CONTINUOUS PRN, Starting on Mon03/20/18 at 1053, Until Mon03/20/18 at 1504, Anesthesia Intra-op New Bag 03/20/2018 10:53 AM EDT lactated Ringers infusion CONTINUOUS PRN, Starting on Mon03/20/18 at 1108, Until Mon03/20/18 at 1504, Anesthesia Intra-op New Bag 03/20/2018 11:08 AM EDT lidocaine (PF) (XYLOCAINE) 100 mg/5 mL (2 %) injection PRN, Starting on Mon03/20/18 at 1104, Until Mon03/20/18 at 1504, Anesthesia Intra-op, Routine Given 03/20/2018 11:04 AM EDT 80 mg midazolam (PF) (VERSED) multi-dose injection PRN, Starting on Mon03/20/18 at 1053, Until Mon03/20/18 at 1504, Anesthesia Intra-op, Routine Given 03/20/2018 10:53 AM EDT 2 mg neostigmine (BLOXIVERZ) injection PRN, Starting on Mon03/20/18 at 1435, Until Mon03/20/18 at 1504, Anesthesia Intra-op, Routine Given 03/20/2018 2:35 PM EDT 4 mg ondansetron (ZOFRAN) injection PRN, Starting on Mon03/20/18 at 1426, Until Mon03/20/18 at 1504, Anesthesia Intra-op, Routine Given 03/20/2018 2:26 PM EDT 4 mg PHENYLephrine in NS (PF) (SURAJ-SYNEPHRINE) 0.8 mg/10 mL (80 mcg/mL) multi-dose injection Syrg PRN, Starting on Mon03/20/18 at 1112, Until Mon03/20/18 at 1504, Anesthesia Intra-op, Routine Given 03/20/2018 1:31 PM EDT 80 mcg Given 03/20/2018 12:45 PM EDT 80 mcg Given 03/20/2018 11:12 AM EDT 80 mcg propofol (DIPRIVAN) 10 mg/mL bolus injection (Anesthesia) PRN, Starting on Mon03/20/18 at 1104, Until Mon03/20/18 at 1504, Anesthesia Intra-op Given 03/20/2018 11:04 AM EDT 200 mg propofol (DIPRIVAN) infusion CONTINUOUS PRN, Starting on Mon03/20/18 at 1059, Until Mon03/20/18 at 1504, Anesthesia Intra-op, Routine New Bag 03/20/2018 10:59 AM EDT 30 mcg/kg/min 14.1 mL/hr rocuronium (ZEMURON) multi-dose injection PRN, Starting on Mon03/20/18 at 1115, Until Mon03/20/18 at 1504, Anesthesia Intra-op, Routine Given 03/20/2018 1:58 PM EDT 10 mg Given 03/20/2018 1:23 PM EDT 10 mg Given 03/20/2018 1:05 PM EDT 10 mg succinylcholine chloride (Quelicin) injection PRN, Starting on Mon03/20/18 at 1104, Until Mon03/20/18 at 1504, Anesthesia Intra-op, Routine Given 03/20/2018 11:04 AM EDT 100 mg documented in this encounter Care Teams Dock Grader Relationship Specialty Start Date End Date Dora Elliott MD [address] [place] [address] PCP - General 01/23/13 08/05/20 documented as of this encounter
--- OUTSIDE RECORDS SUMMARY | 2024-02-23 02:21 | XMS_ITS | Encounter Summary ---
Author Organization Formerly [facility] [place] [address] Care Team Providers Care Settlement Processor Name Role Phone Dora Elliott MD Primary Care Provider [phone] Reason for Visit * Reason Comments Follow-up Psoriasis Encounter Details Date Type Department Care Team (Late st Contact Info) Description 07/28/2017 4:30 PM EST Office Visit Dermatology at [place] [address] [facility] [place] [address] Jaquan Syed MD 580 [facility], [place] [address] Psoriasis Social History Tobacco Use Types Packs/Day Years Used Date Smoking Tobacco: Former Smokeless Tobacco: Never Sex and Gender Information Value Date Recorded Sex Assigned at Not on file Gender Identity Not on file Sexual Orientation Not on file documented as of this encounter Progress Notes * Jaquan Syed MD - 07/28/2017 4:30 PM EST Problem: 1. Follow-up cutaneous psoriasis on Humira 2. On Humira since July 2015 3. Previous on Humira but supply was interrupted September 2014 4. History of psoriatic arthritis responding well to Humira Jessica follows up is been doing well. Because she was ill about a month ago she did stop the Humira and has not been taking it for a month. She felt that she had the flu. Now she is feeling better and is ready to start it again would like a refill. Physical examination is a pleasant 46-year-old woman who has thin patch psoriasis just barely coming back on her elbows mainly on her knees. Also her arthritis is starting just barely come back again. Assessment plan: Psoriasis thin patch elbows and knees and shins early recurrence also with recurrent psoriatic arthritis off of Humira 1. Prescription given from for more Humira inject one 40 mg autoinjector pen cutaneously every 2 weeks dispense 2 pens with 5 refills 2. Patient also requests to have a cortical steroid cream on hand at home should she again need to stop the Humira and wants something to tide her over until she can restart again. Patient given a prescription for clobetasol cream apply twice daily to psoriasis of elbows and knees dispense 60 g with 2 refills this be called into [facility] in [place], and Humira will be faxed to her [facility] prescription plan. 3. Return to clinic in another 6 months for repeat check. Cc: Dora Elliott MD documented in this encounter Plan of Treatment Upcoming Encounters Date Type Department Care Team (Late st Contact Info) Description 01/02/2025 3:30 PM EDT Office Visit Dermatology at [place] [address] [place] [address] Jaquan Syed MD [address] [facility] [address], [place] [address] documented as of this encounter Visit Diagnoses Diagnosis Psoriasis Other psoriasis documented in this encounter Care Teams Settlement Processor Relationship Specialty Start Date End Date Dora Elliott MD [address] [place] [address] PCP - General 01/23/13 08/05/20 documented as of this encounter
--- OUTSIDE RECORDS SUMMARY | 2024-02-23 02:22 | XMS_ITS | Encounter Summary ---
Author Organization [facility] Address [address] [place] [address] Care Team Providers Care Crutcher Helper Name Role Phone Unknown, Provider Primary Care Provider [phone] Encounter Details Date Type Department Care Team (Late st Contact Info) Description 05/31/2017 Results Only [facility] [phone] Buck Carrasco, DO [address] [place] [address] Social History Tobacco Use Types Packs/Day Years Used Date Smoking Tobacco: Never Assessed Sex and Gender Information Value Date Recorded Sex Assigned at Not on file Gender Identity Not on file Sexual Orientation Not on file documented as of this encounter Plan of Treatment Not on file documented as of this encounter Procedures Procedure Name Priority Date/Time Associated Diagnosis Comments SURGICAL PATHOLOGY Routine 05/31/2017 9:05 EST documented in this encounter Results * SURGICAL PATHOLOGY (05/31/2017 9:05 EST) Pathology Report: SURGICAL PATHOLOGY REPORT Reports generated via electronic interface contain original data; however they are lacking the format of the original report. Caution should be taken when reading/interpret ing unformatted reports. Name: ? EULALIA AMATO ? Accession #: ? [id number] ? : ? 1970 (Age: 46) ??F ? Collect Date: ? 05/31/2017 ? Location: ? [facility] ? Receive Date: ? 05/31/2017 ? Provider: BUCK CARRASCO DO Copy to: YUE TSAI MD ? Final Pathologic Diagnosis: STOMACH, ANTRUM, BIOPSY: - ??Antral mucosa with mild reactive (chemical) gastropathy. - ??No histological evidence of H. pylori on H&E stain. Document reviewed and electronically signed by: ROBY JEFFRIES MD Report ??Date: 06/05/2017 13:53 By the signature above, the attending physician certifies that he/she has personally conducted a gross and/or microscopic examination of the described specimens and rendered or confirmed the above diagnosis. Specimen(s) Received: Gastric antrum bx Clinical History: Epigastric pain Gross Description: ? Received in formalin labelled with proper patient identification (initials B, C) and gastric antrum bx are multiple fragments of domingo-brown tissue ranging from 0.3-0.4 cm in greatest dimension. The specimens are submitted entirely in 1 and 2. JAEL Iglesias (ASCP) 06/01/2017 11:10 AM End of Report [facility] 05/31/2017 9:05 EST 05/31/2017 9:05 EST Buck Carrasco DO PATHOLOGY ORDERABLES [facility] [address] [place] [address] documented in this encounter Visit Diagnoses Not on filedocumented in this encounter Care Teams Crutcher Helper Relationship Specialty Start Date End Date Unknown, Provider, PCP - General 06/01/17 documented as of this encounter
[2024-02-23 08:05] LABS: AST 14 U/L (15-37); Calculated LDL 175 mg/dL (<100); Cholesterol 266 mg/dL (<200); HDL Cholesterol 71 mg/dL (40-60); Triglyceride 102 mg/dL (<150)
== END 2024-02-23 02:18 | disposition home or self-care (01) ==
LOC: LBO 02:17
PROVIDERS: PCP Family Medicine; Visit Provider Family Medicine
DX: E78.5 Hyperlipidemia, unspecified (principal)
CPT/HCPCS: 36415; 80061; 84450

== ENCOUNTER 2024-03-12 16:08 | Outpatient (REF) | payer OTHER, SELFPAY ==
--- OUTSIDE RECORDS SUMMARY | 2024-03-12 16:11 | XMS_ITS | Encounter Summary ---
[place] [address] Care Team Providers Care Data Center Manager Name Role Phone Dora Elliott MD Primary Care Provider [phone] Reason for Visit * Reason Comments Annual Exam Encounter Details Date Type Department Care Team (Late st Contact Info) Description 01/01/2024 4:15 PM EDT Office Visit Dermatology at [place] [address] [facility] [place] [address] Jaquan Syed MD 580 [facility], [place] [address] Psoriasis Social History Tobacco Use Types Packs/Day [...] 3:30 PM EDT Office Visit Dermatology at [place] [address] [facility] [place] [address] Jaquan Syed MD [address] [address], [place] [address] documented as of this encounter Visit Diagnoses Diagnosis Psoriasis Other psoriasis documented in this encounter Care Teams Data Center Manager Relationship Specialty Start Date End Date Dora Elliott MD [facility] [address] [place] [address] PCP - General Family Medicine 08/11/20 documented as of this encounter
--- OUTSIDE RECORDS SUMMARY | 2024-03-12 16:11 | XMS_ITS | Encounter Summary ---
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
--- OUTSIDE RECORDS SUMMARY | 2024-03-12 16:11 | XMS_ITS | Encounter Summary ---
Author Organization [facility] [place] [address] Care Team Providers Care Transformer Maker Name Role Phone Dora Elliott MD Primary Care Provider [phone] Encounter Details Date Type Department Care Team [...] 3:30 PM EDT Office Visit Dermatology at [address] [place] [address] Jaquan Syed MD 580 [facility], [place] [address] documented as of this encounter Visit Diagnoses Not on filedocumented in this encounter Care Teams Transformer Maker Relationship Specialty Start Date End Date Dora Elliott MD [facility] LAUREEN MARIO [email or web address] 1 [place] [address] PCP - General Family Medicine 08/11/20 documented as of this encounter
--- OUTSIDE RECORDS SUMMARY | 2024-03-12 16:11 | XMS_ITS | Clinical Summary ---
Author Organization [facility] Address [facility] [place] [address] Care Team Providers Care Named Account Executive Name Role Phone Dora Elliott MD Primary Care Provider [phone] Allergies No known active allergies Medications Medication [...] 11/18/2022 Active fluticasone propionate (Flonase) 50 mcg/actuation [place], Suspension SHAKE LIQUID AND USE 2 SPRAYS [...] Care Team Description 01/02/2024 Refill Dermatology at [address] [phone] Magnolia Daily LPN 01/01/2024 4:15 PM EDT Office Visit Dermatology at [address] [phone] Jaquan Syed MD Psoriasis 01/01/2024 Travel from [...] 3:30 PM EDT Office Visit Dermatology at [address] [phone] Jaquan Syed MD [address] [place] [address], [place] [address] Health Maintenance Due Date Last Done Comments [...] 08/01/2013, 02/07/2013 Medical Devices Implanted Type Area Installer Interior Assemblies Device Identifier Shelf Expiration Date Model / Serial / Lot Kit Transvaginal Sling Stress Urinary Incontinence Mid ([id number]) - [id number] Implanted:Qty: 1 on 11/24/2020 by Flower Jiménez MD at [facility] IMPLANTS N/A: Vagina [employer] 03/24/2023 [id number] / / [id number] Procedures Procedure Name Priority Date/Time Associated Diagnosis Comments COMPREHENSIVE METABOLIC PANEL Routine 02/13/2014 9:39 AM EDT Psoriasis from Last 3 Months or Most Recently Relevant to Health Maintenance Results * Comprehensive metabolic panel (non-fasting) (02/13/2014 9:39 AM EDT) [facility] Signature Glucose 86 60 - 199 mg/dL [facility] Comment:Diabetes: >=200 mg/d L plus symptoms Blood Urea Nitrogen 16 8 - 18 mg/dL [facility] Creatinine 0.88 0.70 - 1.20 mg/dL [facility] Comment: Please note that the pediatric reference intervals supplied above were not validated at [facility]. Results from pediatric patients should be interpreted [...] the following links into your internet browser. [email or web address] Blood specimen (specimen) 02/13/2014 9:39 AM EDT 02/13/2014 12:26 PM EDT Narrative Resulting Agency Comment Spec In Lab Aysha Fraser MD CHEMISTRY ORDERABLE S [facility] from Last 3 Months or Most Recently [...] capacity to make decision: Yes Care Teams Named Account Executive Relationship Specialty Start Date End Date Dora Elliott MD [address] [place] [address] PCP - General Family Medicine 08/11/20
--- OUTSIDE RECORDS SUMMARY | 2024-03-12 16:12 | XMS_ITS | Encounter Summary ---
[place] [address] Care Team Providers Care Arts And Crafts Instructor Name Role Phone Dora Elliott MD Primary Care Provider [phone] Reason for Visit * Reason Onset Date Comments Error 12/12/2022 Encounter Details Date Type Department Care Team (Late Contact Info) Description 12/12/2022 Telephone Dermatology at [address] [address] Alla Nesbitt RN Error Social [...] 3:30 PM EDT Office Visit Dermatology at [address] [address] Jaquan Syed MD 580 [facility], [place] [address] documented as of this encounter Visit Diagnoses Not on filedocumented in this encounter Care Teams Arts And Crafts Instructor Relationship Specialty Start Date End Date Dora Elliott MD [facility] LAUREEN MARIO [facility] 1 [place] [address] PCP - General Family Medicine 08/11/20 documented as of this encounter
--- OUTSIDE RECORDS SUMMARY | 2024-03-12 16:12 | XMS_ITS | Encounter Summary ---
Author Organization [facility] [place] [address] Care Team Providers Care Manager Lsw Name Role Phone Dora Elliott MD Primary Care Provider [phone] Reason for Visit * Reason Onset Date Comments Medication Refill 09/08/2014 Encounter Details Date Type Department Care Team (Late st Contact Info) Description 09/08/2014 Telephone Dermatology at [facility] [address] [place] [address] Aysha Fraser MD [facility] [place] [address] Medication Refill Social History Tobacco Use Types [...] a refill on her Humira. TAL - [address] * Telephone Encounter - Bianka Solorio [...] 3:30 PM EDT Office Visit Dermatology at [place] [address] [facility] [place] [address] Jaquan Syed MD [address] [facility] [address], DIMAS [place] [address] documented as of this encounter Visit Diagnoses Not on filedocumented in this encounter Care Teams Manager Lsw Relationship Specialty Start Date End Date Dora Elliott MD [address] [place] [address] PCP - General 01/23/13 08/05/20 documented as of this encounter
--- OUTSIDE RECORDS SUMMARY | 2024-03-12 16:12 | XMS_ITS | Encounter Summary ---
Author Organization [facility] [place] [address] Care Team Providers Care Strategic Partner Development Manager Name Role Phone Dora Elliott MD Primary Care Provider [phone] Reason for Visit * Surgical (Routine) - Specialty Diagnoses / Procedures Referred By Felisha savage Referred To Contact Gastroenterology Diagnoses REFLUX Procedures MANOMETRY ESOPHAGEAL MANOMETRY Erik Herndon MD [facility] [place] [address] [facility] [address] [place] [address] Referral ID Status Reason Start Date Expiration Date V isits Requested Visits Authorized [id number] 08/02/2017 08/02/2018 1 1 Encounter Details Date Type Department Care Team (Latest Contact Info) Description 09/26/2017 8:00 AM EDT Procedure [place] [address] Gastroesophageal reflux disease, esophagitis presence not specified [...] 3:30 PM EDT Office Visit Dermatology at [place] [address] [facility] [place] [address] Jaquan Syed MD [address] [facility] [address], [place] [address] documented as of this encounter Visit Diagnoses Diagnosis Gastroesophageal reflux disease, esophagitis presence not specified documented in this encounter Care Teams Strategic Partner Development Manager Relationship Specialty Start Date End Date Dora Elliott MD [facility] LAUREEN MARIO [facility] 1 [place] [address] PCP - General 01/23/13 08/05/20 documented as of this encounter
--- OUTSIDE RECORDS SUMMARY | 2024-03-12 16:12 | XMS_ITS | Encounter Summary ---
Author Organization [facility] [place] [address] Care Team Providers Care Entry Level Web Developer Name Role Phone Dora Elliott MD Primary Care Provider Encounter Details Date Type Department Care Team (Late st Contact Info) Description 03/05/2021 Telephone Obstetrics [place] [address] Madeline Lubin Social History Tobacco [...] 3:30 PM EDT Office Visit Dermatology at [place] [address] [facility] [place] [address] Jaquan Syed MD 580 [facility], [place] [address] documented as of this encounter Visit Diagnoses Not on filedocumented in this encounter Care Teams Entry Level Web Developer Relationship Specialty Start Date End Date Dora Elliott MD [address] [facility] 1 [place] [address] PCP - General Family Medicine 08/11/20 documented as of this encounter
--- OUTSIDE RECORDS SUMMARY | 2024-03-12 16:12 | XMS_ITS | Encounter Summary ---
[place] [address] Care Team Providers Care Entry Level Business Analyst Name Role Phone Dora Elliott MD Primary Care Provider [phone] Encounter Details Date Type Department Care Team (Late st Contact Info) Description 07/28/2017 Refill Dermatology at [address] [address] Magn[place] Daily, INVENTORY SPECIALIST Social History Tobacco Use Types Packs/Day Years [...] 3:30 PM EDT Office Visit Dermatology at [address] [address] Jaquan Syed MD [address] [facility], REYNA A DERMATOLOGY [place], [place] [address] documented as of this encounter Visit Diagnoses Not on filedocumented in this encounter Care Teams Entry Level Business Analyst Relationship Specialty Start Date End Date Dora Elliott MD [facility] LAUREEN MARIO [facility] 1 [place] [address] PCP - General 01/23/13 08/05/20 documented as of this encounter
--- OUTSIDE RECORDS SUMMARY | 2024-03-12 16:12 | XMS_ITS | Encounter Summary ---
Author Organization [facility] [place] [address] Care Team Providers Care Correspondence Coordinator Name Role Phone Dora Elliott MD Primary Care Provider [phone] Encounter Details Date Type Department Care Team (Late st Contact Info) Description 04/18/2018 10:40 AM EST Office [place] [address] Erik Herndon MD [facility] [place] [address] Postoperative visit Social History Tobacco Use Types [...] previously undergone a Ishmael fundoplication done in [place]. Will be actually found was the very [...] 3:30 PM EDT Office Visit Dermatology at [place] [address] [facility] [place] [address] Jaquan Syed MD 580 [facility], [place] [address] documented as of this encounter Visit Diagnoses Diagnosis Postoperative visit documented in this encounter Care Teams Correspondence Coordinator Relationship Specialty Start Date End Date Dora Elliott MD [facility] LAUREEN [address] [place] [address] PCP - General 01/23/13 08/05/20 documented as of this encounter
--- OUTSIDE RECORDS SUMMARY | 2024-03-12 16:12 | XMS_ITS | Encounter Summary ---
Author Organization [facility] [address] Care Team Providers Care Cable Wirer Name Role Phone Dora Elliott MD Primary Care Provider [phone] Encounter Details Date Type Department Care Team (Latest Contact Info) Description 09/26/2017 5:00 PM EDT Tech [place] [address] Briana Luu MD [facility] [place] [address] Gastroesophageal reflux disease, esophagitis presence not specified [...] ESOPHAGEAL MANOMETRY Jessica Tomlinson Amato [address] [facility] [address] : 1970 STUDY DATE: 09/26/2017 PROVIDER: Briana Luu MD ([id number]) INDICATION Reflux METHODS Stationary esophageal manometry was [...] measured. Water swallows were provided after a 0-ov-4-minute accommodation period to assess LES function andfunction [...] esophageal clearance. *Measurements and diagnostic criteria per [place] 3.0 Classification. These findings assume that mechanical obstruction has been ruled out. Briana Luu MD Section of Gastroenterology and Hepatology [facility] [place] [address] V: [phone] F: [phone] CC/EC: PCP documented in this encounter Plan of Treatment Upcoming Encounters Date Type Department Care Team (Late st Contact Info) Description 01/02/2025 3:30 PM EDT Office Visit Dermatology at [place] [address] [facility] [place] [address] Jaquan Syed MD [address] [facility] [address], [place] [address] documented as of this encounter Visit Diagnoses Diagnosis Gastroesophageal reflux disease, esophagitis presence not specified documented in this encounter Care Teams Cable Wirer Relationship Specialty Start Date End Date Dora Elloitt MD [address] [place] [address] PCP - General 01/23/13 08/05/20 documented as of this encounter
--- OUTSIDE RECORDS SUMMARY | 2024-03-12 16:12 | XMS_ITS | Encounter Summary ---
Author Organization [facility] [place] [address] Care Team Providers Care Accounting Tutor Name Role Phone Theresa Beal MD Primary Care Provider [phone] Reason for Visit * Reason Comments Psoriasis Encounter Details Date Type Department Care Team (Late st Contact Info) Description 08/06/2020 8:30 AM EST Office Visit Dermatology at [address] [phone] Jaquan Syed MD 580 [facility] [place] [address] Psoriasis Social History Tobacco Use Types Packs/Day [...] 3:30 PM EDT Office Visit Dermatology at [address] [address] Jaquan Syed MD [address] [place] [address], [place] [address] documented as of this encounter Visit Diagnoses Diagnosis Psoriasis Other psoriasis documented in this encounter Care Teams Accounting Tutor Relationship Specialty Start Date End Date Theresa Beal MD [facility] [place] [address] PCP - General Psychiatry 08/06/20 08/10/20 documented as of this encounter
--- OUTSIDE RECORDS SUMMARY | 2024-03-12 16:12 | XMS_ITS | Encounter Summary ---
Author Organization [facility] [place] [address] Care Team Providers Care Glazier Supervisor Name Role Phone Dora Elliott MD Primary Care Provider [phone] Reason for Visit * Reason Comments Post Op Encounter Details Date Type Department Care Team (Late st Contact Info) Description 01/06/2021 1:30 PM EDT Office Visit Obstetrics [place] [address] Flower Jiménez MD [facility] [place] [address] Chante Neal APRN [facility] [place] [address] Post-operative state; Urinary incontinence, unspecified type Social [...] this encounter Progress Notes * Chante Neal, SHANK CUTTER - 01/06/2021 1:30 PM EDT FEMALE PELVIC [...] leaks with: Event Presence Event Presence NONE [place] ? Walking x Cold Weather Running x [...] Strongly met my before treatment expectations A airline manager is present for the examination Carmela Dickerson. [...] test (empty supine): neg External Genitalia: Vulva, Overlea's and Bartholin glands normal, urethra without tenderness [...] 3:30 PM EDT Office Visit Dermatology at [place] [address] [place] [address] Jaquan Syed MD [address] [facility] [address], [place] [address] documented as of this encounter Procedures Procedure Name Priority Date/Time Associated Diagnosis Comments BLADDER SCANNER Routine 01/06/2021 Post-operative state POCT URINE DIPSTICK Routine 01/06/2021 Post-operative state documented in this encounter Results * Bladder Scanner (01/06/2021) Bladder Scan (mL) 33 mL Flower Jiménez MD URO PROC W/O RFL ORD ERABLES * POCT urine dipstick (01/06/2021) POC Sp [place] 1.010 1.002 - 1.030 POC pH, UA [...] type documented in this encounter Care Teams Glazier Supervisor Relationship Specialty Start Date End Date Dora Elliott MD [address] [place] [address] PCP - General Family Medicine 08/11/20 documented as of this encounter
--- OUTSIDE RECORDS SUMMARY | 2024-03-12 16:12 | XMS_ITS | Encounter Summary ---
[place] [address] Care Team Providers Care Life Enrichment Specialist Name Role Phone Dora Elliott MD Primary Care Provider [phone] Encounter Details Date Type Department Care Team [...] 3:30 PM EDT Office Visit Dermatology at [address] [place] [phone] Jaquan Syed MD 580 [facility], [place] [address] documented as of this encounter Visit Diagnoses Not on filedocumented in this encounter Care Teams Life Enrichment Specialist Relationship Specialty Start Date End Date Dora Elliott MD [facility] LAUREEN MARIO [facility] 1 [place] [address] PCP - General Family Medicine 08/11/20 documented as of this encounter
--- OUTSIDE RECORDS SUMMARY | 2024-03-12 16:12 | XMS_ITS | Encounter Summary ---
Author Organization [facility] [place] [address] Care Team Providers Care Dairy Cattle Farm Worker Name Role Phone Dora Elliott MD Primary Care Provider [phone] Reason for Visit * Reason Comments Medication Refill Encounter Details Date Type Department Care Team (Late Contact Info) Description 04/17/2022 Refill Dermatology at [address] [address] Jaquan Syed MD [address] [place] [address], [place], [place] [id number] Social History Tobacco Use Types Packs/Day Years [...] 3:30 PM EDT Office Visit Dermatology at [address] [address] Jaquan Syed MD [address] [place] [phone] documented as of this encounter Visit Diagnoses Not on filedocumented in this encounter Care Teams Dairy Cattle Farm Worker Relationship Specialty Start Date End Date Dora Elliott MD [address] 1 [place] [address] PCP - General Family Medicine 08/11/20 documented as of this encounter
--- OUTSIDE RECORDS SUMMARY | 2024-03-12 16:12 | XMS_ITS | Encounter Summary ---
[place] [address] Care Team Providers Care Assistant Administrator Name Role Phone Dora Elliott MD Primary Care Provider [phone] Reason for Visit * Reason Comments Psoriasis Encounter Details Date Type Department Care Team (Late st Contact Info) Description 10/02/2015 11:00 AM EDT Office Visit Dermatology at [address] [phone] Jaquan Syed MD 580 [facility], [place] [address] Psoriasis Social History Tobacco Use Types Packs/Day Years Used Date Smoking Tobacco: Former Sex and Gender Information Value Date Recorded Sex Assigned at Not on file Gender Identity Not on file Sexual Orientation Not on file documented as of this encounter Progress Notes * Jessica Lara LPN - 10/02/2015 12:45 PM EDT [facility] sent a mail order for Humira [...] 3:30 PM EDT Office Visit Dermatology at [place] 580 [facility] [place] [address] Jaquan Syed MD 580 [facility], [place] [address] documented as of this encounter Visit Diagnoses Diagnosis Psoriasis Other psoriasis documented in this encounter Care Teams Assistant Administrator Relationship Specialty Start Date End Date Dora Elliott MD [facility] GARD[facility]O [facility] 1 [place] [address] PCP - General 01/23/13 08/05/20 documented as of this encounter
--- OUTSIDE RECORDS SUMMARY | 2024-03-12 16:12 | XMS_ITS | Encounter Summary ---
[place] [address] Care Team Providers Care Basket Mender Name Role Phone Dora Elliott MD Primary Care Provider [phone] Reason for Visit * Reason Comments Psoriasis Encounter Details Date Type Department Care Team (Late st Contact Info) Description 12/08/2022 3:45 PM EDT Office Visit Dermatology at [place] 580 [place] [phone] Jaquan Syed MD 580 [facility], DIMAS A DERMATOLOGY [place], [place] [phone] Psoriasis Social History Tobacco Use Types Packs/Day [...] PM EDT Office Visit Dermatology at [address] [place] [address] Jaquan Syed MD [address] [facility] [address], [place] [address] documented as of this encounter Visit Diagnoses Diagnosis Psoriasis Other psoriasis documented in this encounter Care Teams Basket Mender Relationship Specialty Start Date End Date Dora Elliott MD [facility] LAUREEN MARIO [address] 1 [place] [address] PCP - General Family Medicine 08/11/20 documented as of this encounter
--- OUTSIDE RECORDS SUMMARY | 2024-03-12 16:12 | XMS_ITS | Encounter Summary ---
Author Organization [facility] [place] [address] Care Team Providers Care Resawyer Name Role Phone Dora Elliott MD Primary Care Provider [phone] Reason for Visit * Reason Comments Urinary Incontinence * Consultation - Closed Specialty Diagnoses / Procedures Referred By Contac t Referred To Contact Urogynecology / Obstetrics and Gynecology Diagnoses URINARY STRESS INCONTIENCE DUE TO EROSION OF VAGINAL MESH Ubaldo Lees MD [address] [place] [address],[address] [address] [facility] Executive Director Global Brand Marketing 5[address] [place] [address] Referral ID Status Reason Start Date Expiration Date Visits Re quested Visits Authorized [id number] Closed 10/12/2020 10/12/2021 1 1 Encounter Details Date Type Department Care Team (Late st Contact Info) Description 10/21/2020 9:00 AM EDT Office Visit Obstetrics [place] [address] Flower Jiménez MD [facility] [place] [address] Urinary incontinence, unspecified type Social [...] Female Pelvic Medicine and Reconstructive Surgery @ [facility] Patient Name: Jessica Amato Patient Primary Care [...] as mus and bladder neck sling using [place] fascia. She had pevlic pain, dyspareunia na dpalpable mesh, with excision of exposed vaginal mesh 04/2016. PSH: ho hiatal hernia with slipped Ishmael; 11/13/2007 [facility] RSO for pelvic pain [facility] [facility] ? another midurethra sling, timing uncertain Lap [...] *) performed by Erik Herndon MD at [facility] MAIN OR ??? PRO UPPER GI ENDOSCOPY, DIAGNOSTIC N/A 03/20/2018 ENDOSCOPY, UPPER GI, DIAGNOSTIC, WITH OR WITHOUT SPECIMENS performed by Erik Herndon MD at [facility] MAIN OR OB History Para Term AB [...] dip test and postvoid residual via the ObserveIT bladder scanner were obtained. After the patient voided, 20 mL was measured as a postvoid residual indicating normal emptying. Exam was performed with a textile designs sales representative: Mirna. General: normal appearing female, pleasant mood, [...] supine): Negative with 110mL External Genitalia: Vulva, [place]'s and [place] glands normal, urethra without tenderness [...] dipstick Result Value Ref Range POC Sp Gentry 1.015 1.002 - 1.030 POC pH, UA [...] 3:30 PM EDT Office Visit Dermatology at [place] 580 [facility] [place] [address] Jaquan Syed MD [address] [facility] [address], [place] [address] documented as of this encounter Procedures Procedure Name Priority Date/Time Associated Diagnosis Comments HC URINE CULTURE Routine 10/21/2020 9:00 AM EDT Urinary incontinence, unspecified type BLADDER SCANNER Routine 10/21/2020 Urinary incontinence, unspecified type POCT URINE DIPSTICK Routine 10/21/2020 Urinary incontinence, unspecified type documented in this encounter Results * Urine culture Clean Catch Urine (10/21/2020 9:00 AM EDT) Pathologist [facility] Urine Culture No growth (Less than 1,000 cfu/ml). [facility] Clean Catch Urine 10/21/2020 9:00 AM EDT 10/21/2020 12:27 PM EDT Narrative Resulting Agency Comment Spec In Lab Flower Jiménez MD MICROBIOLOGY - GENER AL ORDERABLES [facility] [place] [id number] * Bladder Scanner (10/21/2020) Pathologist [facility] Bladder Scan (mL) 20 mL Flower Jiménez MD URO PROC W/O RFL ORD ERABLES * POCT urine dipstick (10/21/2020) Pathologist [facility] POC Sp Gentry 1.015 1.002 - 1.030 POC pH, UA [...] type documented in this encounter Care Teams Resawyer Relationship Specialty Start Date End Date Dora Elliott MD [address] [place] [address] PCP - General Family Medicine 08/11/20 documented as of this encounter
--- OUTSIDE RECORDS SUMMARY | 2024-03-12 16:12 | XMS_ITS | Encounter Summary ---
Author Organization [facility] [place] [address] Care Team Providers Care Education Analyst Name Role Phone Dora Elliott MD Primary Care Provider [phone] Reason for Visit * Auth/Cert Specialty Diagnoses / Procedures Referred By Contac t Referred To Contact Diagnoses Vaginal pain Exposure of implanted vaginal mesh Vaginal mesh exposure, vaginal pain Procedures PRO REVISION VAGINAL GRAFT, VAG APPROACH REVISION PROSTHETIC GRAFT\W-W\O REMOVAL VAGINAL APPROACH (WRVU 7.82) Referral ID Status Reason Start Date Expiration Date Visits Re quested Visits Authorized [id number] 1 1 Encounter Details Date Type Department Care Team (Late st Contact Info) Description 11/24/2020 7:28 AM EDT Anesthesia [place] [address] Lupe Marcial MD [facility] [place] [address] Anesthesia Record Procedure Summary Procedure Name Responsible [...] cephalic vein (lateral side of arm), left; [id number] catheter system; Anatomical Landmarks; 20 gauge; Eriberto [...] Procedure Summary Date: 11/24/20 Room / Location: [address] MAIN OR Anesthesia Start: 727 Anesthesia Stop: Procedures: REVISION PROSTHETIC GRAFT\W-W\O REMOVAL VAGINAL APPROACH (WRVU 7.82) (N/A Pelvis) CYSTO, CYSTOURETHROSCOPY, DIAGNOSTIC (WRVU 2.23) (N/A Bladder) Diagnosis: (Vaginal mesh exposure, vaginal pain, dysuria) Surgeons: Flower Jiménez MD Responsible Provider: Lupe Marcial MD Anesthesia Type: MAC ASA Status: 2 All Anesthesia Providers: Anesthesiologist: Lupe Marcial MD Nuclear Scientist: Kamran Platt MD Vitals Value Taken Time BP 119/76 11/24/20 0916 Temp Pulse Resp SpO2 97 % 11/24/20 0919 Pain Level Vitals shown include unvalidated device data. Patient Location: PACU/[facility] Level of Consciousness: Awake and Alert [...] Procedure Laterality Date ??? GASTRIC FUNDOPLICATION 2008 [facility] ??? HERNIA REPAIR 2018 epigastric hernia, repaired [...] *) performed by Erik Herndon MD at [facility] MAIN OR ??? PRO UPPER GI ENDOSCOPY, DIAGNOSTIC N/A 03/20/2018 ENDOSCOPY, UPPER GI, DIAGNOSTIC, WITH OR WITHOUT SPECIMENS performed by Erik Herndon MD at [facility] MAIN OR ??? PUBOVAGINAL SLING 05/09/2012 autologous rectus fascia; [facility]. Castro, [facility]. ??? REMOVAL OF VAGINAL MESH 05/12/2016 [...] 3:30 PM EDT Office Visit Dermatology at [place] 580 [facility] [place] [address] Jaquan Syed MD [address] [facility] [facility] [address], [place] [address] documented as of this encounter Visit Diagnoses Not on filedocumented in this encounter Administered Medications Inactive Administered Medications - up to 3 most recent administrations Medication Order MAR Action Action Date Dose Rate Site ceFAZolin (Ancef) 2 g in dextrose 5% 100 mL infusion 2 g, Intravenous, ONCE, 1 dose, On Mon11/24/20 at 0645, Administer over 30 Minutes, Reservoir Engineering Advisor to OR Infuse over 30 minutes., Day [...] /hr documented in this encounter Care Teams Education Analyst Relationship Specialty Start Date End Date Dora Elliott MD [address] [facility] 1 [place] [address] PCP - General Family Medicine 08/11/20 documented as of this encounter
--- OUTSIDE RECORDS SUMMARY | 2024-03-12 16:12 | XMS_ITS | Encounter Summary ---
Author Organization [facility] [place] [address] Care Team Providers Care Hotel Guest Service Agent Name Role Phone Dora Elliott MD Primary Care Provider [phone] Reason for Visit * Reason Comments Prior Authorization Humira 40mg/0.8ml PN KT Encounter Details Date Type Department Care Team (Late st Contact Info) Description 02/17/2023 Specialty [place] [address] Snehal Perla, PASTORAL COUNSELOR Social History Tobacco Use Types Packs/Day Years [...] Jessica Amato Patient : 1970 Patient Address: [address] [place] [phone] (home) Medication Name: HUMIRA PEN 40 MG/0.8 ML SUBCUTANEOUS KIT Medication ID: [id number] Subscriber Insurance: Sulmaq Subscriber Insurance Comment: Fax: Physician: ELIAN HAWKINS Physician Comment: Sent Via: [facility] Tubbs: [id number] Ref/Case/PA#: Medication Strength Frequency Requested: Humira 40mg/0.8ml, INJECT THE CONTENTS OF ONE PEN (40 MG) SUBCUTANEOUSLY ONCE EVERY 14 DAYS Qty/Day Supply: 07/26 New Start: Renewal Diagnosis & ICD-10 Code: Psoriasis L40.9 Patient Notified: No Submission Notes: None Snehal Perla 02/17/23 10:34 AM * Snehal Perla - 02/17/2023 10:13 AM EDT [facility], Prior Authorization Approval Medication Name: HUMIRA PEN 40 MG/0.8 ML SUBCUTANEOUS KIT Medication ID: [id number] Approval Dates: 02/17/2023 to 08/17/2023 Insurance requirements/notes: - Insurance mandates to be filled with [facility] [employer] Other Notes: None Case/Reference #: [id number]. Approval notification Received via: Fax Copay: Copay assistance: Copay Notes: Insurance mandated Pharmacy: Unknown Fillable at [facility]: No Patient Notified: Yes Pharmacy staff will be reaching out to the patient to inform them of [facility]. If applicable, a pharmacist will speak with the patient to offer our specialty pharmacy services and to arrange delivery of their medication. Snehal Perla 02/20/23 3:26 PM documented in this encounter Plan of Treatment Upcoming Encounters Date Type Department Care Team ([facility]) Description 01/02/2025 3:30 PM EDT Office Visit Dermatology at [place] [address] [place] [address] Elian Hawkins MD [address] [facility] [address], [place] [address] documented as of this encounter Visit Diagnoses Not on filedocumented in this encounter Care Teams Hotel Guest Service Agent Relationship Specialty Start Date End Date Dora Elliott MD [facility] LAUREEN [address] 1 [place] [address] PCP - General Family Medicine 08/11/20 documented as of this encounter
--- OUTSIDE RECORDS SUMMARY | 2024-03-12 16:12 | XMS_ITS | Encounter Summary ---
[place] [address] Care Team Providers Care Spring Fitter Name Role Phone Dora Elliott MD Primary Care Provider [phone] Encounter Details Date Type Department Care Team (Late st Contact Info) Description 11/05/2021 Refill Dermatology at [address] [address] Alla Nesbitt RN Social History [...] 3:30 PM EDT Office Visit Dermatology at [address] [address] Jaquan Syed MD 580 [facility], REYNA A DERMATOLOGY [place], [place] [address] documented as of this encounter Visit Diagnoses Not on filedocumented in this encounter Care Teams Spring Fitter Relationship Specialty Start Date End Date Dora Elliott MD [facility] LAUREEN MARIO [facility] 1 [place] [address] PCP - General Family Medicine 08/11/20 documented as of this encounter
--- OUTSIDE RECORDS SUMMARY | 2024-03-12 16:12 | XMS_ITS | Encounter Summary ---
Author Organization [facility] [place] [address] Care Team Providers Care Telecommunications Project Manager Name Role Phone Dora Elliott MD Primary Care Provider [phone] Encounter Details Date Type Department Care Team (Late Contact Info) Description 02/21/2023 Refill Dermatology at [address] [address] Jaquan Syed MD [address] [place] [address] Social History Tobacco Use Types Packs/Day Years [...] 3:30 PM EDT Office Visit Dermatology at [address] [address] Jaquan Syed MD [address] [place] [address] documented as of this encounter Visit Diagnoses Not on filedocumented in this encounter Care Teams Telecommunications Project Manager Relationship Specialty Start Date End Date Dora Elliott MD [address] 1 [place] [address] PCP - General Family Medicine 08/11/20 documented as of this encounter
--- OUTSIDE RECORDS SUMMARY | 2024-03-12 16:12 | XMS_ITS | Encounter Summary ---
[place] [address] Care Team Providers Care Salesperson Hearing Aids Name Role Phone Dora Elliott MD Primary Care Provider [phone] Reason for Visit * Reason Comments Psoriasis * Consultation (Routine) - Closed Specialty Diagnoses / Procedures Referred By Contspencer t Referred To Contact Dermatology Diagnoses hx of diffuse psoriasis Dora Elliott MD [address] [place] [address] [address] [place] [address] Jaquan Syed MD [address] [place] [address], [facility] [place] [address] Referral ID Status Reason Start Date Expiration Date V isits Requested Visits Authorized [id number] Closed Consult, Test & Treat [facility] 03/30/2015 03/29/2016 1 1 Encounter Details Date Type Department Care Team (Late st Contact Info) Description 06/30/2015 3:15 PM EST Office Visit Dermatology at [place] 580 [place] [address] Jaquan Syed MD 580 [facility], [facility] DERMATOLOGY [place], [place] [address] Psoriasis Social History Tobacco Use Types Packs/Day Years Used Date Smoking Tobacco: Former Sex and Gender Information Value Date Recorded Sex Assigned at Not on file Gender Identity Not on file Sexual Orientation Not on file documented as of this encounter Progress Notes * Jaquan Syed MD - 06/30/2015 3:53 PM EST Problem: Psoriasis. Jessica is a 44-year-old woman originally from [place], [place], who first developed psoriasis at age [...] on Humira while she was still in [facility]. She moved to the [place] area in about 2009. She had been receiving Humira at [facility] but does not desire to continue the trip down from [facility] for appointments there. Because of loss of her insurance, she has not had any Humira to take since September of 2014. Her psoriasis has been flaring again since January of 2015. 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 Pugh. She does have history of [...] 3:30 PM EDT Office Visit Dermatology at [place] [address] [facility] [place] [address] Jaquan Syed MD [address] [facility] [address], [place] [address] documented as of this encounter Visit Diagnoses Diagnosis Psoriasis Other psoriasis documented in this encounter Care Teams Salesperson Hearing Aids Relationship Specialty Start Date End Date Dora Elliott MD [facility] LAUREEN MARIO [facility] 1 [place] [address] PCP - General 01/23/13 08/05/20 documented as of this encounter
--- OUTSIDE RECORDS SUMMARY | 2024-03-12 16:12 | XMS_ITS | Encounter Summary ---
Author Organization [facility] [place] [address] Care Team Providers Care Project Planner Name Role Phone Dora Elliott MD Primary Care Provider [phone] Reason for Visit * Reason Comments Annual Exam Encounter Details Date Type Department Care Team (Late st Contact Info) Description 10/29/2021 4:15 PM EDT Office Visit Dermatology at [place] 580 [place] [address] Jaquan Syed MD 580 [facility], [place] [address] Psoriasis Social History Tobacco Use Types Packs/Day [...] PM EDT Office Visit Dermatology at [address] [place] [address] Jaquan Syed MD [address] [facility] [facility] [address], [place] [address] documented as of this encounter Visit Diagnoses Diagnosis Psoriasis Other psoriasis documented in this encounter Care Teams Project Planner Relationship Specialty Start Date End Date Dora Elliott MD [address] [place] [address] PCP - General Family Medicine 08/11/20 documented as of this encounter
--- OUTSIDE RECORDS SUMMARY | 2024-03-12 16:12 | XMS_ITS | Encounter Summary ---
Author Organization [facility] [place] [address] Care Team Providers Care Aws Software Development Engineer Name Role Phone Dora Elliott MD Primary Care Provider [phone] Reason for Visit * Reason Comments Follow-up Encounter Details Date Type Department Care Team (Latest Contact Info) Description 10/05/2017 11:20 AM EDT Office [place] [address] Erik Herndon MD [facility] [place] [address] Gastroesophageal reflux disease without esophagitis Social History [...] Ishmael fundoplication in the past done in [place] and now is having recurrent symptoms. She [...] 3:30 PM EDT Office Visit Dermatology at [address] [place] [address] Jaquan Syed MD [address] [facility] [address], [place] [address] documented as of this encounter Visit Diagnoses Diagnosis Gastroesophageal reflux disease without esophagitis Esophageal reflux documented in this encounter Care Teams Aws Software Development Engineer Relationship Specialty Start Date End Date Dora Elliott MD [facility] LAUREEN MARIO [facility] 1 [place] [address] PCP - General 01/23/13 08/05/20 documented as of this encounter
--- OUTSIDE RECORDS SUMMARY | 2024-03-12 16:12 | XMS_ITS | Encounter Summary ---
[place] [address] Care Team Providers Care Director Of Technology Name Role Phone Dora Elliott MD Primary Care Provider [phone] Reason for Visit * Reason Comments Follow-up Psoriasis Encounter Details Date Type Department Care Team (Late st Contact Info) Description 04/29/2016 11:15 AM EST Office Visit Dermatology at [place] 580 [place] [address] Jaquan Syed MD 580 [facility], REYNA A DERMATOLOGY [place], [place] [address] Psoriasis Social History Tobacco Use Types Packs/Day [...] post UVB phototherapy. 4. Initially Humira prescribed [facility], supply interrupted 09/2014. 5. Psoriasis and psoriatic [...] PM EDT Office Visit Dermatology at [address] [place] [address] Jaquan Syed MD [address] [facility] [address], [place] [address] documented as of this encounter Visit Diagnoses Diagnosis Psoriasis Other psoriasis documented in this encounter Care Teams Director Of Technology Relationship Specialty Start Date End Date Dora Elliott MD [address] [place] [address] PCP - General 01/23/13 08/05/20 documented as of this encounter
--- OUTSIDE RECORDS SUMMARY | 2024-03-12 16:12 | XMS_ITS | Encounter Summary ---
Author Organization [facility] [place] [address] Care Team Providers Care Director Fundraising Name Role Phone Dora Elliott MD Primary Care Provider [phone] Reason for Visit * Auth/Cert Specialty Diagnoses / Procedures Referred By Contac t Referred To Contact Diagnoses Vaginal pain Exposure of implanted vaginal mesh Vaginal mesh exposure, vaginal pain Procedures PRO REVISION VAGINAL GRAFT, VAG APPROACH REVISION PROSTHETIC GRAFT\W-W\O REMOVAL VAGINAL APPROACH (WRVU 7.82) Referral ID Status Reason Start Date Expiration Date Visits Re quested Visits Authorized [id number] 1 1 Encounter Details Date Type Department Care Team (Latest Contact Info) Description 11/24/2020 6:06 AM EDT - 11/24/2020 10:57 AM EDT Hospital Encounter [place] [address] Flower Jiménez MD [facility] [place] [address] Exposure of implanted urethral mesh, subsequent encounter [...] Flower Jiménez MD Obstetrics and [place]necology at [facility] Arrive at: Resource Development Director Area 5L [phone] 08/09/2021 10:00 AM Jaquan Syed MD Dermatology at [place] Arrive at: [facility] [address] [phone] Patient Discharge Instructions: Special Physician Instructions: If you are still needing a catheter to drain your bladder, please follow the instructions given to you separately for when to use the catheter and how to care for it. In addition, please call to check in with the urogynecology office nurse at [phone] to review how your bladder is working and when the catheter use can be discontinued. For problems, concerns related to this hospitalization or you need to change your appointment call: [facility] daytime: [phone] weekdays [facility]: [phone] [facility]: [phone] For emergencies during nights and weekends: [phone] Call your doctor if you develop: --A [...] for Visit: 50 y.o. Female presents to [facility] for mesh excision and cystoscopy. History of [...] Procedure Laterality Date ??? GASTRIC FUNDOPLICATION 2008 [facility] ??? HERNIA REPAIR 2018 epigastric hernia, repaired with revision Kalyn ??? HYSTERECTOMY 10/2007 [facility] & RSO for pelvic pain ??? INCONTINENCE SURGERY 11/18/2008 TOT with mesh; Dr. Zuniga, [facility] ??? INCONTINENCE SURGERY 08/24/2006 Midurethral sling, Dr. Zuniga, [facility]; with D&C & endometrial ablation ??? PRO LAP, ESOPHAGUS, OTHER PROC N/A 03/20/2018 LAPAROSCOPIC REVISION OF KALYN FUNDOPLASTY (WRVU *) performed by Erik Herndon MD at [facility] OR ??? PRO UPPER GI ENDOSCOPY, DIAGNOSTIC N/A 03/20/2018 ENDOSCOPY, UPPER GI, DIAGNOSTIC, WITH OR WITHOUT SPECIMENS performed by Erik Herndon MD at [facility] OR ??? PUBOVAGINAL SLING 05/09/2012 autologous rectus fascia; Dr. Castro, [facility]. ??? REMOVAL OF VAGINAL MESH 05/12/2016 revision [...] D3,) 50 mcg (2,000 unit) [facility] Past Week at Unknown time ??? [...] ibuprofen, and oxycodone. Her preferred pharmacy is [facility]. Bre Buchanan MD 11/24/2020 documented in this encounter Miscellaneous Notes * Op Note - Flower Jiménez MD - 11/24/2020 9:46 AM EDT [facility] Operative Note Patient Name: Jessica Amato : [id number] MR#: [id number] Case Date: 11/24/2020 Surgeon: Surgeon(s) and Role: [...] Operative Note Patient Name: Jessica Amato : [id number] MR#: [id number] Case Date: 11/24/2020 Surgeon: Surgeon(s) and Role: [...] 3:30 PM EDT Office Visit Dermatology at [place] [address] [place] [address] Jaquan Syed MD [address], [place] [address] documented as of this encounter Procedures Procedure Name Priority Date/Time Associated Diagnosis Comments CYSTO,CYSTOURETHROSCOPY, DIAGNOSTIC Routine 11/24/2020 9:14 AM EDT Cystourethroscopy (63866) 2020 7:27 AM EDT Vaginal mesh exposure, vaginal pain, dysuria Revision Vaginal Graft, Vag Approach (26150) 11/24/2020 7:27 AM EDT Vaginal mesh exposure, vaginal pain, dysuria POCT GLUCOSE Routine 11/24/2020 6:22 AM EDT REVISION PROSTHETIC GRAFT\W-W\O REMOVAL VAGINAL APPROACH Routine 11/24/2020 6:11 AM EDT documented in this encounter Results * POCT Glucose (11/24/2020 6:22 AM EDT) Glucose, POC 103 65 - 199 mg/dL [facility] Comment: Supplemental ranges: <140 mg/dL before meals <180 mg/dL all other times of the day Blood 11/24/2020 6:22 AM EDT 11/24/2020 6:22 AM EDT Flower Jiménez MD POINT OF CARE TEST O RDERABLES [facility] [place] [address] documented in this encounter Visit Diagnoses Diagnosis [...] Mon11/24/20 at 0645, Administer over 30 Minutes, Materials Handling Equipment Operator to OR Infuse over 30 minutes., Day of Surgery (Day of Procedure), Indication for (Active or Suspected): Prophylaxis 0735 (Given - Provid er: Kamran Platt MD) phenazopyridine (Pyridium) tablet 200 mg (COMPLETED) 200 mg (rounded from 190 mg), Oral, ONCE, 1 dose, On Mon11/24/20 at 0645, Day of Surgery (Day of Procedure), Routine 0627 (Given - Provid er: Mary Wie RN) Continuous Medication Order 11/22/2020 11/23/2020 11/24/2020 lactated ringers infusion (CANCELED) 1,000 mL, at 100 mL/hr, Intravenous, CONTINUOUS, Starting on Mon11/24/20 at 0645, Until Mon11/24/20 at 1055, Day of Surgery (Day of Procedure) 0636 (New [facility] - Prov ider: Mary Wei RN) lactated [...] RN) documented in this encounter Care Teams Director Fundraising Relationship Specialty Start Date End Date Dora Elliott MD [address] [place] [address] PCP - General Family Medicine 08/11/20 documented as of this encounter
--- OUTSIDE RECORDS SUMMARY | 2024-03-12 16:12 | XMS_ITS | Encounter Summary ---
Author Organization [facility] Address [facility] [place] [address] Care Team Providers Care Paper Gluing Operator Name Role Phone Dora Elliott MD Primary Care Provider [phone] Reason for Visit * Reason Comments Establish Care * Consultation (Routine) - Closed Specialty Diagnoses / Procedures Referred By Contac t Referred To Contact General Surgery Diagnoses Reflux after failure of prior fundoplication Reg De Jesus, DO [address] [place] [address] Erik Herndon MD [facility] [place] [address] Referral ID Status Reason Start Date Expiration Date V isits Requested Visits Authorized [id number] Closed Consult, Test & Treat Connection Center 06/11/2017 06/11/2018 1 1 Encounter Details Date Type Department Care Team (Latest Contact Info) Description 08/02/2017 10:00 AM EST Office Visit [place] [address] Erik Herndon MD [facility] GENERAL SURGERY [place], [place] [id number] Gastroesophageal reflux disease, esophagitis presence not specified [...] and Ishmael fundoplication on 08/10/2010 done at [facility] in [place]. She [...] with her today the entire time in [id number] conversation regarding these findings. I think she [...] 3:30 PM EDT Office Visit Dermatology at [place] [address] [place] [address] Jaquan Syed MD [address], [place] [address] documented as of this encounter Visit Diagnoses Diagnosis Gastroesophageal reflux disease, esophagitis presence not specified documented in this encounter Care Teams Paper Gluing Operator Relationship Specialty Start Date End Date Dora Elliott MD [address] [facility] [address] [place] [address] PCP - General 01/23/13 08/05/20 documented as of this encounter
--- OUTSIDE RECORDS SUMMARY | 2024-03-12 16:12 | XMS_ITS | Encounter Summary ---
Author Organization [facility] [place] [address] Care Team Providers Care Adhesive Bandage Machine Operator Name Role Phone Dora Elliott MD Primary Care Provider [phone] Reason for Visit * Reason Comments Psoriasis Encounter Details Date Type Department Care Team (Late st Contact Info) Description 06/11/2018 4:30 PM EST Office Visit Dermatology at [address] [address] Jaquan Syed MD [address] [facility], [facility] [place] [address] Psoriasis Social History Tobacco Use Types Packs/Day [...] 3:30 PM EDT Office Visit Dermatology at [place] [address] [place] [address] Jaquan Syed MD [address], [place] [address] documented as of this encounter Visit Diagnoses Diagnosis Psoriasis Other psoriasis documented in this encounter Care Teams Adhesive Bandage Machine Operator Relationship Specialty Start Date End Date Dora Elliott MD [facility] [address] [place] [address] PCP - General 01/23/13 08/05/20 documented as of this encounter
--- OUTSIDE RECORDS SUMMARY | 2024-03-12 16:12 | XMS_ITS | Encounter Summary ---
Author Organization [facility] [place] [address] Care Team Providers Care Fur Sewer Name Role Phone Dora Elliott MD Primary Care Provider [phone] Reason for Visit * Reason Comments Follow-up Encounter Details Date Type Department Care Team (Late st Contact Info) Description 11/22/2016 11:30 AM EDT Office Visit Dermatology at [place] [address] [place] [address] Jaquan Syed MD [address] [facility], [place] [address] Psoriasis Social History Tobacco Use Types Packs/Day [...] a. Patient again has insurance through the [facility]. b. Will obtain prior authorization and [...] 3:30 PM EDT Office Visit Dermatology at [address] [place] [address] Jaquan Syed MD [address], [place] [address] documented as of this encounter Visit Diagnoses Diagnosis Psoriasis Other psoriasis documented in this encounter Care Teams Fur Sewer Relationship Specialty Start Date End Date Dora Elliott MD [facility] [address] [place] [address] PCP - General 01/23/13 08/05/20 documented as of this encounter
--- OUTSIDE RECORDS SUMMARY | 2024-03-12 16:12 | XMS_ITS | Encounter Summary ---
[place] [address] Care Team Providers Care Continuous Pickling Line Pickler Helper Name Role Phone Dora Elliott MD Primary Care Provider [phone] Encounter Details Date Type Department Care Team (Late st Contact Info) Description 12/12/2022 Refill Dermatology at [address] [address] Alla Nesbitt RN Social History [...] 3:30 PM EDT Office Visit Dermatology at [address] [address] Jaquan Syed MD [address] [facility], [address] A DERMATOLOGY [place], [place] [address] documented as of this encounter Visit Diagnoses Not on filedocumented in this encounter Care Teams Continuous Pickling Line Pickler Helper Relationship Specialty Start Date End Date Dora Elliott MD [facility] [address] [facility] 1 [place], [place] [address] PCP - General Family Medicine 08/11/20 documented as of this encounter
--- OUTSIDE RECORDS SUMMARY | 2024-03-12 16:12 | XMS_ITS | Encounter Summary ---
[place] [address] Care Team Providers Care Inventory Technician Name Role Phone Dora Elliott MD Primary Care Provider [phone] Reason for Visit * Reason Comments Medication Refill Encounter Details Date Type Department Care Team (Late Contact Info) Description 03/28/2019 Refill Dermatology at [address] [phone] Jaquan Syed MD [address] [facility], [facility] [place] [address] Social History Tobacco Use Types Packs/Day Years [...] 3:30 PM EDT Office Visit Dermatology at [address] [phone] Jaquan Syed MD [address] [facility], [facility] DERMATOLOGY [place], [place] [address] documented as of this encounter Visit Diagnoses Not on filedocumented in this encounter Care Teams Inventory Technician Relationship Specialty Start Date End Date Dora Elliott MD [address] [place] [address] [facility] 1 [place] [address] PCP - General 01/23/13 08/05/20 documented as of this encounter
--- OUTSIDE RECORDS SUMMARY | 2024-03-12 16:12 | XMS_ITS | Encounter Summary ---
Author Organization [facility] [place] [address] Care Team Providers Care Maori Liaison Adviser Name Role Phone Dora Elliott MD Primary Care Provider [phone] Encounter Details Date Type Department Care Team (Late st Contact Info) Description 12/08/2014 Telephone Dermatology at [facility] [address] [place] [address] Aysha Fraser MD [facility] [place] [address] Social History Tobacco Use Types Packs/Day Years [...] 3:30 PM EDT Office Visit Dermatology at [place] [address] [facility] [place] [address] Jaquan Syed MD [address], [place] [address] documented as of this encounter Visit Diagnoses Not on filedocumented in this encounter Care Teams Maori Liaison Adviser Relationship Specialty Start Date End Date Dora Elliott MD [address] [place] [address] PCP - General 01/23/13 08/05/20 documented as of this encounter
--- OUTSIDE RECORDS SUMMARY | 2024-03-12 16:12 | XMS_ITS | Encounter Summary ---
[place] [address] Care Team Providers Care Community Living Instructor Name Role Phone Dora Elliott MD Primary Care Provider [phone] Reason for Visit * Auth/Cert Specialty Diagnoses / Procedures Referred By Contac t Referred To Contact Diagnoses RECURRENT HIATAL HERNIA Procedures PRO LAP, ESOPHAGUS, OTHER PROC 4 Referral ID Status Reason Start Date Expiration Date Visits Re quested Visits Authorized [id number] 1 1 Encounter Details Date Type Department Care Team (Late st Contact Info) Description 03/20/2018 10:02 AM EDT - 03/20/2018 2:00 PM EDT Surgery [place] [id number] Erik Herndon MD [facility] [place] [address] LAPAROSCOPIC REVISION OF ALONDRA FUNDOPLASTY (WRVU 48.75) [...] on 08/10/2010 done at [facility] in [place]. She stated that prior to surgery she [...] AM Erik Herndon MD General Surgery at [place] [phone] Instructions Given to Patient at Discharge: Call your doctor if you develop: Fever greater than 101.3 degrees Farenheit (38.5 degrees Celcius), chills, nausea or vomiting. Alsocall if you develop severe pain not relieved by your prescribed oral pain medicine. CALL THE GENERAL SURGERY CLINIC DURING WORKING HOURS AT , OR CALL AFTERCLINIC HOURS, WEEKENDS AND HOLIDAYS: ASK FOR THE GENERAL SURGERY RESIDENT SHOE DRESSER IF ANY OF THE ABOVE OCCUR. Activity [...] post Alondra diet, as instructed by the life science technician in the hospital for a period of [...] at the General Surgery Outpatient [facility] - [facility] 4L, on Monday, April 18, 2018 at 10:40am. You will receive a letter in the mail confirming the appointment date and time. Your follow-up is very important to us. Please call [phone] if you do not hear from us within 7 days of discharge or if you need to change the appointment date/time. Signed: JAEL Houser 03/21/2018 Primary Care Physician: MD Andrés [address] DR [facility] [id number] documented in this encounter Discharge Instructions * Discharge Instructions* Roxy Sarkar PA - 03/21/2018 12:51 PM EDT Scheduled Appointments: Future Appointments and Orders ?? Future Appointments and Orders ?? Future Appointments Provider Department Dept Phone ?? 04/18/2018 10:40 AM Erik Herndon MD General Surgery [facility] [place] [phone] ? Instructions Given to Patient at Discharge: [...] HOLIDAYS: ASK FOR THE GENERAL SURGERY RESIDENT SHOE DRESSER IF ANY OF THE ABOVE OCCUR. ?? [...] post Alondra diet, as instructed by the life science technician in the hospital for a period of [...] at the General Surgery Outpatient [facility] - [facility] 4L, on Monday, April 18, 2018 at 10:40am. ?? You will receive a letter in the mail confirming the appointment date and time. Your follow-up is very important to us. ?? Please call [phone] if you do not hear from us [...] not allowed list for 3 full weeks. Drier Unloader and pt discussed all foods on the allowed/ not allowed list in great detail and answered all questions the pt had. Discussed incorporating supplemental shakes for additional calorie and protein consumption. Pt agreeable to shakes for home use. Drier Unloader will provide a chocolate and coffee Boost Plus shakes on lunch tray for pt to take home and trial. Emphasized the importance of no bread products, no carbonated beverages, and no straw use and why. Encouraged 6 small meals daily with meatsground or cut up fine w/ gravy. Pt expressed good understanding. Drier Unloader collected pt's diet appropriate lunch choices to [...] Operative Note Patient Name: Jessica Amato : [id number] MR#: [id number] Case Date: 03/20/2018 Surgeon: Surgeon(s) and Role: [...] Alondra fundoplication in 2010 down in a [facility]. Since that time she has developed recurrent [...] vagus nerves which identified and preserved. A Mikala drain was used to encircle the esophagus [...] posterior to the esophagus and a 60 Afghan bougie was then passed by anesthesia down the esophagus and the stomach under direct visualization without difficulty. With a [address] a 3 stitch to [...] Operative Note Patient Name: Jessica Amato : [id number] MR#: [id number] Case Date: 03/20/2018 Surgeon: Surgeon(s) and Role: [...] oforiginal fundoplication. Wrap taken down, EGD ok, Laondra reformed. Complications: None Intake: 1200cc Output: 12cc [...] PM EDT Office Visit Dermatology at [place] [address] [place] [address] Jaquan Syed MD [address] [facility] [place] [address] documented as of this encounter Procedures Procedure Name Priority Date/Time Associated Diagnosis Comments FIELD SALES SPECIALIST SCAN 03/22/2018 12:00 AM EDT HEMOGRAM Routine [...] in this encounter Results * SCAN DOC: FIELD SALES SPECIALIST (03/22/2018 12:00 AM EDT) Anatomical Region Laterality Modality Other Narrative 03/22/2018 12:00 AM EDT Ordered by an unspecified provider. Scanning Provider MEDIA MGR SCAN EXT O RDR/RSLT * (ABNORMAL) Differential, Automated (03/20/2018 3:31 PM EDT) Neutrophil % 86.4 % [facility] Neutrophil Absolute 8.86(H) 1.70 - 6.10 x10(3)/mc L [facility] Lymph % 11.2 % [facility] Lymphocytes Abs 1.2 0.9 - 3.2 x10(3)/mc L [facility] Monocyte % 1.4 % [facility] Monocyte Abs 0.1(L) 0.3 - 0.9 x10(3)/mc L [facility] Eos % 0.2 % [facility] Eosinophils Abs 0.0 0.0 - 0.4 x10(3)/[facility] Basophil % 0.4 % [facility] Baso Absolute 0.0 0.0 - 0.1 x10(3)/[facility] Immature Gran % 0.40 % [facility] Comment: Immature granulocytes(IG's)percentage and absolute count will include metamyelocytes, myelocytes, and promyelocytes. Blood smears from CBCs yielding IG's will be scanned manually for concordance. If this scan disagrees with the automated IG or if promyelocytes are noted, a manual differential will be performed. Immature Gran Absolute 0.04 0.00 - 0.04 x10(3)/[facility] Blood specimen (specimen) 03/20/2018 3:31 PM EDT 03/20/2018 3:53 PM EDT Narrative Resulting Agency Comment Spec In Lab Ashia Izquierdo MD HEMATOLOGY ORDERABLE S Performing Organization Address City/State/[facility] Co de Phone Number [facility] [place] [address] * (ABNORMAL) Hemogram (03/20/2018 3:31 PM EDT) White Blood Cell 10.2(H) 4.0 - 9.5 x10(3)/[facility] Red Blood Cell 4.06 4.00 - 5.21 x10(6)/[facility] Hemoglobin 12.8 11.7 - 15.5 gm/dL [facility] Hematocrit 39.3 35.7 - 45.8 % [facility] Mean Cell Volume 96.8(H) 82.6 - 94.[address] [facility] Mean Cell Hemoglobin 31.5 27.1 - 32.[address] [facility] Mean Cell Hemoglobin Concentration 32.6 31.7 - 35.0 gm/dL [facility] Platelet 197 145 - 357 x10(3)/[facility] RDW Standard Deviation 46.1(H) 37.0 - 46.0 [facility] RDW coefficient of variation 12.9 11.5 - 14.1 % [facility] Mean Platelet Volume 11.1 7.6 - 12.9 [facility] NRBC% auto 0.0 % [facility] NRBC Absolute 0.000 0.000 - 0.000 x10(3)/mc L [facility] Blood specimen (specimen) 03/20/2018 3:31 PM EDT 03/20/2018 3:53 PM EDT Narrative Resulting Agency Comment Spec In Lab Ashia Izquierdo MD HEMATOLOGY ORDERABLE S [facility] [place] [address] * Creatinine (03/20/2018 3:31 PM EDT) Creatinine 0.92 0.70 - 1.20 mg/dL [facility] Est Glomerular Filtration Rate 73 >=60 mL/min/1.7 3 m?? [facility] Comment: The eGFR was calculated using the CKD-EPI equation. As with all creatinine based estimates of kidney function, eGFR values calculated with the CKD-EPI equation are not accurate in patients with acute kidney failure, extremes of body mass or the acutely ill. http://Admaxim/[facility] eGFR 85 >=60 mL/min/1.7 3 m?? [facility] Comment: The eGFR was calculated using the CKD-EPI equation. As with all creatinine based estimates of kidney function, eGFR values calculated with the CKD-EPI equation are not accurate in patients with acute kidney failure, extremes of body mass or the acutely ill. http://Admaxim/[facility] Blood specimen (specimen) 03/20/2018 3:31 PM EDT 03/20/2018 3:53 PM EDT Narrative Resulting Agency Comment Spec In Lab Erik Herndon MD CHEMISTRY ORDERABLE S Performing Organization Address [facility]/ZIP Co de Phone Number [facility] [place] [address] * (ABNORMAL) BUN (03/20/2018 3:31 PM EDT) Blood Urea Nitrogen 21(H) 8 - 18 mg/dL [facility] Blood specimen (specimen) 03/20/2018 3:31 PM EDT 03/20/2018 3:53 PM EDT Narrative Resulting Agency Comment Spec In Lab Erik Herndon MD CHEMISTRY ORDERABLE S Performing Organization Address [facility] Co de Phone Number [facility] [place] [address] * Electrolytes panel (03/20/2018 3:31 PM EDT) Sodium 142 135 - 145 mmol/L [facility] Potassium 3.7 3.5 - 5.0 mmol/L [facility] Comment: Please note: ??Patients with WBC >100,000 may have falsely elevated Potassium levels. ??For accurate Potassium quantification in these patients send serum separator tube (gold top) for subsequent determinations. ??Contact the Clinical Chemistry Laboratory if there are any questions. Chloride 107 98 - 107 mmol/L [facility] Carbon Dioxide 23 22 - 31 mmol/L [facility] Anion Gap 12 5 - 15 mmol/L [facility] Blood specimen (specimen) 03/20/2018 3:31 PM EDT 03/20/2018 3:53 PM EDT Narrative Resulting Agency Comment Spec In Lab Erik Herndon MD CHEMISTRY ORDERABLE S Performing Organization Address [facility] Co de Phone Number [facility] [place] [address] documented in this encounter Visit Diagnoses Not [...] 5% 100 mL (COMPLETED) 2 g, Intravenous, SHOE DRESSER TO O.R., 1 dose, On Mon03/20/18 at [...] Birdie Reina, RN)[phone] (Given - Provider: Birdie Reina, RN) sodium chloride 0.9 % flush 5-20 mL 5-20 mL, Intravenous, EVERY 1 MIN PRN, Starting on Mon03/20/18 at 1821, Until Mon03/21/18 at 1536, flush, Flush pertains to all indwelling lines. Flush per protocol found in the job aid using the link provided on this medication record., Recovery (Recovery-Hospital Unit), Routine documented in this encounter Care Teams Community Living Instructor Relationship Specialty Start Date End Date Dora Elliott MD [facility] [address] [place] [address] PCP - General 01/23/13 08/05/20 documented as of this encounter
--- OUTSIDE RECORDS SUMMARY | 2024-03-12 16:12 | XMS_ITS | Encounter Summary ---
Author Organization [place] [address] Care Team Providers Care Experimental Psychologist Name Role Phone Dora Elliott MD Primary Care Provider [phone] Reason for Visit * Auth/Cert Specialty Diagnoses / Procedures Referred By Contac t Referred To Contact Diagnoses RECURRENT HIATAL HERNIA Procedures PRO LAP, ESOPHAGUS, OTHER PROC 4 Referral ID Status Reason Start Date Expiration Date Visits Re quested Visits Authorized [id number] 1 1 Encounter Details Date Type Department Care Team (Latest Contact Info) Description 03/20/2018 8:33 AM EDT - 03/21/2018 1:35 PM EDT Hospital Encounter [place] [address] Erik Herndon MD [facility] [place] [address] Discharge Disposition: Home Social History Tobacco Use [...] and Alondra fundoplication on 08/10/2010 done at [facility] in [place]. She stated that prior [...] AM Erik Herndon MD General Surgery at [place] [phone] Instructions Given to Patient at Discharge: Call your doctor if you develop: Fever greater than 101.3 degrees Farenheit (38.5 degrees Celcius), chills, nausea or vomiting. Alsocall if you develop severe pain not relieved by your prescribed oral pain medicine. CALL THE GENERAL SURGERY CLINIC DURING WORKING HOURS AT , OR CALL AFTERCLINIC HOURS, WEEKENDS AND HOLIDAYS: ASK FOR THE GENERAL SURGERY RESIDENT FIRE ADJUSTER IF ANY OF THE ABOVE OCCUR. Activity [...] post Alondra diet, as instructed by the rail washer in the hospital for a period of [...] at the General Surgery Outpatient Clinic - [facility] 4L, on Monday, April 18, 2018 at 10:40am. You will receive a letter in the mail confirming the appointment date and time. Your follow-up is very important to us. Please call [phone] if you do not hear from us within 7 days of discharge or if you need to change the appointment date/time. Signed: JAEL Houser 03/21/2018 Primary Care Physician: MD Andr[address] DR / [facility] [id number] documented in this encounter Discharge Instructions * Discharge Instructions* Roxy Sarkar PA - 03/21/2018 12:51 PM EDT Scheduled Appointments: Future Appointments and Orders ?? Future Appointments and Orders ?? Future Appointments Provider Department Dept Phone ?? 04/18/2018 10:40 AM Erik Herndon MD [facility] [place] [phone] ? Instructions Given to Patient at Discharge: [...] HOLIDAYS: ASK FOR THE GENERAL SURGERY RESIDENT FIRE ADJUSTER IF ANY OF THE ABOVE OCCUR. ?? [...] post Alondra diet, as instructed by the rail washer in the hospital for a period of [...] at the General Surgery Outpatient [facility] - [facility], on Monday, April 18, 2018 at 10:40am. ?? You will receive a letter in the mail confirming the appointment date and time. Your follow-up is very important to us. ?? Please call [phone] if you do not hear from us [...] not allowed list for 3 full weeks. Supervisor Nurse and pt discussed all foods on the allowed/ not allowed list in great detail and answered all questions the pt had. Discussed incorporating supplemental shakes for additional calorie and protein consumption. Pt agreeable to shakes for home use. Supervisor Nurse will provide a chocolate and coffee Boost Plus shakes on lunch tray for pt to take home and trial. Emphasized the importance of no bread products, no carbonated beverages, and no straw use and why. Encouraged 6 small meals daily with meatsground or cut up fine w/ gravy. Pt expressed good understanding. Supervisor Nurse collected pt's diet appropriate lunch choices to [...] Operative Note Patient Name: Jessica Amato : [id number] MR#: [id number] Case Date: 03/20/2018 Surgeon: Surgeon(s) and Role: [...] Alondra fundoplication in 2010 down in a [facility]. Since that time she has developed [...] vagus nerves which identified and preserved. A Sheyenne drain was used to encircle the esophagus [...] posterior to the esophagus and a 60 Upper Sorbian bougie was then passed by anesthesia down the esophagus and the stomach under direct visualization without difficulty. With a [address] place a 3 stitch to [...] Operative Note Patient Name: Jessica Amato : [id number] MR#: [id number] Case Date: 03/20/2018 Surgeon: Surgeon(s) and Role: [...] 3:30 PM EDT Office Visit Dermatology at [place] [address] [facility] [place] [address] Jaquan Syed MD [address] [facility] [place] [address] documented as of this encounter Procedures Procedure Name Priority Date/Time Associated Diagnosis Comments DIRECTOR OF SOCIAL WORK SCAN 03/22/2018 12:00 AM EDT HEMOGRAM Routine [...] in this encounter Results * SCAN DOC: DIRECTOR OF SOCIAL WORK (03/22/2018 12:00 AM EDT) Anatomical Region Laterality Modality Other Narrative 03/22/2018 12:00 AM EDT Ordered by an unspecified provider. Scanning Provider MEDIA MGR SCAN EXT O RDR/RSLT * (ABNORMAL) Differential, Automated (03/20/2018 3:31 PM EDT) Neutrophil % 86.4 % [facility] Neutrophil Absolute 8.86(H) 1.70 - 6.10 x10(3)/mc L [facility] Lymph % 11.2 % [facility] Lymphocytes Abs 1.2 0.9 - 3.2 x10(3)/mc L [facility] Monocyte % 1.4 % [facility] Monocyte Abs 0.1(L) 0.3 - 0.9 x10(3)/mc L [facility] Eos % 0.2 % [facility] Eosinophils Abs 0.0 0.0 - 0.4 x10(3)/mc L [facility] Basophil % 0.4 % [facility] Baso Absolute 0.0 0.0 - 0.1 x10(3)/[facility] Immature Gran % 0.40 % [facility] Comment: Immature granulocytes(IG's)percentage and absolute count will include metamyelocytes, myelocytes, and promyelocytes. Blood smears from CBCs yielding IG's will be scanned manually for concordance. If this scan disagrees with the automated IG or if promyelocytes are noted, a manual differential will be performed. Immature Gran Absolute 0.04 0.00 - 0.04 x10(3)/[facility] Blood specimen (specimen) 03/20/2018 3:31 PM EDT 03/20/2018 3:53 PM EDT Narrative Resulting Agency Comment Spec In Lab Ashia Izquierdo MD HEMATOLOGY ORDERABLE S [facility] [place] [address] * (ABNORMAL) Hemogram (03/20/2018 3:31 PM EDT) White Blood Cell 10.2(H) 4.0 - 9.5 x10(3)/[facility] Red Blood Cell 4.06 4.00 - 5.21 x10(6)/[facility] Hemoglobin 12.8 11.7 - 15.5 gm/dL [facility] Hematocrit 39.3 35.7 - 45.8 % [facility] Mean Cell Volume 96.8(H) 82.6 - 94.4 fL [facility] Mean Cell Hemoglobin 31.5 27.1 - 32.0 pg [facility] Mean Cell Hemoglobin Concentration 32.6 31.7 - 35.0 gm/dL [facility] Platelet 197 145 - 357 x10(3)/[facility] RDW Standard Deviation 46.1(H) 37.0 - 46.0 fL [facility] RDW coefficient of variation 12.9 11.5 - 14.1 % [facility] Mean Platelet Volume 11.1 7.6 - 12.9 fL [facility] NRBC% auto 0.0 % [facility] NRBC Absolute 0.000 0.000 - 0.000 x10(3)/mc L [facility] Blood specimen (specimen) 03/20/2018 3:31 PM EDT 03/20/2018 3:53 PM EDT Narrative Resulting Agency Comment Spec In Lab Ashia Izquierdo MD HEMATOLOGY ORDERABLE S Performing Organization Address City/State/[facility] Co de Phone Number [facility] [place] [address] * Creatinine (03/20/2018 3:31 PM EDT) Creatinine 0.92 0.70 - 1.20 mg/dL [facility] Est Glomerular Filtration Rate 73 >=60 mL/min/1.7 3 m?? [facility] Comment: The eGFR was calculated using the CKD-EPI equation. As with all creatinine based estimates of kidney function, eGFR values calculated with the CKD-EPI equation are not accurate in patients with acute kidney failure, extremes of body mass or the acutely ill. http://Intralign/[facility]ULS[facility]kf eGFR 85 >=60 mL/min/1.7 3 m?? [facility] Comment: The eGFR was calculated using the CKD-EPI equation. As with all creatinine based estimates of kidney function, eGFR values calculated with the CKD-EPI equation are not accurate in patients with acute kidney failure, extremes of body mass or the acutely ill. http://Intralign/[facility] Blood specimen (specimen) 03/20/2018 3:31 PM EDT 03/20/2018 3:53 PM EDT Narrative Resulting Agency Comment Spec In Lab Erik Herndon MD CHEMISTRY ORDERABLE S [facility] [place] [address] * (ABNORMAL) BUN (03/20/2018 3:31 PM EDT) Blood Urea Nitrogen 21(H) 8 - 18 mg/dL [facility] Blood specimen (specimen) 03/20/2018 3:31 PM EDT 03/20/2018 3:53 PM EDT Narrative Resulting Agency Comment Spec In Lab Erik Herndon MD CHEMISTRY ORDERABLE S Performing Organization Address [facility] Co de Phone Number [facility] [place] [address] * Electrolytes panel (03/20/2018 3:31 PM EDT) Sodium 142 135 - 145 mmol/L [facility] Potassium 3.7 3.5 - 5.0 mmol/L [facility] Comment: Please note: ??Patients with WBC >100,000 may have falsely elevated Potassium levels. ??For accurate Potassium quantification in these patients send serum separator tube (gold top) for subsequent determinations. ??Contact the Clinical Chemistry Laboratory if there are any questions. Chloride 107 98 - 107 mmol/L [facility] Carbon Dioxide 23 22 - 31 mmol/L [facility] Anion Gap 12 5 - 15 mmol/L [facility] Blood specimen (specimen) 03/20/2018 3:31 PM EDT 03/20/2018 3:53 PM EDT Narrative Resulting Agency Comment Spec In Lab Erik Herndon MD CHEMISTRY ORDERABLE S Performing Organization Address [facility] Co de Phone Number [facility] [place] [address] documented in this encounter Visit Diagnoses Diagnosis [...] 5% 100 mL (COMPLETED) 2 g, Intravenous, FIRE ADJUSTER TO O.R., 1 dose, On Mon03/20/18 at [...] Oralia Em RN)[phone] (New Bag - Provider: Oralai Em RN)[phone] (Stopped - Provider: Birdie Reina, [...] Routine documented in this encounter Care Teams Experimental Psychologist Relationship Specialty Start Date End Date Dora Elliott MD [address] [place] [address] PCP - General 01/23/13 08/05/20 documented as of this encounter
--- OUTSIDE RECORDS SUMMARY | 2024-03-12 16:12 | XMS_ITS | Encounter Summary ---
Author Organization [facility] Address [facility] [place] [address] Care Team Providers Care Finishing Pan Operator Name Role Phone Dora Elliott MD Primary Care Provider [phone] Reason for Referral * Diagnostic Test (Routine) - Closed Specialty Diagnoses / Procedures Referred By Felisha savage Referred To Contact Radiology Diagnoses Gastric reflux Procedures XR Fluoro Barium Swallow Erik Herndon MD [facility] [place] [address] [facility] Rad Xray [address] [place] [address] [place] [address] Referral ID Status Reason Start Date Expiration Date V isits Requested Visits Authorized [id number] Closed Specialty Service Requested 06/15/2017 06/15/2018 1 1 Reason for Visit * Diagnostic Test (Routine) - Closed Specialty Diagnoses / Procedures Referred By Felisha savage Referred To Contact Radiology Diagnoses Gastric reflux Procedures XR Fluoro Barium Swallow Erik Herndon MD [facility] [place] [address] [facility] Rad Xray [address] [place] [address] [place] [address] Referral ID Status Reason Start Date Expiration Date V isits Requested Visits Authorized [id number] Closed Specialty Service Requested 06/15/2017 06/15/2018 1 1 Encounter Details Date Type Department Care Team (Latest Contact Info) Description 08/02/2017 7:58 AM EST - 08/02/2017 11:59 PM EST Hospital Encounter XRay at [address] [place] [address] Erik Herndon MD [facility] [address] Gastric reflux Discharge Disposition: Home Social History [...] 3:30 PM EDT Office Visit Dermatology at [place] [address] [facility] [place] [address] Jaquan Syed MD [address], D[place] [address] documented as of this encounter Procedures Procedure [...] reflux documented in this encounter Care Teams Finishing Pan Operator Relationship Specialty Start Date End Date Dora Elliott MD [address] [place] [address] PCP - General 01/23/13 08/05/20 documented as of this encounter
--- OUTSIDE RECORDS SUMMARY | 2024-03-12 16:12 | XMS_ITS | Encounter Summary ---
[place] [address] Care Team Providers Care Picked Edge Sewing Machine Operator Name Role Phone Dora Elliott MD Primary Care Provider [phone] Encounter Details Date Type Department Care Team (Late st Contact Info) Description 07/28/2017 Refill Dermatology at [address] [address] Magnolia Daily, UNIVERSITY ARCHIVIST Social History Tobacco Use Types Packs/Day Years [...] 3:30 PM EDT Office Visit Dermatology at [address] [address] Jaquan Syed MD [address] [facility], REYNA A DERMATOLOGY [place], [place] [id number] documented as of this encounter Visit Diagnoses Not on filedocumented in this encounter Care Teams Picked Edge Sewing Machine Operator Relationship Specialty Start Date End Date Dora Elliott MD [facility] [address] [facility] 1 [place] [address] PCP - General 01/23/13 08/05/20 documented as of this encounter
--- OUTSIDE RECORDS SUMMARY | 2024-03-12 16:12 | XMS_ITS | Encounter Summary ---
Author Organization [facility] [place] [place] [address] Care Team Providers Care Lunchroom Monitor Name Role Phone Dora Elliott MD Primary Care Provider [phone] Reason for Visit * Reason Onset Date Comments Medication Refill 11/08/2022 Encounter Details Date Type Department Care Team (Late st Contact Info) Description 11/07/2022 Refill Dermatology at [address] [address] Alla Nesbitt RN Social History [...] 11/07/2022 3:20 PM EDT Received call from [employer] Measurement assist that patient does not have any [...] 3:30 PM EDT Office Visit Dermatology at [place] [address] [place] [address] Jaquan Syed MD [address], [place] [address] documented as of this encounter Visit Diagnoses Not on filedocumented in this encounter Care Teams Lunchroom Monitor Relationship Specialty Start Date End Date Dora Elliott MD [facility] [address] [place] [address] PCP - General Family Medicine 08/11/20 documented as of this encounter
--- OUTSIDE RECORDS SUMMARY | 2024-03-12 16:12 | XMS_ITS | Encounter Summary ---
Author Organization [facility] [place] [address] Care Team Providers Care Wet Process Miller Head Assistant Name Role Phone Dora Elliott MD Primary Care Provider [phone] Reason for Visit * Reason Comments Follow-up Psoriasis Encounter Details Date Type Department Care Team (Late st Contact Info) Description 07/28/2017 4:30 PM EST Office Visit Dermatology at [place] [address] [facility] [place] [address] Jaquan Syed MD [address] [facility], [place] [address] Psoriasis Social History Tobacco Use Types Packs/Day [...] with 2 refills this be called into [facility] in [place], and Humira will be faxed to her [facility] prescription plan. 3. Return to clinic in another 6 months for repeat check. Cc: Dora Elliott MD documented in this encounter Plan of Treatment Upcoming Encounters Date Type Department Care Team (Late st Contact Info) Description 01/02/2025 3:30 PM EDT Office Visit Dermatology at [place] [address] [facility] [address] [place] [address] Jaquan Syed MD [address], [place] [address] documented as of this encounter Visit Diagnoses Diagnosis Psoriasis Other psoriasis documented in this encounter Care Teams Wet Process Miller Head Assistant Relationship Specialty Start Date End Date Dora Elliott MD [address] [place] [address] PCP - General 01/23/13 08/05/20 documented as of this encounter
--- OUTSIDE RECORDS SUMMARY | 2024-03-12 16:12 | XMS_ITS | Encounter Summary ---
Author Organization [facility] [place] [address] Care Team Providers Care Him Specialist Name Role Phone Dora Elliott MD Primary Care Provider [phone] Encounter Details Date Type Department Care Team (Late st Contact Info) Description 11/08/2022 Telephone Dermatology at [address] [address] Alla Nesbitt RN Social History [...] she understood. [facility] per patient's request. documented in this encounter Plan of Treatment Upcoming Encounters Date Type Department Care Team (Late st Contact Info) Description 01/02/2025 3:30 PM EDT Office Visit Dermatology at [place] [address] [place] [address] Jaquan Syed MD [address], [place] [address] documented as of this encounter Visit Diagnoses Not on filedocumented in this encounter Care Teams Him Specialist Relationship Specialty Start Date End Date Dora Elliott MD [facility] [address] [facility] 1 [place] [address] PCP - General Family Medicine 08/11/20 documented as of this encounter
--- OUTSIDE RECORDS SUMMARY | 2024-03-12 16:12 | XMS_ITS | Encounter Summary ---
Author Organization Counts Include [facility] Address [facility] [place] [address] Care Team Providers Care Floor Surfacer Name Role Phone Dora Elliott MD Primary Care Provider Encounter Details Date Type Department Care Team (Late st Contact Info) Description 2020 10:00 AM EDT Office Visit Obstetrics [place] [address] Flower Jiménez MD [facility] [place] [address] Exposure of implanted urethral mesh, subsequent encounter [...] feltpelvic floor physical therapist is like a head wrestling coach to help you learn to use [...] it is painful. 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, and as soon as she is moving/bending/squatting, [...] 3:30 PM EDT Office Visit Dermatology at [place] [address] [place] [address] Jaquan Syed MD [address], [place] [address] documented as of this encounter Visit Diagnoses Diagnosis Exposure of implanted urethral mesh, subsequent encounter documented in this encounter Care Teams Floor Surfacer Relationship Specialty Start Date End Date Dora Elliott MD [facility] [address] [place] [address] PCP - General Family Medicine 08/11/20 documented as of this encounter
--- OUTSIDE RECORDS SUMMARY | 2024-03-12 16:12 | XMS_ITS | Encounter Summary ---
Author Organization [facility] Address [facility] [place] [address] Care Team Providers Care Chef Passenger Vessel Name Role Phone Dora Elliott MD Primary Care Provider [phone] Reason for Referral * Diagnostic Test (Routine) - Closed Specialty Diagnoses / Procedures Referred By Contspencer t Referred To Contact Radiology Diagnoses Gastric reflux Procedures XR Fluoro Barium Swallow Erik Herndon MD [facility] [place] [address] [facility] Rad Xray [address] [place] [address] [place] [address] Referral ID Status Reason Start Date Expiration Date V isits Requested Visits Authorized [id number] Closed Specialty Service Requested 06/15/2017 06/15/2018 1 1 Encounter Details Date Type Department Care Team (Late Contact Info) Description 06/15/2017 Orders Only General Surgery at [facility] [place] [address] Erik Herndon MD [facility] [place] [address] Gastric reflux Social History Tobacco [...] 3:30 PM EDT Office Visit Dermatology at [place] [address] [facility] [address] [place] [address] Jaquan Syed MD [address], D[place] [address] documented as of this encounter Results * [...] reflux documented in this encounter Care Teams Chef Passenger Vessel Relationship Specialty Start Date End Date Dora Elliott MD [facility] [address] [facility] 1 [place] [address] PCP - General 01/23/13 08/05/20 documented as of this encounter
--- OUTSIDE RECORDS SUMMARY | 2024-03-12 16:12 | XMS_ITS | Encounter Summary ---
Author Organization [facility] [place] [address] Care Team Providers Care Formula Weigher Name Role Phone Dora Elliott MD Primary Care Provider [phone] Reason for Visit * Auth/Cert Specialty Diagnoses / Procedures Referred By Contac t Referred To Contact Diagnoses Vaginal pain Exposure of implanted vaginal mesh Vaginal mesh exposure, vaginal pain Procedures PRO REVISION VAGINAL GRAFT, VAG APPROACH REVISION PROSTHETIC GRAFT\W-W\O REMOVAL VAGINAL APPROACH (WRVU 7.82) Referral ID Status Reason Start Date Expiration Date Visits Re quested Visits Authorized [id number] 1 1 Encounter Details Date Type Department Care Team (Late st Contact Info) Description 11/24/2020 7:30 AM EDT - 11/24/2020 9:28 AM EDT Surgery [place] [address] Flower Jiménez MD [facility] [place] [address] REVISION PROSTHETIC GRAFT\W-W\O REMOVAL VAGINAL APPROACH (WRVU [...] Flower Jiménez MD Obstetrics and Gynecology at [facility] Arrive at: [place] 08/09/2021 10:00 AM Jaquan Syed MD Dermatology at [place] Arrive at: [facility] [address] [phone] Patient Discharge Instructions: Special Physician Instructions: If you are still needing a catheter to drain your bladder, please follow the instructions given to you separately for when to use the catheter and how to care for it. In addition, please call to check in with the urogynecology office nurse at [phone] to review how your bladder is working and when the catheter use can be discontinued. For problems, concerns related to this hospitalization or you need to change your appointment call: [facility] daytime: [phone] weekdays [facility]: [phone] [facility]: [phone] For emergencies during nights and weekends: [phone] Call your doctor if you develop: --A [...] for Visit: 50 y.o. Female presents to [facility] for mesh excision and cystoscopy. History of [...] Procedure Laterality Date ??? GASTRIC FUNDOPLICATION 2008 [facility] ??? HERNIA REPAIR 2018 epigastric hernia, repaired with revision Kalyn ??? HYSTERECTOMY 10/2007 [facility] for pelvic pain ??? INCONTINENCE SURGERY 11/18/2008 TOT with mesh; Dr. Zuniga, [facility] ??? INCONTINENCE SURGERY 08/24/2006 Midurethral sling, Dr. Zuniga, [facility]; with D&C & endometrial ablation ??? PRO LAP, ESOPHAGUS, OTHER PROC N/A 03/20/2018 LAPAROSCOPIC REVISION OF KALYN FUNDOPLASTY (WRVU *) performed by Erik Herndon MD at [facility] OR ??? PRO UPPER GI ENDOSCOPY, DIAGNOSTIC N/A 03/20/2018 ENDOSCOPY, UPPER GI, DIAGNOSTIC, WITH OR WITHOUT SPECIMENS performed by Erik Herndon MD at [facility] ??? PUBOVAGINAL SLING 05/09/2012 autologous rectus fascia; Dr. Castro, [facility]. ??? REMOVAL OF VAGINAL [...] D3,) 50 mcg (2,000 unit) Capsule Take byaluth. Past Week at Unknown time ??? acetaminophen [...] ibuprofen, and oxycodone. Her preferred pharmacy is [facility]. Bre Buchanan MD 11/24/2020 documented in this encounter Miscellaneous Notes * Op Note - Flower Jiménez MD - 11/24/2020 9:46 AM EDT [facility] Operative Note Patient Name: Jessica Amato : [id number] MR#: [id number] Case Date: 11/24/2020 Surgeon: Surgeon(s) and Role: [...] Operative Note Patient Name: Jessica Amato : [id number] MR#: [id number] Case Date: 11/24/2020 Surgeon: Surgeon(s) and Role: [...] 3:30 PM EDT Office Visit Dermatology at [place] [address] [facility] [place] [address] Jaquan Syed MD [address], [place] [address] documented as of this encounter Procedures Procedure Name Priority Date/Time Associated Diagnosis Comments CYSTO,CYSTOURETHROSCOPY, DIAGNOSTIC Routine 11/24/2020 9:14 AM EDT Cystourethroscopy ([id number]) 2020 7:27 AM EDT Vaginal mesh exposure, vaginal pain, dysuria Revision Vaginal Graft, Vag Approach ([id number]) 11/24/2020 7:27 AM EDT Vaginal mesh exposure, vaginal pain, dysuria POCT GLUCOSE Routine 11/24/2020 6:22 AM EDT REVISION PROSTHETIC GRAFT\W-W\O REMOVAL VAGINAL APPROACH Routine 11/24/2020 6:11 AM EDT documented in this encounter Results * POCT Glucose (11/24/2020 6:22 AM EDT) Glucose, POC 103 65 - 199 mg/dL [facility] Comment: Supplemental ranges: <140 mg/dL before meals <180 mg/dL all other times of the day Blood 11/24/2020 6:22 AM EDT 11/24/2020 6:22 AM EDT Flower Jiménez MD POINT OF CARE TEST O RDERABLES [facility] [place] [address] documented in this encounter Visit Diagnoses Not [...] Mon11/24/20 at 0645, Administer over 30 Minutes, Make Up Operator Helper to OR Infuse over 30 minutes., Day [...] RN) documented in this encounter Care Teams Formula Weigher Relationship Specialty Start Date End Date Dora Elliott MD [address] [facility] 1 [place] [address] PCP - General Family Medicine 08/11/20 documented as of this encounter
--- OUTSIDE RECORDS SUMMARY | 2024-03-12 16:12 | XMS_ITS | Encounter Summary ---
[place] [address] Care Team Providers Care Manager Document Name Role Phone Dora Elliott MD Primary Care Provider [phone] Reason for Visit * Reason Comments Prior Authorization Humira Pen 40mg/0.8m L PNKT Encounter Details Date Type Department Care Team (Late st Contact Info) Description 11/23/2021 Specialty [place] [address] Kevin Arita, [facility] Social History Tobacco Use Types Packs/Day Years [...] Jessica Amato Patient : [id number] Patient Address: [address] [place] [address] (home) Medication Name: HUMIRA PEN 40 MG/0.8 [...] pharmacist, or the specialty pharmacy team at [facility] Kevin Arita 12/08/21 7:43 AM documented in this encounter Plan of Treatment Upcoming Encounters Date Type Department Care Team (Late st Contact Info) Description 01/02/2025 3:30 PM EDT Office Visit Dermatology at [place] [address] [place] [address] Elian Hawkins MD [address], [place] [address] documented as of this encounter Visit Diagnoses Not on filedocumented in this encounter Care Teams Manager Document Relationship Specialty Start Date End Date Dora Elliott MD [facility] [address] [place] [address] PCP - General Family Medicine 08/11/20 documented as of this encounter
--- OUTSIDE RECORDS SUMMARY | 2024-03-12 16:12 | XMS_ITS | Encounter Summary ---
[place] [address] Care Team Providers Care Ore Charger Name Role Phone Dora Elliott MD Primary Care Provider [phone] Encounter Details Date Type Department Care Team (Late Contact Info) Description 10/24/2023 Telephone Dermatology at [address] [address] Magnolia Daily LPN Social History [...] 4:32 PM EDT 10/24/23 Received paperwork from [employer] coverage for Humira Pen has been approved with no co pay from 10/20/23 thru 10/18/2024. Pharmacy has attempted to contact patient without return call. The medication can not be shipped until patient contacts pharmacy for delivery at [phone]. Nurse left message with above information on her home phone number. documented in this encounter Plan of Treatment Upcoming Encounters Date Type Department Care Team (Late st Contact Info) Description 01/02/2025 3:30 PM EDT Office Visit Dermatology at [place] [address] [place] [address] Jaquan Syed MD [address], [place] [address] documented as of this encounter Visit Diagnoses Not on filedocumented in this encounter Care Teams Ore Charger Relationship Specialty Start Date End Date Dora Elliott MD [address] [place] [address] PCP - General Family Medicine 08/11/20 documented as of this encounter
--- OUTSIDE RECORDS SUMMARY | 2024-03-12 16:12 | XMS_ITS | Encounter Summary ---
Author Organization [facility] Address [facility] [place] [address] Care Team Providers Care Biblical Languages Professor Name Role Phone Dora Elliott MD Primary Care Provider [phone] Reason for Visit * Auth/Cert Specialty Diagnoses / Procedures Referred By Contac t Referred To Contact Diagnoses RECURRENT HIATAL HERNIA Procedures PRO LAP, ESOPHAGUS, OTHER PROC 4 Referral ID Status Reason Start Date Expiration Date Visits Re quested Visits Authorized [id number] 1 1 Encounter Details Date Type Department Care Team (Late st Contact Info) Description 03/20/2018 10:53 AM EDT Anesthesia Event [place] [address] Tony Paulino MD [facility] [place] [address] Mustapha Breen CRNA [facility] [place] [address] Anesthesia Record Procedure Summary Procedure Name Responsible [...] Ready 1139 Procedure Start 1231 Break/Relief In aFnny Ceballos CRNA 1255 Break/Relief Out 1451 Extubation/LMA [...] 921; metacarpal vein (top of hand), right; ghrd-vnl-pdlsvn catheter system; 18 gauge, 1 in length; [...] Paulino MD - 03/20/2018 3:54 PM EDT [facility] Department of Anesthesiology Post-procedure Note Patient: Jessica Amato Procedure Summary Date: 03/20/18 Room / Location: [facility] OR [address] [place] [address] MAIN OR Anesthesia Start: 1053 Anesthesia Stop: [...] All Anesthesia Providers: Anesthesiologist: Tony Paulino MD LIFE SCIENCE TAXONOMIST: Mustapha Breen CRNA Most Recent Vitals: 03/20/18 1545 BP: 112/60 Pulse: 54 Resp: 24 Temp: SpO2: 99% Pain 0 (03/20/18 1500) Patient Location: PACU/[facility] Level [...] with a(n) intravenous induction 47yo female s/p Kayln now with recurrent symptoms for revision +slipped [...] risks discussed with patient. Plan discussed with LIFE SCIENCE TAXONOMIST. PAT Staff Note documented in this encounter Plan of Treatment Upcoming Encounters Date Type Department Care Team (Late st Contact Info) Description 01/02/2025 3:30 PM EDT Office Visit Dermatology at [place] [address] [place] [address] Jaquan Syed MD [address], [place] [address] documented as of this encounter Visit Diagnoses Not on filedocumented in this encounter Administered Medications Inactive Administered Medications - up to 3 most recent administrations Medication Order MAR Action Action Date Dose Rate Site ceFAZolin (ANCEF) 2g in dextrose 5% 100 mL 2 g, Intravenous, HYDROELECTRIC PLANT ELECTRICIAN TO O.R., 1 dose, On Mon03/20/18 at [...] mg documented in this encounter Care Teams Biblical Languages Professor Relationship Specialty Start Date End Date Dora Elliott MD [address] [place] [address] PCP - General 01/23/13 08/05/20 documented as of this encounter
--- OUTSIDE RECORDS SUMMARY | 2024-03-12 16:12 | XMS_ITS | Encounter Summary ---
Author Organization [facility] [address] Care Team Providers Care Injection Specialist Name Role Phone Dora Elliott MD Primary Care Provider [phone] Reason for Visit * Reason Comments Psoriasis Encounter Details Date Type Department Care Team (Late st Contact Info) Description 07/22/2019 4:00 PM EST Office Visit Dermatology at [address] [address] Jaquan Syed MD [address] [facility] [address] Psoriasis Social History Tobacco Use Types Packs/Day [...] PM EDT Office Visit Dermatology at [address] [address] Jaquan Syed MD [address], [place] [address] documented as of this encounter Visit Diagnoses Diagnosis Psoriasis Other psoriasis documented in this encounter Care Teams Injection Specialist Relationship Specialty Start Date End Date Dora Elliott MD [address] [facility] 1 [place] [address] PCP - General 01/23/13 08/05/20 documented as of this encounter
--- OUTSIDE RECORDS SUMMARY | 2024-03-12 16:13 | XMS_ITS | Encounter Summary ---
Author Organization [facility] Address [address] [place] [address] Care Team Providers Care Bulk Pallet Builder Name Role Phone Unknown, Provider Primary Care Provider [phone] Encounter Details Date Type Department Care Team (Late st Contact Info) Description 11/26/2022 Lab Requisition [facility] Pathology & Laboratory Medicine - [facility] [address] [place] [address] Outr Resulting Lab, Provider Social History Tobacco [...] Lyme Ab Negative Negative 11/28/2022 11:07 EDT [facility] Blood VENOUS BLOOD / Unknown 11/26/2022 12:56 EDT 11/26/2022 21:31 EDT Provider Outr Resulting Lab IMMUNOLOGY A ND SEROLOGY ORDERABLES [facility] [address] [place] [address] documented in this encounter Visit Diagnoses Not on filedocumented in this encounter Care Teams Bulk Pallet Builder Relationship Specialty Start Date End Date Unknown, Provider, PCP - General 06/01/17 documented as of this encounter
--- OUTSIDE RECORDS SUMMARY | 2024-03-12 16:13 | XMS_ITS | Encounter Summary ---
Author Organization [facility] Address [address] [place] [address] Care Team Providers Care Adoption Services Manager Name Role Phone Unknown, Provider Primary Care Provider [phone] Encounter Details Date Type Department Care Team (Late st Contact Info) Description 05/31/2017 Results Only [facility] [phone] Buck Carrasco, DO [address] [place] [address] Social History Tobacco Use Types [...] (ASCP) 06/01/2017 11:10 AM End of Report [facility] 05/31/2017 9:05 EST 05/31/2017 9:05 EST Buck Carrasco DO PATHOLOGY ORDERABLES [facility] [address] [place] [address] documented in this encounter Visit Diagnoses Not on filedocumented in this encounter Care Teams Adoption Services Manager Relationship Specialty Start Date End Date Unknown, Provider, PCP - General 06/01/17 documented as of this encounter
--- OUTSIDE RECORDS SUMMARY | 2024-03-12 16:13 | XMS_ITS | Encounter Summary ---
Author Organization [facility] Address [address] [place] [address] Care Team Providers Care Police Commissioner Name Role Phone Unknown, Provider Primary Care Provider Encounter Details Date Type Department Care Team (Late st Contact Info) Description 12/01/2022 Lab Requisition [facility] Pathology & Laboratory Medicine - [facility] [address] [place] [address] Outr Resulting Lab, Provider Social History Tobacco [...] QUANTIFERON INTERPRETATION (PERFORMABLE) (11/30/2022 11:51 EDT) Pathologist [facility] Quantiferon Interpretation Negative Negative 12/02/2022 13:46 EDT [facility] Comment:No interferon-gamma response to M. tuberculosis antigens was detected. ??Infection with M. tuberculosis is unlikely. A single negative result does not exclude infection with M. tuberculosis. ??In patients at high risk for M. tuberculosis infection, a second test should be considered. TB1 Ag minus Nil 0.00 IU/ml 12/03/19 13:46 EDT [facility] TB2 Ag minus Nil 0.00 IU/mL 12/03/19 13:46 EDT [facility] Blood VENOUS BLOOD / Unknown 11/30/2022 11:51 EDT 12/02/2022 12:54 EDT Narrative [facility] - 12/02/2022 13:46 EDT Results were obtained with the Qiagen QuantiFERON-TB Gold Plus CLIA. New platform in use 02/03/2021 Provider Outr Resulting Lab IMMUNOLOGY A ND SEROLOGY ORDERABLES Performing Organization Address [facility] Co de Phone Number [facility] [address] [place] [address] * QUANTIFERON MITOGEN (PERFORMABLE) (11/30/2022 11:51 EDT) Blood VENOUS BLOOD / Unknown 11/30/2022 11:51 EDT 12/01/2022 17:57 EDT Provider Outr Resulting Lab IMMUNOLOGY A ND SEROLOGY ORDERABLES Performing Organization Address City/[facility]/ZIP Co de Phone Number [facility] [address] [place] [address] * QUANTIFERON TB2 (PERFORMABLE) (11/30/2022 11:51 EDT) Blood VENOUS BLOOD / Unknown 11/30/2022 11:51 EDT 12/01/2022 17:57 EDT Provider Outr Resulting Lab IMMUNOLOGY A ND SEROLOGY ORDERABLES Performing Organization Address [facility] Co de Phone Number [facility] [address] [place] [address] * QUANTIFERON TB1 (PERFORMABLE) (11/30/2022 11:51 EDT) Blood VENOUS BLOOD / Unknown 11/30/2022 11:51 EDT 12/01/2022 17:57 EDT Provider Outr Resulting Lab IMMUNOLOGY A ND SEROLOGY ORDERABLES Performing Organization Address [facility] de Phone Number [facility] [address] [place] [address] * QUANTIFERON NIL (PERFORMABLE) (11/30/2022 11:51 EDT) Blood VENOUS BLOOD / Unknown 11/30/2022 11:51 EDT 12/01/2022 17:57 EDT Provider Outr Resulting Lab IMMUNOLOGY A ND SEROLOGY ORDERABLES Performing Organization Address [facility] Co de Phone Number [facility] [address] [place] [address] documented in this encounter Visit Diagnoses Not on filedocumented in this encounter Care Teams Police Commissioner Relationship Specialty Start Date End Date Unknown, Provider, PCP - General 06/01/17 documented as of this encounter
--- OUTSIDE RECORDS SUMMARY | 2024-03-12 16:13 | XMS_ITS | Encounter Summary ---
Author Organization [facility] [place] [address] Care Team Providers Care Chronic Specialist Name Role Phone Dora Elliott MD Primary Care Provider [phone] Encounter Details Date Type Department Care Team (Late st Contact Info) Description 08/05/2013 Orders Only Dermatology at [facility] [address] [place] [address] Aysha Fraser MD [facility] [place] [place] [address] Psoriasis (Primary Dx) Social History Tobacco Use [...] EDT Office Visit Dermatology at [place] [address] [facility] [place] [phone] Jaquan Syed MD [address] [facility], [address] DERMATOLOGY [place], [place] [address] documented as of this encounter Visit Diagnoses Diagnosis Psoriasis- Primary Other psoriasis documented in this encounter Care Teams Chronic Specialist Relationship Specialty Start Date End Date Dora Elliott MD [address] [place] [address] [address] [place] [address] PCP - General 01/23/13 08/05/20 documented as of this encounter
--- OUTSIDE RECORDS SUMMARY | 2024-03-12 16:13 | XMS_ITS | Encounter Summary ---
Author Organization [facility] Address [address] [place] [address] Care Team Providers Care Bander Name Role Phone Unknown, Provider Primary Care Provider [phone] Encounter Details Date Type Department Care Team (Late st Contact Info) Description 10/23/2020 Lab Requisition [facility] Pathology & Laboratory Medicine - [facility] [address] [place] [address] Eloy Brito MD [address] [place] [address] Gastro-esophageal reflux disease without esophagitis; [...] with no significant diagnostic abnormality. 10/29/2020 8:13 [facility] Diagnosis Comment Immunoperoxidase stains were performed on this case to further characterize the lesion. ANTIBODY(CLONE)(BL OCK):RESULT H pylori (Rabbit Monoclonal (SP48), Soper) (B1): Negative for organisms. NOTE: One or [...] performance characteristics have been determined by [facility] and/or by the referring laboratory. The positive [...] high complexity clinical laboratory testing. 10/29/2020 8:13 [facility] Attestation By the signature below, the attending physician certifies that they have 1) personally conducted a gross and/or microscopic examination of the described specimen(s), and/or personally interpreted the results of laboratory testing of the described specimen(s), and 2) personally rendered or confirmed the above diagnosis. 10/29/2020 8:13 [facility] at 0813 Clinical History HX GERD; clinical diagnosis code: K21.9, Z98.890 10/29/2020 8:13 [facility] Gross Description A. [...] Giorgio Garcia 10/23/2020 9:53 10/29/2020 8:[address] [facility] Performing Lab [facility] 8:[address] [facility] Scanned Images 10/29/2020 8:[address] [facility] Tissue ENTIRE ESOPHAGUS / Unknown [...] EDT Eloy Brito MD PATHOLOGY ORD ERABLES [facility] [address] [place] [address] documented in this encounter Visit Diagnoses Diagnosis Gastro-esophageal reflux disease without esophagitis Esophageal reflux Other specified postprocedural states documented in this encounter Care Teams Bander Relationship Specialty Start Date End Date Unknown, Provider, PCP - General 06/01/17 documented as of this encounter
--- OUTSIDE RECORDS SUMMARY | 2024-03-12 16:13 | XMS_ITS | Encounter Summary ---
Author Organization [facility] Address [address] [place] [address] Care Team Providers Care Collateral Clerk Name Role Phone Unknown, Provider Primary Care Provider Encounter Details Date Type Department Care Team (Late st Contact Info) Description 05/06/2019 Lab Requisition [facility] Pathology & Laboratory Medicine - [facility] [address] [place] [address] Amy Ivey MD [address] [place] [id number] Encounter for other general examination Social History [...] of inflamed hyperplastic polyp. 05/08/2019 9:55 EST [facility] at 0955 Clinical History Colonoscopy for screening Polyps 05/08/2019 9:55 [facility] Attestation By the signature below, the attending physician certifies that they have personally conducted a gross and/or microscopic examination of the described specimens and rendered or confirmed the above diagnosis. 05/08/2019 9:55 [facility] at 0955 Gross Description A. Received in formalin labelled with proper patient identification (initials B, C) and sigmoid polyp are 7 domingo tissues (0.2 x 0.2 x 0.1 cm to 0.3 x 0.3 x 0.2 cm). Entirely submitted in A1-A2. B. Received in formalin labelled with proper patient identification (initials B, C) and descending colon polyp is a single domnigo tissue fragment (0.4 x 0.3 x 0.2 [...] D1. Reva Rogers 05/07/2019 08:22 05/08/2019 9:55 [facility] Scanned Images 05/08/2019 9:55 [facility] Tissue DESCENDING COLON STRUCTURE / Unknown 05/06/2019 10:40 EST 05/06/2019 17:47 EST Tissue specimen (specimen) DESCENDING COLON STRUCTURE / Unknown 05/06/2019 10:40 EST 05/06/2019 17:47 EST Tissue specimen (specimen) TRANSVERSE COLON STRUCTURE / Unknown 05/06/2019 10:40 EST 05/06/2019 17:47 EST Tissue specimen (specimen) DESCENDING COLON STRUCTURE / Unknown 05/06/2019 10:40 EST 05/06/2019 17:47 EST Amy Ivey MD PATHOLOGY ORDERA BLES [facility] Organization Address City/State/ZIP Co de Phone Number [facility] [address] [place] [address] documented in this encounter Visit Diagnoses Diagnosis Encounter for other general examination documented in this encounter Care Teams Collateral Clerk Relationship Specialty Start Date End Date Unknown, Provider, PCP - General 06/01/17 documented as of this encounter
--- OUTSIDE RECORDS SUMMARY | 2024-03-12 16:13 | XMS_ITS | Encounter Summary ---
Author Organization [facility] [place] [address] Care Team Providers Care Greenstone Polisher Operator Name Role Phone Dora Elliott MD Primary Care Provider [phone] Encounter Details Date Type Department Care Team (Late st Contact Info) Description 08/09/2013 Orders Only Dermatology at [facility] [address] [place] [address] Aysha Fraser MD [facility] [place] [address] Psoriasis (Primary Dx) Social History Tobacco Use [...] 3:30 PM EDT Office Visit Dermatology at [place] [address] [facility] [place] [address] Jaquan Syed MD [address] [facility], [address] DERMATOLOGY [place], [place] [address] documented as of this encounter Visit Diagnoses Diagnosis Psoriasis- Primary Other psoriasis documented in this encounter Care Teams Greenstone Polisher Operator Relationship Specialty Start Date End Date Dora Elliott MD [address] [place] [address] [address] [place] [address] PCP - General 01/23/13 08/05/20 documented as of this encounter
--- OUTSIDE RECORDS SUMMARY | 2024-03-12 16:13 | XMS_ITS | Encounter Summary ---
Author Organization [facility] [place] [address] Care Team Providers Care Returned Item Clerk Name Role Phone Dora Elliott MD Primary Care Provider [phone] Encounter Details Date Type Department Care Team (Late st Contact Info) Description 08/05/2013 Telephone Dermatology at [facility] [address] [place] [address] Aysha Fraser MD [facility] [place] [address] Social History Tobacco Use Types Packs/Day Years [...] is pending; info has been faxed to [facility] Calcipotriene - RX needs to be name brand-please send RX through as [facility]ovone[facility]. Thanks Yoana documented in this encounter Plan of Treatment Upcoming Encounters Date Type Department Care Team (Late st Contact Info) Description 01/02/2025 3:30 PM EDT Office Visit Dermatology at [place] [address] [facility] [address] [place] [address] Jaquan Syed MD [address] [facility] [address], [place] [address] documented as of this encounter Visit Diagnoses Not on filedocumented in this encounter Care Teams Returned Item Clerk Relationship Specialty Start Date End Date Dora Elliott MD [facility] [address] [facility] [address] [place] [address] PCP - General 01/23/13 08/05/20 documented as of this encounter
--- OUTSIDE RECORDS SUMMARY | 2024-03-12 16:13 | XMS_ITS | Encounter Summary ---
Author Organization [facility] Address [address] [place] [address] Care Team Providers Care Residential Housekeeper Name Role Phone Unknown, Provider Primary Care Provider [phone] Encounter Details Date Type Department Care Team (Late st Contact Info) Description 07/17/2021 Lab Requisition [facility] Pathology & Laboratory Medicine - [facility] [address] [place] [address] Outr Resulting Lab, Provider Social History Tobacco [...] C Antibody Negative Negative 07/19/2021 10:40 EST [facility] Blood VENOUS BLOOD / Unknown 07/16/2021 14:24 EST 07/18/2021 15:42 EST Provider Outr Resulting Lab CHEMISTRY & BLOOD GAS ORDERABLES [facility] [address] [place] [address] * FERRITIN (07/16/2021 14:24 EST) Ferritin 28 10 - 291 ng/mL 07/19/2021 9:46 EST [facility] Blood VENOUS BLOOD / Unknown 07/16/2021 14:24 EST 07/18/2021 15:42 EST Provider Outr Resulting Lab CHEMISTRY & BLOOD GAS ORDERABLES [facility] [address] [place] [address] documented in this encounter Visit Diagnoses Not on filedocumented in this encounter Care Teams Residential Housekeeper Relationship Specialty Start Date End Date Unknown, Provider, PCP - General 06/01/17 documented as of this encounter
--- OUTSIDE RECORDS SUMMARY | 2024-03-12 16:13 | XMS_ITS | Encounter Summary ---
Author Organization [facility] Address [facility] [place] [address] Care Team Providers Care Paver Operator Name Role Phone Dora Elliott MD Primary Care Provider [phone] Reason for Visit * Reason Onset Date Comments Medication Refill 03/26/2013 Encounter Details Date Type Department Care Team (Late st Contact Info) Description 03/26/2013 Refill Dermatology at [facility] [address] [place] [address] Aysha Fraser MD [facility] [place] [address] Psoriasis (Primary Dx) Social History Tobacco Use [...] 3:30 PM EDT Office Visit Dermatology at [place] [address] [facility] [place] [address] Jaquan Syed MD [address] [facility], [place] [address] documented as of this encounter Visit Diagnoses Diagnosis Psoriasis- Primary Other psoriasis documented in this encounter Care Teams Paver Operator Relationship Specialty Start Date End Date Dora Elliott MD [address] [place] [address] [address] [place] [address] PCP - General 01/23/13 08/05/20 documented as of this encounter
--- OUTSIDE RECORDS SUMMARY | 2024-03-12 16:13 | XMS_ITS | Encounter Summary ---
Author Organization [facility] Address [address] [place] [address] Care Team Providers Care Anesthesiologist Attending Name Role Phone Unavailable Primary Care Provider Unavailabl e Encounter Details Date Type Department Care Team (Latest Contact Info) Description 05/31/2017 16:32 EST - 05/31/2017 23:59 EST Hospital Encounter [address] [address] Unknown, Provider, Discharge Disposition: Home or Self Care Social History Tobacco Use Types Packs/Day Years Used Date Smoking Tobacco: Never Assessed Sex and Gender Information Value Date Recorded Sex Assigned at Not on file Gender Identity Not on file Sexual Orientation Not on file documented as of this encounter Discharge Disposition Disposition Code Departure Means Destination Home or Self Mcfp documented in this encounter Plan of Treatment Not on file documented as of this encounter Visit Diagnoses Not on filedocumented in this encounter
--- OUTSIDE RECORDS SUMMARY | 2024-03-12 16:13 | XMS_ITS | Encounter Summary ---
Author Organization [facility] [place] [address] Care Team Providers Care Trade Recruiter Name Role Phone Dora Elliott MD Primary Care Provider [phone] Encounter Details Date Type Department Care Team (Late st Contact Info) Description 03/01/2013 Telephone Dermatology at [facility] [address] [place] [phone] Aysha Fraser MD [facility] [place] [address] Social History Tobacco Use Types Packs/Day Years [...] 2013 This was confirmed by Remi from [place], . Yoana documented in this encounter Plan of Treatment Upcoming Encounters Date Type Department Care Team (Late st Contact Info) Description 01/02/2025 3:30 PM EDT Office Visit Dermatology at [address] [address] Jaquan Syed MD [address], [place] [address] documented as of this encounter Visit Diagnoses Not on filedocumented in this encounter Care Teams Trade Recruiter Relationship Specialty Start Date End Date Dora Elliott MD [facility] [address] [place] [address] PCP - General 01/23/13 08/05/20 documented as of this encounter
--- OUTSIDE RECORDS SUMMARY | 2024-03-12 16:13 | XMS_ITS | Encounter Summary ---
Author Organization [facility] Address [address] [place] [address] Care Team Providers Care Light Out Examiner Name Role Phone Unknown, Provider Primary Care Provider Encounter Details Date Type Department Care Team (Late st Contact Info) Description 07/17/2021 Lab Requisition [facility] Pathology & Laboratory Medicine - [facility] [address] [place] [address] Outr Resulting Lab, Provider Social History Tobacco [...] 4th Generation Negative Negative 07/19/2021 12:10 EST [facility] Comment:If acute HIV-1 infec tion is suspected in a high risk patient, submit plasma specimen for HIV-1 RNA quantitation test. Blood VENOUS BLOOD / Unknown 07/16/2021 14:24 EST 07/18/2021 15:42 EST Narrative [facility] - 07/19/2021 12:10 EST Fourth Generation assay performed on the Siemens Centaur XPT. Provider Outr Resulting Lab IMMUNOLOGY A ND SEROLOGY ORDERABLES [facility] [address] [place] [address] documented in this encounter Visit Diagnoses Not on filedocumented in this encounter Care Teams Light Out Examiner Relationship Specialty Start Date End Date Unknown, Provider, PCP - General 06/01/17 documented as of this encounter
--- OUTSIDE RECORDS SUMMARY | 2024-03-12 16:13 | XMS_ITS | Encounter Summary ---
Author Organization [facility] Address [facility] [place] [address] Care Team Providers Care Candle Making Supervisor Name Role Phone Dora Elliott MD Primary Care Provider [phone] Encounter Details Date Type Department Care Team (Late st Contact Info) Description 10/28/2013 Telephone Dermatology at [facility] [address] [place] [address] Aysha Fraser MD [facility] [place] [address] Social History Tobacco Use Types Packs/Day Years [...] 3:30 PM EDT Office Visit Dermatology at [place] [address] [place] [address] Jaquan Syed MD [address] [facility] [facility] [address], [place] [address] documented as of this encounter Visit Diagnoses Not on filedocumented in this encounter Care Teams Candle Making Supervisor Relationship Specialty Start Date End Date Dora Elliott MD [address] [facility] 1 [place] [address] PCP - General 01/23/13 08/05/20 documented as of this encounter
--- OUTSIDE RECORDS SUMMARY | 2024-03-12 16:13 | XMS_ITS | Encounter Summary ---
Author Organization [facility] [place] [address] Care Team Providers Care Marine Fisheries Technician Name Role Phone Dora Elliott MD Primary Care Provider [phone] Encounter Details Date Type Department Care Team (Late st Contact Info) Description 02/20/2014 Telephone [facility] [address] [place] [address] Aysha Fraser MD [facility] [place] [address] Social History Tobacco Use Types Packs/Day Years [...] Patient returned Arlene Perez's call. Contact # [phone]. * Telephone Encounter - Arlene Perez LPN - 02/20/2014 8:49 AM EDT Called patient at home and left message to return my call. Arlene Perez LPN documented in this encounter Plan of Treatment Upcoming Encounters Date Type Department Care Team (Late st Contact Info) Description 01/02/2025 3:30 PM EDT Office Visit Dermatology at [place] [address] [place] [address] Jaquan Syed MD [address] [facility] [facility] [address] [place] [address] documented as of this encounter Visit Diagnoses Not on filedocumented in this encounter Care Teams Marine Fisheries Technician Relationship Specialty Start Date End Date Dora Elliott MD [facility] [address] [facility] 1 [place] [address] PCP - General 01/23/13 08/05/20 documented as of this encounter
--- OUTSIDE RECORDS SUMMARY | 2024-03-12 16:13 | XMS_ITS | Encounter Summary ---
Author Organization [facility] [place] [address] Care Team Providers Care Gospel Worker Name Role Phone Dora Elliott MD Primary Care Provider [phone] Encounter Details Date Type Department Care Team (Late st Contact Info) Description 02/20/2013 Telephone Dermatology at [facility] [address] [place] [address] Aysha Fraser MD [facility] [place] [place] [address] Social History Tobacco Use Types Packs/Day Years [...] 3:30 PM EDT Office Visit Dermatology at [address] [place] [address] Jaquan Syed MD [address] [facility], [place] [address] documented as of this encounter Visit Diagnoses Not on filedocumented in this encounter Care Teams Gospel Worker Relationship Specialty Start Date End Date Dora Elliott MD [facility] [address] [facility] [facility] 1 [place] [address] PCP - General 01/23/13 08/05/20 documented as of this encounter
--- OUTSIDE RECORDS SUMMARY | 2024-03-12 16:13 | XMS_ITS | Encounter Summary ---
Author Organization [facility] [place] [address] Care Team Providers Care Stone Mill Operator Name Role Phone Dora Tsai MD Primary Care Provider [phone] Reason for Visit * Reason Comments Skin Check Encounter Details Date Type Department Care Team (Late st Contact Info) Description 02/07/2013 8:45 AM EDT Office Visit Dermatology at [facility] [address] [place] [address] Aysha Fraser MD [facility] [place] [address] Psoriasis; High risk medication use Discharge Disposition: [...] safe to schedule her an appointment * Aysah Fraser MD - 02/07/2013 8:47 AM EDT [...] had since childhood. She moved here from [place] two years ago. She attempted to get a referral from her doctor in [place] to see Dr. Syed in [facility], but found out he was not seeing new patients. She was seeing a associate professor of biology in [place] for psoriatic arthritis,has pain in knees, ankles [...] caused GI upset anddiarrhea. 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 EXAM General: NAD, pleasant, cooperative Skin: A [...] documentation in this encounter. Aysha Ledesma MD Hydroelectric Plant Operator of Dermatology, Department of Bilingual Speech Language PathologistHydroelectric Plant Operatorcashiers supervisor (Dermatopathology) [facility] cc: DORA TSAI MD documented in this encounter Plan of Treatment Upcoming Encounters Date Type Department Care Team (Late st Contact Info) Description 01/02/2025 3:30 PM EDT Office Visit Dermatology at [place] [address] [facility] [place] [place] [address] Jaquan Syed MD [address] [facility] [place] [address] documented as of this encounter Procedures Procedure [...] intervals supplied above were not validated at [facility]. Results from pediatric patients should be interpreted [...] MD HEMATOLOGY ORDERABL ES Performing Organization Address City/State/[facility] Co wa Phone Number [facility] documented in this encounter Visit Diagnoses Diagnosis Psoriasis Other psoriasis High risk medication use Encounter for long-term (current) use of other medications documented in this encounter Care Teams Stone Mill Operator Relationship Specialty Start Date End Date Dora Tsai MD [facility] [address] [place] [address] PCP - General 01/23/13 08/05/20 documented as of this encounter
--- OUTSIDE RECORDS SUMMARY | 2024-03-12 16:13 | XMS_ITS | Encounter Summary ---
Author Organization [facility] [place] [address] Care Team Providers Care Broadcast Program Director Name Role Phone Dora Elliott MD Primary Care Provider [phone] Reason for Visit * Reason Comments Psoriasis Encounter Details Date Type Department Care Team (Late st Contact Info) Description 02/13/2014 9:15 AM EDT Follow-Up Dermatology at [facility] [address] [place] [address] Aysha Fraser MD [facility] [place] [address] Psoriasis (Primary Dx) Discharge Disposition: Home Social [...] documentation in this encounter. Aysha Fraser MD Machine Hamper Maker of Dermatology, Department of Software Firmware EngineerMachine Hamper Makerbutcher helper (Dermatopathology) [facility] documented in this encounter Plan of Treatment Upcoming Encounters Date Type Department Care Team (Late st Contact Info) Description 01/02/2025 3:30 PM EDT Office Visit Dermatology at [place] [address] [place] [address] Jaquan Syed MD [address], [address] DERMATOLOGY [place], [place] [id number] documented as of this encounter Procedures Procedure [...] metabolic panel (non-fasting) (02/13/2014 9:39 AM EDT) [facility] Glucose 86 60 - 199 mg/dL CERNER MILLENNIUM Comment:Diabetes: >=200 mg/d L plus symptoms Blood Urea Nitrogen 16 8 - 18 mg/dL CERNER MILLENNIUM Creatinine 0.88 0.70 - 1.20 mg/dL CERNER MILLENNIUM Comment: Please note that the pediatric reference intervals supplied above were not validated at [facility]. Results from pediatric patients should be interpreted [...] the following links into your internet browser. [email or web address] Blood specimen (specimen) 02/13/2014 9:39 AM EDT 02/13/2014 12:26 PM EDT Narrative Resulting Agency Comment Spec In Lab Aysha Fraser MD CHEMISTRY ORDERABLE S [facility] * QuantiFERON-TB Gold (02/13/2014 9:39 AM EDT) Quantiferon-TB Gold Negative Negative [facility] Comment: Nil (IU/mL)= 0.04 TB Ag minus [...] MD CHEMISTRY ORDERABLE S Performing Organization Address City/State/[facility] Phone Number [facility] documented in this encounter Visit Diagnoses Diagnosis Psoriasis- Primary Other psoriasis documented in this encounter Care Teams Broadcast Program Director Relationship Specialty Start Date End Date Dora Elliott MD [address] [place] [address] PCP - General 01/23/13 08/05/20 documented as of this encounter
--- OUTSIDE RECORDS SUMMARY | 2024-03-12 16:13 | XMS_ITS | Encounter Summary ---
Author Organization [facility] Address [facility] [place] [address] Care Team Providers Care Assistant Professor Of Geography Name Role Phone Dora Elliott MD Primary Care Provider Encounter Details Date Type Department Care Team (Late Contact Info) Description 02/26/2013 Telephone Dermatology at [facility] [address] [place] [phone] Aysha Fraser MD [facility] [place] [address] Social History Tobacco Use Types Packs/Day Years [...] call her tomorrow after 2:30 pm at [phone]. Thanks Yoana documented in this encounter Plan of Treatment Upcoming Encounters Date Type Department Care Team (Late st Contact Info) Description 01/02/2025 3:30 PM EDT Office Visit Dermatology at [address] [place] [address] Jaquan Syed MD [address], [place] [address] documented as of this encounter Visit Diagnoses Not on filedocumented in this encounter Care Teams Assistant Professor Of Geography Relationship Specialty Start Date End Date Dora Elliott MD [address] [place] [address] PCP - General 01/23/13 08/05/20 documented as of this encounter
--- OUTSIDE RECORDS SUMMARY | 2024-03-12 16:13 | XMS_ITS | Encounter Summary ---
Author Organization [facility] [place] [address] Care Team Providers Care Safety Equipment Testing Specialist Name Role Phone Dora Elliott MD Primary Care Provider [phone] Encounter Details Date Type Department Care Team (Late st Contact Info) Description 04/04/2013 Telephone Dermatology at [facility] [address] [place] [phone] Aysha Fraser MD [facility] [place] [address] Social History Tobacco Use Types Packs/Day Years Used Date Smoking Tobacco: Some Days Sex and Gender Information Value Date Recorded Sex Assigned at Not on file Gender Identity Not on file Sexual Orientation Not on file documented as of this encounter Miscellaneous Notes * Telephone Encounter - Sofia Allen, MOHAN - 04/08/2013 9:05 AM EST A fax from [facility] was sent to us requesting the Rx for patient: I called them and asked why they needed that if everything was all set through [facility] last week- they informed me that the companies are merging and that the patient was not in the [employer] system but once she was, she could [...] from them, she can call them at [phone]. I then called the patient to inform her of this information and gave her the number to call in casethe pharmacy does not contact her. Patient understands, is pleased to hear, and will be waiting forthat phone call. She will call us if she has any other issues. NOTE: Sheri ARCHER Line: [phone] * Telephone Encounter - Yoana Clark - 04/04/2013 10:17 AM EST Spoke with Briana Irwin from [facility], the patient will receive a starter dose of 80 mg (2 - 40 mg pens) and then 1-40 mg pen at week 1 (per the RX) and then 1 - 40 mg pen every other week. Pt is set up for a one-month supply with 11 refills. To pull up the RX use reference number [id number] when calling Sheri. They will be in [...] 3:30 PM EDT Office Visit Dermatology at [place] [address] [facility] [place] [address] Jaquan Syed MD [address], [place] [address] documented as of this encounter Visit Diagnoses Not on filedocumented in this encounter Care Teams Safety Equipment Testing Specialist Relationship Specialty Start Date End Date Dora Elliott MD [address] [place] [address] PCP - General 01/23/13 08/05/20 documented as of this encounter
--- OUTSIDE RECORDS SUMMARY | 2024-03-12 16:13 | XMS_ITS | Encounter Summary ---
Author Organization [facility] Address [address] [place] [address] Care Team Providers Care Rn Corrections Name Role Phone Unknown, Provider Primary Care Provider Encounter Details Date Type Department Care Team (Late st Contact Info) Description 10/08/2021 Lab Requisition [facility] Pathology & Laboratory Medicine - [facility] [address] [place] [address] Ashley Vences, DO [address] [place], [place] [id number] Encounter for other general examination Social History [...] management options, if applicable. 10/12/2021 10:51 EDT [facility] Final Diagnosis A. DUODENUM, BULB, [...] mild reactive changes. 10/12/2021 10:51 [facility] Attestation By the signature below, the attending physician certifies that they have 1) personally conducted a gross and/or microscopic examination of the described specimen(s), and/or personally interpreted the results of laboratory testing of the described specimen(s), and 2) personally rendered or confirmed the above diagnosis. 10/12/2021 10:51 [facility] at 1051 Clinical History GERD, dysphagia, anemia 10/12/2021 10:51 [facility] Gross Description A. Received [...] JAEL NATARAJAN(ASCP) 10/11/2021 9:21 10/12/2021 10:51 EDT [facility] Performing Lab [facility] 10/12/2021 10:51 EDT [facility] Scanned Images 10/12/2021 10:51 EDT [facility] Tissue ENTIRE ESOPHAGUS [...] 22:46 EDT Ashley Vences DO PATHOLOGY ORDERABLES [facility] [address] [place] [address] documented in this encounter Visit Diagnoses Diagnosis Encounter for other general examination documented in this encounter Care Teams Rn Corrections Relationship Specialty Start Date End Date Unknown, Provider, PCP - General 06/01/17 documented as of this encounter
--- OUTSIDE RECORDS SUMMARY | 2024-03-12 16:13 | XMS_ITS | Encounter Summary ---
Author Organization [facility] Address [facility] [place] [address] Care Team Providers Care Alligator Trapper Name Role Phone Dora Elliott MD Primary Care Provider Reason for Visit * Reason Comments Psoriasis follow up-6 months Encounter Details Date Type Department Care Team (Late st Contact Info) Description 08/01/2013 3:45 PM EST Follow-Up Dermatology at [facility] [address] [place] [address] Aysha Fraser MD [facility] [place] [address] Psoriasis (Primary Dx) Discharge Disposition: Home Social [...] documentation in this encounter. Aysha Fraser MD Chaser Tar of Dermatology, Department of Remote CodersChaser Tarwage analyst (Dermatopathology) [facility] documented in this encounter Plan of Treatment Upcoming Encounters Date Type Department Care Team (Late st Contact Info) Description 01/02/2025 3:30 PM EDT Office Visit Dermatology at [place] [address] [facility] [place] [address] Jaquan Syed MD [address] [place] [address] documented as of this encounter Procedures Procedure [...] EST Aysha Fraser MD HEMATOLOGY ORDERABL ES [facility] * Comprehensive metabolic panel (non-fasting) (08/01/2013 4:14 PM EST) Pathologist [facility] Glucose 90 60 - 199 mg/dL CERNER MILLENNIUM Comment:Diabetes: >=200 mg/d L plus symptoms Blood Urea Nitrogen 14 8 - 18 mg/dL CERNER MILLENNIUM Creatinine 0.84 0.70 - 1.20 mg/dL CERNER MILLENNIUM Comment: Please note that the pediatric reference intervals supplied above were not validated at [facility]. Results from pediatric patients should be [...] psoriasis documented in this encounter Care Teams Alligator Trapper Relationship Specialty Start Date End Date Dora Elliott MD [address] [place] [address] PCP - General 01/23/13 08/05/20 documented as of this encounter
--- OUTSIDE RECORDS SUMMARY | 2024-03-12 16:13 | XMS_ITS | Referral Summary ---
Author Organization [facility] Address [address] [place] [address] Care Team Providers Care Junior Copywriter Name Role Phone Unknown, Provider Primary Care Provider [phone] Social History Tobacco Use Types Packs/Day Years [...] C Antibody Negative Negative 07/19/2021 10:40 EST [facility] Blood VENOUS BLOOD / Unknown 07/16/2021 14:24 EST 07/18/2021 15:42 EST Provider Outr Resulting Lab CHEMISTRY & BLOOD GAS ORDERABLES [facility] [address] [place] [address] from Last 3 Months or Most Recently Relevant to Health Maintenance Care Teams Junior Copywriter Relationship Specialty Start Date End Date Unknown, Provider, PCP - General 06/01/17
--- OUTSIDE RECORDS SUMMARY | 2024-03-12 16:13 | XMS_ITS | Encounter Summary ---
Author Organization [facility] [place] [address] Care Team Providers Care Medical Sociologist Name Role Phone Dora Elliott MD Primary Care Provider [phone] Reason for Visit * Reason Comments Medication Refill Encounter Details Date Type Department Care Team (Late st Contact Info) Description 07/11/2014 Refill Dermatology at [facility] [address] [place] [address] Aysha Fraser MD [facility] [place] [address] Social History Tobacco Use Types Packs/Day Years [...] 3:30 PM EDT Office Visit Dermatology at [address] [address] Jaquan Syed MD [address], [place] [address] documented as of this encounter Visit Diagnoses Not on filedocumented in this encounter Care Teams Medical Sociologist Relationship Specialty Start Date End Date Dora Elliott MD [facility] [address] [place] [address] PCP - General Family Medicine 08/11/20 documented as of this encounter
--- OUTSIDE RECORDS SUMMARY | 2024-03-12 16:13 | XMS_ITS | Clinical Summary ---
Author Organization [facility] Address [address] [place] [address] Care Team Providers Care Color Coater Name Role Phone Unknown, Provider Primary Care [...] Negative Negative 07/19/2021 10:[address] [facility] Blood VENOUS BLOOD / Unknown 07/16/2021 14:24 EST 07/18/2021 15:42 EST Provider Outr Resulting Lab CHEMISTRY & BLOOD GAS ORDERABLES [facility] [address] [place] [address] from Last 3 Months or Most Recently Relevant to Health Maintenance Care Teams Color Coater Relationship Specialty Start Date End Date Unknown, Provider, PCP - General 06/01/17
== END 2024-03-12 16:09 | disposition home or self-care (01) ==
LOC: LBN 16:08
PROVIDERS: PCP Family Medicine; Visit Provider Nurse Practitioner Family
DX: R35.1 Nocturia (principal)
CPT/HCPCS: 87086

== ENCOUNTER 2024-06-05 08:17 | Outpatient (REF) | payer OTHER, SELFPAY ==
[2024-06-05 15:46] LABS: AST 15 U/L (15-37); Calculated LDL 172 mg/dL (<100); Cholesterol 263 mg/dL (<200); HDL Cholesterol 70 mg/dL (40-60); Triglyceride 109 mg/dL (<150)
[2024-06-05 16:55] LABS: Creatine Kinase 68 U/L (26-192)
[2024-06-05 17:04] LABS: Hemoglobin A1C 5.5 % (<5.7)
== END 2024-06-05 08:18 | disposition home or self-care (01) ==
LOC: NCHCN 08:17
PROVIDERS: PCP Family Medicine; Visit Provider Family Medicine
DX: E78.5 Hyperlipidemia, unspecified (principal); Z13.1 Encounter for screening for diabetes mellitus
CPT/HCPCS: 80061; 82550; 83036; 84450

== ENCOUNTER 2024-07-05 08:15 | Day surgery (SDC) | payer OTHER, SELFPAY ==
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
--- NOTE | 2024-07-04 19:27 | W.PM.DSUDISC ---
Date of service: 07/05/24 Discharge Plan Disposition Patient Disposition: Home Condition: Good Discharge Details Reason For Visit: screening colonoscopy Attending Provider: Danilo Reina Primary Care Provider: Dora Elliott Home Meds and New Rx's Prescriptions: Continued acetaminophen [Tylenol Arthritis Pain] 650 mg tablet extended release 650 mg PO Q12H PRN potassium 99 mg tablet 99 mg PO ONCE PM polyethylene glycol 3350 17 gram/dose powder 17 g PO ONCE Qty: 238 0RF Rx Instructions: Take per colonoscopy instructions provided by ordering providers office melatonin 10 mg capsule 10 mg PO HS PRN cholecalciferol (vitamin D3) 50 mcg (2,000 unit) capsule 50 mcg PO DAILY Humira 40 MG/0.8 ML kit 40 mg SQ TWICE A MONTH Patient Comments: Pt reports not having since 05/18 diphenhydramine HCl [Benadryl] 25 MG capsule 25 mg PO PRN multivitamin [Daily Multi-Vitamin] 1 EACH tablet 1 ea PO DAILY pantoprazole 40 mg tablet,delayed release (DR/EC) 40 mg PO HS Allergy Relief (cetirizine) 10 mg capsule 10 mg PO DAILY PRN clobetasol 0.05 % cream 1 applic topical BID baclofen 10 mg tablet 10 mg PO DAILY acetaminophen [Tylenol] 325 mg Capsule 650 mg PO ONCE PRN Discontinued bisacodyl [Dulcolax (bisacodyl)] 5 mg tablet,delayed release (DR/EC) 5 mg PO ONCE Qty: 4 0RF Rx Instructions: Take per colonoscopy instructions provided by ordering providers office polyethylene glycol 3350 [Miralax] 17 gram/dose powder 17 g PO DAILY Discharge Instructions Instructions: Colon polyps Additional Instructions: Jessica, was great seeing you and Sarkis today, and I hope you make a quick recovery from the procedure. Everything went very smoothly. Your prep was excellent and I could see everything fine. You have a few diminutive polyps in your rectum. I took out the 3 largest of these, by exam, they all appear consistent with hyperplastic polyps, which is not at all worrisome. I will send these off to the pathologist for their review just to be safe, but I do not think this is anything to be alarmed about. I did find 1 another polyp, which seems more consistent with the adenomatous type polyps (the reason that we do screening colonoscopies). This was also removed, will also be sent to the pathologist for review. Those results been taking about a week or 2 to get back, but once I have that information, my office will be in touch with recommendations for future colonoscopies. If you need anything in the meantime, or have any questions at all, please do not hesitate to call. 1. If tolerated, consume a soft, low fiber diet for 1-2 days. 2[address] Do not drive, drink alcohol, operate machinery, make critical decisions, or do activities that require coordination or balance for 24 hours. 3. Because air was put into your colon during the procedure, expelling air from your rectum (passing gas or farting) is normal. 4. You may not have a bowel movement for 1-3 days because of the colonoscopy prep. This is normal. 5. Go directly to the emergency room if you notice any of the following: Develop chills (warm to touch), or if you have a thermometer and your temperature is above 101 Difficulty breathing or difficultly swallowing Persistent vomiting Severe abdominal pain, other than gas cramps Severe chest pain Black, tarry stools Any bleeding ? exceeding one tablespoon 6. Call your physician if the site where your intravenous was started becomes red, swollen, painful, and warm to touch. 7. Your physician has reviewed your pre-procedure medications. Please continue to take those medications as previously ordered. You will be given specific information/education regarding any changes to your medications before leaving. Activity:: Activity as Tolerated Diet:: As Tolerated Discharge Orders Discharge Orders: Discharge Order (Routine); Ordered 07/04/24 Ordered By: Danilo Reina DS: Diagnosis Discharge Diagnosis (1) Encounter for screening colonoscopy: Status: Acute Asessment and Plan: Follow-up on polypectomy results
--- NOTE | 2024-07-04 19:30 | W.COLOREPORT ---
Date of service: 07/05/24 Time of Service: 10:32 Colonoscopy Report Date of procedure: 07/05/24 Pre-op diagnosis general: screening colonoscopy Post-op diagnosis procedure note: other (Colorectal polyps) Procedure: colonoscopy with polypectomy Surgeon: Danilo Reina Anesthesia Type: General:No Airway Estimated blood loss (mL): 10 Pathology: other (0.25 cm rectal polyps x 3, 0.5 cm polyp at 85 cm) Complications: None Disposition: same day Indications: Jessica is a 53 year old woman with a history of adenomatous polyps who needs a screeing colonoscopy Prep: Miralax/Dulcolax Procedure Start Time: 10:06 Procedure End Time: 10:12 Retraction Time: 10 Findings: Hyperplastic appearing rectal polyps, 0.5 cm flat polyp at 85 cm Procedure Description: After the induction of anesthesia, and with Jessica in left lateral decubitus position, I began by performing an external anorectal exam.? Perineum and skin were normal, as was the anal verge.? There was no evidence of external hemorrhoids.? Next, I performed a digital rectal exam.? I did appreciate any abnormal findings.? Next, I advanced a colonoscope into the rectal vault.? I performed retroflexion.? This appeared normal.? In the lower and midportion of the rectal vault were few diminutive polyps. 3 of these were about 0.25 cm in size. Narrowband imaging was used to assist with the analysis. These polyps appeared consistent with hyperplastic polyps. But to be safe, polypectomy x 3 was performed with cold forceps. There was minimal bleeding from the sites. Using insufflation, I then advanced the colonoscope beyond the rectal folds and into the sigmoid colon before advancing towards the cecum.? The quality of the prep was excellent.? The scope was noted to be in the cecum by identification of the ileocecal valve and appendiceal orifice.? I then began withdrawing the colonoscope using repeated irrigation as necessary for full evaluation of the colonic mucosa. Around 85 cm from the anal verge I identified a 0.5 cm polyp. ?It appeared flat in character. ?I was able to remove this with a cold forcep polypectomy. ?I examined the site, and there was minimal bleeding. ?Once this was completed, I continued to withdraw the scope and examine the remainder of the colonic mucosa.?Once the scope was withdrawn to the level of the rectum, great care was taken to examine portions of the rectal folds.? Finally, the scope was withdrawn and the patient was brought to the same-day surgery recovery unit as the anesthetic wore off. ?The findings and instructions were shared with the patient prior to discharge. [place] Bowel Prep [place] Bowel Prep Right Colon: 3 Left Colon: 3 Transverse Colon: 3 Total Score: 9
[2024-07-05 08:23] VITALS: BP 117/79; PULSE 60; RESP 16; TEMP 36.7; O2SAT 98
[2024-07-05] MEDS: Lactated Ringers 1,000 ML 80 ML IV (08:48)
[2024-07-05 09:44] VITALS: BMI 35.1
--- NOTE | 2024-07-05 10:07 | BOWEL_PTH ---
PATIENT: Jessica Amato LOC: [facility] U#:[id number] AGE/SX: 53/F ROOM: RE07/05/[address]: Danilo Reina MD : [id number] BED: DIS: 07/05/2024 SPEC #: [id number] RECD: 07/05/24 13:09 STATUS: B[place]GIT RE #: [id number] ALEXIA: 07/05/24 10:[address]: Danilo Reina DEPT: Surgical Specimen RECD BY: Bianka Petty ENTERED: 07/05/24 13:10 SP TYPE: Bowel OTHR DR: Dora Elliott Tissues: 1 - BIOPSY BOWEL 2 - BIOPSY BOWEL Procedures: GROSS AND MICRO LEVEL 4 Comments: [id number]
[2024-07-05 10:27] VITALS: BP 133/83; PULSE 61; RESP 16; TEMP 36.5; O2SAT 98
--- NOTE | 2024-07-05 10:35 | W.ANESPOSTOP ---
Postoperative Evaluation Date, Time and Location Date Performed: 07/05/24 Time Performed: 10:35 Patient Location: Day Surgery Unit Vital Signs Most Recent Imported Vital Signs: Most Recent Vital Signs Temp Pulse Resp BP Pulse Ox 36.5 C 61 16 133/83 98 07/05/24 10:27 07/05/24 10:27 07/05/24 10:27 07/05/24 10:27 07/05/24 10:27 Pain Score Most Recent Pain Score: Most Recent Pain Score Pain Level 0 07/05/24 10:27 Assessment Mental Status: Awake (Alert & Oriented to Patient Baseline) Airway and Respiratory Function: Patent airway with normal (patient baseline) respiratory exam Cardiovascular Function: Hemodynamically Stable Hydration Status: Adequately Hydrated Nausea & Vomiting: No Nausea or Vomiting Pain: Pt. Denies Any Pain Peripheral Nerve Block: Patient did not receive a nerve block
[2024-07-05 10:51] VITALS: BP 122/70; PULSE 54; RESP 14; TEMP 36.3; O2SAT 100
== END 2024-07-05 11:06 | disposition home or self-care (01) ==
LOC: SUR 08:16
PROVIDERS: PCP Family Medicine; Visit Provider Surgery
PROC: 0DJD8ZZ Inspection of Lower Intestinal Tract, Via Natural or Artificial Opening Endoscopic (ICD-10-PCS; CPT 45378; principal; 2024-07-05 10:00)
DX: Z12.11 Encounter for screening for malignant neoplasm of colon (principal); D12.3 Benign neoplasm of transverse colon; K62.1 Rectal polyp
CPT/HCPCS: 45380; 88305; J2704